=== PATIENT | female | born 1950 | race Caucasian/White ===

== ENCOUNTER 2023-06-20 12:33 | Emergency (ER) | payer MEDICARE, MEDICAID, SELFPAY ==
[2023-06-20] VITALS (12 sets, daily range): BP systolic 160–182; BP diastolic 80–119; PULSE 89–94; RESP 14–26; TEMP 36.8; O2SAT 93–100; BMI 21.9
--- NOTE | 2023-06-20 12:45 | ECG_ITS ---
[facility] Test Date: 2023-06-20 Pat Name: Margaret Anderson Department: Room: - Gender: Female Licensing Officer: : 1950 Requested By: ARGELIA VELASQUEZ Order Number: [id number] Reading MD: MOUSTAPHA TORRE Measurements Intervals [place] Rate: 89 P: 46 HI: 186 QRS: 37 QRSD: 100 T: 52 QT: 356 QTc: 402 Interpretive Statements 1100 Sinus rhythm 9110 normal ECG Compared to ECG 02/28/2022 19:29:45 No significant changes Electronically Signed On 06-21-2023 19:50:55 EDT by MOUSTAPHA TORRE
--- NOTE | 2023-06-20 12:45 | XR_ITS ---
The [address] [address] Patient Name: YARI MOBLEY MRN: [id number] date: 1950 Sex: F Assigned Patient Location: ED.MAIN Current Patient Location: ER Accession/Order Number: [id number] Exam Date: 06/20/2023 13:25 Report Date: 06/20/2023 14:19 At the request of: ANGELICA PAUL Procedure: XR chest 1V EXAM: XR chest 1V CLINICAL INDICATION: Shortness of breath, COPD history TECHNIQUE: Portable frontal semi-erect view of the chest. COMPARISON: None. FINDINGS: Lines and tubes: None. Lungs: Chronic COPD changes. No convincing focal infiltrates. No pleural effusion or pneumothorax. Heart: Cardiac and mediastinal contours are unremarkable. No overt pulmonary vascular congestion. Osseous structures: No acute abnormalities. XR/XR chest 1V IMPRESSION: No acute cardiopulmonary process. Electronically authenticated by: PRANAY MURPHY Date: 06/20/2023 14:19
--- NOTE | 2023-06-20 12:47 | ED_ITS ---
HPI - SOB/Dyspnea General Chief Complaint: Shortness of Breath/Dyspnea Stated Complaint: SHORTNESS OF BREATH Time Seen by Provider: 06/20/23 12:36 Source: patient Mode of arrival: ambulance Limitations: no limitations History of Present Illness HPI Narrative: 73-year-old female presents for a 2 to 3-day history of shortness of breath. She has a history of COPD. She has been taking nebulizer treatments at home. No fever. She has been coughing up a small amount of white phlegm. No vomiting or complaints of chest pain. Exertion makes it worse. Related Data Home Medications Medication Instructions Recorded Confirmed albuterol sulfate 2.5 mg/3 mL 2.5 mg inhalation Q4H PRN 06/20/23 06/20/23 (0.083 %) solution for nebulization shortness of breath or wheezing albuterol sulfate 90 mcg/actuation 2 puff inhalation Q4H PRN 06/20/23 06/20/23 aerosol inhaler shortness of breath or wheezing bumetanide 0.5 mg tablet 0.5 mg PO DAILY 06/20/23 06/20/23 buprenorphine 8 mg-naloxone 2 mg 1.5 tab sublingual DAILY 06/20/23 06/20/23 sublingual tablet buspirone 10 mg tablet 5 mg PO .LUNCH 06/20/23 06/20/23 buspirone 10 mg tablet 10 mg PO QPM 06/20/23 06/20/23 buspirone 10 mg tablet 15 mg PO QAM 06/20/23 06/20/23 geehcfpzwx-akidxmhdgpskd-mwyizbkj 1 tab PO Q6H PRN migraine headache 06/20/23 06/20/23 50 mg-325 mg-40 mg tablet gabapentin 100 mg capsule 100 mg PO Q8H 06/20/23 06/20/23 metoprolol tartrate 25 mg tablet 25 mg PO BID 06/20/23 06/20/23 ondansetron HCl 4 mg tablet 4 mg PO Q8H PRN nausea and vomiting 06/20/23 06/20/23 rosuvastatin 5 mg tablet 5 mg PO .QHS 06/20/23 06/20/23 tiotropium 2.5 mcg-olodaterol 2.5 2 puff inhalation QAM 06/20/23 06/20/23 mcg/actuation mist for inhalation (Stiolto Respimat) Previous Rx's Medication Instructions Recorded azithromycin 250 mg tablet See Rx Instructions PO .COMPLEX #6 06/20/23 (Zithromax Z-Anirudh) tabs prednisone 10 mg tablet See Rx Instructions .Route 06/20/23 .COMPLEX #30 tabs Allergies Allergy/AdvReac Type Severity Reaction Status Date / Time No Known Drug Allergies Allergy Verified 06/20/23 12:36 Review of Systems ROS Narrative A ten point review of systems is negative except as noted above. Exam Narrative Exam Narrative: Nurses note and vital signs reviewed and patient is not hypoxic. General: The patient appears in no apparent respiratory distress. Skin: Warm, dry, no pallor noted. There is no rash noted. Head: Normocephalic, atraumatic Eye: Normal conjunctiva, no drainage Ears, Nose, Mouth, and Throat: oral mucosa is moist. Nares patent. Cardiovascular: Regular Rate and Rhythm Respiratory: Bilateral rhonchi present. Breath sounds are equal. Back: non-tender GI: Soft and nontender Musculoskeletal: The patient has no evidence of calf tenderness, no pitting edema, symmetrical pulses noted bilaterally Neurological: A&O, normal speech Psychiatric: Cooperative Constitutional Vital Signs, click to edit/add: Last Vital Signs Temp 98.3 F 06/20/23 12:36 Pulse 94 H 06/20/23 15:10 Resp 26 H 06/20/23 15:10 BP 162/87 H 06/20/23 15:16 Pulse Ox 97 06/20/23 15:10 O2 Del Method Nasal Cannula 06/20/23 13:20 O2 Flow Rate 3 06/20/23 13:20 Course Vital Signs Vital signs: Vital Signs Temperature 98.3 F 06/20/23 12:36 Pulse Rate 94 H 06/20/23 12:36 Respiratory Rate 24 06/20/23 12:36 Blood Pressure 182/119 H 06/20/23 12:36 Pulse Oximetry 93 L 06/20/23 12:36 Oxygen Delivery Method Nasal Cannula 06/20/23 12:36 Oxygen Delivery Flow Rate 4 06/20/23 12:36 Temperature 98.3 F 06/20/23 12:36 Pulse Rate 94 H 06/20/23 15:10 Respiratory Rate 26 H 06/20/23 15:10 Blood Pressure 162/87 H 06/20/23 15:16 Pulse Oximetry 97 06/20/23 15:10 Oxygen Delivery Method Nasal Cannula 06/20/23 13:20 Oxygen Delivery Flow Rate 3 06/20/23 13:20 MDM - SOB/Dyspnea MDM Narrative Medical decision making narrative: Chest x-ray, COVID, and influenza test are all negative. She was given aerosol treatment and IV Solu-Medrol and feels better. She was able to ambulate. She was offered admission but does not feel that it is necessary and wishes to be discharged home. Treatment diagnosis and follow-up were discussed with the patient. I have no clinical suspicion of pulmonary embolism. Differential Diagnosis Differential diagnosis: Likely acute exacerbation of chronic obstructive airways disease, congestive heart failure and community acquired pneumonia Lab Data Attestation: I reviewed the patient's lab results. Labs: Lab Results 06/20/23 06/20/23 06/20/23 Range/Units 12:35 12:39 12:53 WBC 9.3 (4.0-11.0) 10^3/uL RBC 3.54 L (4.20-5.40) 10^6/uL Hgb 11.3 L (12.0-16.0) g/dL Hct 36.2 (36.0-48.0) % MCV 102.3 H (81.0-99.0) fL MCH 31.9 (26.7-34.0) pg MCHC 31.2 (29.9-35.2) g/dL RDW 13.9 (11.0-15.0) % Plt Count 271 (150-450) 10^3/uL MPV 10.0 (9.5-13.5) fL Neut % (Auto) 71.4 (43.0-75.0) % Lymph % (Auto) 20.1 L (20.5-60.0) % [place] % (Auto) 7.0 (1.7-12.0) % Eos % (Auto) 0.9 (0.9-7.0) % Baso % (Auto) 0.3 (0.2-2.0) % Neut # (Auto) 6.6 H (1.4-6.5) 10^3/uL Lymph # (Auto) 1.9 (1.2-3.8) 10^3/uL [place] # (Auto) 0.7 (0.3-0.8) 10^3/uL Eos # (Auto) 0.1 (0.0-0.7) 10^3/uL Baso # (Auto) 0.0 (0.0-0.1) 10^3/uL Abs Immat Gran (auto) 0.03 (0.00-0.03) 10^3/uL Imm/Tot Granulo (auto) 0.3 (0.0-0.5) % Sodium 139 (136-145) mmol/L Potassium 4.3 (3.5-5.1) mmol/L Chloride 96 L (98-107) mmol/L Carbon Dioxide 34.8 H (21.0-32.0) mmol/L Anion Gap 12.5 BUN 9.0 (7.0-18.0) mg/dL Creatinine 0.85 (0.55-1.02) mg/dL Est GFR ( Amer) >60 (>=60) Est GFR (Non-Af Amer) >60 (>=60) BUN/Creatinine Ratio 10.6 Glucose 96 (74-106) mg/dL Calcium 9.1 (8.5-10.1) mg/dL Troponin I High Sens 15.7 (4.0-51.3) pg/mL Influenza Type A Ag Negative Influenza Type B Ag Negative SARS-CoV-2 Ag (CV2AG) Negative (NEGATIVE) Imaging Data Chest x-ray: Radiologist's impression: ITS Impressions Chest X-Ray 06/20/23 12:45 IMPRESSION: No acute cardiopulmonary process. Electronically authenticated by: PRANAY MURPHY Date: 06/20/2023 14:19 Critical Care Time Critical Care Time Critical Care Time: Yes Total Critical Care Time: 35 Attestation: Due to the high probability of sudden and clinically significant deterioration in the patient's condition he/she required the highest level of my preparedness to intervene urgently I provided critical care time including documentation time, medication orders and management, reevaluation, vital sign assessment, ordering and reviewing of lab tests, ordering and reviewing of x-ray studies, and admission orders. Aggregate critical care time is 35 minutes including only time during which I was engaged in work directly related to his/her care and did not include time spent treating other patients simultaneously. Discharge Plan Discharge Stand Alone Forms: Portal Instructions Chief Complaint: Shortness of Breath/Dyspnea Clinical Impression: Acute exacerbation of chronic obstructive pulmonary disease Patient Disposition: Home, Self-Care Time of Disposition Decision: 15:29 Condition: Good Mode of Transportation: Private Vehicle Prescriptions / Home Meds: New prednisone 10 mg tablet See Rx Instructions .ROUTE .COMPLEX Qty: 30 0RF Rx Instructions: 4 by mouth daily for three days then 3 by mouth daily for three days then 2 by mouth daily for three days then 1 by mouth daily for three days azithromycin [Zithromax Z-Anirudh] 250 mg tablet See Rx Instructions .ROUTE .COMPLEX Qty: 6 0RF Rx Instructions: For 250 mg dose pack: take 500 mg today (day 1), then 250 mg for 4 days (days 2-5) No Action albuterol sulfate 2.5 mg /3 mL (0.083 %) solution for nebulization 2.5 mg inhalation Q4H PRN (Reason: shortness of breath or wheezing) albuterol sulfate 90 mcg/actuation HFA aerosol inhaler 2 puff INHALATION Q4H PRN (Reason: shortness of breath or wheezing) bumetanide 0.5 mg tablet 0.5 mg PO DAILY buprenorphine-naloxone 8-2 mg tablet, sublingual 1.5 tab SUBLINGUAL DAILY buspirone 10 mg tablet 15 mg PO QAM buspirone 10 mg tablet 5 mg PO .LUNCH buspirone 10 mg tablet 10 mg PO QPM hpqubksvir-ifwigvwpyikxo-ryzi 50-325-40 mg tablet 1 tab PO Q6H PRN (Reason: migraine headache) gabapentin 100 mg capsule 100 mg PO Q8H metoprolol tartrate 25 mg tablet 25 mg PO BID ondansetron HCl 4 mg tablet 4 mg PO Q8H PRN (Reason: nausea and vomiting) rosuvastatin 5 mg tablet 5 mg PO .QHS Stiolto Respimat 2.5-2.5 mcg/actuation mist 2 puff INHALATION QAM Instructions: COPD (Chronic Obstructive Pulmonary Disease) (ED) Referrals: ARGELIA VELASQUEZ [Primary Care Provider] - 1 week
[2023-06-20] MEDS: ALBUTEROL SULFATE 2.5 MG/3 ML VIAL NEB IH (12:55)
[2023-06-20 12:56] LABS: Basophils Percent Auto 0.3 % (0.2-2.0); Eosinophils Absolute Auto 0.1 10^3/uL (0.0-0.7); Eosinophils Percent Auto 0.9 % (0.9-7.0); Hematocrit 36.2 % (36.0-48.0); Hemoglobin 11.3 g/dL (12.0-16.0); Immature Granulocytes Abs Auto 0.03 10^3/uL (0.00-0.03); Immature Granulocytes Pct Auto 0.3 % (0.0-0.5); Lymphocytes Absolute Auto 1.9 10^3/uL (1.2-3.8); Lymphocytes Percent Auto 20.1 % (20.5-60.0); Mean Corpuscular HGB Conc 31.2 g/dL (29.9-35.2); Mean Corpuscular Hemoglobin 31.9 pg (26.7-34.0); Mean Corpuscular Volume 102.3 fL (81.0-99.0); Monocytes Absolute Auto 0.7 10^3/uL (0.3-0.8); Neutrophils Absolute Auto 6.6 10^3/uL (1.4-6.5); Neutrophils Percent Auto 71.4 % (43.0-75.0); Platelet Count 271 10^3/uL (150-450); Red Blood Count 3.54 10^6/uL (4.20-5.40); Red Cell Distribution Width 13.9 % (11.0-15.0); White Blood Count 9.3 10^3/uL (4.0-11.0)
[2023-06-20] MEDS: METHYLPREDNISOLONE SOD SUCC PF 125 MG/2 ML VIAL IVP (13:04)
[2023-06-20 13:07] LABS: Anion Gap 12.5; BUN Creatinine Ratio 10.6; Calcium 9.1 mg/dL (8.5-10.1); Carbon Dioxide 34.8 mmol/L (21.0-32.0); Chloride 96 mmol/L (98-107); Estimated GFR (African America >60 (>=60); Estimated GFR (Non-African Ame >60 (>=60); Glucose 96 mg/dL (74-106); Potassium 4.3 mmol/L (3.5-5.1); Sodium 139 mmol/L (136-145)
[2023-06-20] MEDS: ACETAMINOPHEN 325 MG TABLET 650 MG PO (13:15)
[2023-06-20 13:30] LABS: SARS-CoV-2 Ag NEGATIVE (NEGATIVE)
[2023-06-20 13:31] LABS: Influenza Virus A Antigen Negative; Influenza Virus B Antigen Negative; Internal Control Within Normal Limits
[2023-06-20 14:27] LABS: Troponin I High Sensitivity 15.7 pg/mL (4.0-51.3)
== END 2023-06-20 16:09 | disposition home or self-care (01) ==
PROVIDERS: Emergency Provider Emergency Medicine; PCP Family Medicine
DX: J44.1 Chronic obstructive pulmonary disease with (acute) exacerbation (principal); Z20.822 Contact with and (suspected) exposure to COVID-19; Z79.899 Other long term (current) drug therapy
CPT/HCPCS: 36415; 71045; 80048; 84484; 85025; 87804; 87811; 93005; 94640; 99285; J2930

== ENCOUNTER 2023-07-15 12:29 | Outpatient (OUT) | payer MEDICARE, MEDICAID, SELFPAY ==
[2023-07-15 14:12] LABS: Alanine Aminotransferase 14 U/L (14-59); Albumin Globulin Ratio 1.2; Albumin Level 3.7 g/dL (3.4-5.0); Alkaline Phosphatase 128 U/L (46-116); Anion Gap 12.7; Aspartate Amino Transferase 17 U/L (15-37); BUN Creatinine Ratio 10.3; Bilirubin Total 0.4 mg/dL (0.2-1.0); Calcium 9.2 mg/dL (8.5-10.1); Carbon Dioxide 30.8 mmol/L (21.0-32.0); Chloride 98 mmol/L (98-107); Chol HDL Ratio 1.7; Cholesterol 181 mg/dL (<=200); Estimated GFR (African America >60 (>=60); Estimated GFR (Non-African Ame >60 (>=60); Globulin 3.2 g/dL; Glucose 91 mg/dL (74-106); HDL Cholesterol 106 mg/dL (40-60); Potassium 4.5 mmol/L (3.5-5.1); Sodium 137 mmol/L (136-145); Total Protein 6.9 g/dL (6.4-8.2); Triglycerides 60 mg/dL (<=150)
== END 2023-07-15 12:30 | disposition home or self-care (01) ==
LOC: LAB 12:29
PROVIDERS: PCP Family Medicine; Visit Provider Family Medicine
DX: E78.2 Mixed hyperlipidemia (principal); I10 Essential (primary) hypertension; E44.0 Moderate protein-calorie malnutrition
CPT/HCPCS: 36415; 80053; 80061

== ENCOUNTER 2023-11-22 13:17 | Emergency (ER) | payer MEDICARE, MEDICAID, SELFPAY ==
[2023-11-22] VITALS (70 sets, daily range): BP systolic 119–172; BP diastolic 68–107; PULSE 87–103; TEMP 37.1; O2SAT 90–100; BMI 19.5
--- NOTE | 2023-11-22 13:22 | XR_ITS ---
The [place] [id number] Patient Name: YARI MOBLEY MRN: [id number] date: 1950 Sex: F Assigned Patient Location: ED.MAIN Current Patient Location: ER Accession/Order Number: [id number] Exam Date: 11/22/2023 13:40 Report Date: 11/22/2023 14:53 At the request of: EMANUEL SMITH Procedure: XR hip RT 2V w/ pelvis EXAM: XR hip RT 2V w/ pelvis HISTORY: pain, decreased ROM, cannot ambulate COMPARISON: No prior x-ray. CT abdomen pelvis 03/12/2017. TECHNIQUE: Single AP pelvis, AP lateral right hip. FINDINGS: Right hip replacement hardware with dislocated femoral component posterior superiorly.. Acetabular component remains intact and normally positioned. No fracture is visible. The prosthetic femoral component is not completely visualized. No fracture elsewhere. Normal-appearing left hip and SI joints. Prominent bowel gas and stool lower abdomen pelvis. Vascular soft tissue calcifications. XR/XR hip RT 2V w/ pelvis IMPRESSION: Dislocated right femoral prosthesis. No evidence of fracture. This is a change compared to CT scan 03/12/2017. Electronically authenticated by: DARIEL HAWKINS Date: 11/22/2023 14:53
--- NOTE | 2023-11-22 13:25 | PC.NURSE ---
pt states hit left hip on TV stand, home health nurse caught pt before she could fall. pt denies any injuries to right hip. pt states when she woke up she had right hip pain. pt c/o of right hip pain x2 days. Shortening of right leg noted.
[2023-11-22] MEDS: KETOROLAC TROMETHAMINE 30 MG/ML VIAL IVP (13:38)
[2023-11-22] MEDS: FENTANYL CITRATE/PF 100 MCG/2 ML VIAL 50 MCG IV ×5 (13:38→23:58)
--- OUTSIDE RECORDS SUMMARY | 2023-11-22 13:51 | XMS_ITS | CCD ---
Author Organization [facility] Care Team Providers Care Set Up Mechanic [employer] Name Role Phone PHYSICIAN, DEFAULT Admitting Unavailable PHYSICIAN, DEFAULT Attending Unavailable Елена Gaines Primary Care Physician Yvonne Shearer Unavailable Unavailable Yvan Cantu Unavailable DR RUBEN VELASQUEZ Primary Care Unavailable MANDI KHAN Admitting Unavailable MANDI KHAN Attending Unavailable MANDI KHAN Consulting Unavailable RYLIE DIANE Consulting Unavailable RON, DR STOUT Primary Care Unavailable LUPE PATEL Admitting Unavailable LUPE PATEL Attending Unavailable GURMEET STACY Consulting Unavailable LUPE PATEL Consulting Unavailable Kaila Oliveira Consulting UnavailREGULO Estrella Consulting Unavailable RON, DR STOUT Primary Care Unavailable TERRA, DR MCKEON Admitting Unavailable TERRA, DR MCKEON Attending Unavailable TERRA, DR MCKEON Consulting Unavailable FELISHA BEY Consulting Unavailable RUBEN VELASQUEZ Primary Care Physician Unavail able Charles Tenorio Attending Unavailable Charles Tenorio Admitting Unavailable Ruben Velasquez MD Primary Care Provider Ruben Velasquez MD Unavailable MD Ruben Velasquez Primary Care Provider MD Solo Yepez Jr Emergency Provider DO Mc Frye Admit Provider DO Mc Frye Attending Provider [phone] MD Aylin Borden Admit Provider MD Solo Sargent Other Provider MD Mc Cabrales Other Provider [phone] MD Alayna Jones Other Provider [phone] SHAYY Conde Other Provider DO Ivan Mcintyrein A Other Provider MD Surendra Ruiz II Other Provider DO Ab Leungin A Other Provider MD Yvan Cantu Other Provider MD Nils Boudreaux Other Provider MD Jennifer Blanco Attending Provider MD Ruben Velasquez Primary Care Provider MD Solo Yepez Jr Emergency Provider MD Aylin Borden Admit Provider MD Solo Sargent Other Provider MD Mc Cabrales Other Provider MD Alayna Jones Other Provider ARELY Conde-Kinjal Marcum Other Provider DO Emir Mcintyre A Other Provider MD Surendra Ruiz II Other Provider DO Garry Leung A Other Provider MD Yvan Cantu Other Provider [phone] MD Nils Boudreaux Other Provider MD Jennifer Blanco Attending Provider MD Nils Boudreaux Admit Provider MD Nils Boudreaux Attending Provider MD Cale Burgess Other Provider RUBEN Deleon Other Provider Unavailable RUBEN Willoughby Other Provider Unavailable RUBEN Patricia Other Provider Unavailable RUBEN Cordero Other Provider Unavailable RUBEN Freire Other Provider Unavailable RUBEN Rogel Other Provider Unavailable MD Sofiya Suero Other Provider DO Viridiana Mandujano Other Provider MD Lino Mackey Other Provider DO Enrique Mccormick Other Provider MD Chance Menchaca Other Provider MD Jennifer Blanco Other Provider MD Bob Rice Other Provider Unavailable RAUDEL Cotton Other Provider MD Jessica Lemon Other Provider MD Savage Wick Other Provider MD Yeimy Tapia Other Provider MD Maryam Felton Other Provider DO Mc Frye Other Provider [phone] MD Lorenzo Gomez Other Provider MD Domenico Leach Other Provider ARELY Rosario-C Yesenia Pryor Other Provider RAUDEL Graffi M Other Provider Unavailable MD Nathaniel Noyola Other Provider MD Allen Shoemaker Other Provider MD Evans Stubbs Other Provider MD Lucas Anderson Other Provider Unavailable MD Rad Shen Other Provider DO Echo Jasso Other Provider DO Yakov Mccormick Other Provider RAUDEL Martinez Other Provider DO Volodymyr Pickard Other Provider [phone] MD Bernice Motley Other Provider [phone] RAUDEL Urias Other Provider [phone] RAUDEL Castañeda Other Provider MD Aylin Borden Other Provider MD Chente Tan Other Provider DO Tayo Garcia T Other Provider [phone] DO Ace Romo Other Provider MD Lucas Stubbs Other Provider RUBEN Drew Other Provider Unavailable DO Kristopher Kelly Other Provider RAUDEL Smith Other Provider DO Rosa Elena Prather Other Provider MD Terrell Gonzalez Attending Provider [phone] [facility] Primary Care Provider MD Surendra Ruiz II Attending Provider Terrell Gonzalez Attending Unavailable MD Ruben Velasquez Attending Provider [phone] Dr. Terrell Gonzalez Unavailable Unavailable NON STAFF Primary Care Provider Unavailabl e NON STAFF Attending Provider Unavailable RUBEN VELASQUEZ Attending Unavailable RUBEN VELASQUEZ Attending Unavailable RUBEN VELASQUEZ Attending Unavailable RUBEN VELASQUEZ Attending Unavailable RUBEN VELASQUEZ Attending Unavailable MD Ruben Velasquez Primary Care Provider MD Rbuen Velasquez Primary Care Provider MD Nils Boudreaux Admit Provider MD Nils Boudreaux Attending Provider [phone] MD Cale Burgess Other Provider RUBEN Deleon Other Provider Unavailable RUBEN Willoughby Other Provider Unavailable RUBEN Patricia Other Provider Unavailable RUBEN Cordero Other Provider Unavailable RUBEN Freire Other Provider Unavailable RUBEN Rogel Other Provider Unavailable MD Sofiya Suero Other Provider DO Viridiana Mandujano Other Provider [phone] MD Lino Mackey Other Provider DO Enrique Mccormick Other Provider MD Chance Mecnhaca Other Provider [phone] MD Jennifer Blanco Other Provider MD Bob Rice Other Provider Unavailable RAUDEL Cotton Other Provider MD Jessica Lemon Other Provider MD aSvage Wick Other Provider MD Yeimy Tapia Other Provider MD Maryam Felton Other Provider DO Mc Frye Other Provider MD Lorenzo Gomez Other Provider MD Domenico Leach Other Provider ARELY Rosario-C Yesenia Pryor Other Provider RAUDEL Graff Other Provider Unavailable MD Nathaniel Noyola Other Provider MD Allen Shoemaker Other Provider MD Evans Stubbs Other Provider MD Lucas Anderson Other Provider Unavailable MD Rad Shen Other Provider DO Echo Jasso Other Provider DO Yakov Mccormick Other Provider RAUDEL Martinez Other Provider DO Volodymyr Pickard Other Provider [phone] MD Bernice Motley Other Provider RAUDEL Urias Other Provider RAUDEL Castañeda Other Provider MD Aylin Borden Other Provider MD Chente Tan Other Provider [phone] DO Tayo Garcia Other Provider DO Ace Romo Other Provider MD Lucas Stubbs Other Provider RUBEN Drew Other Provider Unavailable Robin DO Summers Other Provider CONNER SmithN Kayy Amos Other Provider [phone] Yamilka DO [place] Other Provider MD Terrell Gonzalez Attending Provider [phone] [facility] Primary Care Provider MD Surendra Ruiz II Attending Provider [phone] MD Ruben Velasquez Attending Provider NON STAFF Primary Care Provider UnavailNils Todd Admitting Unavailable Cale Burgess Consulting Unavailab Ruben Pruett Primary Care Unavailable Nils Boudreaux Attending Unavailable Eva Deleon Consulting Unavailable Mohini Willoughby Consulting Unavailable Abbey Patricia Consulting Unavailable Nanda Cordero Consulting Unavailable Arabella Freire Consulting Unavailable Trinh Rogel Consulting Unavailable Sofiya Suero Consulting Unavailable Viridiana Mandujano Consulting Unavailable Lino Mackey Consulting Unavailable Enrique Mccormick Consulting UnavailChance Li Consulting Unavailable Jennifer Blanco Consulting Unavailable Bob Rice Consulting Unavailable Jo Cotton Consulting UnavailJessica Gurrola Consulting Unavailable Savage Wick Consulting Unavailable Yeimy Tapia Consulting Unavailable Maryam Felton Consulting Unavailable Mc Frye Consulting Unavailable Lorenzo Gomez Consulting Unavailable Domenico Leach Consulting Unavailable Yesenia Rosario Consulting Unavailable Hunter Graff Consulting Unavailable Nathaniel Noyola Consulting Unavailab Allen Del Angel Consulting Unavailable Evans Stubbs Consulting Unavailable Lucas Anderson Consulting Unavailable Rad Shen Consulting Unavailable Echo Jasso Consulting Unavailable Yakov Mccormick Consulting Unavailable Angelica Martinez Consulting Unavailable Volodymyr Pickard Consulting Unavailable Bernice Motley Consulting Unavailable Silvia Urias Consulting Unavailable Augustina Castañeda Consulting Unavailable Alahmad, Alaa Consulting Unavailable Chente Tan Consulting Unavailable Tayo Garcia Consulting Unavailable Ace Romo Consulting Unavailable Lucas Stubbs Consulting Unavailable Faith Drew Consulting Unavailable Kristopher Kelly Consulting Unavailable Kayy Smith Consulting Unavailable Rosa Elena Prather Consulting Unavailable Hemeyer, Edward J Admitting Unavailable Hemeyer, Edward J Attending Unavailable Hemeyer, Edward J Primary Care Unavailable Terrell Gonzalez Attending Unavailable Terrell Gonzalez Admitting Unavailable Surendra Ruiz II Attending Unavailjersey e Surendra Ruiz II Admitting Unavailabl e NON STAFF Primary Care Unavailable Hemeyer, Edward J Admitting Unavailable Hemeyer, Edward J Attending Unavailable NON STAFF Primary Care Unavailable Hemeyer, Edward J Admitting Unavailable Hemeyer, Edward J Attending Unavailable NON STAFF Primary Care Unavailable Hemeyer, Edward J Attending Unavailable Hemeyer, Edward J Admitting Unavailable Terrell Gonzalez Attending Unavailable Terrell Gonzalez Admitting Unavailable Hemeyer, Edward J Admitting Unavailable Hemeyer, Edward J Attending Unavailable Ron, Edward J Primary Care Unavailable Surendra Ruiz II Attending UnavailSurendra Viera II Admitting Unavailabl e [facility] Primary Care Unavaila Solo Palma Consulting Unavailable Hemeyer, Edward J Primary Care Unavailable Jennifer Blanco Attending Unavailable Alahmad, Alaa Admitting Unavailable Mc Cabrales Consulting Unavailable Alayna Jones Consulting Unavailable Елена Conde Consulting Unavailable Emir Mcintyre Consulting Unavailable Surendra Ruiz II Consulting UnavailGarry Sorenson Consulting Unavailable Yvan Cantu Consulting Unavaila Nils Soto Consulting Unavailable Allergies Allergy Classification Reported Allergen(s) Allergy Type Date of Onset Reaction(s) Facility (3 sources) Acetaminophen; Translations: [acetaminophen] Drug Allergy [facility] (5 sources) Doxycycline; Translations: [Doxycycline] Drug Allergy vomiting [facility] Repository (1 source) Acetaminophen; Translations: [Tylenol PM] Drug Allergy [facility] Repository (2 sources) Citalopram Drug Allergy 10-29-2022 [facility] (2 sources) DULoxetine Drug Allergy 10-29-2022 [facility] (2 sources) Furosemide Drug Allergy 10-29-2022 [facility] (2 sources) levoFLOXacin Drug Allergy 04-23-2022 [facility] (1 source) Doxycycline Drug Allergy 08-28-2023 [place] Repository Medications Current Medications Medication Drug Class(es) Dates Sig (Normalized) Sig (Original) acetaminophen 325 mg / butalbital 50 mg / caffeine 40 mg oral tablet (18 sources) Barbiturate, Central Nervous System Stimulant, Methylxanthine Start: 06-23-2023 take 1 tablet by mouth four times daily Butalbital-Aceta minophen-Caff Active 1 TAB PO Four times daily June 23, 2023 12:00am Start: 06-23-2023 Start: 06-23-2023 take 1 tablet by cullen th twice daily Dhmgspqyvf-Lbwouapqxotdm-Ucnb Active 1 TAB PO .twice daily June 23, 2023 12:00am Start: 02-19-2023 End: 05-20-2023 take 1 tablet by mouth every six hours tioxxczrco-tuoqorpisuoud-vvtppnwe 50-325-40 MG tablet Indications: Episodic tension-type headache, not intractable Take 1 tablet by mouth every 6 (six) hours if needed for migraine. 270 tablet 0 02/19/2023 05/20/2023 Active take 1 tablet by cullen th twice daily as needed Cmygncnkez-GXGM-Vwshurom 50-325-40 MG TAKE 1 TABLET BY MOUTH TWICE A DAY NEEDED Oral for 30 Active Acetaminophen / Codeine (2 sources) Opioid Agonist Start: 03-01-2010 take 1 tablet by mouth every four hours as needed acetaminophen-codeine #4 1 tab, Oral, q4hr PRN migraine, Refill(s) 0 Start Date: 03/01/10 Status: Ordered albuterol 0.83 mg/ml inhalation solution (20 sources) beta2-Adrener gic Agonist Start: 07-16-2023 Albuterol Sulfate Active 2.5 MG CNTNEBULIZ Every 4 hours July 16, 2023 12:00am Start: 07-16-2023 Start: 07-16-2023 End: 07-25-2023 take 1.25 mg by inhalation every eight hours Albuterol Sulfate Discontinued 1.25 MG INHALATION Every 8 hours July 16, 2023 12:00am July 25, 2023 9:38am Start: 07-16-2023 End: 07-25-2023 Start: 06-23-2023 End: 07-25-2023 take 2 puff(s) by inhalation four times daily as needed Albuterol Sulfate (Ventolin Hfa) 90 mcg/actuation HFA aerosol inhaler Discontinued 2 PUFF INHALATION Four times daily June 23, 2023 12:00am July 25, 2023 9:38am FreeTextSi puffs as needed Inhalation up to 4 times/day; Note: Source Status: Refill; Refills: 5; Provider: Alondra Escobar Start: 06-23-2023 End: 07-25-2023 Start: 02-19-2023 End: 08-18-2023 albuterol (2.5 MG/3ML) 0.083 % nebulizer solution Indications: Simple chronic bronchitis (CMS/HCC) Take 3 mL (2.5 mg) by nebulization every 4 (four) hours if needed for shortness of breath. 810 mL 1 02/19/2023 08/18/2023 Active Start: 02-19-2023 End: 08-18-2023 take 2 puff(s) by inhalation every six hours for wheezing albuterol HFA (Ventolin HFA) 90 mcg/act inhaler Indications: Simple chronic bronchitis (CMS/HCC) Inhale 2 puffs every 6 (six) hours if needed for wheezing. 54 g 1 02/19/2023 08/18/2023 Active Start: 01-23-2010 take 2 puff(s) by in halation four times daily as needed ProAir HFA 2 puff(s), Inhalation, QID PRN shortness of breath, Refill(s) 0 Start Date: 01/23/10 Status: Ordered take 2 puff(s) by in halation four times daily as needed Ventolin HFA 108 (90 Base) MCG/ACT 2 puffs as needed Inhalation up to 4 times/day for 30 days Active ALPRAZolam 0.5 mg oral tablet (2 sources) Benzodiazepine Start: 03-01-2010 take 1 tablet by mouth at bedtime as needed for sleep Xanax 0.5 mg oral tablet = 1 tab(s), Oral, Bedtime, PRN PRN Sleep, Refills(s) 0 Start Date: 03/01/10 Status: Ordered apixaban 5 mg oral tablet (6 sources) Factor Xa Inhibitor Start: 10-01-2023 take 1 tablet by mouth twice daily Apixaban (Eliquis) 5 mg tablet Active 5 MG PO Twice daily October 01, 2023 12:00am ascorbic acid 500 mg oral tablet (13 sources) Vitamin C Start: 07-25-2023 End: 09-10-2023 take 1 tablet by mouth twice daily at mealtime Ascorbic Acid (Vitamin C) (Vitamin C) 500 mg Tablet Active 500 MG PO Twice daily with meals 0 July 25, 2023 12:00am atorvastatin 10 mg oral tablet (12 sources) HMG-CoA Reductase Inhibitor Start: 08-18-2023 End: 09-10-2023 take 10 mg by mouth once daily Atorvastatin Active 10 MG PO Daily 0 August 18, 2023 12:00am azithromycin 250 mg oral tablet (2 sources) Macrolide Antimicrobial Start: 12-09-2013 azithromycin 250 mg Tab 250 mg, Oral, As Directed, # 6 tab(s), Refills(s) 0 Start Date: 12/09/13 Status: Ordered bisacodyl 5 mg delayed release oral tablet (12 sources) Stimulant Laxative Start: 07-25-2023 take 10 mg by mouth once daily Bisacodyl Active 10 MG PO Daily 0 July 25, 2023 12:00am buprenorphine 2 mg sublingual tablet (17 sources) Partial Opioid Agonist Start: 08-18-2023 End: 10-01-2023 take 3 mg under the tongue once daily Buprenorphine Hcl Active 3 MG SUBLINGUAL Daily October 01, 2023 11:25am Start: 08-18-2023 End: 10-01-2023 take 4 mg under the tongue every eight hours Buprenorphine Hcl Discontinued 4 MG SUBLINGUAL Every 8 hours 40 7 August 18, 2023 12:00am October 01, 2023 11:31am busPIRone hydrochloride 10 mg oral tablet (20 sources) Start: 07-16-2023 End: 09-10-2023 take 10 mg by mouth three times daily Buspirone Active 10 MG PO Three times daily July 16, 2023 12:00am Start: 06-23-2023 End: 07-16-2023 take 15 mg by mouth twice daily Buspirone Discontinued 15 MG PO Twice daily June 23, 2023 12:00am July 16, 2023 12:17pm Start: 12-12-2022 busPIRone (Bus par) 10 MG tablet Indications: Generalized anxiety disorder (CMS/HCC) 1.5 tablet in AM, 0.5 tablet at lunch, 1 tablet in PM 270 tablet 1 12/12/2022 Active take 1 tablet by cullen th twice daily in the morning BuSpar 15 MG 1 tablet 15 mg in am 5 mg in pm and 10 mg at bedtime Orally Twice a day Active Caffeine (2 sources) Central Nervous System Stimulant, Methylxanthine Start: 03-01-2010 caffeine tab caffeine tab, prn migraine, for 30 day(s) Start Date: 03/01/10 Status: Ordered calcium citrate 1040 mg oral tablet (6 sources) Start: 10-01-2023 take 250 mg by mouth twice daily Calcium Citrate Active 250 MG PO Twice daily October 01, 2023 12:00am cloNIDine hydrochloride 0.1 mg oral tablet (2 sources) Central alpha-2 Adrenergic Agonist Start: 01-13-2022 take 1 tablet by mouth every twenty-four hours as needed for hypertension cloNIDine (Catapres) 0.1 MG tablet Take 0.1 mg by mouth Daily as needed for high blood pressure. 0 01/13/2022 Active ferrous sulfate 324 mg delayed release oral tablet (19 sources) Start: 10-01-2023 take 324 mg by mouth once daily Ferrous Sulfate Active 324 MG PO Daily October 01, 2023 11:26am Start: 08-18-2023 End: 09-10-2023 take 1 tablet by mouth twice daily at mealtime Ferrous Sulfate Oral Tablet 325 (65 Fe) MG 1 tablet Tablet Oral Give 1 tablet by mouth two times a day related to ACUTE POSTHEMORRHAGIC ANEMIA (D62) with meals 08/18/2023 17:00:00 09/10/2023 18:35:00 Aborted Start: 07-25-2023 End: 10-01-2023 take 324 mg by mouth twice daily at mealtime Ferrous Sulfate Discontinued 324 MG PO Twice daily with meals 0 July 25, 2023 12:00am October 01, 2023 11:31am furosemide 40 mg oral tablet (2 sources) Loop Diuretic Start: 03-04-2010 take 1 tablet by mouth once daily furosemide 40 mg Tab 40 mg = 1 tab(s), Oral, Daily, Refills(s) 0 Start Date: 03/04/10 Status: Ordered gabapentin 100 mg oral capsule (13 sources) Anti-epileptic Agent Start: 07-16-2023 End: 08-21-2023 take 100 mg by mouth three times daily Gabapentin Active 100 MG PO Three times daily July 16, 2023 12:00am 12 hr guaiFENesin 600 mg extended release oral tablet (5 sources) Start: 07-16-2023 take 1 tablet by mouth every twelve hours, then take 1 tablet by mouth every twelve hours Guaifenesin (Mucus Relief Er) 600 mg tablet extended release 12hr Active 600 MG PO Every 12 hours July 16, 2023 12:00am For 30 days Start: 02-19-2023 take 1 tablet by cullen th every twelve hours as needed guaiFENesin (Mucus Relief) 600 MG 12 hr tablet Indications: Panlobular emphysema (CMS/HCC) TAKE 1 TABLET BY MOUTH EVERY 12 HOURS NEEDED FOR 30 DAYS 180 tablet 1 02/19/2023 Active meclizine hydrochloride 25 mg oral tablet (15 sources) Antiemetic Start: 07-16-2023 take 25 mg by mouth three times daily Meclizine Active 25 MG PO Three times daily July 16, 2023 12:00am Start: 07-16-2023 End: 09-10-2023 Start: 03-25-2023 End: 06-23-2023 take 1 tablet by mouth three times daily as needed for dizziness meclizine (Antivert) 25 MG tablet Indications: Dizziness Take 1 tablet (25 mg) by mouth 3 (three) times a day as needed for dizziness 120 tablet 0 03/25/2023 06/23/2023 Active melatonin 5 mg oral tablet (12 sources) Start: 08-18-2023 End: 10-01-2023 take 1 tablet by mouth at bedtime for sleep Melatonin Oral Tablet 5 MG 1 tablet Tablet Oral Give 1 tablet by mouth at bedtime for sleep 08/18/2023 19:00:00 metoprolol tartrate 25 mg oral tablet (15 sources) beta-Adrenergic Tigre Start: 07-16-2023 End: 09-10-2023 take 25 mg by mouth twice daily Metoprolol Tartrate Active 25 MG PO Twice daily July 16, 2023 12:00am Start: 12-12-2022 End: 06-10-2023 take 1 tablet by mouth in the morning metoprolol tartrate (Lopressor) 25 MG tablet Indications: Primary hypertension (CMS/HCC) Take 1 tablet (25 mg) by mouth in the morning and 1 tablet (25 mg) before bedtime. 180 tablet 1 12/12/2022 06/10/2023 Active Multivitamin preparation (1 source) Start: 10-01-2023 take 1 tablet by mouth once daily Multivitamin Active 1 TAB PO Daily October 01, 2023 12:00am ondansetron 4 mg oral tablet (19 sources) Serotonin-3 Receptor Antagonist Start: 02-19-2023 End: 09-10-2023 take 1 tablet by mouth every eight hours as needed for nausea and vomiting Ondansetron Hcl Active 4 MG PO Every 8 hours June 23, 2023 12:00am FreeTextSig: TAKE 1 TABLET BY MOUTH NEEDED FOR NAUSEA AND VOMITING Oral every 8 hours; Note: Source Status: Taking; Refills: 5; Provider: DRE TALBOT take 1 tablet by cullen th every eight hours as needed for nausea and vomiting Ondansetron HCl 4 MG TAKE 1 TABLET BY MO UTH NEEDED FOR NAUSEA AND VOMITING Oral every 8 hours for 30 days Active Oxygen (3 sources) Start: 06-23-2023 Oxygen Active 0 .Route June 23, 2023 12:00am 2 liters in pm and prn DME Start: 06-23-2023 Oxygen Active 0 .ROUTE June 23, 2023 12:00am 2 liters in pm and prn DME Oxygen 2 liters pm and prn day (3 sources) Oxygen 2 liters pm and prn day at night and during the day prn Active Potassium Acetate (2 sources) Start: 06-05-19 11 potassium acetate Refills(s) 0 Start Date: 06/04/10 Status: Ordered Simvastatin (2 sources) HMG-CoA Reductase Inhibitor Start: 06-05-19 11 simvastatin Oral, Once a day (at bedtime), Refills(s) 0 Start Date: 06/04/10 Status: Ordered tiotropium 0.018 mg inhalation powder (2 sources) Anticholinergic Start: 03-01-20 10 Spiriva 18 mcg inhalation capsule 18 microgram = 1 EA, Inhalation, Daily, Refills(s) 0 Start Date: 03/01/10 Status: Ordered Tiotropium Reagan (Spiriva With Handihaler) 18 mcg capsule, w/inhalation device (3 sources) Start: 10-01-19 take 1 capsule by inhalation once daily Tiotropium Reagan (Spiriva With Handihaler) 18 mcg capsule, w/inhalation device Active 1 CAP INHALATION Daily October 01, 2023 12:00am puncture 1 cap using device; one dose = 2 inhalations Start: 07-25-2023 End: 08-18-2023 take 1 capsule by inhalation once daily Tiotropium Reagan (Spiriva With Handihaler) 18 mcg capsule, w/inhalation device Discontinued 1 CAP INHALATION Daily July 25, 2023 12:00am August 18, 2023 11:37am puncture 1 cap using device; one dose = 2 inhalations Start: 07-25-2023 take 1 capsule by in halation once daily Tiotropium Reagan (Spiriva With Handihaler) 18 mcg capsule, w/inhalation device Active 1 CAP INHALATION Daily July 25, 2023 12:00am puncture 1 cap using device; one dose = 2 inhalations (20 sources) Start: 10-01-2023 Start: 07-25-2023 End: 08-18-2023 Start: 07-16-2023 Start: 06-23-2023 Completed/Discontinued Medications Medication Drug Class(es) Dates Sig (Normalized) Sig (Original) acetaminophen 325 mg oral tablet (17 sources) Start: 08-26-2023 End: 09-10-2023 take 2 tablets by mouth every four hours as needed for pain Acetaminophen Oral Tablet 325 MG 2 tablet Tablet Oral Give 2 tablet by mouth every 4 hours as needed for pain or temperature greater that 101 08/26/2023 20:15:00 09/10/2023 18:35:00 Aborted Start: 07-25-2023 End: 08-18-2023 take 2 tablets by mouth every six hours Acetaminophen (Tylenol) 325 mg Tablet Discontinued 650 MG PO Every 6 hours July 25, 2023 12:00am August 18, 2023 11:37am Start: 07-25-2023 End: 08-18-2023 Start: 06-04-2010 acetaminophen Refills(s) 0 Start Date: 06/04/10 Status: Ordered take 1 tablet by clulen th every four hours as needed acetaminophen (Tylenol) 325 MG tablet Take 325 mg by mouth every 4 (four) hours if needed. 0 Active acetaminophen 325 mg / oxyCODONE hydrochloride 5 mg oral tablet (14 sources) Opioid Agonist Start: 07-25-2023 End: 08-18-2023 take 1 tablet by mouth every four hours Oxycodone-Acetaminophen Discontinued 1 TAB PO Q4H 0 July 25, 2023 August 18, 2023 11:37am Start: 07-25-2023 End: 08-18-2023 Start: 01-23-2010 take 1 tablet by cullen th every four hours as needed for pain Percocet 10/325 1tab, Oral, q4hr PRN back pain, Refill(s) 0 Start Date: 01/23/10 Status: Ordered Albuterol / Ipratropium (12 sources) Anticholinergic, beta2-Adrenergic Agonist Start: 08-18-2023 End: 09-10-2023 take 3 mL by mouth four times daily Ipratropium-Albuterol Inhalation Solution 0.5-2.5 (3) MG/3ML 3 ml Solution Inhalation 3 ml inhale orally four times a day related to CHRONIC OBSTRUCTIVE PULMONARY DISEASE, UNSPECIFIED (J44.9) 08/18/2023 17:00:00 09/10/2023 18:35:00 Aborted Start: 08-18-2023 take 1 mL by inhalat ion four times daily Ipratropium-Albuterol Active 3 ML INHALATION Four times daily - Respiratory 0 August 18, 2023 12:00am Start: 08-18-2023 Albuterol Sulfate HFA Inhalation Aerosol Solution 108 (90 Base) MCG/ACT (1 source) Start: 08-25-2023 End: 09-10-2023 Albuterol Sulfate HFA Inhalation Aerosol Solution 108 (90 Base) MCG/ACT 1 inhalation Aerosol Solution Inhalation 1 inhalation inhale orally every 4 hours as needed for Shortness of breath 08/25/2023 15:45:00 09/10/2023 18:35:00 Aborted Albuterol Sulfate Inhalation Nebulization Solution (2.5 MG/3ML) 0.083% (1 source) Start: 08-18-2023 End: 08-25-2023 Albuterol Sulfate Inhalation Nebulization Solution (2.5 MG/3ML) 0.083% 2.5 mg Nebulization Solution Inhalation 2.5 mg inhale orally via nebulizer every 4 hours as needed for shortness of breath/wheezing 08/18/2023 15:30:00 08/25/2023 15:37:00 Aborted amoxicillin 500 mg oral tablet (1 source) Penicillin-class Antibacterial Start: 09-05-2023 End: 09-08-2023 take 1 tablet by mouth twice daily Amoxicillin Oral Tablet 500 MG 1 tablet Tablet Oral GIVE 1 TABLET BY MOUTH TWICE DAILY X 5 DAYS 09/05/2023 7:00:00 09/08/2023 6:59:00 Completed Aspirin (19 sources) Platelet Aggregation Inhibitor, Nonsteroidal Anti-inflammatory Drug Start: 08-19-2023 End: 09-10-2023 take 1 tablet by mouth once Aspirin 81 Oral Tablet Chewable 1 tablet Tablet Chewable Oral Give 1 tablet by mouth one time a day every Mon, Wed, Fri related to HEART FAILURE, UNSPECIFIED (I50.9) 08/19/2023 7:00:00 09/10/2023 18:35:00 Aborted Start: 06-23-2023 Aspirin (Adult Low Dose Aspirin) 81 mg tablet,delayed release (DR/EC) Active 81 MG PO Daily June 23, 2023 12:00am Takes ,,and Thursday. Start: 04-01-2010 take 1 tablet by once daily aspirin 81 mg oral tablet 81 mg = 1 tab(s), Oral, Daily, tab(s), Refills(s) 0 Start Date: 04/01/10 Status: Ordered take 1-4 tablets by mouth once daily Aspirin 81 81 MG 1-4 tab. Orally Once a day M,W,F Active take 1-4 tablets by mouth once daily Aspirin 81 81 MG 1-4 tab. Orally Once a day ,W, Active Bisacodyl Oral Tablet Delayed Release 5 MG (1 source) Start: 08-18-2023 End: 09-10-2023 take 2 tablets by mouth every twenty-four hours as needed for constipation Bisacodyl Oral Tablet Delayed Release 5 MG 2 tablet Tablet Delayed Release Oral Give 2 tablet by mouth every 24 hours as needed for constipation 08/18/2023 15:45:00 09/10/2023 18:35:00 Aborted bumetanide 0.5 mg oral tablet (16 sources) Loop Diuretic Start: 07-16-2023 End: 10-01-2023 take 0.5 mg by mouth once daily Bumetanide Discontinued 0.5 MG PO Daily July 16, 2023 12:00am October 01, 2023 11:24am Start: 07-16-2023 Bumetanide Act dalila MG TABLET July 16, 2023 12:00am Start: 04-30-2023 bumetanide (Bu jelani) 0.5 MG tablet Indications: Peripheral edema Take 1 tablet twice daily for 2 weeks, then once daily in AM 45 tablet 0 04/30/2023 Active buprenorphine 8 mg / naloxone 2 mg sublingual tablet (20 sources) Partial Opioid Agonist, Opioid Antagonist Start: 07-16-2023 End: 08-18-2023 take 1 tablet under the tongue once daily Buprenorphine-Naloxone Discontinued 1 TAB SUBLINGUAL Daily July 16, 2023 12:00am August 18, 2023 11:37am Start: 07-16-2023 End: 08-18-2023 Start: 06-23-2023 End: 07-25-2023 Buprenorphine-Naloxone (Subo xone) 8-2 mg film Discontinued 1.5 FILM SUBLINGUAL Once June 23, 2023 12:00am July 25, 2023 9:38am FreeTextSi application under the tongue and allow to dissolve Sublingual Once a day; Note: Source Status: Taking; Provider: Alondra Santoro ( ) Start: 06-23-2023 End: 07-25-2023 Start: 08-08-2022 buprenorphine- naloxone (Suboxone) 8-[address] 1.5 tablets under the tongue in the morning. 0 08/08/2022 Active Suboxone 8-2 MG 1 application under the tongue and allow to dissolve Sublingual Once a day Active Buprenorphine HCl Sublingual Tablet Sublingual 2 MG (1 source) Start: 08-18-2023 End: 09-10-2023 take 1 tablet under the tongue three times daily Buprenorphine HCl Sublingual Tablet Sublingual 2 MG 2 tablet Tablet Sublingual Sublingual Give 2 tablet sublingually three times a day related to CHRONIC PAIN SYNDROME (G89.4) 08/18/2023 22:00:00 09/10/2023 18:35:00 Aborted Csxcnzakta-VIBV-Utmk eine Oral Tablet 50-325-40 MG (1 source) Start: 08-18-2023 End: 09-10-2023 take 1 tablet by mouth every six hours as needed for headache Zkzussiyoc-YGGQ-Ycw feine Oral Tablet 50-325-40 MG 1 tablet Tablet Oral Give 1 tablet by mouth every 6 hours as needed for headache 08/18/2023 15:30:00 09/10/2023 18:35:00 Aborted calcium carbonate 1250 mg oral tablet (12 sources) Start: 07-25-2023 End: 10-01-2023 Calcium Carbonate (Oyster Shell Calcium 500) 500 mg calcium (1,250 mg) Tablet Discontinued 500 MG PO Three times daily July 25, 2023 12:00am October 01, 2023 11:26am carvedilol 3.125 mg oral tablet (16 sources) alpha-Adrenerg ic Tigre, beta-Adrenergi c Tigre Start: 06-23-2023 End: 07-16-2023 take 1 tablet by mouth twice daily at mealtime Carvedilol Discontinued 1 TAB PO Twice daily June 23, 2023 12:00am July 16, 2023 12:18pm FreeTextSi tablet with food Orally Twice a day; Note: Source Status: Taking; Provider: Alondra Santoro ( ) take 1 tablet by cullen every twelve hours Carvedilol 3.125 MG 1 tablet with food Orally Twice a day Active celecoxib 100 mg oral capsule (12 sources) Nonsteroidal Anti-inflammatory Drug Start: 08-18-2023 End: 10-01-2023 take 100 mg by mouth twice daily Celecoxib Discontinued 100 MG PO Twice daily August 18, 2023 12:00am October 01, 2023 11:27am diazePAM 2 mg oral tablet (12 sources) Benzodiazepine Start: 08-18-2023 End: 10-01-2023 take 2 mg by mouth three times daily Diazepam Discontinued 2 MG PO Three times daily 23 10August 18, 2023 12:00am October 01, 2023 11:27am Start: 08-18-2023 End: 10-01-2023 docusate sodium 100 mg oral capsule (13 sources) Start: 07-25-2023 End: 10-01-2023 take 100 mg by mouth twice daily Docusate Sodium Discontinued 100 MG PO Twice daily 0 July 25, 2023 12:00am October 01, 2023 11:27am Start: 07-25-2023 End: 10-01-2023 docusate sodium 50 mg / sennosides, prison 8.6 mg oral tablet (12 sources) Start: 07-25-2023 End: 08-28-2023 take 2 tablets by mouth twice daily Sennosides-Docusate Sodium Discontinued 2 TAB PO Twice daily July 25, 2023 12:00am August 28, 2023 9:05am Start: 07-25-2023 End: 08-28-2023 dronabinol 2.5 mg oral capsule (3 sources) Cannabinoid take 1 capsule by mouth twice daily before mealtime Dronabinol 2.5 MG (Schedule III Drug) TAKE 1 CAPSULE BY MOUTH TWICE A DAY BEFORE MEALS Oral for 15 Not-Taking 0.4 ml enoxaparin sodium 100 mg/ml prefilled syringe (12 sources) Low Molecular Weight Heparin Start: 07-25-19 End: 10-01-19 Enoxaparin (Lovenox) 40 mg/0.4 mL Syringe Discontinued 40 MG SUBCUT DAILY@10 0 July 25, 2023 12:00am October 01, 2023 11:27am Enoxaparin Sodium Injection Solution Prefilled Syringe 40 MG/0.4ML (1 source) Start: 08-19-19 End: 08-25-19 Enoxaparin Sodium Injection Solution Prefilled Syringe 40 MG/0.4ML 1 syringe Solution Prefilled Syringe Injection Inject 1 syringe subcutaneously one time a day related to PERIPROSTHETIC FRACTURE AROUND INTERNAL PROSTHETIC RIGHT HIP J 08/19/2023 10:00:00 08/25/2023 15:37:00 Aborted Ergocalciferol (13 sources) Provitamin D2 Compound Start: 08-24-19 End: 09-10-19 take 1 capsule by mouth once Ergocalciferol Oral Capsule 1.25 MG (38958 UT) 1 capsule Capsule Oral Give 1 capsule by mouth one time a day every Thu for supplement 08/24/2023 8:00:00 09/10/2023 18:35:00 Aborted Start: 07-25-2023 End: 10-01-2023 take 1250 ug by mouth once Ergocalciferol (Vitamin D2) Discontinued 1250 MCG PO Mo@0900 0 July 25, 2023 12:00am October 01, 2023 11:27am Start: 07-25-2023 End: 10-01-2023 Fluticasone Propion-Salmeterol (12 sources) Corticosteroid, beta2-Adrenergic Agonist Start: 07-25-2023 End: 10-01-2023 Fluticasone Propion-Salmeterol (Advair Diskus) 250-50 mcg/dose blister with device Discontinued 1 INH INHALATION Twice daily 60 July 25, 2023 12:00am October 01, 2023 11:28am Start: 07-25-2023 End: 10-01-2023 Start: 07-25-2023 Start: 07-25-2023 Fluticasone Pr opion-Salmeterol (Advair Diskus) 250-50 mcg/dose blister with device Active 1 INH INHALATION Twice daily 60 July 25, 2023 12:00am Fluticasone-Salmeterol Inhalation Aerosol Powder Breath Activated 250-50 MCG/ACT (1 source) Start: 08-19-2023 End: 09-10-2023 Fluticasone-Salmeterol Inhalation Aerosol Powder Breath Activated 250-50 MCG/ACT 1 inhalation Aerosol Powder Breath Activated Inhalation 1 inhalation inhale orally two times a day related to CHRONIC OBSTRUCTIVE PULMONARY DISEASE, UNSPECIFIED (J44.9) 08/19/2023 7:00:00 09/10/2023 18:35:00 Aborted guaiFENesin ER Oral Tablet Extended Release 12 Hour 600 MG (1 source) Start: 08-18-2023 End: 09-10-2023 take 1 tablet by mouth twice daily for cough guaiFENesin ER Oral Tablet Extended Release 12 Hour 600 MG 1 tablet Tablet Extended Release 12 Hour Oral Give 1 tablet by mouth two times a day for cough 08/18/2023 20:00:00 09/10/2023 18:35:00 Aborted loperamide hydrochloride 2 mg oral tablet (1 source) Opioid Agonist Start: 09-06-2023 End: 09-10-2023 take 1 capsule by mouth every two hours as needed for diarrhea Loperamide HCl Capsule 2 MG 1 capsule Capsule Oral Give 1 capsule by mouth every 2 hours as needed for diarrhea after each loose stool 09/06/2023 12:12:00 09/10/2023 18:35:00 Aborted Tiotropium-Olodaterol (20 sources) Anticholin ergic, beta2-Adre nergic Agonist Start: 07-16-2023 End: 08-18-2023 Tiotropium-Olodaterol (Stiolto Respimat) 2.5-2.5 mcg/actuation mist Discontinued 2 INH INHALATION Every morning July 16, 2023 12:00am August 18, 2023 11:37am Start: 07-16-2023 End: 08-18-2023 Start: 07-16-2023 Tiotropium-Olo daterol (Stiolto Respimat) 2.5-2.5 mcg/actuation mist Active 2 INH INHALATION Every morning July 16, 2023 12:00am Start: 07-16-2023 Tiotropium-Olo daterol [Tiotropium 2.5 Mcg-Olodaterol 2.5 Mcg/Actuation Mist For Inhalation] (Tiotropium 2.5 Mcg-Olodaterol 2.5 Mcg/Actuation Mist For ) 2.5-2.5 mcg/actuation mist Active INHALATION July 16, 2023 12:00am Start: 02-19-2023 End: 04-30-2023 tiotropium-olodaterol (Stiol to Respimat) 2.5-2.5 MCG/ACT aerosol solution inhaler Indications: Simple chronic bronchitis (CMS/HCC) Inhale 2 Inhalation in the morning. 4 g 0 04/30/2023 Active Stiolto Respimat 2.5-2.5 MCG/ACT 2 puffs Inhalation Once a day Active oxyCODONE hydrochloride 5 mg oral tablet (13 sources) Opioid Agonist Start: 08-18-2023 End: 10-01-2023 take 5 mg by mouth every four hours Oxycodone Discontinued 5 MG PO Every 4 hours 28 7 August 18, 2023 October 01, 2023 11:29am Start: 08-18-2023 End: 10-01-2023 Oyster Shell Calcium Oral Tablet 500 MG (1 source) Start: 08-18-2023 End: 09-10-2023 take 1 tablet by mouth three times daily Oyster Shell Calcium Oral Tablet 500 MG 1 tablet Tablet Oral Give 1 tablet by mouth three times a day for supplement 08/18/2023 21:00:00 09/10/2023 18:35:00 Aborted polyethylene glycol 3350 59419 mg powder for oral solution (20 sources) Osmotic Laxative Start: 07-25-2023 End: 08-28-2023 Polyethylene Glycol 3350 (Healthylax) 17 gram Powder In Packet Discontinued 17 GM PO Daily August 18, 2023 12:00am August 28, 2023 9:05am Polyethylene Glycols (1 source) Start: 08-18-2023 End: 09-10-2023 Polyethylene Glycol 3350 Powder 17 gram Powder Oral Give 17 gram by mouth as needed for constipation 08/18/2023 14:45:00 09/10/2023 18:35:00 Aborted potassium chloride 20 meq extended release oral tablet (2 sources) Start: 03-04-2010 take 1 tablet by mouth once daily potassium chloride 20 mEq ER Tab 20 mEq = 1 tab(s), Oral, Daily, Refills(s) 0 Start Date: 03/04/10 Status: Ordered rosuvastatin calcium 5 mg oral tablet (18 sources) HMG-CoA Reductase Inhibitor Start: 06-23-2023 End: 08-18-2023 take 1 tablet by mouth once daily Rosuvastatin Discontinued 1 TAB PO Daily June 23, 2023 12:00am August 18, 2023 11:37am FreeTextSi tablet Orally Once a day; Note: Source Status: Taking; Provider: Alondra Santoro ( ) Start: 12-12-2022 take 1 tablet by cullen th at bedtime rosuvastatin (Crestor) 5 MG tablet Indications: Mixed dyslipidemia (CMS/HCC) Take 1 tablet (5 mg) by mouth at bedtime. 30 tablet 2 12/12/2022 Active take 1 tablet by cullen th every twenty-four hours Rosuvastatin Calcium 5 MG 1 tablet Orally Once a day Active Sennosides-Docusate Sodium Oral Tablet 8.6-50 MG (1 source) Start: 08-19-2023 End: 09-10-2023 Sennosides-Docusate Sodium Oral Tablet 8.6-50 MG 2 tablet Tablet Oral Give 2 tablet by mouth two times a day for constipation 08/19/2023 7:00:00 09/10/2023 18:35:00 Aborted tiZANidine 2 mg oral tablet (12 sources) Central alpha-2 Adrenergic Agonist Start: 08-18-2023 End: 08-21-2023 take 1 tablet by mouth at bedtime tiZANidine HCl Oral Tablet 2 MG 1 tablet Tablet Oral Give 1 tablet by mouth at bedtime related to OTHER ACUTE POSTPROCEDURAL PAIN (G89.18) 08/18/2023 19:00:00 08/21/2023 15:33:00 Aborted Start: 08-18-2023 End: 10-01-2023 take 2 mg by mouth once daily at bedtime Tizanidine Discontinued 2 MG PO Daily at bedtime 0 August 18, 2023 12:00am October 01, 2023 11:29am traZODone hydrochloride 50 mg oral tablet (12 sources) Serotonin Reuptake Inhibitor Start: 08-18-2023 End: 10-01-2023 take 50 mg by mouth once daily at bedtime Trazodone Discontinued 50 MG PO Daily at bedtime 0 August 18, 2023 12:00am October 01, 2023 11:29am Start: 08-18-2023 End: 10-01-2023 Problems Active Problems Problem Classification Problem Date Documented Date Episodic/Chronic Acute cerebrovascular disease (2 sources) Hemorrhage into subarachnoid space of neuraxis; Translations: [Nontraumatic subarachnoid hemorrhage, unspecified] Onset: 10-29-2022 10-29-2022 Chronic Anxiety disorders (20 sources) Anxiety about body function or health; Translations: [Other specified anxiety disorders] Onset: 10-29-2022 10-29-2022 Chronic Biliary tract disease (2 sources) Hypertrophy of bile duct; Translations: [Other specified diseases of biliary tract] Onset: 11-09-2017 12-02-2022 Chronic Cancer of bronchus; lung (7 sources) Malignant neoplasm of unspecified part of unspecified bronchus or lung; Translations: [Adenocarcinoma of right lung] Onset: 12-11-2021 05-14-2023 Chronic Cancer of bronchus; lung (2 sources) Personal history of other malignant neoplasm of bronchus and lung; Translations: [PERS HX OTH MALIG NEOPLASM BRON AND LNG] Onset: 03-05-2022 Episodic Cataract (2 sources) After-cataract of bilateral eyes; Translations: [Other secondary cataract, bilateral] Onset: 12-01-2022 12-01-2022 Chronic Chronic obstructive pulmonary disease and bronchiectasis (20 sources) Chronic obstructive lung disease; Translations: [Chronic obstructive pulmonary disease, unspecified] Onset: 11-13-2021 Resolved: 11-09-2022 Chronic Chronic obstructive pulmonary disease and bronchiectasis (1 source) Chronic obstructive pulmonary disease and bronchiectasis Onset: 08-14-2023 Chronic ulcer of skin (1 source) Pressure ulcer of sacral region, unstageable; Translations: [PRESSURE ULCER OF SACRAL REGION, UNSTAGEABLE] Onset: 08-18-2023 Chronic Congestive heart failure; nonhypertensive (20 sources) Congestive heart failure; Translations: [Heart failure, unspecified] Onset: 07-16-2023 06-23-2023 Chronic Congestive heart failure; nonhypertensive (1 source) Congestive heart failure; nonhypertensive Onset: 08-14-2023 Coronary atherosclerosis and other heart disease (4 sources) Arteriosclerotic vascular disease; Translations: [Atherosclerotic heart disease of [place] coronary artery without angina pectoris] Onset: 06-24-2022 05-14-2023 Chronic Digestive congenital anomalies (2 sources) Tortuous colon; Translations: [Other specified congenital malformations of intestine] Onset: 10-29-2022 10-29-2022 Chronic Disorders of lipid metabolism (14 sources) Hypercholesterolemia; Translations: [Dyslipidemia] Onset: 10-29-2022 06-17-2013 Chronic Essential hypertension (20 sources) Essential (primary) hypertension; Translations: [Essential hypertension] Onset: 01-07-2022 10-29-2022 Chronic Fever of unknown origin (1 source) Fever, unspecified; Translations: [Fever, unspecified] Onset: 08-27-2023 Episodic Fracture of neck of femur (hip) (20 sources) Closed fracture of hip; Translations: [Fracture of unspecified part of neck of right femur, initial encounter for closed fracture] Onset: 10-07-2023 08-28-2023 Episodic Genitourinary symptoms and ill-defined conditions (4 sources) Urinary incontinence; Translations: [Unspecified urinary incontinence] Onset: 10-29-2022 10-29-2022 Chronic Glaucoma (2 sources) Preglaucoma, unspecified, bilateral; Translations: [Preglaucoma, unspecified] Onset: 12-01-2022 12-01-2022 Chronic Headache; including migraine (2 sources) Episodic tension-type headache; Translations: [Episodic tension-type headache, not intractable] Onset: 10-29-2022 10-29-2022 Chronic Headache; including migraine (1 source) Headache; including migraine; Translations: [HEADACHE UNSPECIFIED] Onset: 01-07-2022 Heart valve disorders (20 sources) Aortic stenosis, non-rheumatic ; Translations: [Nonrheumatic aortic (valve) stenosis] Onset: 02-19-2018 05-14-2023 Chronic Hypertension with complications and secondary hypertension (4 sources) Hypertensive crisis; Translations: [Hypertensive crisis, unspecified] Onset: 10-29-2022 Resolved: 11-09-2022 11-09-2022 Chronic Late effects of cerebrovascular disease (6 sources) Late effects of cerebrovascular disease; Translations: [Unspecified sequelae of unspecified cerebrovascular disease] Onset: 08-08-2020 05-14-2023 Chronic Malaise and fatigue (2 sources) Weakness; Translations: [Other fatigue] Onset: 08-18-2023 Episodic Mood disorders (3 sources) Moderate major depression, single episode; Translations: [Major depressive disorder, single episode, moderate] Onset: 10-29-2022 10-29-2022 Chronic Nutritional deficiencies (6 sources) Moderate protein energy malnutrition; Translations: [Moderate protein-calorie malnutrition] Onset: 06-09-2020 10-29-2022 Chronic Osteoarthritis (20 sources) Osteoarthritis; Translations: [Unspecified osteoarthritis, unspecified site] Onset: 07-25-2023 06-23-2023 Chronic Osteoporosis (2 sources) Senile osteoporosis; Translations: [Age-related osteoporosis without current pathological fracture] Onset: 10-29-2022 10-29-2022 Chronic Other acquired deformities (2 sources) Kyphoscoliosis deformity of spine; Translations: [Scoliosis, unspecified] Onset: 10-29-2022 10-29-2022 Chronic Other aftercare (1 source) Other terminal press operator (current) drug therapy; Translations: [[facility] CURRENT DRUG THERAPY] Onset: 03-05-2022 Episodic Other aftercare (4 sources) Polypharmacy ; Translations: [Other terminal press operator (current) drug therapy] Onset: 06-09-2020 05-14-2023 Episodic Other and ill-defined cerebrovascular disease (14 sources) Intracranial aneurysm; Translations: [Cerebral aneurysm, nonruptured] Onset: 10-29-2022 10-29-2022 Chronic Other and ill-defined cerebrovascular disease (12 sources) Cerebral aneurysm, nonruptured; Translations: [Cerebral aneurysm, nonruptured] Onset: 07-16-2023 07-25-2023 Chronic Other connective tissue disease (1 source) Presence of right artificial hip joint; Translations: [PRESENCE OF RIGHT ARTIFICIAL HIP JOINT] Onset: 08-14-2023 Chronic Other connective tissue disease (1 source) Presence of right artificial shoulder joint; Translations: [PRESENCE OF RIGHT ARTIFICIAL SHOULDER JOINT] Onset: 08-14-2023 Chronic Other connective tissue disease (11 sources) Spasm; Translations: [Cramp and spasm] 08-18-2023 Episodic Other connective tissue disease (1 source) Muscle weakness (generalized); Translations: [MUSCLE WEAKNESS (GENERALIZED)] Onset: 08-18-2023 Episodic Other diseases of veins and lymphatics (4 sources) Peripheral venous insufficiency; Translations: [Venous insufficiency (chronic) (peripheral)] Onset: 10-29-2022 05-14-2023 Episodic Other injuries and conditions due to external causes (1 source) History of falling; Translations: [HISTORY OF FALLING] Onset: 08-14-2023 Episodic Other lower respiratory disease (4 sources) Shortness of breath; Translations: [SHORTNESS OF BREATH] Onset: 02-28-2022 Episodic Other nervous system disorders (14 sources) Chronic pain syndrome; Translations: [Chronic pain syndrome] Onset: 10-29-2022 10-29-2022 Chronic Other nervous system disorders (2 sources) Hydrocephalus; Translations: [Hydrocephalus in diseases classified elsewhere] Onset: 10-29-2022 10-29-2022 Chronic Other nervous system disorders (11 sources) Chronic pain; Translations: [Other chronic pain] 08-18-2023 Chronic Other nervous system disorders (13 sources) Chronic pain syndrome; Translations: [Chronic pain syndrome] Onset: 07-25-2023 08-18-2023 Chronic Other nervous system disorders (6 sources) Other chronic pain; Translations: [Other chronic pain] Onset: 07-25-2023 10-01-2023 Chronic Other nervous system disorders (12 sources) Postoperative pain ; Translations: [Other acute postprocedural pain] 07-20-2023 Episodic Peripheral and visceral atherosclerosis (1 source) Peripheral vascular disease, unspecified; Translations: [PERIPHERAL VASCULAR DISEASE, UNSPECIFIED] Onset: 08-14-2023 Chronic Regional enteritis and ulcerative colitis (20 sources) Crohn's disease; Translations: [Crohn's disease, unspecified, without complications] Onset: 07-25-2023 06-17-2013 Chronic Residual codes; unclassified (2 sources) Peripheral edema; Translations: [Edema, unspecified] 04-30-2023 Episodic Respiratory failure; insufficiency; arrest (adult) (20 sources) Dependence on supplemental oxygen; Translations: [Dependence on supplemental oxygen] Onset: 03-05-2022 05-14-2023 Chronic Respiratory failure; insufficiency; arrest (adult) (1 source) Respiratory failure; insufficiency; arrest (adult) Onset: 08-14-2023 Retinal detachments; defects; vascular occlusion; and retinopathy (2 sources) Occlusion of left branch retinal artery; Translations: [Retinal artery branch occlusion, left eye] Onset: 12-01-2022 12-01-2022 Chronic Spondylosis; intervertebral disc disorders; other back problems (20 sources) Degeneration of intervertebral disc; Translations: [Degeneration of intervertebral disc] 06-23-2023 Chronic Substance-related disorders (10 sources) Smoker; Translations: [Nicotine dependence] Onset: 10-08-2017 Resolved: 11-13-2021 12-09-2013 Chronic Comment on above: Added secondary to d ocumentation in Social History. Unclassified (2 sources) Parkinson's disease; Translations: [Parkinson's disease] Onset: 10-29-2022 10-29-2022 Chronic Unclassified (1 source) CONTACT W/AND (SUSP) EXPOS COVID-19; Translations: [CONTACT W/AND (SUSP) EXPOS COVID-19] Onset: 03-05-2022 Unclassified (20 sources) Onset: 08-14-2023 Urinary tract infections (2 sources) Urinary tract infection, site not specified; Translations: [Acute cystitis without hematuria] Onset: 10-23-2023 Episodic Past or Other Problems Problem Classification Problem Date Documented Date Episodic/Chronic Abdominal hernia (2 sources) Recurrent ventral incisional hernia; Translations: [Incisional hernia without obstruction or gangrene] Onset: 10-08-2017 12-02-2022 Episodic Abdominal pain (2 sources) Generalized abdominal pain; Translations: [Generalized abdominal pain] Onset: 10-08-2017 12-02-2022 Episodic Acute posthemorrhagic anemia (20 sources) Acute posthemorrhagic anemia; Translations: [Acute posthemorrhagic anemia] Onset: 07-25-2023 07-25-2023 Episodic Administrative/social admission (20 sources) Other reduced mobility; Translations: [Impaired mobility and activities of daily living] Onset: 07-25-2023 07-20-2023 Episodic Blindness and vision defects (4 sources) Other visual disturbances; Translations: [OTHER VISUAL DISTURBANCES] Onset: 01-04-2022 Episodic Complications of surgical procedures or medical care (20 sources) Periprosthetic fracture; Translations: [Periprosthetic fracture around internal prosthetic right hip joint, initial encounter] Onset: 07-25-2023 07-16-2023 Episodic Conditions associated with dizziness or vertigo (6 sources) Dizziness and giddiness; Translations: [Vertigo] Onset: 12-07-2021 Episodic E Codes: Fall (20 sources) Fall in home; Translations: [Unspecified fall, initial encounter] Onset: 07-16-2023 07-16-2023 Episodic E Codes: Place of occurrence (1 source) Unspecified place in unspecified non-institutional (private) residence as the place of occurrence of the external cause; Translations: [Unspecified place in unspecified non-institutional (private) residence as the place of occurrence of the external cause] Onset: 07-16-2023 Episodic Fracture of upper limb (20 sources) Closed fracture of upper end of humerus; Translations: [Unspecified fracture of upper end of right humerus, initial encounter for closed fracture] Onset: 07-25-2023 07-16-2023 Episodic Mood disorders (2 sources) Mood disorders Onset: 11-05-2022 11-05-2022 Nausea and vomiting (2 sources) Nausea; Translations: [Nausea] Onset: 10-29-2022 10-29-2022 Episodic Nonmalignant breast conditions (2 sources) Lesion of breast; Translations: [Disorder of breast, unspecified] Onset: 02-24-2019 12-02-2022 Episodic Other and unspecified benign neoplasm (2 sources) Polyp of ascending colon; Translations: [Polyp of colon] Onset: 05-27-2017 10-29-2022 Episodic Other and unspecified benign neoplasm (2 sources) Benign neoplasm of colon; Translations: [Benign neoplasm of colon, unspecified] Onset: 05-27-2017 12-02-2022 Episodic Other connective tissue disease (2 sources) Weakness of face muscles; Translations: [Facial weakness] Onset: 10-29-2022 10-29-2022 Episodic Other connective tissue disease (2 sources) Recurrent falls ; Translations: [Repeated falls] Onset: 10-29-2022 10-29-2022 Episodic Other connective tissue disease (1 source) Cramp and spasm; Translations: [Cramp and spasm] Onset: 07-25-2023 Episodic Other injuries and conditions due to external causes (2 sources) Adverse effect of radiation therapy; Translations: [Radiation sickness, unspecified, initial encounter] Onset: 10-29-2022 10-29-2022 Episodic Other injuries and conditions due to external causes (2 sources) At risk for falls ; Translations: [History of falling] Onset: 08-02-2020 12-02-2022 Episodic Other lower respiratory disease (2 sources) Lung mass; Translations: [Other nonspecific abnormal finding of lung field] Onset: 12-16-2017 Resolved: 12-08-2022 12-08-2022 Episodic Other nervous system disorders (2 sources) Abnormal gait; Translations: [Unspecified abnormalities of gait and mobility] Onset: 10-29-2022 10-29-2022 Episodic Other nervous system disorders (2 sources) Facial palsy; 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] Onset: 08-02-2020 12-02-2022 Episodic Other nervous system disorders (20 sources) Other acute postprocedural pain; Translations: [Other acute postoperative pain] Onset: 07-25-2023 07-25-2023 Episodic Other screening for suspected conditions (not mental disorders or infectious disease) (2 sources) Thallium stress test abnormal; Translations: [Abnormal result of other cardiovascular function study] Onset: 02-19-2018 12-02-2022 Episodic Residual codes; unclassified (2 sources) Memory impairment; Translations: [Other amnesia] Onset: 10-29-2022 10-29-2022 Episodic Residual codes; unclassified (2 sources) Postmenopausal state; Translations: [Asymptomatic menopausal state] Onset: 02-16-2017 12-02-2022 Episodic Residual codes; unclassified (2 sources) Other specified health status; Translations: [OTHER SPECIFIED HEALTH STATUS] Onset: 07-25-2023 Episodic Screening and history of mental health and substance abuse codes (3 sources) Personal history of nicotine dependence; Translations: [Ex-smoker] Onset: 05-30-2021 12-02-2022 Episodic Unclassified (1 source) deteriating disc( Confirmed ) 03-01-2010 Unclassified (2 sources) Emphysema 06-17-2013 Unclassified (1 source) migraine headaches( Confirmed ) 03-01-2010 Unclassified (1 source) deteriating disc 03-01-2010 Unclassified (1 source) migraine headaches 03-01-2010 Results Test Name Value Interpretation Reference Range Facility Bilirubin Test strip Ql (U)O rdered By: Ruben Velasquez on 10-28-2023 Bilirubin Ql (U) Negative Negative [facility] Color of Urine by AutoOrdere d By: Ruben Velasquez on 10-28-2023 Color (U) Light-yellow Normal Yellow [place] Comment on above: Order Comment: Name Collection Type:: Collection Method Unknown Performed By: #### U A, CUU ####[facility] [id number] [place] [address] [facility] Glucose [Mass/volume] in Uri ne by Test stripOrdered By: Ruben Velasquez on 10-28-2023 Glucose Test strip (U) [Mass/Vol] Normal mg/dL Normal [place] Hemoglobin Test strip Ql (U) Ordered By: Ruben Velasquez on 10-28-2023 Hemoglobin Ql (U) Negative Negative [facility] Ketones [Presence] in Urine by Test stripOrdered By: Ruben Velasquez on 10-28-2023 Ketones Ql (U) Negative Normal Negative [place] Comment on above: Order Comment: Name Collection Type:: Collection Method Unknown Performed By: #### U A, CUU ####[address] [address] [facility] Leukocyte esterase [Presence ] in Urine by Test stripOrdered By: Ruben Velasquez on 10-28-2023 Leukocyte esterase Test strip Ql (U) Negative Normal Negative [place] Comment on above: Order Comment: Name Collection Type:: Collection Method Unknown Performed By: #### U A, CUU ####[address] [address] [facility] Nitrite Test strip Ql (U)Ord ered By: Ruben Velasquez on 10-28-2023 Nitrite Ql (U) Negative Negative [place] Protein Test strip (U) [Mass /Vol]Ordered By: Ruben Velasquez on 10-28-2023 Protein (U) [Mass/Vol] Negative Negative [facility] Specific gravity Test strip (U) [Rel density]Ordered By: Ruben Velasquez on 10-28-2023 Specific gravity (U) [Rel density] 1.017 1.001-1.03 0 [place] Urinalysison 10-28-2023 Bilirubin,Urine Negative Normal Negative [facility] Comment on above: Order Comment: Name Collection Type:: Collection Method Unknown Performed By: #### U A, CUU ####[address] [address] [facility] Glucose Ql (U) Normal Normal Normal [facility] Comment on above: Order Comment: Name Collection Type:: Collection Method Unknown Performed By: #### U A, CUU ####[address] [address] [facility] Nitrite,Urine Negative Normal Negative [facility] Comment on above: Order Comment: Name Collection Type:: Collection Method Unknown Performed By: #### U A, CUU ####[address] [address] [facility] Occult Blood,Urine Negative Normal Negative [facility] Comment on above: Order Comment: Name Collection Type:: Collection Method Unknown Result Comment: PERF ORMED BY:[address] [place], [place] [id number] MEDICAL DIRECTORAMPARO MONTAGUE M.D. Performed By: #### U A, CUU ####[address] [address] [facility] Protein,Urine Negative Normal Negative [facility] Comment on above: Order Comment: Name Collection Type:: Collection Method Unknown Performed By: #### U A, CUU ####[address] [address] [facility] Specificy [place],Urine 1.017 Normal 1.001-1.03 0 [facility] Comment on above: Order Comment: Name Collection Type:: Collection Method Unknown Performed By: #### U A, CUU ####[address] [address] [facility] Urobilinogen,Urine Normal Normal Normal [facility] Comment on above: Order Comment: Name Collection Type:: Collection Method Unknown Performed By: #### U A, CUU ####[address] [address] [facility] Urine Cultureon 10-28-2023 Bacteria identified Cx Nom (U) No Growth 2 Days PERFORMED BY: [facility] [address] [place] [id number] PATHOLOGIST BRISKET PULLER AMPARO MONTAGUE M.D. Normal [facility] Comment on above: Performed By: #### U A, CUU ####[address] [address] [facility] Urine appearanceOrdered By: Ruben Velasquez on 10-28-2023 Appearance (U) Clear Normal Clear [place] Comment on above: Order Comment: Name Collection Type:: Collection Method Unknown Performed By: #### U A, CUU ####[address] [address] [facility] Urobilinogen Test strip (U) [Mass/Vol]Ordered By: Ruben Velasquez on 10-28-2023 Urobilinogen (U) [Mass/Vol] Normal mg/dL Normal [place] pH of Urine by Test stripOrd ered By: Ruben Velasquez on 10-28-2023 pH (U) 5.5 [pH] Normal 5.0-9.0 [place] Comment on above: Order Comment: Name Collection Type:: Collection Method Unknown Performed By: #### U A, CUU ####[address] [place] [address] [facility] US bladderon 10-23-2023 US bladder Normal [facility] XR hip RT min 2V(w/wo pelvis )*on 10-07-2023 XR hip RT min 2V(w/wo pelvis)* Normal [facility] Bacteria [Presence] in Urine by AutomatedOrdered By: Ruben Velasquez on 10-05-2023 Bacteria Auto Ql (U) 1+ [HPF] High None Seen [facility] Bacteria identified Cx Nom ( U)Ordered By: Ruben Velasquez on 10-05-2023 Escherichia coli Escherichia coli Abnormal [facility] Bilirubin Test strip Ql (U)O rdered By: Ruben Velasquez on 10-05-2023 Bilirubin Ql (U) Negative Negative [facility] Color of Urine by AutoOrdere d By: Ruben Velasquez on 10-05-2023 Color (U) Light-yellow Normal Yellow [place] Comment on above: Order Comment: Name Collection Type:: Collection Method Unknown Performed By: #### A DYLON, CUU ####[address] [address] [facility] Dipstick and Microscopicon 0 10-05-2023 Bacteria,Urine 1+ High None Seen [facility] Comment on above: Order Comment: Name Collection Type:: Collection Method Unknown Performed By: #### A DYLON, CUU ####[address] [address] [facility] Bilirubin,Urine Negative Normal Negative [facility] Comment on above: Order Comment: Name Collection Type:: Collection Method Unknown Performed By: #### A DYLON, CUU ####[address] [address] [facility] Glucose Ql (U) Normal Normal Normal [facility] Comment on above: Order Comment: Name Collection Type:: Collection Method Unknown Performed By: #### A DYLON, CUU ####[address] [place] [address] [place] Hyaline Casts,Urine None Normal 0-8 [facility] Comment on above: Order Comment: Name Collection Type:: Collection Method Unknown Performed By: #### A DDONUAPLUS, CUU ####[address] [address] [place] Mucus,Urine Rare Normal [facility] Comment on above: Order Comment: Name Collection Type:: Collection Method Unknown Result Comment: PERF ORMED BY:[address] SUSANAShawnJayceFAVI[place], [place] [id number] MEDICAL DIRECTORAMPARO MONTAGUE M.D. Performed By: #### A DDANAUADARRYL, CUU ####[address] [address] [facility] Nitrite,Urine Positive High Negative [facility] Comment on above: Order Comment: Name Collection Type:: Collection Method Unknown Performed By: #### A DDONUAPLUS, CUU ####[address] [address] [facility] Occult Blood,Urine Negative Normal Negative [facility] Comment on above: Order Comment: Name Collection Type:: Collection Method Unknown Performed By: #### A DDANAUAPLUS, CUU ####[address] [address] [facility] Protein,Urine Negative Normal Negative [facility] Comment on above: Order Comment: Name Collection Type:: Collection Method Unknown Performed By: #### A DDONUAPLUS, CUU ####[address] [address] [facility] RBC,Urine 5-9 High 0-4 [facility] Comment on above: Order Comment: Name Collection Type:: Collection Method Unknown Performed By: #### A DDONUAPLUS, CUU ####[address] [address] [facility] Specificy [place],Urine 1.019 Normal 1.001-1.03 0 [facility] Comment on above: Order Comment: Name Collection Type:: Collection Method Unknown Performed By: #### A DDONUAPLUS, CUU ####[place] [address] Squamous Epithelial Cell,Urine 1-2 Normal 0-2 [facility] Comment on above: Order Comment: Name Collection Type:: Collection Method Unknown Performed By: #### A DDONUAPLUS, CUU ####[place] [address] Urobilinogen,Urine Normal Normal Normal [facility] Comment on above: Order Comment: Name Collection Type:: Collection Method Unknown Performed By: #### A DDONUAPLUS, CUU ####[place] [address] WBC CLUMP, Urine Occasional High None Seen [facility] Comment on above: Order Comment: Name Collection Type:: Collection Method Unknown Performed By: #### A DDONUAPLUS, CUU ####[address] WBC,Urine 20-49 High 0-4 [facility] Comment on above: Order Comment: Name Collection Type:: Collection Method Unknown Performed By: #### A DDONUAPLUS, CUU ####[address] Epithelial cells.squamous [# /area] in Urine sediment by Automated countOrdered By: Ruben Velasquez on 10-05-2023 Epithelial cells.squamous Auto (Urine sed) [#/Area] 1-2 [HPF] 0-2 [place] Erythrocytes [#/area] in Uri ne sediment by Automated countOrdered By: Ruben Velasquez on 10-05-2023 RBC Auto (Urine sed) [#/Area] 5-9 [HPF] High 0-4 [place] Glucose [Mass/volume] in Uri ne by Test stripOrdered By: Ruben Velasquez on 10-05-2023 Glucose Test strip (U) [Mass/Vol] Normal mg/dL Normal [place] Hemoglobin Test strip Ql (U) Ordered By: Ruben Velasquez on 10-05-2023 Hemoglobin Ql (U) Negative Negative [facility] Hyaline casts [#/area] in Ur ine sediment by Automated countOrdered By: Ruben Velasquez on 10-05-2023 Hyaline casts Auto (Urine sed) [#/Area] None [LPF] 0-8 [place] Ketones [Presence] in Urine by Test stripOrdered By: Ruben Velasquez on 10-05-2023 Ketones Ql (U) Negative Normal Negative [place] Comment on above: Order Comment: Name Collection Type:: Collection Method Unknown Performed By: #### A DYLON, CUU ####[facility] [id number] Leukocyte clumps [Presence] in Urine by AutomatedOrdered By: Ruben Velasquez on 10-05-2023 Leukocyte clumps Auto Ql (U) Occasional [LPF] High None Seen [place] Leukocyte esterase [Presence ] in Urine by Test stripOrdered By: Ruben Velasquez on 10-05-2023 Leukocyte esterase Test strip Ql (U) 3+ High Negative [place] Comment on above: Order Comment: Name Collection Type:: Collection Method Unknown Performed By: #### A DYLON, CUU ####[address] Leukocytes [#/area] in Urine sediment by Automated countOrdered By: Ruben Velasquez on 10-05-2023 WBC Auto (Urine sed) [#/Area] 20-49 [HPF] High 0-4 [place] Mucus [Presence] in Urine by AutomatedOrdered By: Ruben Velasquez on 10-05-2023 Mucus Auto Ql (U) Rare [LPF] [facility] Nitrite Test strip Ql (U)Ord ered By: Ruben Velasquez on 10-05-2023 Nitrite Ql (U) Positive High Negative [place] Protein Test strip (U) [Mass /Vol]Ordered By: Ruben Velasquez on 10-05-2023 Protein (U) [Mass/Vol] Negative Negative [facility] Specific gravity Test strip (U) [Rel density]Ordered By: Ruben Velasquez on 10-05-2023 Specific gravity (U) [Rel density] 1.019 1.001-1.03 0 [place] Urine Cultureon 10-05-2023 Bacteria identified Cx Nom (U) Normal [facility] Comment on above: Performed By: #### A DYLON, CUU ####[address] [place] [place] [id number] [facility] Urine appearanceOrdered By: Ruben Velasquez on 10-05-2023 Appearance (U) Cloudy Critically abnormal Clear [place] Comment on above: Order Comment: Name Collection Type:: Collection Method Unknown Performed By: #### A DYLON, CUU ####[place] [place] [id number] [facility] Urine culture routineOrdered By: Ruben Velasquez on 10-05-2023 Bacteria identified Cx Nom (U) Escherichia coli Abnormal [place] Urobilinogen Test strip (U) [Mass/Vol]Ordered By: Ruben Velasquez on 10-05-2023 Urobilinogen (U) [Mass/Vol] Normal mg/dL Normal [place] pH of Urine by Test stripOrd ered By: Ruben Velasquez on 10-05-2023 pH (U) 6.5 [pH] Normal 5.0-9.0 [place] Comment on above: Order Comment: Name Collection Type:: Collection Method Unknown Performed By: #### A DYLON, CUU ####[place] [id number] [facility] Automated basophil %Ordered By: Ruben Velasquez on 10-02-2023 Basophils/100 WBC (Bld) 0.4 % Normal . [place] Comment on above: Performed By: #### C BC ####[place] [id number] [facility] Automated basophil countOrde red By: Ruben Velasquez on 10-02-2023 Basophils (Bld) [#/Vol] 0.0 10*3/uL Normal 0.0-0.2 [place] Comment on above: Result Comment: PERF ORMED BY:[address] [place], [place] [id number] MEDICAL DIRECTORAMPARO MONTAGUE M.D. Performed By: #### C BC ####[address] Automated blood monocyte cou ntOrdered By: Ruben Ron on 10-02-2023 Monocytes (Bld) [#/Vol] 0.6 10*3/uL Normal 0.0-0.8 [place] Comment on above: Performed By: #### C BC ####[address] Automated eosinophil %Ordere d By: Ruben Ron on 10-02-2023 Eosinophils/100 WBC (Bld) 1.6 % Normal . [place] Comment on above: Performed By: #### C BC ####[address] Automated eosinophil countOr dered By: Ruben Velasquez on 10-02-2023 Eosinophils (Bld) [#/Vol] 0.1 10*3/uL Normal 0.0-0.45 [place] Comment on above: Performed By: #### C BC ####[address] Automated monocyte %Ordered By: Ruben Ron on 10-02-2023 Monocytes/100 WBC (Bld) 7.6 % Normal . [place] Comment on above: Performed By: #### C BC ####[address] Automated neutrophil %Ordere d By: Ruben Velasquez on 10-02-2023 Neutrophils/100 WBC (Bld) 78.4 % Normal . [place] Comment on above: Performed By: #### C BC ####[address] Complete Blood Count Auto Di ffon 10-02-2023 Mean Corpuscular HGB Conc 32.9 g/dL Normal 32.0-35.0 [facility] Comment on above: Performed By: #### C BC ####[address] NRBC% 0.1 /100{WBC} Normal 0-0.5 [facility] Comment on above: Performed By: #### C BC ####[address] Erythrocyte distribution wid th [Ratio] by Automated countOrdered By: Ruben Velasquez on 10-02-2023 Erythrocyte distribution width (RBC) [Ratio] 14.7 % Normal 11.9-15.3 [place] Comment on above: Performed By: #### C BC ####[address] Erythrocytes [#/volume] in B lood by Automated countOrdered By: Ruben Velasquez on 10-02-2023 RBC (Bld) [#/Vol] 3.36 10*6/uL Low 3.60-5.00 [facility] Comment on above: Performed By: #### C BC ####[address] Hematocrit [Volume Fraction] of Blood by Automated countOrdered By: Ruben Velasquez on 10-02-2023 Hematocrit (Bld) [Volume fraction] 31.7 % Low 34.0-46.4 [place] Comment on above: Performed By: #### C BC ####[address] Hemoglobin [Mass/volume] in BloodOrdered By: Ruben Velasquez on 10-02-2023 Hemoglobin (Bld) [Mass/Vol] 10.4 g/dL Low 11.8-15.4 [place] Comment on above: Performed By: #### C BC ####[address] Leukocytes [#/volume] correc daya for nucleated erythrocytes in Blood by Automated counOrdered By: Ruben Velasquez on 10-02-2023 WBC corrected for nucl RBC Auto (Bld) [#/Vol] 7.6 10*3/uL 3.8-11.6 [place] Leukocytes [#/volume] in Blo od by Automated countOrdered By: Ruben Velasquez on 10-02-2023 WBC (Bld) [#/Vol] 7.6 10*3/uL Normal 3.8-11.6 [facility] Comment on above: Performed By: #### C BC ####[address] Lymphocytes [#/volume] in Bl ood by Automated countOrdered By: Ruben Velasquez on 10-02-2023 Lymphocytes (Bld) [#/Vol] 0.9 10*3/uL Low 1.00-4.8 [place] Comment on above: Performed By: #### C BC ####[address] Lymphocytes/100 leukocytes i n Blood by Automated countOrdered By: Ruben Velasquez on 10-02-2023 Lymphocytes/100 WBC (Bld) 12.0 % Normal . [place] Comment on above: Performed By: #### C BC ####[address] MCH [Entitic mass] by Automa daya countOrdered By: Ruben Velasquez on 10-02-2023 MCH (RBC) [Entitic mass] 31.0 pg Normal 24.7-34.3 [place] Comment on above: Performed By: #### C BC ####[address] MCHC Auto (RBC) [Mass/Vol]Or dered By: Ruben Velasquez on 10-02-2023 MCHC (RBC) [Mass/Vol] 32.9 g/dL 32.0-35.0 [facility] MCV [Entitic volume] by Auto mated countOrdered By: Ruben Velasquez on 10-02-2023 MCV (RBC) [Entitic vol] 94.3 fL Normal 80-100 [place] Comment on above: Performed By: #### C BC ####[address] Neutrophils [#/volume] in Bl ood by Automated countOrdered By: Ruben Velasquez on 10-02-2023 Neutrophils (Bld) [#/Vol] 5.9 10*3/uL Normal 1.8-7.7 [place] Comment on above: Performed By: #### C BC ####[address] Nucleated erythrocytes [Pres ence] in Blood by Automated countOrdered By: Ruben Velasquez on 10-02-2023 Nucleated RBC Auto Ql (Bld) 0.1 /100{WBC} 0-0.5 [place] Platelet mean volume [Entiti c volume] in Blood by Automated countOrdered By: Ruben Velasquez on 10-02-2023 Platelet mean volume (Bld) [Entitic vol] 9.1 fL Normal 6.3-10.7 [place] Comment on above: Performed By: #### C BC ####[address] Platelets [#/volume] in Bloo d by Automated countOrdered By: Ruben Velasquez on 10-02-2023 Platelets (Bld) [#/Vol] 277 10*3/uL Normal 150-450 [place] Comment on above: Performed By: #### C BC ####[address] Automated epithelial cells c ount in urine sediment (number/area)Ordered By: Ruben Velasquez on 09-16-2023 Epithelial cells Auto (Urine sed) [#/Area] 0-1 [HPF] 0-2 [place] Bacteria [Presence] in Urine by AutomatedOrdered By: Ruben Velasquez on 09-16-2023 Bacteria Auto Ql (U) 2+ [HPF] High None Seen [facility] Bacteria identified Cx Nom ( U)Ordered By: Ruben Velasquez on 09-16-2023 Escherichia coli Escherichia coli [facility] Bilirubin Test strip Ql (U)O rdered By: Ruben Velasquez on 09-16-2023 Bilirubin Ql (U) Negative Negative [facility] Color of Urine by AutoOrdere d By: Ruben Velasquez on 09-16-2023 Color (U) Yellow Normal Yellow [place] Comment on above: Order Comment: Name Collection Type:: Collection Method Unknown Performed By: #### A DDONUAPLUS, CUU ####[address] [address] [facility] Dipstick and Microscopicon 0 09-16-2023 Appearance (U) Cloudy Critically abnormal Clear [facility] Comment on above: Order Comment: Name Collection Type:: Collection Method Unknown Performed By: #### A DDONUAPLUS, CUU ####[address] [address] [facility] Bacteria,Urine 2+ High None Seen [facility] Comment on above: Order Comment: Name Collection Type:: Collection Method Unknown Performed By: #### A DDONUAPLUS, CUU ####[place] [id number] [facility] Bilirubin,Urine Negative Normal Negative [facility] Comment on above: Order Comment: Name Collection Type:: Collection Method Unknown Performed By: #### A DDONUAPLUS, CUU ####[address] [address] [facility] Glucose Ql (U) Normal Normal Normal [facility] Comment on above: Order Comment: Name Collection Type:: Collection Method Unknown Performed By: #### A DDONUAPLUS, CUU ####[address] [address] [facility] Hyaline Casts,Urine 0-8 Normal 0-8 [facility] Comment on above: Order Comment: Name Collection Type:: Collection Method Unknown Result Comment: PERF ORMED BY:[address] [place], [place] [id number] MEDICAL RAZIA MONTAGUE M.D. Performed By: #### A DDONUAPLUS, CUU ####[address] [address] [facility] Ketones Ql (U) Negative Normal Negative [facility] Comment on above: Order Comment: Name Collection Type:: Collection Method Unknown Performed By: #### A DDONUAPLUS, CUU ####[address] [address] [facility] Leukocyte esterase Test strip Ql (U) 3+ High Negative [facility] Comment on above: Order Comment: Name Collection Type:: Collection Method Unknown Performed By: #### A DDONUAPLUS, CUU ####[place] [id number] [facility] Nitrite,Urine Positive High Negative [facility] Comment on above: Order Comment: Name Collection Type:: Collection Method Unknown Performed By: #### A DDONUAPLUS, CUU ####[place] [id number] [facility] Occult Blood,Urine Negative Normal Negative [facility] Comment on above: Order Comment: Name Collection Type:: Collection Method Unknown Result Comment: PERF ORMED BY:[address] [place]JayceFA[place], [place] [phone] MEDICAL DIRECTORAMPARO MONTAGUE M.D. Performed By: #### A DYLON, CUU ####[address] Protein,Urine Negative Normal Negative [facility] Comment on above: Order Comment: Name Collection Type:: Collection Method Unknown Performed By: #### A DDSHITAL, CUU ####[address] RBC,Urine 3-4 Normal 0-4 [facility] Comment on above: Order Comment: Name Collection Type:: Collection Method Unknown Performed By: #### A DDONUAPLUS, CUU ####[address] Specificy [place],Urine 1.017 Normal 1.001-1.03 0 [facility] Comment on above: Order Comment: Name Collection Type:: Collection Method Unknown Performed By: #### A DDONUAPLUS, CUU ####[address] Squamous Epithelial Cell,Urine 0-1 Normal 0-2 [facility] Comment on above: Order Comment: Name Collection Type:: Collection Method Unknown Performed By: #### A DDONUAPLUS, CUU ####[facility] [id number] [place] [id number] [facility] Urobilinogen,Urine Normal Normal Normal [facility] Comment on above: Order Comment: Name Collection Type:: Collection Method Unknown Performed By: #### A DDANAUAPLUS, CUU ####[facility] [id number] [place] [id number] [facility] WBC,Urine 50-100 High 0-4 [facility] Comment on above: Order Comment: Name Collection Type:: Collection Method Unknown Performed By: #### A CARTERUAPLUS, CUU ####[facility] [id number] [place] [id number] [facility] Erythrocytes [#/area] in Uri ne sediment by Automated countOrdered By: Ruben Velasquez on 09-16-2023 RBC Auto (Urine sed) [#/Area] 3-4 [HPF] 0-4 [place] Ketones Auto test strip (U) [Mass/Vol]Ordered By: Ruben Velasquez on 09-16-2023 Ketones (U) [Mass/Vol] Negative Negative [facility] - UrinalysisOrder ed By: Ruben Velasquez on 09-16-2023 Hyaline casts LM Ql (Urine sed) 0-8 [LPF] 0-8 [place] Leukocytes [#/area] in Urine sediment by Automated countOrdered By: Ruben Velasquez on 09-16-2023 WBC Auto (Urine sed) [#/Area] 50-100 [HPF] High 0-4 [place] Nitrite Test strip Ql (U)Ord ered By: Ruben Velasquez on 09-16-2023 Nitrite Ql (U) Positive High Negative [place] No Panel InformationOrdered By: Ruben Velasquez on 09-16-2023 0-8 [LPF] 0-8 [place] Protein Auto test strip (U) [Mass/Vol]Ordered By: Ruben Velasquez on 09-16-2023 Protein (U) [Mass/Vol] Negative Negative [facility] Specific gravity Auto test s trip (U) [Rel density]Ordered By: Ruben Velasquez on 09-16-2023 Specific gravity (U) [Rel density] 1.017 1.001-1.03 0 [place] Urine Cultureon 09-16-2023 Bacteria identified Cx Nom (U) Normal [facility] Comment on above: Performed By: #### A AGUILAR OSBORNE ####[facility] [id number] [place] [address] [facility] Urine clarity by refractomet ry automatedOrdered By: Ruben Velasquez on 09-16-2023 Clarity Refractometry automated (U) Cloudy Abnormal Clear [place] Urine culture routineOrdered By: Ruben Velasquez on 09-16-2023 Bacteria identified Cx Nom (U) Escherichia coli Abnormal [place] Urine glucose measurement by automated test strip (mass/volume)Ordered By: Ruben Velasquez on 09-16-2023 Glucose Auto test strip (U) [Mass/Vol] Normal mg/dL Normal [place] Urine hemoglobin detection b y automated test stripOrdered By: Ruben Velasquez on 09-16-2023 Hemoglobin Auto test strip Ql (U) Negative Negative [place] Urine leukocyte esterase det ection by automated test stripOrdered By: Ruben Velasquez on 09-16-2023 Leukocyte esterase Auto test strip Ql (U) 3+ High Negative [place] Urine pH measurement by auto mated test stripOrdered By: Ruben Velasquez on 09-16-2023 pH (U) 5.5 [pH] Normal 5.0-9.0 [place] Comment on above: Order Comment: Name Collection Type:: Collection Method Unknown Performed By: #### A AGUILAR OSBORNE ####[facility] [id number] [place] [id number] [facility] Urobilinogen Auto test strip (U) [Mass/Vol]Ordered By: Ruben Velasquez on 09-16-2023 Urobilinogen (U) [Mass/Vol] Normal mg/dL Normal [place] Relevant diagnostic tests/la boratory data Narrativeon 08-30-2023 Appearance (U) Cloudy Critically abnormal Clear [facility] Work Phone: Bacteria identified Cx Nom (U) 0 [facility] Work Phone: Bacteria identified Cx Nom (U) 4+ High None Seen [facility] Work Phone: Bilirubin Ql (U) Negative Negative [facility] Work Phone: Color (U) Yellow Yellow [facility] Work Phone: Epithelial cells.squamous Auto Ql (U) None Seen 0-2 [facility] Work Phone: Glucose (U) [Mass/Vol] Normal Normal [facility] Work Phone: Hyaline Casts,Urine 0-8 0-[address] [facility] Work Phone: Ketones Ql (U) 1+ High Negative [facility] Work Phone: Leukocyte esterase Qn (U) 2+ High Negative [facility] Work Phone: Nitrite Ql (U) Negative Negative [facility] Work Phone: Occult Blood,Urine 1+ High Negative [facility] Work Phone: pH (U) 5.5 [pH] 5.0-9.0 [facility] Work Phone: Protein (U) [Mass/Vol] Trace High Negative [facility] Work Phone: RBC Ql (U) 5-9 High 0-4 [facility] Work Phone: Specific gravity (U) [Rel density] 1.02 1.001-1.03 0 [facility] Work Phone: Urobilinogen (U) [Mass/Vol] Normal Normal [facility] Work Phone: WBC (U) [#/Vol] 20-49 High 0-4 [facility] Work Phone: XR hip RT min 2V(w/wo pelvis )*on 08-28-2023 XR hip RT min 2V(w/wo pelvis)* Normal [facility] Automated epithelial cells c ount in urine sediment (number/area)Ordered By: Terrell Gonzalez on 08-27-2023 Epithelial cells Auto (Urine sed) [#/Area] None seen [HPF] 0-2 [place] Bacteria [Presence] in Urine by AutomatedOrdered By: Terrell Gonzalez on 08-27-2023 Bacteria Auto Ql (U) 4+ [HPF] High None Seen [facility] Bacteria identified Cx Nom ( U)Ordered By: Terrell Gonzalez on 08-27-2023 Escherichia coli Escherichia coli Abnormal [facility] Bilirubin Test strip Ql (U)O rdered By: Terrell Gonzalez on 08-27-2023 Bilirubin Ql (U) Negative Negative [facility] Color of Urine by AutoOrdere d By: Terrell Gonzalez on 08-27-2023 Color (U) Yellow Normal Yellow [place] Comment on above: Order Comment: Name Collection Type:: Straight Catheter Performed By: #### C UU, ADDONUAPLUS ####[address] [address] [place] Dipstick and Microscopicon 0 08-27-2023 Appearance (U) Cloudy Critically abnormal Clear [facility] Comment on above: Order Comment: Name Collection Type:: Straight Catheter Performed By: #### C UU, ADDONUAPLUS ####[address] [address] [place] Bacteria,Urine 4+ High None Seen [facility] Comment on above: Order Comment: Name Collection Type:: Straight Catheter Performed By: #### C UU, ADDONUAPLUS ####[address] [address] [place] Bilirubin,Urine Negative Normal Negative [facility] Comment on above: Order Comment: Name Collection Type:: Straight Catheter Performed By: #### C UU, ADDONUAPLUS ####[address] [address] [facility] Glucose Ql (U) Normal Normal Normal [facility] Comment on above: Order Comment: Name Collection Type:: Straight Catheter Performed By: #### C UU, ADDONUAPLUS ####[address] [address] [place] Hyaline Casts,Urine 0-8 Normal 0-8 [facility] Comment on above: Order Comment: Name Collection Type:: Straight Catheter Result Comment: PERF ORMED BY:[address] [place] [address] [place], [place] [phone] MEDICAL RAZIA MONTAGUE M.D. Performed By: #### C UU, ADDONUAPLUS ####[address] [address] [facility] Ketones Ql (U) 1+ High Negative [facility] Comment on above: Order Comment: Name Collection Type:: Straight Catheter Performed By: #### C UU, ADDONUAPLUS ####[address] [address] [facility] Leukocyte esterase Test strip Ql (U) 2+ High Negative [facility] Comment on above: Order Comment: Name Collection Type:: Straight Catheter Performed By: #### C UU, ADDONUAPLUS ####[address] [address] [facility] Nitrite,Urine Negative Normal Negative [facility] Comment on above: Order Comment: Name Collection Type:: Straight Catheter Performed By: #### C UU, ADDONUAPLUS ####[address] [address] [facility] Occult Blood,Urine 1+ High Negative [facility] Comment on above: Order Comment: Name Collection Type:: Straight Catheter Result Comment: PERF ORMED BY:[address] FELIPE MONTOYAJayceFAVIOLA, [place] [phone] MEDICAL RAZIA MONTAGUE M.D. Performed By: #### C UU, ADDONUAPLUS ####[address] [address] [place] Protein,Urine Trace High Negative [facility] Comment on above: Order Comment: Name Collection Type:: Straight Catheter Performed By: #### C UU, ADDONUAPLUS ####[address] [address] [facility] RBC,Urine 5-9 High 0-4 [facility] Comment on above: Order Comment: Name Collection Type:: Straight Catheter Performed By: #### C UU, ADDONUAPLUS ####[address] Specificy [place],Urine 1.020 Normal 1.001-1.03 0 [facility] Comment on above: Order Comment: Name Collection Type:: Straight Catheter Performed By: #### C UU, ADDONUAPLUS ####[address] Squamous Epithelial Cell,Urine None Seen Normal 0-2 [facility] Comment on above: Order Comment: Name Collection Type:: Straight Catheter Performed By: #### C UU, ADDONUAPLUS ####[address] Urobilinogen,Urine Normal Normal Normal [facility] Comment on above: Order Comment: Name Collection Type:: Straight Catheter Performed By: #### C UU, ADDONUAPLUS ####[address] WBC,Urine 20-49 High 0-4 [facility] Comment on above: Order Comment: Name Collection Type:: Straight Catheter Performed By: #### C UU, ADDONUAPLUS ####[address] Erythrocytes [#/area] in Uri ne sediment by Automated countOrdered By: Terrell Gonzalez on 08-27-2023 RBC Auto (Urine sed) [#/Area] 5-9 [HPF] High 0-4 [place] Ketones Auto test strip (U) [Mass/Vol]Ordered By: Terrell Gonzalez on 08-27-2023 Ketones (U) [Mass/Vol] 1+ High Negative [facility] - UrinalysisOrder ed By: Terrell Gonzalez on 08-27-2023 Hyaline casts LM Ql (Urine sed) 0-8 [LPF] 0-8 [place] Leukocytes [#/area] in Urine sediment by Automated countOrdered By: Terrell Gonzalez on 08-27-2023 WBC Auto (Urine sed) [#/Area] 20-49 [HPF] High 0-4 [place] Nitrite Test strip Ql (U)Ord ered By: Terrell Gonzalez on 08-27-2023 Nitrite Ql (U) Negative Negative [place] No Panel InformationOrdered By: Terrell Gonzalez on 08-27-2023 0-8 [LPF] 0-8 [place] Protein Auto test strip (U) [Mass/Vol]Ordered By: Terrell Gonzalez on 08-27-2023 Protein (U) [Mass/Vol] Trace mg/dL High Negative [facility] Specific gravity Auto test s trip (U) [Rel density]Ordered By: Terrell Gonzalez on 08-27-2023 Specific gravity (U) [Rel density] 1.020 1.001-1.03 0 [place] Urine Cultureon 08-27-2023 Bacteria identified Cx Nom (U) Normal [facility] Comment on above: Performed By: #### C UU, ADDONUAPLUS ####[facility] [id number] [place] [id number] [facility] Urine clarity by refractomet ry automatedOrdered By: Terrell Gonzalez on 08-27-2023 Clarity Refractometry automated (U) Cloudy Abnormal Clear [place] Urine culture routineOrdered By: Terrell Gonzalez on 08-27-2023 Bacteria identified Cx Nom (U) Escherichia coli Abnormal [place] Urine glucose measurement by automated test strip (mass/volume)Ordered By: Terrell Gonzalez on 08-27-2023 Glucose Auto test strip (U) [Mass/Vol] Normal mg/dL Normal [place] Urine hemoglobin detection b y automated test stripOrdered By: Terrell Gonzalez on 08-27-2023 Hemoglobin Auto test strip Ql (U) 1+ High Negative [place] Urine leukocyte esterase det ection by automated test stripOrdered By: Terrell Gonzalez on 08-27-2023 Leukocyte esterase Auto test strip Ql (U) 2+ High Negative [place] Urine pH measurement by auto mated test stripOrdered By: Terrell Gonzalez on 08-27-2023 pH (U) 5.5 [pH] Normal 5.0-9.0 [place] Comment on above: Order Comment: Name Collection Type:: Straight Catheter Performed By: #### C UU, ADDONUAPLUS ####[facility] [place] [address] [facility] Urobilinogen Auto test strip (U) [Mass/Vol]Ordered By: Terrell Gonzalez on 08-27-2023 Urobilinogen (U) [Mass/Vol] Normal mg/dL Normal [place] Absolute reticulocyte countO rdered By: Terrell Gonzalez on 08-25-2023 Reticulocytes (Bld) [#/Vol] 0.028 10*6/uL 0.024-0.08 4 [place] Albumin Levelon 08-25-2023 Albumin [Mass/Vol] 4.1 g/dL Normal 3.5-5.7 [facility] Comment on above: Order Comment: Diagn osis: D62, I50.9, I73.9 Comment: [id number] Jose RM103, , 08/18/23 Result Comment: PERF ORMED BY:[address] [place], [place] [phone] MEDICAL DIRECTORAMPARO MONTAGUE M.D. Performed By: #### B MP, RETIC, BNP, CBC, ALB ####[place] [address] [place] [id number] [facility] Albumin [Mass/volume] in Ser um or Plasma by Bromocresol green (BCG) dye binding methoOrdered By: Terrell Gonzalez on 08-25-2023 Albumin BCG dye [Mass/Vol] 4.1 g/dL 3.5-5.7 [place] Automated basophil %Ordered By: Terrell Gonzalez on 08-25-2023 Basophils/100 WBC (Bld) 0.4 % Normal . [place] Comment on above: Order Comment: Diagn osis: D62, I50.9, I73.9 Comment: [id number] Jose RM103, , 08/18/23 Performed By: #### B MP, RETIC, BNP, CBC, ALB ####[place] [id number] [facility] Automated basophil countOrde red By: Terrell Gonzalez on 08-25-2023 Basophils (Bld) [#/Vol] 0.0 10*3/uL Normal 0.0-0.2 [place] Comment on above: Order Comment: Diagn osis: D62, I50.9, I73.9 Comment: [id number], NARENDRA KRAFT, , 08/18/23 Result Comment: PERF ORMED BY:[address] [place], [place] [phone] MEDICAL DIRECTORAMPARO MONTAGUE M.D. Performed By: #### B MP, RETIC, BNP, CBC, ALB ####[place] [address] [place] [address] [facility] Automated blood monocyte cou ntOrdered By: Terrell Gonzalez on 08-25-2023 Monocytes (Bld) [#/Vol] 0.7 10*3/uL Normal 0.0-0.8 [place] Comment on above: Order Comment: Diagn osis: D62, I50.9, I73.9 Comment: [id number], NARENDRA KRAFT, , 08/18/23 Performed By: #### B MP, RETIC, BNP, CBC, ALB ####[place] [id number] [facility] Automated eosinophil %Ordere d By: Terrell Gonzalez on 08-25-2023 Eosinophils/100 WBC (Bld) 0.9 % Normal . [place] Comment on above: Order Comment: Diagn osis: D62, I50.9, I73.9 Comment: [id number] RM103, , 08/18/23 Performed By: #### B MP, RETIC, BNP, CBC, ALB ####[place] [id number] [facility] Automated eosinophil countOr dered By: Terrell Gonzalez on 08-25-2023 Eosinophils (Bld) [#/Vol] 0.1 10*3/uL Normal 0.0-0.45 [place] Comment on above: Order Comment: Diagn osis: D62, I50.9, I73.9 Comment: [id number] RMBen, , 08/18/23 Performed By: #### B MP, RETIC, BNP, CBC, ALB ####[address] [place] [address] [facility] Automated monocyte %Ordered By: Terrell Gonzalez on 08-25-2023 Monocytes/100 WBC (Bld) 9.4 % Normal . [place] Comment on above: Order Comment: Diagn osis: D62, I50.9, I73.9 Comment: [id number], NARENDRA KRAFT, , 08/18/23 Performed By: #### B MP, RETIC, BNP, CBC, ALB ####[address] [address] [facility] Automated neutrophil %Ordere d By: Terrell Gonzalez on 08-25-2023 Neutrophils/100 WBC (Bld) 69.9 % Normal . [place] Comment on above: Order Comment: Diagn osis: D62, I50.9, I73.9 Comment: [id number], NARENDRA KRAFT, , 08/18/23 Performed By: #### B MP, RETIC, BNP, CBC, ALB ####[address] [address] [facility] BNP ser/plasOrdered By: Felix Gonzalez on 08-25-2023 Natriuretic peptide B (Bld) [Mass/Vol] 41.0 pg/mL Normal [place] Comment on above: Order Comment: Diagn osis: D62, I50.9, I73.9 Comment: [id number], NARENDRA KRAFT, , 08/18/23 Result Comment: PERF ORMED BY:[address] [place], [place] [phone] MEDICAL RAZIA MONTAGUE M.D. Performed By: #### B MP, RETIC, BNP, CBC, ALB ####[address] [address] [facility] Basic Metabolic Panelon 08-05 GFR/1.73 sq M.predicted MDRD (S/P/Bld) [Vol rate/Area] mL/min/{1.73_m2} Normal [facility] Comment on above: Order Comment: Diagn osis: D62, I50.9, I73.9 Comment: [id number], SWAPNIL RMBen, , 08/18/23 Performed By: #### B MP, RETIC, BNP, CBC, ALB ####[address] [address] [facility] Calcium [Mass/volume] in Ser um or PlasmaOrdered By: Terrell Gonzalez on 08-25-2023 Calcium [Mass/Vol] 9.8 mg/dL Normal 8.6-10.3 [facility] Comment on above: Order Comment: Diagn osis: D62, I50.9, I73.9 Comment: [id number], NARENDRA KRAFT, , 08/18/23 Performed By: #### B MP, RETIC, BNP, CBC, ALB ####[place] [id number] [facility] Carbon dioxide, total [Moles /volume] in Serum or PlasmaOrdered By: Terrell Gonzalez on 08-25-2023 CO2 [Moles/Vol] 35.3 mmol/L High 21.0-31.0 [facility] Comment on above: Order Comment: Diagn osis: D62, I50.9, I73.9 Comment: [id number], NARENDRA KRAFT, , 08/18/23 Performed By: #### B MP, RETIC, BNP, CBC, ALB ####[place] [id number] [facility] Chloride [Moles/volume] in S gaetano or PlasmaOrdered By: Terrell Gonzalez on 08-25-2023 Chloride [Moles/Vol] 93 mmol/L Low 98-107 [facility] Comment on above: Order Comment: Diagn osis: D62, I50.9, I73.9 Comment: [id number] RM103, , 08/18/23 Performed By: #### B MP, RETIC, BNP, CBC, ALB ####[address] [address] [facility] Complete Blood Count Auto Di ffon 08-25-2023 Mean Corpuscular HGB Conc 32.7 g/dL Normal 32.0-35.0 [facility] Comment on above: Order Comment: Diagn osis: D62, I50.9, I73.9 Comment: [id number], SWAPNIL, RM103, , 08/18/23 Performed By: #### B MP, RETIC, BNP, CBC, ALB ####[address] NRBC% 0.0 /100{WBC} Normal 0-0.5 [facility] Comment on above: Order Comment: Diagn osis: D62, I50.9, I73.9 Comment: [id number], SWAPNIL, RM103, , 08/18/23 Performed By: #### B MP, RETIC, BNP, CBC, ALB ####[address] Creatinine [Mass/volume] in Serum or PlasmaOrdered By: Terrell Gonzalez on 08-25-2023 Creatinine [Mass/Vol] 0.59 mg/dL Low 0.60-1.20 [facility] Comment on above: Order Comment: Diagn osis: D62, I50.9, I73.9 Comment: [id number], [facility]IL[facility], , 08/18/23 Performed By: #### B MP, RETIC, BNP, CBC, ALB ####[address] Erythrocyte distribution wid th [Ratio] by Automated countOrdered By: Terrell Gonzalez on 08-25-2023 Erythrocyte distribution width (RBC) [Ratio] 14.2 % Normal 11.9-15.3 [place] Comment on above: Order Comment: Diagn osis: D62, I50.9, I73.9 Comment: [id number], SWAPNIL, RM103, , 08/18/23 Performed By: #### B MP, RETIC, BNP, CBC, ALB ####[place] [id number] [facility] Erythrocytes [#/volume] in B lood by Automated countOrdered By: Terrell Gonzalez on 08-25-2023 RBC (Bld) [#/Vol] 3.46 10*6/uL Low 3.60-5.00 [facility] Comment on above: Order Comment: Diagn osis: D62, I50.9, I73.9 Comment: [id number] RM103, , 08/18/23 Performed By: #### B MP, RETIC, BNP, CBC, ALB ####[address] [place] [address] [facility] Glucose [Mass/volume] in Ser um or PlasmaOrdered By: Terrell Gonzalez on 08-25-2023 Glucose [Mass/Vol] 85 mg/dL Normal 70-100 [facility] Comment on above: ADA recommended refe rence rangeRandom Glucose Reference Range is dependent on time and content of last meal. Glucose of more than 200 mg/dL in a nonstressed, ambulatory subject supports the diagnosis of Diabetes Mellitus. Order Comment: Diagn osis: D62, I50.9, I73.9 Comment: [id number] RM103, , 08/18/23 Result Comment: [place] Glucose Reference Range is dependent on time and content of last meal. Glucose of more than 200 mg/dL in a nonstressed, ambulatory subject supports the diagnosis of Diabetes Mellitus. ADA recommended reference range Performed By: #### B MP, RETIC, BNP, CBC, ALB ####[address] [place] [address] [facility] Hematocrit [Volume Fraction] of Blood by Automated countOrdered By: Terrell Gonzalez on 08-25-2023 Hematocrit (Bld) [Volume fraction] 33.2 % Low 34.0-46.4 [place] Comment on above: Order Comment: Diagn osis: D62, I50.9, I73.9 Comment: [id number] RM103, , 08/18/23 Performed By: #### B MP, RETIC, BNP, CBC, ALB ####[address] [place] [address] [facility] Hemoglobin [Mass/volume] in BloodOrdered By: Terrell Gonzalez on 08-25-2023 Hemoglobin (Bld) [Mass/Vol] 10.9 g/dL Low 11.8-15.4 [place] Comment on above: Order Comment: Diagn osis: D62, I50.9, I73.9 Comment: [id number], OGETTAZ, RM103, , 08/18/23 Performed By: #### B MP, RETIC, BNP, CBC, ALB ####[address] Leukocytes [#/volume] correc daya for nucleated erythrocytes in Blood by Automated counOrdered By: Terrell Gonzalez on 08-25-2023 WBC corrected for nucl RBC Auto (Bld) [#/Vol] 7.7 10*3/uL 3.8-11.6 [place] Leukocytes [#/volume] in Blo od by Automated countOrdered By: Terrell Gonzalez on 08-25-2023 WBC (Bld) [#/Vol] 7.7 10*3/uL Normal 3.8-11.6 [facility] Comment on above: Order Comment: Diagn osis: D62, I50.9, I73.9 Comment: [id number], OGCAMI, RM103, , 08/18/23 Performed By: #### B MP, RETIC, BNP, CBC, ALB ####[address] Lymphocytes [#/volume] in Bl ood by Automated countOrdered By: Terrell Gonzalez on 08-25-2023 Lymphocytes (Bld) [#/Vol] 1.5 10*3/uL Normal 1.00-4.8 [place] Comment on above: Order Comment: Diagn osis: D62, I50.9, I73.9 Comment: [id number], OGETTAZ, RM103, , 08/18/23 Performed By: #### B MP, RETIC, BNP, CBC, ALB ####[place] [id number] [facility] Lymphocytes/100 leukocytes i n Blood by Automated countOrdered By: Terrell Gonzalez on 08-25-2023 Lymphocytes/100 WBC (Bld) 19.4 % Normal . [place] Comment on above: Order Comment: Diagn osis: D62, I50.9, I73.9 Comment: [id number], OGETTAZ, RM103, , 08/18/23 Performed By: #### B MP, RETIC, BNP, CBC, ALB ####[address] MCH [Entitic mass] by Automa dyaa countOrdered By: Terrell Gonzalez on 08-25-2023 MCH (RBC) [Entitic mass] 31.4 pg Normal 24.7-34.3 [place] Comment on above: Order Comment: Diagn osis: D62, I50.9, I73.9 Comment: [id number], OGETTAZ, RM103, , 08/18/23 Performed By: #### B MP, RETIC, BNP, CBC, ALB ####[address] MCHC Auto (RBC) [Mass/Vol]Or dered By: Terrell Gonzalez on 08-25-2023 MCHC (RBC) [Mass/Vol] 32.7 g/dL 32.0-35.0 [facility] [facility] MCV [Entitic volume] by Auto mated countOrdered By: Terrell Gonzalez on 08-25-2023 MCV (RBC) [Entitic vol] 96.1 fL Normal 80-100 [place] Comment on above: Order Comment: Diagn osis: D62, I50.9, I73.9 Comment: [id number], OGCAMI, RM103, , 08/18/23 Performed By: #### B MP, RETIC, BNP, CBC, ALB ####[address] Neutrophils [#/volume] in Bl ood by Automated countOrdered By: Terrell Gonzalez on 08-25-2023 Neutrophils (Bld) [#/Vol] 5.4 10*3/uL Normal 1.8-7.7 [place] Comment on above: Order Comment: Diagn osis: D62, I50.9, I73.9 Comment: [id number], OGETTAZ, RM103, , 08/18/23 Performed By: #### B MP, RETIC, BNP, CBC, ALB ####[facility] No Panel InformationOrdered By: Terrell Gonzalez on 08-25-2023 Estimated GFR (CKD-EPI) > 60.0 mL/Min [place] [facility] Creatinine Clearance (Chem N/A [place] > 60.0 mL/Min [place] N/A [place] Nucleated erythrocytes [Pres ence] in Blood by Automated countOrdered By: Terrell Gonzalez on 08-25-2023 Nucleated RBC Auto Ql (Bld) 0.0 /100{WBC} 0-0.5 [place] Platelet mean volume [Entiti c volume] in Blood by Automated countOrdered By: Terrell Gonzalez on 08-25-2023 Platelet mean volume (Bld) [Entitic vol] 9.6 fL Normal 6.3-10.7 [place] Comment on above: Order Comment: Diagn osis: D62, I50.9, I73.9 Comment: [id number] Jose RM103, , 08/18/23 Performed By: #### B MP, RETIC, BNP, CBC, ALB ####[place] [address] Platelets [#/volume] in Bloo d by Automated countOrdered By: Terrell Gonzalez on 08-25-2023 Platelets (Bld) [#/Vol] 267 10*3/uL Normal 150-450 [place] Comment on above: Order Comment: Diagn osis: D62, I50.9, I73.9 Comment: [id number] Jose RM103, , 08/18/23 Performed By: #### B MP, RETIC, BNP, CBC, ALB ####[place] [address] Potassium [Moles/volume] in Serum or PlasmaOrdered By: Terrell Gonzalez on 08-25-2023 Potassium [Moles/Vol] 4.5 mmol/L Normal 3.5-5.1 [facility] Comment on above: Order Comment: Diagn osis: D62, I50.9, I73.9 Comment: [id number] Zamora RM103, , 08/18/23 Performed By: #### B MP, RETIC, BNP, CBC, ALB ####[facility] [place] [id number] [facility] Relevant diagnostic tests/la boratory data Narrativeon 08-25-2023 Albumin [Mass/Vol] 4.1 g/dL 3.5-5.7 [facility] Work Phone: Anion gap [Moles/Vol] 14.2 mmol/L 6.0-15.0 [facility] Work Phone: Basophils (Bld) [#/Vol] 0 10*3/uL 0.0-0.2 [facility] Work Phone: Basophils/100 WBC (Bld) 0.4 % . [facility] Work Phone: Calcium [Mass/Vol] 9.8 mg/dL 8.6-10.3 [facility] Work Phone: Chloride [Moles/Vol] 93 mmol/L Low 98-107 [facility] Work Phone: CO2 [Moles/Vol] 35.3 mmol/L High 21.0-31.0 [facility] Work Phone: Creatinine [Mass/Vol] 0.59 mg/dL Low 0.60-1.20 [facility] Work Phone: Eosinophils (Bld) [#/Vol] 0.1 10*3/uL 0.0-0.45 [facility] Work Phone: Eosinophils/100 WBC (Bld) 0.9 % . [facility] Work Phone: Erythrocyte distribution width (RBC) [Entitic vol] 14.2 % 11.9-15.3 [facility] Work Phone: GFR/1.73 sq M.predicted MDRD (S/P/Bld) [Vol rate/Area] mL/min/{1.73_m2} [facility] Work Phone: Glucose [Mass/Vol] 85 mg/dL 70-100 [facility] Work Phone: Hematocrit (Bld) [Volume fraction] 33.2 % Low 34.0-46.4 [facility] Work Phone: Hemoglobin (Bld) [Mass/Vol] 10.9 g/dL Low 11.8-15.4 [facility] Work Phone: Lymphocytes (Bld) [#/Vol] 1.5 10*3/uL 1.00-4.8 [facility] Work Phone: Lymphocytes/100 WBC (Bld) 19.4 % . [facility] Work Phone: MCH (RBC) [Entitic mass] 96.1 fL 80-100 [facility] Work Phone: MCH (RBC) [Entitic mass] 31.4 pg 24.7-34.3 [facility] Work Phone: MCHC (RBC) [Mass/Vol] 32.7 g/dL 32.0-35.0 [facility] Work Phone: Monocytes (Bld) [#/Vol] 0.7 10*3/uL 0.0-0.8 [facility] Work Phone: Monocytes/100 WBC (Bld) 9.4 % . [facility] Work Phone: Natriuretic peptide B (Bld) [Mass/Vol] 41 pg/mL 5-100 [facility] Work Phone: Neutrophils (Bld) [#/Vol] 5.4 10*3/uL 1.8-7.7 [facility] Work Phone: Neutrophils/100 WBC (Bld) 69.9 % . [facility] Work Phone: Nucleated RBC (Bld) [#/Vol] 0 /100{WBC} 0-0.5 [facility] Work Phone: Platelet mean volume (Bld) [Entitic vol] 9.6 fL 6.3-10.7 [facility] Work Phone: Platelets (Bld) [#/Vol] 267 10*3/uL 150-450 [facility] Work Phone: Potassium [Moles/Vol] 4.5 mmol/L 3.5-5.1 [facility] Work Phone: RBC (Bld) [#/Vol] 3.46 10*6/uL Low 3.60-5.[address] [facility] Work Phone: Reticulocyte Number 0.028 10*6/uL 0.024-0 .08 4 [facility] Work Phone: Reticulocyte Percent 0.8 % 0.5-1.5 [facility] Work Phone: Sodium [Moles/Vol] 138 mmol/L 136-145 [facility] Work Phone: Urea nitrogen [Mass/Vol] 7 mg/dL 7-25 [facility] Work Phone: WBC (Bld) [#/Vol] 7.7 10*3/uL 3.8-11.6 [facility] Work Phone: WBC casts LM.LPF (Urine sed) [#/Area] 7.7 10*3/uL 3.8-11.6 [facility] Work Phone: Reticulocyte Counton 05-21-2 024 Reticulocyte Number 0.028 10*6/uL Normal 0.024-0 .08 4 [facility] Comment on above: Order Comment: Diagn osis: D62, I50.9, I73.9 Comment: [id number], SWAPNIL, RM103, , 08/18/23 Result Comment: PERF ORMED BY:[place] [address] [place], [place] [id number] MEDICAL DIRECTORAMPARO MONTAGUE M.D. Performed By: #### B MP, RETIC, BNP, CBC, ALB ####[place] [address] [place] [id number] [facility] Reticulocyte Percent 0.8 % Normal 0.5-1.5 [facility] Comment on above: Order Comment: Diagn osis: D62, I50.9, I73.9 Comment: [id number], NARENDRA KRAFT, , 08/18/23 Performed By: #### B MP, RETIC, BNP, CBC, ALB ####[place] [address] [place] [id number] [place] Reticulocytes/100 RBC Auto ( Bld)Ordered By: Terrell Gonzalez on 08-25-2023 Reticulocytes/100 RBC (Bld) 0.8 % 0.5-1.5 [place] Serum or plasma anion gap de terminationOrdered By: Terrell Gonzalez on 08-25-2023 Anion gap [Moles/Vol] 14.2 mmol/L Normal 6.0-15.0 [facility] Comment on above: Order Comment: Diagn osis: D62, I50.9, I73.9 Comment: [id number], ELISABETH KRAFT103, , 08/18/23 Performed By: #### B MP, RETIC, BNP, CBC, ALB ####[place] [id number] [facility] Sodium [Moles/volume] in Ser um or PlasmaOrdered By: Terrell Gonzalez on 08-25-2023 Sodium [Moles/Vol] 138 mmol/L Normal 136-145 [facility] Comment on above: Order Comment: Diagn osis: D62, I50.9, I73.9 Comment: [id number], SWAPNIL RM103, , 08/18/23 Performed By: #### B MP, RETIC, BNP, CBC, ALB ####[place] [id number] [facility] Urea nitrogen [Mass/volume] in Serum or PlasmaOrdered By: Terrell Gonzalez on 08-25-2023 Urea nitrogen [Mass/Vol] 7 mg/dL Normal 7-25 [place] Comment on above: Order Comment: Diagn osis: D62, I50.9, I73.9 Comment: [id number], OGONTZ, RM103, HM, 08/18/23 Performed By: #### B MP, RETIC, BNP, CBC, ALB ####[address] XR hip RT min 2V(w/wo pelvis )*on 08-17-2023 XR hip RT min 2V(w/wo pelvis)* Normal [facility] Automated basophil %Ordered By: Nils Boudreaux on 08-16-2023 Basophils/100 WBC (Bld) 0.7 % Normal . [place] Comment on above: Order Comment: REDRA W: PRIOR SAMPLE QNS Performed By: #### C BC ####[address] Automated basophil countOrde red By: Nils Boudreaux on 08-16-2023 Basophils (Bld) [#/Vol] 0.0 10*3/uL Normal 0.0-0.2 [place] Comment on above: Order Comment: REDRA W: PRIOR SAMPLE QNS Result Comment: PERF ORMED BY:[address] [place], [place] [id number] MEDICAL RAZIA MONTAGUE M.D. Performed By: #### C BC ####[address] Automated blood monocyte cou ntOrdered By: Nils Boudreaux on 08-16-2023 Monocytes (Bld) [#/Vol] 0.6 10*3/uL Normal 0.0-0.8 [place] Comment on above: Order Comment: REDRA W: PRIOR SAMPLE QNS Performed By: #### C BC ####[address] Automated eosinophil %Ordere d By: Nils Boudreaux on 08-16-2023 Eosinophils/100 WBC (Bld) 3.1 % Normal . [place] Comment on above: Order Comment: REDRA W: PRIOR SAMPLE QNS Performed By: #### C BC ####[address] [address] [facility] Automated eosinophil countOr dered By: Nils Boudreaux on 08-16-2023 Eosinophils (Bld) [#/Vol] 0.2 10*3/uL Normal 0.0-0.45 [place] Comment on above: Order Comment: REDRA W: PRIOR SAMPLE QNS Performed By: #### C BC ####[place] [id number] [facility] Automated monocyte %Ordered By: Nils Boudreaux on 08-16-2023 Monocytes/100 WBC (Bld) 11.4 % Normal . [place] Comment on above: Order Comment: REDRA W: PRIOR SAMPLE QNS Performed By: #### C BC ####[place] [id number] [facility] Automated neutrophil %Ordere d By: Nils Janusz on 08-16-2023 Neutrophils/100 WBC (Bld) 49.8 % Normal . [place] Comment on above: Order Comment: REDRA W: PRIOR SAMPLE QNS Performed By: #### C BC ####[place] [id number] [facility] Basic Metabolic Panelon 08-04 Creatinine Clr Calc Pharmacy 51.81 Normal [facility] Comment on above: Result Comment: PERF ORMED BY:[address] [place], [place] [phone] MEDICAL RAZIA MONTAGUE M.D. Performed By: #### B MP ####[place] [id number] [facility] GFR/1.73 sq M.predicted MDRD (S/P/Bld) [Vol rate/Area] mL/min/{1.73_m2} Normal [facility] Comment on above: Performed By: #### B MP ####[place] [id number] [facility] Calcium [Mass/volume] in Ser um or PlasmaOrdered By: Alejandra Stallworth on 08-16-2023 Calcium [Mass/Vol] 9.1 mg/dL Normal 8.6-10.3 [facility] Comment on above: Performed By: #### B MP ####[place] [id number] [facility] Carbon dioxide, total [Moles /volume] in Serum or PlasmaOrdered By: Alejandra Stallworth on 08-16-2023 CO2 [Moles/Vol] 38.3 mmol/L High 21.0-31.0 [facility] Comment on above: Performed By: #### B MP ####[address] Chloride [Moles/volume] in S [place]et[place] or PlasmaOrdered By: Alejandra Stallworth on 08-16-2023 Chloride [Moles/Vol] 95 mmol/L Low 98-107 [facility] Comment on above: Performed By: #### B MP ####[address] Complete Blood Count Auto Di ffon 08-16-2023 Mean Corpuscular HGB Conc 32.6 g/dL Normal 32.0-35.0 [facility] Comment on above: Order Comment: REDRA W: PRIOR SAMPLE QNS Performed By: #### C BC ####[address] NRBC% 0.1 /100{WBC} Normal 0-0.5 [facility] Comment on above: Order Comment: REDRA W: PRIOR SAMPLE QNS Performed By: #### C BC ####[place] [id number] [facility] Creatinine [Mass/volume] in Serum or PlasmaOrdered By: Alejandra Stallworth on 08-16-2023 Creatinine [Mass/Vol] 0.60 mg/dL Normal 0.60-1.20 [facility] Comment on above: Performed By: #### B MP ####[address] Erythrocyte distribution wid th [Ratio] by Automated countOrdered By: Nils Boudreaux on 08-16-2023 Erythrocyte distribution width (RBC) [Ratio] 15.2 % Normal 11.9-15.3 [place] Comment on above: Order Comment: REDRA W: PRIOR SAMPLE QNS Performed By: #### C BC ####[place] [id number] [facility] Erythrocytes [#/volume] in B lood by Automated countOrdered By: Nils Boudreaux on 08-16-2023 RBC (Bld) [#/Vol] 2.92 10*6/uL Low 3.60-5.00 [facility] Comment on above: Order Comment: REDRA W: PRIOR SAMPLE QNS Performed By: #### C BC ####[place] [id number] [facility] Glucose [Mass/volume] in Ser um or PlasmaOrdered By: Alejandra Stallworth on 08-16-2023 Glucose [Mass/Vol] 94 mg/dL Normal 70-100 [facility] Comment on above: ADA recommended refe rence rangeRandom Glucose Reference Range is dependent on time and content of last meal. Glucose of more than 200 mg/dL in a nonstressed, ambulatory subject supports the diagnosis of Diabetes Mellitus. Result Comment: [place] om Glucose Reference Range is dependent on time and content of last meal. Glucose of more than 200 mg/dL in a nonstressed, ambulatory subject supports the diagnosis of Diabetes Mellitus. ADA recommended reference range Performed By: #### B MP ####[address] [address] [facility] Hematocrit [Volume Fraction] of Blood by Automated countOrdered By: Nils Boudreaux on 08-16-2023 Hematocrit (Bld) [Volume fraction] 28.3 % Low 34.0-46.4 [place] Comment on above: Order Comment: REDRA W: PRIOR SAMPLE QNS Performed By: #### C BC ####[address] [address] [facility] Hemoglobin [Mass/volume] in BloodOrdered By: Nils Boudreaux on 08-16-2023 Hemoglobin (Bld) [Mass/Vol] 9.2 g/dL Low 11.8-15.4 [place] Comment on above: Order Comment: REDRA W: PRIOR SAMPLE QNS Performed By: #### C BC ####[address] Leukocytes [#/volume] correc daya for nucleated erythrocytes in Blood by Automated counOrdered By: Nils Boudreaux on 08-16-2023 WBC corrected for nucl RBC Auto (Bld) [#/Vol] 5.2 10*3/uL 3.8-11.6 [place] Leukocytes [#/volume] in Blo od by Automated countOrdered By: Nils Boudreaux on 08-16-2023 WBC (Bld) [#/Vol] 5.2 10*3/uL Normal 3.8-11.6 [facility] Comment on above: Order Comment: REDRA W: PRIOR SAMPLE QNS Performed By: #### C BC ####[address] Lymphocytes [#/volume] in Bl ood by Automated countOrdered By: Nils Boudreaux on 08-16-2023 Lymphocytes (Bld) [#/Vol] 1.8 10*3/uL Normal 1.00-4.8 [place] Comment on above: Order Comment: REDRA W: PRIOR SAMPLE QNS Performed By: #### C BC ####[address] Lymphocytes/100 leukocytes i n Blood by Automated countOrdered By: Nils Boudreaux on 08-16-2023 Lymphocytes/100 WBC (Bld) 35.0 % Normal . [place] Comment on above: Order Comment: REDRA W: PRIOR SAMPLE QNS Performed By: #### C BC ####[place] [id number] [facility] MCH [Entitic mass] by Automa daya countOrdered By: Nils Boudreaux on 08-16-2023 MCH (RBC) [Entitic mass] 31.6 pg Normal 24.7-34.3 [place] Comment on above: Order Comment: REDRA W: PRIOR SAMPLE QNS Performed By: #### C BC ####[place] [id number] [facility] MCHC Auto (RBC) [Mass/Vol]Or dered By: Nils Boudreaux on 08-16-2023 MCHC (RBC) [Mass/Vol] 32.6 g/dL 32.0-35.0 [facility] MCV [Entitic volume] by Auto mated countOrdered By: Nils Boudreaux on 08-16-2023 MCV (RBC) [Entitic vol] 96.9 fL Normal 80-100 [place] Comment on above: Order Comment: REDRA W: PRIOR SAMPLE QNS Performed By: #### C BC ####[place] [id number] [facility] Neutrophils [#/volume] in Bl ood by Automated countOrdered By: Nils Boudreaux on 08-16-2023 Neutrophils (Bld) [#/Vol] 2.6 10*3/uL Normal 1.8-7.7 [place] Comment on above: Order Comment: REDRA W: PRIOR SAMPLE QNS Performed By: #### C BC ####[place] [id number] [facility] No Panel InformationOrdered By: Alejandra Stallworth on 08-16-2023 Estimated GFR (CKD-EPI) > 60.0 mL/Min [place] [facility] Creatinine Clearance (Chem 51.81 [place] > 60.0 mL/Min [place] 51.81 [place] Nucleated erythrocytes [Pres ence] in Blood by Automated countOrdered By: Nils Boudreaux on 08-16-2023 Nucleated RBC Auto Ql (Bld) 0.1 /100{WBC} 0-0.5 [place] Platelet mean volume [Entiti c volume] in Blood by Automated countOrdered By: Nils Boudreaux on 08-16-2023 Platelet mean volume (Bld) [Entitic vol] 8.9 fL Normal 6.3-10.7 [place] Comment on above: Order Comment: REDRA W: PRIOR SAMPLE QNS Performed By: #### C BC ####[place] [id number] [facility] Platelets [#/volume] in Bloo d by Automated countOrdered By: Nils Boudreaux on 08-16-2023 Platelets (Bld) [#/Vol] 232 10*3/uL Normal 150-450 [place] Comment on above: Order Comment: REDRA W: PRIOR SAMPLE QNS Performed By: #### C BC ####[place] [id number] [facility] Potassium [Moles/volume] in Serum or PlasmaOrdered By: Alejandra Stallworth on 08-16-2023 Potassium [Moles/Vol] 4.4 mmol/L Normal 3.5-5.1 [facility] Comment on above: Performed By: #### B MP ####[place] [id number] [facility] Serum or plasma anion gap de terminationOrdered By: Alejandra Stallworth on 08-16-2023 Anion gap [Moles/Vol] 10.1 mmol/L Normal 6.0-15.0 [facility] Comment on above: Performed By: #### B MP ####[place] [id number] [facility] Sodium [Moles/volume] in Ser um or PlasmaOrdered By: Alejandra Stallworth on 08-16-2023 Sodium [Moles/Vol] 139 mmol/L Normal 136-145 [facility] Comment on above: Performed By: #### B MP ####[place] [id number] [facility] Urea nitrogen [Mass/volume] in Serum or PlasmaOrdered By: Alejandra Stallworth on 08-16-2023 Urea nitrogen [Mass/Vol] 13 mg/dL Normal 7-25 [place] Comment on above: Performed By: #### B MP ####[place] [id number] [facility] Aerobic cultureOrdered By: Roya Boudreaux on 08-10-2023 Bacteria identified Aer cx Nom (Unsp spec) No Growth 2 Days [facility] Basic Metabolic Panelon Anion gap [Moles/Vol] 5.6 mmol/L Low 6.0-15.0 [facility] Comment on above: Performed By: #### B MP, CBC ####[address] [address] [facility] Calcium [Mass/Vol] 8.7 mg/dL Normal 8.6-10.3 [facility] Comment on above: Performed By: #### B MP, CBC ####[address] [address] [facility] Chloride [Moles/Vol] 96 mmol/L Low 98-107 [facility] Comment on above: Performed By: #### B MP, CBC ####[address] [address] [facility] CO2 [Moles/Vol] 38.8 mmol/L High 21.0-31.0 [facility] Comment on above: Performed By: #### B MP, CBC ####[place] [id number] [facility] Creatinine [Mass/Vol] 0.56 mg/dL Low 0.60-1.20 [facility] Comment on above: Performed By: #### B MP, CBC ####[address] [address] [place] Creatinine Clr Calc Pharmacy 51.81 Normal [facility] Comment on above: Result Comment: PERF ORMED BY:[address] [place], [place] [phone] MEDICAL DIRECTORAMPARO MONTAGUE M.D. Performed By: #### B MP, CBC ####[place] [id number] [facility] GFR/1.73 sq M.predicted MDRD (S/P/Bld) [Vol rate/Area] mL/min/{1.73_m2} Normal [facility] Comment on above: Performed By: #### B MP, CBC ####[place] [id number] [facility] Glucose [Mass/Vol] 115 mg/dL High 70-100 [facility] Comment on above: Result Comment: [place] Glucose Reference Range is dependent on time and content of last meal. Glucose of more than 200 mg/dL in a nonstressed, ambulatory subject supports the diagnosis of Diabetes Mellitus. ADA recommended reference range Performed By: #### B MP, CBC ####[address] Potassium [Moles/Vol] 4.4 mmol/L Normal 3.5-5.1 [facility] Comment on above: Performed By: #### B MP, CBC ####[address] Sodium [Moles/Vol] 136 mmol/L Normal 136-145 [facility] Comment on above: Performed By: #### B MP, CBC ####[address] Urea nitrogen [Mass/Vol] 13 mg/dL Normal 7-25 [facility] Comment on above: Performed By: #### B MP, CBC ####[address] Complete Blood Count Auto Di ffon 08-10-2023 Basophils (Bld) [#/Vol] 0.0 10*3/uL Normal 0.0-0.2 [facility] Comment on above: Result Comment: PERF ORMED BY:[address] [place]Sh[place]Jay[place]NOR[place], [place] [id number] MEDICAL DIRECTORAMPARO MONTAGUE M.D. Performed By: #### B MP, CBC ####[address] Basophils/100 WBC (Bld) 0.6 % Normal . [facility] Comment on above: Performed By: #### B MP, CBC ####[address] Eosinophils (Bld) [#/Vol] 0.1 10*3/uL Normal 0.0-0.45 [facility] Comment on above: Performed By: #### B MP, CBC ####[address] Eosinophils/100 WBC (Bld) 1.3 % Normal . [facility] Comment on above: Performed By: #### B MP, CBC ####[address] Erythrocyte distribution width (RBC) [Ratio] 15.6 % High 11.9-15.3 [facility] Comment on above: Performed By: #### B MP, CBC ####[address] Hematocrit (Bld) [Volume fraction] 26.8 % Low 34.0-46.4 [facility] Comment on above: Performed By: #### B MP, CBC ####[address] Hemoglobin (Bld) [Mass/Vol] 8.8 g/dL Low 11.8-15.4 [facility] Comment on above: Performed By: #### B MP, CBC ####[address] Lymphocytes (Bld) [#/Vol] 1.1 10*3/uL Normal 1.00-4.8 [facility] Comment on above: Performed By: #### B MP, CBC ####[address] Lymphocytes/100 WBC (Bld) 20.0 % Normal . [facility] Comment on above: Performed By: #### B MP, CBC ####[address] MCH (RBC) [Entitic mass] 32.0 pg Normal 24.7-34.3 [facility] Comment on above: Performed By: #### B MP, CBC ####[address] MCV (RBC) [Entitic vol] 97.8 fL Normal 80-100 [facility] Comment on above: Performed By: #### B MP, CBC ####[address] Mean Corpuscular HGB Conc 32.7 g/dL Normal 32.0-35.0 [facility] Comment on above: Performed By: #### B MP, CBC ####[address] Monocytes (Bld) [#/Vol] 0.6 10*3/uL Normal 0.0-0.8 [facility] Comment on above: Performed By: #### B MP, CBC ####[place] [id number] [facility] Monocytes/100 WBC (Bld) 11.2 % Normal . [facility] Comment on above: Performed By: #### B MP, CBC ####[address] Neutrophils (Bld) [#/Vol] 3.7 10*3/uL Normal 1.8-7.7 [facility] Comment on above: Performed By: #### B MP, CBC ####[address] Neutrophils/100 WBC (Bld) 66.9 % Normal . [facility] Comment on above: Performed By: #### B MP, CBC ####[address] NRBC% 0.0 /100{WBC} Normal 0-0.5 [facility] Comment on above: Performed By: #### B MP, CBC ####[address] Platelet mean volume (Bld) [Entitic vol] 8.5 fL Normal 6.3-10.7 [facility] Comment on above: Performed By: #### B MP, CBC ####[place] [id number] [facility] Platelets (Bld) [#/Vol] 308 10*3/uL Normal 150-450 [facility] Comment on above: Performed By: #### B MP, CBC ####[address] RBC (Bld) [#/Vol] 2.75 10*6/uL Low 3.60-5.00 [facility] Comment on above: Performed By: #### B MP, CBC ####[address] WBC (Bld) [#/Vol] 5.6 10*3/uL Normal 3.8-11.6 [facility] Comment on above: Performed By: #### B MP, CBC ####[address] Superficial Wound Cultureon 08-10-2023 Superficial Wound Culture No Growth 2 Days PERFORMED BY: [facility] [address] [facility] [id number] PATHOLOGIST BRISKET PULLER AMPARO MONTAGUE M.D. Normal [facility] Comment on above: Performed By: #### C USUP ####[address] XR hip RT min 2V(w/wo pelvis )*on 08-10-2023 XR hip RT min 2V(w/wo pelvis)* Normal [facility] Complete Blood Count Auto Di ffon 08-08-2023 Basophils (Bld) [#/Vol] 0.0 10*3/uL Normal 0.0-0.2 [facility] Comment on above: Result Comment: PERF ORMED BY:[address] [place], [place] [phone] MEDICAL DIRECTORAMPARO MONTAGUE M.D. Performed By: #### C BC ####[address] Basophils/100 WBC (Bld) 0.6 % Normal . [facility] Comment on above: Performed By: #### C BC ####[address] Eosinophils (Bld) [#/Vol] 0.1 10*3/uL Normal 0.0-0.45 [facility] Comment on above: Performed By: #### C BC ####[address] Eosinophils/100 WBC (Bld) 1.9 % Normal . [facility] Comment on above: Performed By: #### C BC ####[address] Erythrocyte distribution width (RBC) [Ratio] 15.7 % High 11.9-15.3 [facility] Comment on above: Performed By: #### C BC ####[address] Hematocrit (Bld) [Volume fraction] 27.1 % Low 34.0-46.4 [facility] Comment on above: Performed By: #### C BC ####[address] Hemoglobin (Bld) [Mass/Vol] 9.0 g/dL Low 11.8-15.4 [facility] Comment on above: Performed By: #### C BC ####[address] Lymphocytes (Bld) [#/Vol] 1.1 10*3/uL Normal 1.00-4.8 [facility] Comment on above: Performed By: #### C BC ####[address] Lymphocytes/100 WBC (Bld) 17.0 % Normal . [facility] Comment on above: Performed By: #### C BC ####[address] MCH (RBC) [Entitic mass] 32.6 pg Normal 24.7-34.3 [facility] Comment on above: Performed By: #### C BC ####[address] MCV (RBC) [Entitic vol] 98.3 fL Normal 80-100 [facility] Comment on above: Performed By: #### C BC ####[address] Mean Corpuscular HGB Conc 33.1 g/dL Normal 32.0-35.0 [facility] Comment on above: Performed By: #### C BC ####[place] [id number] [facility] Monocytes (Bld) [#/Vol] 0.6 10*3/uL Normal 0.0-0.8 [facility] Comment on above: Performed By: #### C BC ####[place] [id number] [facility] Monocytes/100 WBC (Bld) 10.0 % Normal . [facility] Comment on above: Performed By: #### C BC ####[place] [id number] [facility] Neutrophils (Bld) [#/Vol] 4.5 10*3/uL Normal 1.8-7.7 [facility] Comment on above: Performed By: #### C BC ####[place] [id number] [facility] Neutrophils/100 WBC (Bld) 70.5 % Normal . [facility] Comment on above: Performed By: #### C BC ####[place] [id number] [facility] NRBC% 0.1 /100{WBC} Normal 0-0.5 [facility] Comment on above: Performed By: #### C BC ####[place] [id number] [facility] Platelet mean volume (Bld) [Entitic vol] 8.2 fL Normal 6.3-10.7 [facility] Comment on above: Performed By: #### C BC ####[place] [id number] [facility] Platelets (Bld) [#/Vol] 379 10*3/uL Normal 150-450 [facility] Comment on above: Performed By: #### C BC ####[place] [id number] [facility] RBC (Bld) [#/Vol] 2.76 10*6/uL Low 3.60-5.00 [facility] Comment on above: Performed By: #### C BC ####[address] [address] [facility] WBC (Bld) [#/Vol] 6.3 10*3/uL Normal 3.8-11.6 [facility] Comment on above: Performed By: #### C BC ####[address] [address] [facility] Glucose (BldC) [Mass/Vol]on 08-05-2023 Glucose [Mass/Vol] Invalid Interpretation Code [facility] Work Phone: XR chest 1V portableon 08-01 XR chest 1V portable Normal [facility] Alanine aminotransferase [En zymatic activity/volume] in Serum or PlasmaOrdered By: Nils Boudreaux on 08-01-2023 ALT [Catalytic activity/Vol] 11 U/L Normal 7-52 [place] Comment on above: Performed By: #### C BC, CMP ####[place] [id number] [facility] Albumin [Mass/volume] in Ser um or Plasma by Bromocresol green (BCG) dye binding methoOrdered By: Nils Boudreaux on 08-01-2023 Albumin BCG dye [Mass/Vol] 2.8 g/dL Low 3.5-5.7 [place] Alkaline phosphatase [Enzyma tic activity/volume] in Serum or PlasmaOrdered By: Nils Boudreaux on 08-01-2023 ALP [Catalytic activity/Vol] 85 U/L Normal 34-104 [place] Comment on above: Performed By: #### C BC, CMP ####[address] [address] [facility] Aspartate aminotransferase [ Enzymatic activity/volume] in Serum or PlasmaOrdered By: Nils Boudreaux on 08-01-2023 AST [Catalytic activity/Vol] 16 U/L Normal 13-39 [place] Comment on above: Performed By: #### C BC, CMP ####[address] [address] [facility] Bacteria [Presence] in Urine by AutomatedOrdered By: Jo Cotton on 08-01-2023 Bacteria Auto Ql (U) None seen None Seen [facility] Bilirubin Test strip Ql (U)O rdered By: Jo Cotton on 08-01-2023 Bilirubin Ql (U) Negative Negative [facility] Bilirubin.total [Mass/volume ] in Serum or PlasmaOrdered By: Nils Boudreaux on 08-01-2023 Bilirubin [Mass/Vol] 0.3 mg/dL Normal 0.3-1.0 [facility] Comment on above: Performed By: #### C BC, CMP ####[address] Color of Urine by AutoOrdere d By: Jo Cotton on 08-01-2023 Color (U) Yellow Normal Yellow [place] Comment on above: Order Comment: Name Collection Type:: Voided Performed By: #### A DDONUAPLUS ####[address] Complete Blood Count Auto Di ffon 08-01-2023 Basophils (Bld) [#/Vol] 0.1 10*3/uL Normal 0.0-0.2 [facility] Comment on above: Result Comment: PERF ORMED BY:[address] [place], [place] [phone] MEDICAL DIRECTORAMPARO MONTAGUE M.D. Performed By: #### C BC, CMP ####[place] [id number] [facility] Basophils/100 WBC (Bld) 0.8 % Normal . [facility] Comment on above: Performed By: #### C BC, CMP ####[place] [id number] [facility] Eosinophils (Bld) [#/Vol] 0.1 10*3/uL Normal 0.0-0.45 [facility] Comment on above: Performed By: #### C BC, CMP ####[place] [id number] [facility] Eosinophils/100 WBC (Bld) 1.1 % Normal . [facility] Comment on above: Performed By: #### C BC, CMP ####[place] [id number] [facility] Erythrocyte distribution width (RBC) [Ratio] 16.1 % High 11.9-15.3 [facility] Comment on above: Performed By: #### C BC, CMP ####[place] [id number] [facility] Hematocrit (Bld) [Volume fraction] 25.4 % Low 34.0-46.4 [facility] Comment on above: Performed By: #### C BC, CMP ####[place] [id number] [facility] Hemoglobin (Bld) [Mass/Vol] 8.5 g/dL Low 11.8-15.4 [facility] Comment on above: Performed By: #### C BC, CMP ####[address] Lymphocytes (Bld) [#/Vol] 1.8 10*3/uL Normal 1.00-4.8 [facility] Comment on above: Performed By: #### C BC, CMP ####[address] Lymphocytes/100 WBC (Bld) 19.1 % Normal . [facility] Comment on above: Performed By: #### C BC, CMP ####[place] [id number] [facility] MCH (RBC) [Entitic mass] 32.3 pg Normal 24.7-34.3 [facility] Comment on above: Performed By: #### C BC, CMP ####[place] [id number] [facility] MCV (RBC) [Entitic vol] 97.0 fL Normal 80-100 [facility] Comment on above: Performed By: #### C BC, CMP ####[place] [id number] [facility] Mean Corpuscular HGB Conc 33.3 g/dL Normal 32.0-35.0 [facility] Comment on above: Performed By: #### C BC, CMP ####[address] [address] [facility] Monocytes (Bld) [#/Vol] 1.0 10*3/uL High 0.0-0.8 [facility] Comment on above: Performed By: #### C BC, CMP ####[place] [id number] [facility] Monocytes/100 WBC (Bld) 10.5 % Normal . [facility] Comment on above: Performed By: #### C LIBBY, CMP ####[place] [id number] [facility] Neutrophils (Bld) [#/Vol] 6.5 10*3/uL Normal 1.8-7.7 [facility] Comment on above: Performed By: #### C LIBBY, CMP ####[place] [id number] [facility] Neutrophils/100 WBC (Bld) 68.5 % Normal . [facility] Comment on above: Performed By: #### C LIBBY, CMP ####[place] [id number] [facility] NRBC% 0.0 /100{WBC} Normal 0-0.5 [facility] Comment on above: Performed By: #### C LIBBY, CMP ####[place] [id number] [facility] Platelet mean volume (Bld) [Entitic vol] 8.0 fL Normal 6.3-10.7 [facility] Comment on above: Performed By: #### C LIBBY, CMP ####[place] [id number] [facility] Platelets (Bld) [#/Vol] 421 10*3/uL Normal 150-450 [facility] Comment on above: Performed By: #### C BC, CMP ####[place] [id number] [facility] RBC (Bld) [#/Vol] 2.62 10*6/uL Low 3.60-5.00 [facility] Comment on above: Performed By: #### C BC, CMP ####[place] [id number] [facility] WBC (Bld) [#/Vol] 9.5 10*3/uL Normal 3.8-11.6 [facility] Comment on above: Performed By: #### C BC, CMP ####[place] [id number] [facility] Comprehensive Metabolic Pane andrew 08-01-2023 Albumin [Mass/Vol] 2.8 g/dL Low 3.5-5.7 [facility] Comment on above: Performed By: #### C BC, CMP ####[place] [id number] [facility] Anion gap [Moles/Vol] 8.0 mmol/L Normal 6.0-15.0 [facility] Comment on above: Performed By: #### C BC, CMP ####[place] [id number] [facility] Calcium [Mass/Vol] 8.4 mg/dL Low 8.6-10.3 [facility] Comment on above: Performed By: #### C BC, CMP ####[place] [id number] [facility] Chloride [Moles/Vol] 96 mmol/L Low 98-107 [facility] Comment on above: Performed By: #### C BC, CMP ####[place] [id number] [facility] CO2 [Moles/Vol] 37.4 mmol/L High 21.0-31.0 [facility] Comment on above: Performed By: #### C BC, CMP ####[place] [id number] [facility] Creatinine [Mass/Vol] 0.53 mg/dL Low 0.60-1.20 [facility] Comment on above: Performed By: #### C BC, CMP ####[place] [id number] [facility] Creatinine Clr Calc Pharmacy 56.95 Normal [facility] Comment on above: Result Comment: PERF ORMED BY:[place] [address] [place], [place] [phone] MEDICAL DIRECTORAMPARO MONTAGUE M.D. Performed By: #### C LIBBY, CMP ####[address] [address] [place] GFR/1.73 sq M.predicted MDRD (S/P/Bld) [Vol rate/Area] mL/min/{1.73_m2} Normal [facility] Comment on above: Performed By: #### C LIBBY, CMP ####[address] [address] [facility] Glucose [Mass/Vol] 87 mg/dL Normal 70-100 [facility] Comment on above: Result Comment: [facility] Glucose Reference Range is dependent on time and content of last meal. Glucose of more than 200 mg/dL in a nonstressed, ambulatory subject supports the diagnosis of Diabetes Mellitus. ADA recommended reference range Performed By: #### C LIBBY, CMP ####[address] [address] [facility] Potassium [Moles/Vol] 4.4 mmol/L Normal 3.5-5.1 [facility] Comment on above: Performed By: #### C LIBBY, CMP ####[address] [address] [facility] Sodium [Moles/Vol] 137 mmol/L Normal 136-145 [facility] Comment on above: Performed By: #### C LIBBY, CMP ####[address] [address] [facility] Urea nitrogen [Mass/Vol] 12 mg/dL Normal 7-25 [facility] Comment on above: Performed By: #### C LIBBY, CMP ####[address] [address] [place] Dipstick and Microscopicon 0 08-01-2023 Appearance (U) Clear Normal Clear [facility] Comment on above: Order Comment: Name Collection Type:: Voided Performed By: #### A DDONUAPLUS ####[address] [place] [address] [facility] Bacteria,Urine None Seen Normal None Seen [facility] Comment on above: Order Comment: Name Collection Type:: Voided Performed By: #### A DDONUAPLUS ####[place] [id number] [facility] Bilirubin,Urine Negative Normal Negative [facility] Comment on above: Order Comment: Name Collection Type:: Voided Performed By: #### A DDONUAPLUS ####[place] [id number] [facility] Glucose Ql (U) Normal Normal Normal [facility] Comment on above: Order Comment: Name Collection Type:: Voided Performed By: #### A DDONUAPLUS ####[address] Hyaline Casts,Urine None Seen Normal 0-8 [facility] Comment on above: Order Comment: Name Collection Type:: Voided Result Comment: PERF ORMED BY:[address] [place], [place] [phone] MEDICAL RAZIA MONTAGUE M.D. Performed By: #### A DDONUAPLUS ####[place] [id number] [facility] Ketones Ql (U) Negative Normal Negative [facility] Comment on above: Order Comment: Name Collection Type:: Voided Performed By: #### A DDONUAPLUS ####[place] [id number] [facility] Leukocyte esterase Test strip Ql (U) 1+ High Negative [facility] Comment on above: Order Comment: Name Collection Type:: Voided Performed By: #### A DDONUAPLUS ####[place] [id number] [facility] Nitrite,Urine Negative Normal Negative [facility] Comment on above: Order Comment: Name Collection Type:: Voided Performed By: #### A DDONUAPLUS ####[place] [id number] [facility] Occult Blood,Urine Negative Normal Negative [facility] Comment on above: Order Comment: Name Collection Type:: Voided Result Comment: PERF ORMED BY:[place] [address] [place], [place] [phone] MEDICAL DIRECTORAMPARO MONTAGUE M.D. Performed By: #### A DDONUAPLUS ####[address] [address] [facility] Protein,Urine Negative Normal Negative [facility] Comment on above: Order Comment: Name Collection Type:: Voided Performed By: #### A DDONUAPLUS ####[address] [address] [facility] RBC,Urine 1-2 Normal 0-4 [facility] Comment on above: Order Comment: Name Collection Type:: Voided Performed By: #### A DDONUAPLUS ####[address] [address] [facility] Specificy [place],Urine 1.010 Normal 1.001-1.03 0 [facility] Comment on above: Order Comment: Name Collection Type:: Voided Performed By: #### A DDONUAPLUS ####[address] [address] [facility] Squamous Epithelial Cell,Urine 3-4 High 0-2 [facility] Comment on above: Order Comment: Name Collection Type:: Voided Performed By: #### A DDONUAPLUS ####[address] [address] [facility] Urobilinogen,Urine Normal Normal Normal [facility] Comment on above: Order Comment: Name Collection Type:: Voided Performed By: #### A DDONUAPLUS ####[address] [address] [facility] WBC,Urine 3-4 Normal 0-4 [facility] Comment on above: Order Comment: Name Collection Type:: Voided Performed By: #### A DDONUAPLUS ####[address] [address] [facility] Erythrocytes [#/area] in Uri ne sediment by Automated countOrdered By: Jo Cotton on 08-01-2023 RBC Auto (Urine sed) [#/Area] 1-2 [HPF] 0-4 [place] Ketones Auto test strip (U) [Mass/Vol]Ordered By: Jo Cotton on 08-01-2023 Ketones (U) [Mass/Vol] Negative Negative [facility] - UrinalysisOrder ed By: Jo Cotton on 08-01-2023 Hyaline casts LM Ql (Urine sed) None seen [LPF] 0-8 [place] Leukocytes [#/area] in Urine sediment by Automated countOrdered By: Jo Cotton on 08-01-2023 WBC Auto (Urine sed) [#/Area] 3-4 [HPF] 0-4 [place] Nitrite Test strip Ql (U)Ord ered By: Jo Cotton on 08-01-2023 Nitrite Ql (U) Negative Negative [place] No Panel InformationOrdered By: Jo Cotton on 08-01-2023 None seen [LPF] 0-8 [place] Protein Auto test strip (U) [Mass/Vol]Ordered By: Jo Cotton on 08-01-2023 Protein (U) [Mass/Vol] Negative Negative [facility] Protein [Mass/volume] in Ser um or PlasmaOrdered By: Nils Boudreaux on 08-01-2023 Protein [Mass/Vol] 4.8 g/dL Low 6.4-8.9 [facility] Comment on above: Performed By: #### C BC, CMP ####[facility] [id number] Serum globulin measurement b y calculation (mass/volume)Ordered By: Nils Boudreaux on 08-01-2023 Globulin (S) [Mass/Vol] 2.0 g/dL Normal [place] Comment on above: Performed By: #### C BC, CMP ####[place] [id number] Serum or plasma albumin/glob ulin mass ratioOrdered By: Nils Boudreaux on 08-01-2023 Albumin/Globulin [Mass ratio] 1.4 {ratio} Normal [place] Comment on above: Performed By: #### C BC, CMP ####[facility] [id number] [place] [id number] [facility] Specific gravity Auto test s trip (U) [Rel density]Ordered By: Jo Harris on 08-01-2023 Specific gravity (U) [Rel density] 1.010 1.001-1.03 0 [place] Squamous epithelial cells de tection in urine sediment by light microscopyOrdered By: Jo Cotton on 08-01-2023 Epithelial cells.squamous LM Ql (Urine sed) 3-4 [HPF] High 0-2 [place] Urine clarity by refractomet ry automatedOrdered By: Jo Cotton on 08-01-2023 Clarity Refractometry automated (U) Clear Clear [place] Urine glucose measurement by automated test strip (mass/volume)Ordered By: Jo Cotton on 08-01-2023 Glucose Auto test strip (U) [Mass/Vol] Normal mg/dL Normal [place] Urine hemoglobin detection b y automated test stripOrdered By: Jo Harris on 08-01-2023 Hemoglobin Auto test strip Ql (U) Negative Negative [place] Urine leukocyte esterase det ection by automated test stripOrdered By: Jo Cotton on 08-01-2023 Leukocyte esterase Auto test strip Ql (U) 1+ High Negative [place] Urine pH measurement by auto mated test stripOrdered By: Jo Cotton on 08-01-2023 pH (U) 5.5 [pH] Normal 5.0-9.0 [place] Comment on above: Order Comment: Name Collection Type:: Voided Performed By: #### A DDONUAPLUS ####[facility] [id number] [place] [id number] [facility] Urobilinogen Auto test strip (U) [Mass/Vol]Ordered By: Jo Cotton on 08-01-2023 Urobilinogen (U) [Mass/Vol] Normal mg/dL Normal [place] Basic Metabolic Panelon 07-06 Anion gap [Moles/Vol] 6.5 mmol/L Normal 6.0-15.0 [facility] Comment on above: Performed By: #### B MP, CBC ####[place] [id number] [facility] Calcium [Mass/Vol] 8.4 mg/dL Low 8.6-10.3 [facility] Comment on above: Performed By: #### B MP, CBC ####[address] Chloride [Moles/Vol] 95 mmol/L Low 98-107 [facility] Comment on above: Performed By: #### B MP, CBC ####[address] CO2 [Moles/Vol] 37.4 mmol/L High 21.0-31.0 [facility] Comment on above: Performed By: #### B ALKA, CBC ####[address] Creatinine [Mass/Vol] 0.55 mg/dL Low 0.60-1.20 [facility] Comment on above: Performed By: #### B MP, CBC ####[address] Creatinine Clr Calc Pharmacy 51.81 Normal [facility] Comment on above: Result Comment: PERF ORMED BY:[address] [place], [place] [phone] MEDICAL RAZIA MONTAGUE M.D. Performed By: #### B MP, CBC ####[address] [address] [facility] GFR/1.73 sq M.predicted MDRD (S/P/Bld) [Vol rate/Area] mL/min/{1.73_m2} Normal [facility] Comment on above: Performed By: #### B MP, CBC ####[place] [id number] [facility] Glucose [Mass/Vol] 107 mg/dL High 70-100 [facility] Comment on above: Result Comment: [facility] Glucose Reference Range is dependent on time and content of last meal. Glucose of more than 200 mg/dL in a nonstressed, ambulatory subject supports the diagnosis of Diabetes Mellitus. ADA recommended reference range Performed By: #### B MP, CBC ####[address] Potassium [Moles/Vol] 3.9 mmol/L Normal 3.5-5.1 [facility] Comment on above: Performed By: #### B MP, CBC ####[address] Sodium [Moles/Vol] 135 mmol/L Low 136-145 [facility] Comment on above: Performed By: #### B MP, CBC ####[address] Urea nitrogen [Mass/Vol] 14 mg/dL Normal 7-25 [facility] Comment on above: Performed By: #### B MP, CBC ####[address] Complete Blood Count Auto Di ffon 07-30-2023 Basophils (Bld) [#/Vol] 0.1 10*3/uL Normal 0.0-0.2 [facility] Comment on above: Result Comment: PERF ORMED BY:[address] [place], [place] [phone] MEDICAL DIRECTORAMPARO MONTAGUE M.D. Performed By: #### B MP, CBC ####[place] [id number] [facility] Basophils/100 WBC (Bld) 0.8 % Normal . [facility] Comment on above: Performed By: #### B MP, CBC ####[place] [id number] [facility] Eosinophils (Bld) [#/Vol] 0.1 10*3/uL Normal 0.0-0.45 [facility] Comment on above: Performed By: #### B MP, CBC ####[address] Eosinophils/100 WBC (Bld) 1.2 % Normal . [facility] Comment on above: Performed By: #### B MP, CBC ####[address] Erythrocyte distribution width (RBC) [Ratio] 15.7 % High 11.9-15.3 [facility] Comment on above: Performed By: #### B MP, CBC ####[address] Hematocrit (Bld) [Volume fraction] 25.4 % Low 34.0-46.4 [facility] Comment on above: Performed By: #### B MP, CBC ####[address] Hemoglobin (Bld) [Mass/Vol] 8.4 g/dL Low 11.8-15.4 [facility] Comment on above: Performed By: #### B MP, CBC ####[address] [address] Lymphocytes (Bld) [#/Vol] 1.7 10*3/uL Normal 1.00-4.8 [facility] Comment on above: Performed By: #### B MP, CBC ####[address] Lymphocytes/100 WBC (Bld) 19.3 % Normal . [facility] Comment on above: Performed By: #### B MP, CBC ####[place] [id number] [facility] MCH (RBC) [Entitic mass] 31.6 pg Normal 24.7-34.3 [facility] Comment on above: Performed By: #### B MP, CBC ####[place] [id number] [facility] MCV (RBC) [Entitic vol] 95.2 fL Normal 80-100 [facility] Comment on above: Performed By: #### B MP, CBC ####[place] [id number] [facility] Mean Corpuscular HGB Conc 33.2 g/dL Normal 32.0-35.0 [facility] Comment on above: Performed By: #### B MP, CBC ####[place] [id number] [facility] Monocytes (Bld) [#/Vol] 0.9 10*3/uL High 0.0-0.8 [facility] Comment on above: Performed By: #### B MP, CBC ####[place] [id number] [facility] Monocytes/100 WBC (Bld) 9.8 % Normal . [facility] Comment on above: Performed By: #### B MP, CBC ####[address] Neutrophils (Bld) [#/Vol] 6.1 10*3/uL Normal 1.8-7.7 [facility] Comment on above: Performed By: #### B MP, CBC ####[place] [id number] [facility] Neutrophils/100 WBC (Bld) 68.9 % Normal . [facility] Comment on above: Performed By: #### B MP, CBC ####[place] [id number] [facility] NRBC% 0.0 /100{WBC} Normal 0-0.5 [facility] Comment on above: Performed By: #### B MP, CBC ####[place] [id number] [facility] Platelet mean volume (Bld) [Entitic vol] 8.2 fL Normal 6.3-10.7 [facility] Comment on above: Performed By: #### B MP, CBC ####[place] [id number] [facility] Platelets (Bld) [#/Vol] 421 10*3/uL Normal 150-450 [facility] Comment on above: Performed By: #### B MP, CBC ####[address] RBC (Bld) [#/Vol] 2.67 10*6/uL Low 3.60-5.00 [facility] Comment on above: Performed By: #### B MP, CBC ####[address] WBC (Bld) [#/Vol] 8.8 10*3/uL Normal 3.8-11.6 [facility] Comment on above: Performed By: #### B MP, CBC ####[address] Complete Blood Count Auto Di ffon 07-26-2023 Basophils (Bld) [#/Vol] 0.1 10*3/uL Normal 0.0-0.2 [facility] Comment on above: Result Comment: PERF ORMED BY:[address] [place], [place] [phone] MEDICAL DIRECTORAMPARO MONTAGUE M.D. Performed By: #### C BC, CMP, PAB ####[address] Basophils/100 WBC (Bld) 0.7 % Normal . [facility] Comment on above: Performed By: #### C BC, CMP, PAB ####[address] Eosinophils (Bld) [#/Vol] 0.1 10*3/uL Normal 0.0-0.45 [facility] Comment on above: Performed By: #### C BC, CMP, PAB ####[address] Eosinophils/100 WBC (Bld) 1.6 % Normal . [facility] Comment on above: Performed By: #### C BC, CMP, PAB ####[address] Erythrocyte distribution width (RBC) [Ratio] 15.7 % High 11.9-15.3 [facility] Comment on above: Performed By: #### C BC, CMP, PAB ####[address] Hematocrit (Bld) [Volume fraction] 28.5 % Low 34.0-46.4 [facility] Comment on above: Performed By: #### C BC, CMP, PAB ####[address] Hemoglobin (Bld) [Mass/Vol] 9.4 g/dL Low 11.8-15.4 [facility] Comment on above: Performed By: #### C BC, CMP, PAB ####[address] Lymphocytes (Bld) [#/Vol] 1.3 10*3/uL Normal 1.00-4.8 [facility] Comment on above: Performed By: #### C BC, CMP, PAB ####[address] Lymphocytes/100 WBC (Bld) 17.3 % Normal . [facility] Comment on above: Performed By: #### C BC, CMP, PAB ####[address] MCH (RBC) [Entitic mass] 31.5 pg Normal 24.7-34.3 [facility] Comment on above: Performed By: #### C BC, CMP, PAB ####[address] MCV (RBC) [Entitic vol] 95.8 fL Normal 80-100 [facility] Comment on above: Performed By: #### C BC, CMP, PAB ####[address] Mean Corpuscular HGB Conc 32.9 g/dL Normal 32.0-35.0 [facility] Comment on above: Performed By: #### C BC, CMP, PAB ####[address] Monocytes (Bld) [#/Vol] 0.8 10*3/uL Normal 0.0-0.8 [facility] Comment on above: Performed By: #### C BC, CMP, PAB ####[address] Monocytes/100 WBC (Bld) 10.2 % Normal . [facility] Comment on above: Performed By: #### C BC, CMP, PAB ####[address] Neutrophils (Bld) [#/Vol] 5.4 10*3/uL Normal 1.8-7.7 [facility] Comment on above: Performed By: #### C BC, CMP, PAB ####[address] Neutrophils/100 WBC (Bld) 70.2 % Normal . [facility] Comment on above: Performed By: #### C BC, CMP, PAB ####[address] NRBC% 0.1 /100{WBC} Normal 0-0.5 [facility] Comment on above: Performed By: #### C BC, CMP, PAB ####[address] Platelet mean volume (Bld) [Entitic vol] 8.1 fL Normal 6.3-10.7 [facility] Comment on above: Performed By: #### C BC, CMP, PAB ####[address] Platelets (Bld) [#/Vol] 411 10*3/uL Normal 150-450 [facility] Comment on above: Performed By: #### C BC, CMP, PAB ####[address] RBC (Bld) [#/Vol] 2.98 10*6/uL Low 3.60-5.00 [facility] Comment on above: Performed By: #### C BC, CMP, PAB ####[address] WBC (Bld) [#/Vol] 7.7 10*3/uL Normal 3.8-11.6 [facility] Comment on above: Performed By: #### C BC, CMP, PAB ####[place] [id number] [facility] Comprehensive Metabolic Pane andrew 07-26-2023 Albumin [Mass/Vol] 2.7 g/dL Low 3.5-5.7 [facility] Comment on above: Performed By: #### C BC, CMP, PAB ####[address] Albumin/Globulin [Mass ratio] 1.2 {ratio} Normal [facility] Comment on above: Performed By: #### C BC, CMP, PAB ####[address] ALP [Catalytic activity/Vol] 75 U/L Normal 34-104 [facility] Comment on above: Performed By: #### C BC, CMP, PAB ####[address] ALT [Catalytic activity/Vol] 13 U/L Normal 7-52 [facility] Comment on above: Performed By: #### C BC, CMP, PAB ####[address] Anion gap [Moles/Vol] 7.4 mmol/L Normal 6.0-15.0 [facility] Comment on above: Performed By: #### C BC, CMP, PAB ####[address] AST [Catalytic activity/Vol] 21 U/L Normal 13-39 [facility] Comment on above: Performed By: #### C BC, CMP, PAB ####[address] Bilirubin [Mass/Vol] 0.4 mg/dL Normal 0.3-1.0 [facility] Comment on above: Performed By: #### C BC, CMP, PAB ####[address] Calcium [Mass/Vol] 8.7 mg/dL Normal 8.6-10.3 [facility] Comment on above: Performed By: #### C NOELLE SOUZA, PAB ####[address] Chloride [Moles/Vol] 95 mmol/L Low 98-107 [facility] Comment on above: Performed By: #### C NOELLE SOUZA, PAB ####[address] CO2 [Moles/Vol] 39.1 mmol/L High 21.0-31.0 [facility] Comment on above: Performed By: #### C NOELLE SOUZA, PAB ####[address] Creatinine [Mass/Vol] 0.51 mg/dL Low 0.60-1.20 [facility] Comment on above: Performed By: #### C NOELLE SOUZA, PAB ####[address] Creatinine Clr Calc Pharmacy 51.81 Normal [facility] Comment on above: Performed By: #### C NOELLE SOUZA, PAB ####[address] GFR/1.73 sq M.predicted MDRD (S/P/Bld) [Vol rate/Area] mL/min/{1.73_m2} Normal [facility] Comment on above: Performed By: #### C NOELLE SOUZA, PAB ####[address] Globulin (S) [Mass/Vol] 2.3 g/dL Normal [facility] Comment on above: Performed By: #### C NOELLE SOUZA, PAB ####[address] Glucose [Mass/Vol] 96 mg/dL Normal 70-100 [facility] Comment on above: Result Comment: [place] Glucose Reference Range is dependent on time and content of last meal. Glucose of more than 200 mg/dL in a nonstressed, ambulatory subject supports the diagnosis of Diabetes Mellitus. ADA recommended reference range Performed By: #### C NOELLE SOUZA, PAB ####[place] [id number] [facility] Potassium [Moles/Vol] 4.5 mmol/L Normal 3.5-5.1 [facility] Comment on above: Performed By: #### C NOELLE SOUZA, PAB ####[place] [id number] [facility] Protein [Mass/Vol] 5.0 g/dL Low 6.4-8.9 [facility] Comment on above: Performed By: #### C NOELLE SOUZA, PAB ####[address] Sodium [Moles/Vol] 137 mmol/L Normal 136-145 [facility] Comment on above: Performed By: #### C NOELLE SOUZA, PAB ####[place] [id number] [facility] Urea nitrogen [Mass/Vol] 13 mg/dL Normal 7-25 [facility] Comment on above: Performed By: #### C NOELLE SOUZA, PAB ####[place] [id number] [facility] ECG 12 lead ECGon 07-26-2023 ECG 12 lead ECG Normal [facility] Prealbumin [Mass/volume] in Serum or PlasmaOrdered By: Alejandra Stallworth on 07-26-2023 Prealbumin [Mass/Vol] 14.5 mg/dL Low 17.0-34.0 [facility] Comment on above: Result Comment: PERF ORMED BY:[address] [place], [place] [phone] MEDICAL DIRECTORAMPARO MONTAGUE M.D. Performed By: #### C LIBBY CMP, PAB ####[place] [id number] [facility] Troponin I High Sensitivityo n 07-26-2023 Troponin I High Sensitivity 5.8 pg/mL Normal 0.0-15.0 [facility] Comment on above: Result Comment: PERF ORMED BY:[address] [address] [address] [place], [place] [phone] MEDICAL DIRECTORAMPARO MONTAGUE M.D. Performed By: #### H S TROP ####[place] [address] [place] [address] [facility] Troponin I High Sensitivity 6.1 pg/mL Normal 0.0-15.0 [facility] Comment on above: Order Comment: Comme nt add on to am labs Result Comment: PERF ORMED BY:[address] [address] [address] [place], [place] [phone] MEDICAL DIRECTORAMPARO MONTAGUE M.D. Performed By: #### H S TROP ####[address] [address] [facility] Troponin I.cardiac [Mass/vol ume] in Serum or Plasma by Detection limit <= 0.01 ng/Ordered By: Angelica Martinez on 07-26-2023 Troponin I.cardiac DL <= 0.01 ng/mL [Mass/Vol] 5.8 pg/mL 0.0-15.0 [place] XR chest 1V portableon 07-25 XR chest 1V portable Normal [facility] Basic Metabolic Panelon 07-06 Anion gap [Moles/Vol] 10.2 mmol/L Normal 6.0-15.0 Th e [facility] Comment on above: Performed By: #### H S TROP, CK, CBC, BMP ####[address] [address] [facility] Calcium [Mass/Vol] 8.5 mg/dL Low 8.6-10.3 [facility] Comment on above: Performed By: #### H S TROP, CK, CBC, BMP ####[address] [address] [facility] Chloride [Moles/Vol] 94 mmol/L Low 98-107 [facility] Comment on above: Performed By: #### H S TROP, CK, CBC, BMP ####[address] CO2 [Moles/Vol] 38.6 mmol/L High 21.0-31.0 [facility] Comment on above: Performed By: #### H S TROP, CK, CBC, BMP ####[address] Creatinine [Mass/Vol] 0.51 mg/dL Low 0.60-1.20 [facility] Comment on above: Performed By: #### H S TROP, CK, CBC, BMP ####[address] Creatinine Clr Calc Pharmacy 51.81 Normal [facility] Comment on above: Result Comment: PERF ORMED BY:[address] [place]USA[place]ShawnJay[place]NOR[place], [place] [phone] MEDICAL RAZIA MONTAGUE M.D. Performed By: #### H S TROP, CK, CBC, BMP ####[address] GFR/1.73 sq M.predicted MDRD (S/P/Bld) [Vol rate/Area] mL/min/{1.73_m2} Normal [facility] Comment on above: Performed By: #### H S TROP, CK, CBC, BMP ####[address] Glucose [Mass/Vol] 94 mg/dL Normal 70-100 [facility] Comment on above: Result Comment: [facility] Glucose Reference Range is dependent on time and content of last meal. Glucose of more than 200 mg/dL in a nonstressed, ambulatory subject supports the diagnosis of Diabetes Mellitus. ADA recommended reference range Performed By: #### H S TROP, CK, CBC, BMP ####[address] Potassium [Moles/Vol] 4.8 mmol/L Normal 3.5-5.1 [facility] Comment on above: Performed By: #### H S TROP, CK, CBC, BMP ####[address] [address] [place] Sodium [Moles/Vol] 138 mmol/L Normal 136-145 [facility] Comment on above: Performed By: #### H S TROP, CK, CBC, BMP ####[address] Urea nitrogen [Mass/Vol] 13 mg/dL Normal 7-25 [facility] Comment on above: Performed By: #### H S TROP, CK, CBC, BMP ####[address] Complete Blood Count Auto Di ffon 07-25-2023 Basophils (Bld) [#/Vol] 0.1 10*3/uL Normal 0.0-0.2 [facility] Comment on above: Result Comment: PERF ORMED BY:[address] [place]FA[place], [place] [phone] MEDICAL DIRECTORAMPARO MONTAGUE M.D. Performed By: #### H S TROP, CK, CBC, BMP ####[address] Basophils/100 WBC (Bld) 0.8 % Normal . [facility] Comment on above: Performed By: #### H S TROP, CK, CBC, BMP ####[address] Eosinophils (Bld) [#/Vol] 0.1 10*3/uL Normal 0.0-0.45 [facility] Comment on above: Performed By: #### H S TROP, CK, CBC, BMP ####[address] Eosinophils/100 WBC (Bld) 1.4 % Normal . [facility] Comment on above: Performed By: #### H S TROP, CK, CBC, BMP ####[address] Erythrocyte distribution width (RBC) [Ratio] 15.5 % High 11.9-15.3 [facility] Comment on above: Performed By: #### H S TROP, CK, CBC, BMP ####[address] Hematocrit (Bld) [Volume fraction] 29.4 % Low 34.0-46.4 [facility] Comment on above: Performed By: #### H S TROP, CK, CBC, BMP ####[address] Hemoglobin (Bld) [Mass/Vol] 9.7 g/dL Low 11.8-15.4 [facility] Comment on above: Performed By: #### H S TROP, CK, CBC, BMP ####[address] Lymphocytes (Bld) [#/Vol] 1.7 10*3/uL Normal 1.00-4.8 [facility] Comment on above: Performed By: #### H S TROP, CK, CBC, BMP ####[address] Lymphocytes/100 WBC (Bld) 20.1 % Normal . [facility] Comment on above: Performed By: #### H S TROP, CK, CBC, BMP ####[address] MCH (RBC) [Entitic mass] 31.5 pg Normal 24.7-34.3 [facility] Comment on above: Performed By: #### H S TROP, CK, CBC, BMP ####[address] MCV (RBC) [Entitic vol] 95.5 fL Normal 80-100 [facility] Comment on above: Performed By: #### H S TROP, CK, CBC, BMP ####[address] Mean Corpuscular HGB Conc 33.0 g/dL Normal 32.0-35.0 [facility] Comment on above: Performed By: #### H S TROP, CK, CBC, BMP ####[address] Monocytes (Bld) [#/Vol] 0.9 10*3/uL High 0.0-0.8 [facility] Comment on above: Performed By: #### H S TROP, CK, CBC, BMP ####[address] Monocytes/100 WBC (Bld) 11.4 % Normal . [facility] Comment on above: Performed By: #### H S TROP, CK, CBC, BMP ####[address] Neutrophils (Bld) [#/Vol] 5.4 10*3/uL Normal 1.8-7.7 [facility] Comment on above: Performed By: #### H S TROP, CK, CBC, BMP ####[address] Neutrophils/100 WBC (Bld) 66.3 % Normal . [facility] Comment on above: Performed By: #### H S TROP, CK, CBC, BMP ####[address] NRBC% 0.1 /100{WBC} Normal 0-0.5 [facility] Comment on above: Performed By: #### H S TROP, CK, CBC, BMP ####[address] Platelet mean volume (Bld) [Entitic vol] 8.5 fL Normal 6.3-10.7 [facility] Comment on above: Performed By: #### H S TROP, CK, CBC, BMP ####[address] Platelets (Bld) [#/Vol] 430 10*3/uL Normal 150-450 [facility] Comment on above: Performed By: #### H S TROP, CK, CBC, BMP ####[address] RBC (Bld) [#/Vol] 3.08 10*6/uL Low 3.60-5.00 [facility] Comment on above: Performed By: #### H S TROP, CK, CBC, BMP ####[address] WBC (Bld) [#/Vol] 8.2 10*3/uL Normal 3.8-11.6 [facility] Comment on above: Performed By: #### H S TROP, CK, CBC, BMP ####[address] Creatine kinase [Enzymatic a ctivity/volume] in Serum or PlasmaOrdered By: Alejandra Stallworth on 07-25-2023 CK [Catalytic activity/Vol] 79 U/L Normal 30-223 [place] Comment on above: Performed By: #### H S TROP, CK, CBC, BMP ####[address] ECG 12 lead ECGon 07-25-2023 ECG 12 lead ECG Normal [facility] Troponin I High Sensitivityo n 07-25-2023 Troponin I High Sensitivity 6.7 pg/mL Normal 0.0-15.0 [facility] Comment on above: Result Comment: PERF ORMED BY:[address] [place], [place] [phone] MEDICAL DIRECTORAMPARO MONTAGUE M.D. Performed By: #### H S TROP, CK, CBC, BMP ####[address] Automated basophil %Ordered By: Jennifer Blanco on 07-24-2023 Basophils/100 WBC (Bld) 0.4 % Normal . [place] Comment on above: Performed By: #### C BC ####[address] Automated basophil countOrde red By: Jennifer Blanco on 07-24-2023 Basophils (Bld) [#/Vol] 0.0 10*3/uL Normal 0.0-0.2 [place] Comment on above: Result Comment: PERF ORMED BY:[address] [address] [place] [place], [place] [phone] MEDICAL DIRECTORAMPARO MONTAGUE M.D. Performed By: #### C BC ####[address] Automated blood monocyte cou ntOrdered By: Jennifer Blanco on 07-24-2023 Monocytes (Bld) [#/Vol] 1.0 10*3/uL High 0.0-0.8 [place] Comment on above: Performed By: #### C BC ####[address] Automated eosinophil %Ordere d By: Jennifer Blanco on 07-24-2023 Eosinophils/100 WBC (Bld) 2.0 % Normal . [place] Comment on above: Performed By: #### C BC ####[address] Automated eosinophil countOr dered By: Jennifer Blanco on 07-24-2023 Eosinophils (Bld) [#/Vol] 0.2 10*3/uL Normal 0.0-0.45 [place] Comment on above: Performed By: #### C BC ####[address] Automated monocyte %Ordered By: Jennifer Blanco on 07-24-2023 Monocytes/100 WBC (Bld) 11.6 % Normal . [place] Comment on above: Performed By: #### C BC ####[address] Automated neutrophil %Ordere d By: Jennifer Blanco on 07-24-2023 Neutrophils/100 WBC (Bld) 66.4 % Normal . [place] Comment on above: Performed By: #### C BC ####[address] Complete Blood Count Auto Di ffon 07-24-2023 Mean Corpuscular HGB Conc 32.6 g/dL Normal 32.0-35.0 [facility] Comment on above: Performed By: #### C BC ####[address] NRBC% 0.1 /100{WBC} Normal 0-0.5 [facility] Comment on above: Performed By: #### C BC ####[address] Erythrocyte distribution wid th [Ratio] by Automated countOrdered By: Jennifer Blanco on 07-24-2023 Erythrocyte distribution width (RBC) [Ratio] 15.8 % High 11.9-15.3 [place] Comment on above: Performed By: #### C BC ####[address] Erythrocytes [#/volume] in B lood by Automated countOrdered By: Jennifer Blanco on 07-24-2023 RBC (Bld) [#/Vol] 2.87 10*6/uL Low 3.60-5.00 [facility] Comment on above: Performed By: #### C BC ####[address] Hematocrit [Volume Fraction] of Blood by Automated countOrdered By: Jennifer Blanco on 07-24-2023 Hematocrit (Bld) [Volume fraction] 27.7 % Low 34.0-46.4 [place] Comment on above: Performed By: #### C BC ####[address] Hemoglobin [Mass/volume] in BloodOrdered By: Jennifer Blanco on 07-24-2023 Hemoglobin (Bld) [Mass/Vol] 9.0 g/dL Low 11.8-15.4 [place] Comment on above: Performed By: #### C BC ####[address] Leukocytes [#/volume] correc daya for nucleated erythrocytes in Blood by Automated counOrdered By: Jennifer Blanco on 07-24-2023 WBC corrected for nucl RBC Auto (Bld) [#/Vol] 8.3 10*3/uL 3.8-11.6 [place] Leukocytes [#/volume] in Blo od by Automated countOrdered By: Jennifer Blanco on 07-24-2023 WBC (Bld) [#/Vol] 8.3 10*3/uL Normal 3.8-11.6 [facility] Comment on above: Performed By: #### C BC ####[address] Lymphocytes [#/volume] in Bl ood by Automated countOrdered By: Jennifer Blanco on 07-24-2023 Lymphocytes (Bld) [#/Vol] 1.6 10*3/uL Normal 1.00-4.8 [place] Comment on above: Performed By: #### C BC ####[address] Lymphocytes/100 leukocytes i n Blood by Automated countOrdered By: Jennifer Blanco on 07-24-2023 Lymphocytes/100 WBC (Bld) 19.6 % Normal . [place] Comment on above: Performed By: #### C BC ####[address] MCH [Entitic mass] by Automa daya countOrdered By: Jennifer Blanco on 07-24-2023 MCH (RBC) [Entitic mass] 31.4 pg Normal 24.7-34.3 [place] Comment on above: Performed By: #### C BC ####[address] MCHC Auto (RBC) [Mass/Vol]Or dered By: Jennifer Blanco on 07-24-2023 MCHC (RBC) [Mass/Vol] 32.6 g/dL 32.0-35.0 [facility] MCV [Entitic volume] by Auto mated countOrdered By: Jennifer Blanco on 07-24-2023 MCV (RBC) [Entitic vol] 96.5 fL Normal 80-100 [place] Comment on above: Performed By: #### C BC ####[address] [address] [facility] Neutrophils [#/volume] in Bl ood by Automated countOrdered By: Jennifer Blanco on 07-24-2023 Neutrophils (Bld) [#/Vol] 5.5 10*3/uL Normal 1.8-7.7 [place] Comment on above: Performed By: #### C BC ####[address] [address] [facility] Nucleated erythrocytes [Pres ence] in Blood by Automated countOrdered By: Jennifer Blanco on 07-24-2023 Nucleated RBC Auto Ql (Bld) 0.1 /100{WBC} 0-0.5 [place] Platelet mean volume [Entiti c volume] in Blood by Automated countOrdered By: Jennifer Blanco on 07-24-2023 Platelet mean volume (Bld) [Entitic vol] 8.0 fL Normal 6.3-10.7 [place] Comment on above: Performed By: #### C BC ####[address] [address] [facility] Platelets [#/volume] in Bloo d by Automated countOrdered By: Jennifer Blanco on 07-24-2023 Platelets (Bld) [#/Vol] 341 10*3/uL Normal 150-450 [place] Comment on above: Performed By: #### C BC ####[address] [address] [facility] Basic Metabolic Panelon 07-05 Creatinine Clr Calc Pharmacy 58.02 Normal [facility] [facility] Comment on above: Result Comment: PERF ORMED BY:[place] [address] [place] [place], [place] [phone] MEDICAL DIRECTORAMAPRO MONTAGUE M.D. Performed By: #### C BC, [id number], BMP ####[address] [address] [facility] GFR/1.73 sq M.predicted MDRD (S/P/Bld) [Vol rate/Area] mL/min/{1.73_m2} Normal [facility] Comment on above: Performed By: #### C BC, [id number], BMP ####[address] [address] [facility] Calcium [Mass/volume] in Ser um or PlasmaOrdered By: Jennifer Blanco on 07-23-2023 Calcium [Mass/Vol] 8.1 mg/dL Low 8.6-10.3 [facility] Comment on above: Performed By: #### C BC, [id number], BMP ####[address] [address] [facility] Carbon dioxide, total [Moles /volume] in Serum or PlasmaOrdered By: Jennifer Blanco on 07-23-2023 CO2 [Moles/Vol] 39.9 mmol/L High 21.0-31.0 [facility] Comment on above: Performed By: #### C BC, [id number], BMP ####[address] [address] [facility] Chloride [Moles/volume] in S gaetano or PlasmaOrdered By: Jennifer Blanco on 07-23-2023 Chloride [Moles/Vol] 100 mmol/L Normal 98-107 [facility] Comment on above: Performed By: #### C BC, [id number], BMP ####[address] [address] [facility] Complete Blood Count Auto Di ffon 07-23-2023 Basophils (Bld) [#/Vol] 0.0 10*3/uL Normal 0.0-0.2 [facility] Comment on above: Result Comment: PERF ORMED BY:[address] [place], [place] [phone] MEDICAL RAZIA MONTAGUE M.D. Performed By: #### C BC, [id number], BMP ####[address] [address] [facility] Basophils/100 WBC (Bld) 0.3 % Normal . [facility] Comment on above: Performed By: #### C BC, [id number], BMP ####[address] Eosinophils (Bld) [#/Vol] 0.2 10*3/uL Normal 0.0-0.45 [facility] Comment on above: Performed By: #### C BC, [id number], BMP ####[address] Eosinophils/100 WBC (Bld) 1.9 % Normal . [facility] Comment on above: Performed By: #### C BC, [id number], BMP ####[address] Erythrocyte distribution width (RBC) [Ratio] 16.1 % High 11.9-15.3 [facility] Comment on above: Performed By: #### C BC, [id number], BMP ####[address] Hematocrit (Bld) [Volume fraction] 25.4 % Low 34.0-46.4 [facility] Comment on above: Performed By: #### C BC, [id number], BMP ####[address] Hemoglobin (Bld) [Mass/Vol] 8.5 g/dL Low 11.8-15.4 [facility] Comment on above: Performed By: #### C BC, [id number], BMP ####[address] Lymphocytes (Bld) [#/Vol] 1.9 10*3/uL Normal 1.00-4.8 [facility] Comment on above: Performed By: #### C BC, [id number], BMP ####[address] Lymphocytes/100 WBC (Bld) 21.7 % Normal . [facility] Comment on above: Performed By: #### C BC, [id number], BMP ####[address] MCH (RBC) [Entitic mass] 31.8 pg Normal 24.7-34.3 [facility] Comment on above: Performed By: #### C BC, [id number], BMP ####[address] MCV (RBC) [Entitic vol] 95.0 fL Normal 80-100 [facility] Comment on above: Performed By: #### C BC, [id number], BMP ####[address] Mean Corpuscular HGB Conc 33.5 g/dL Normal 32.0-35.0 [facility] Comment on above: Performed By: #### C BC, [id number], BMP ####[address] Monocytes (Bld) [#/Vol] 1.0 10*3/uL High 0.0-0.8 [facility] Comment on above: Performed By: #### C BC, [id number], BMP ####[address] Monocytes/100 WBC (Bld) 11.4 % Normal . [facility] Comment on above: Performed By: #### C BC, [id number], BMP ####[address] Neutrophils (Bld) [#/Vol] 5.6 10*3/uL Normal 1.8-7.7 [facility] Comment on above: Performed By: #### C BC, [id number], BMP ####[address] Neutrophils/100 WBC (Bld) 64.7 % Normal . [facility] Comment on above: Performed By: #### C BC, [id number], BMP ####[address] NRBC% 0.2 /100{WBC} Normal 0-0.5 [facility] Comment on above: Performed By: #### C BC, [id number], BMP ####[place] [id number] [facility] Platelet mean volume (Bld) [Entitic vol] 7.9 fL Normal 6.3-10.7 [facility] Comment on above: Performed By: #### C BC, [id number], BMP ####[place] [id number] [facility] Platelets (Bld) [#/Vol] 303 10*3/uL Normal 150-450 [facility] Comment on above: Performed By: #### C BC, [id number], BMP ####[place] [id number] [facility] RBC (Bld) [#/Vol] 2.67 10*6/uL Low 3.60-5.00 [facility] Comment on above: Performed By: #### C BC, [id number], BMP ####[place] [id number] [facility] WBC (Bld) [#/Vol] 8.7 10*3/uL Normal 3.8-11.6 [facility] Comment on above: Performed By: #### C BC, [id number], BMP ####[place] [id number] [facility] Creatinine [Mass/volume] in Serum or PlasmaOrdered By: Jennifer Blanco on 07-23-2023 Creatinine [Mass/Vol] 0.48 mg/dL Low 0.60-1.20 [facility] Comment on above: Performed By: #### C BC, [id number], BMP ####[place] [id number] [facility] Glucose [Mass/volume] in Ser um or PlasmaOrdered By: Jennifer Blanco on 07-23-2023 Glucose [Mass/Vol] 91 mg/dL Normal 70-100 [facility] Comment on above: ADA recommended refe rence rangeRandom Glucose Reference Range is dependent on time and content of last meal. Glucose of more than 200 mg/dL in a nonstressed, ambulatory subject supports the diagnosis of Diabetes Mellitus. Result Comment: [facility] Glucose Reference Range is dependent on time and content of last meal. Glucose of more than 200 mg/dL in a nonstressed, ambulatory subject supports the diagnosis of Diabetes Mellitus. ADA recommended reference range Performed By: #### C LIBBY [id number], BMP ####[place] [id number] No Panel InformationOrdered By: Jennifer Blanco on 07-23-2023 Estimated GFR (CKD-EPI) > 60.0 mL/Min [facility] Creatinine Clearance (Chem 58.02 [place] > 60.0 mL/Min [place] 58.02 [facility] Potassium [Moles/volume] in Serum or PlasmaOrdered By: Jennifer Blanco on 07-23-2023 Potassium [Moles/Vol] 4.4 mmol/L Normal 3.5-5.1 [facility] Comment on above: Performed By: #### C MARA [id number], BMP ####[address] Serum or plasma anion gap de terminationOrdered By: Jennifer Blanco on 07-23-2023 Anion gap [Moles/Vol] 3.5 mmol/L Low 6.0-15.0 [facility] Comment on above: Performed By: #### C MARA [id number], BMP ####[address] Sodium [Moles/volume] in Ser um or PlasmaOrdered By: Jennifer Blanco on 07-23-2023 Sodium [Moles/Vol] 139 mmol/L Normal 136-145 [facility] Comment on above: Performed By: #### C LIBBY [id number], BMP ####[place] [id number] Urea nitrogen [Mass/volume] in Serum or PlasmaOrdered By: Jennifer Blanco on 07-23-2023 Urea nitrogen [Mass/Vol] 12 mg/dL Normal 7-25 [place] Comment on above: Performed By: #### C BC, [id number], BMP ####[facility] [place] [address] [facility] Vitamin D 25 Hydroxy Totalon 07-23-2023 Vitamin D 25 Hydroxy Total 9.9 ng/mL Low 30-100 [facility] Comment on above: Result Comment: CANDIDO MIN D STATUS 25(OH)VITAMIN D RANGE (ng/mL) Deficient <20 Insufficient 20 to <30 Sufficient 30 to 100 Reference: Aldo Moreno, Oleg BARRIENTOS, et al. Evaluation,treatment, and prevention of vitamin D deficiency; an Endocrine Society clinical practice guideline. JCEM. 2010; 96(7):1911-30.PERFORMED BY:[address] [place], [place] [phone] MEDICAL DIRECTORAMPARO MONTAGUE M.D. Performed By: #### C LIBBY, [id number], BMP ####[facility] [place] [address] [facility] Vitamin D+Metabolites [Mass/ volume] in Serum or PlasmaOrdered By: Surendra Ruiz on 07-23-2023 Vitamin D+Metabolites [Mass/Vol] 9.9 ng/mL Low 30-100 [place] Comment on above: VITAMIN D STATUS 25( [place])VITAMIN D RANGE (ng/mL) Deficient <20 Insufficient 20 to <30Sufficient 30 to 100Reference: Aldo Moreno, Oleg BARRIENTOS, et al. Evaluation,treatment, and prevention of vitamin D deficiency; an Endocrine Society clinical practice guideline. JCEM. 2010; 96(7):1911-30. Basic Metabolic Panelon 07-05 Anion gap [Moles/Vol] 9.4 mmol/L Normal 6.0-15.0 [facility] Comment on above: Performed By: #### B MP, CBC ####[facility] [place] [address] [facility] Calcium [Mass/Vol] 8.0 mg/dL Low 8.6-10.3 [facility] Comment on above: Performed By: #### B MP, CBC ####[place] [id number] [facility] Chloride [Moles/Vol] 99 mmol/L Normal 98-107 [facility] Comment on above: Performed By: #### B MP, CBC ####[address] [address] [facility] CO2 [Moles/Vol] 35.2 mmol/L High 21.0-31.0 [facility] Comment on above: Performed By: #### B MP, CBC ####[place] [id number] [facility] Creatinine [Mass/Vol] 0.43 mg/dL Low 0.60-1.20 [facility] Comment on above: Performed By: #### B MP, CBC ####[place] [id number] [facility] Creatinine Clr Calc Pharmacy 57.62 Normal [facility] Comment on above: Result Comment: PERF ORMED BY:[address] [place], [place] [phone] MEDICAL RAZIA MONTAGUE M.D. Performed By: #### B MP, CBC ####[place] [id number] [facility] GFR/1.73 sq M.predicted MDRD (S/P/Bld) [Vol rate/Area] mL/min/{1.73_m2} Normal [facility] Comment on above: Performed By: #### B MP, CBC ####[address] [address] [facility] Glucose [Mass/Vol] 127 mg/dL High 70-100 [facility] Comment on above: Result Comment: [facility] Glucose Reference Range is dependent on time and content of last meal. Glucose of more than 200 mg/dL in a nonstressed, ambulatory subject supports the diagnosis of Diabetes Mellitus. ADA recommended reference range Performed By: #### B MP, CBC ####[place] [id number] [place] Potassium [Moles/Vol] 4.6 mmol/L Normal 3.5-5.1 [facility] Comment on above: Performed By: #### B MP, CBC ####[address] Sodium [Moles/Vol] 139 mmol/L Normal 136-145 [facility] Comment on above: Performed By: #### B MP, CBC ####[address] Urea nitrogen [Mass/Vol] 10 mg/dL Normal 7-25 [facility] Comment on above: Performed By: #### B MP, CBC ####[address] Complete Blood Count Auto Di ffon 07-22-2023 Basophils (Bld) [#/Vol] 0.0 10*3/uL Normal 0.0-0.2 [facility] Comment on above: Result Comment: PERF ORMED BY:[address] [place], [place] [phone] MEDICAL DIRECTORAMPARO MONTAGUE M.D. Performed By: #### B MP, CBC ####[address] Basophils/100 WBC (Bld) 0.1 % Normal . [facility] Comment on above: Performed By: #### B MP, CBC ####[address] Eosinophils (Bld) [#/Vol] 0.0 10*3/uL Normal 0.0-0.45 [facility] Comment on above: Performed By: #### B MP, CBC ####[address] Eosinophils/100 WBC (Bld) 0.0 % Normal . [facility] Comment on above: Performed By: #### B MP, CBC ####[address] Erythrocyte distribution width (RBC) [Ratio] 16.9 % High 11.9-15.3 [facility] Comment on above: Performed By: #### B MP, CBC ####[address] Hematocrit (Bld) [Volume fraction] 27.7 % Low 34.0-46.4 [facility] Comment on above: Performed By: #### B MP, CBC ####[address] Hemoglobin (Bld) [Mass/Vol] 9.4 g/dL Low 11.8-15.4 [facility] Comment on above: Performed By: #### B MP, CBC ####[address] Lymphocytes (Bld) [#/Vol] 0.8 10*3/uL Low 1.00-4.8 [facility] Comment on above: Performed By: #### B MP, CBC ####[address] Lymphocytes/100 WBC (Bld) 7.8 % Normal . [facility] Comment on above: Performed By: #### B MP, CBC ####[address] MCH (RBC) [Entitic mass] 31.6 pg Normal 24.7-34.3 [facility] Comment on above: Performed By: #### B MP, CBC ####[address] MCV (RBC) [Entitic vol] 92.9 fL Normal 80-100 [facility] Comment on above: Performed By: #### B MP, CBC ####[address] Mean Corpuscular HGB Conc 34.0 g/dL Normal 32.0-35.0 [facility] Comment on above: Performed By: #### B MP, CBC ####[address] Monocytes (Bld) [#/Vol] 0.9 10*3/uL High 0.0-0.8 [facility] Comment on above: Performed By: #### B MP, CBC ####[address] Monocytes/100 WBC (Bld) 8.8 % Normal . [facility] Comment on above: Performed By: #### B MP, CBC ####[address] Neutrophils (Bld) [#/Vol] 8.8 10*3/uL High 1.8-7.7 [facility] Comment on above: Performed By: #### B MP, CBC ####[address] Neutrophils/100 WBC (Bld) 83.3 % Normal . [facility] Comment on above: Performed By: #### B MP, CBC ####[address] NRBC% 0.1 /100{WBC} Normal 0-0.5 [facility] Comment on above: Performed By: #### B MP, CBC ####[address] Platelet mean volume (Bld) [Entitic vol] 8.2 fL Normal 6.3-10.7 [facility] Comment on above: Performed By: #### B MP, CBC ####[address] Platelets (Bld) [#/Vol] 279 10*3/uL Normal 150-450 [facility] Comment on above: Performed By: #### B MP, CBC ####[address] RBC (Bld) [#/Vol] 2.99 10*6/uL Low 3.60-5.00 [facility] Comment on above: Performed By: #### B MP, CBC ####[address] WBC (Bld) [#/Vol] 10.6 10*3/uL Normal 3.8-11.6 [facility] Comment on above: Performed By: #### B ALKA, CBC ####[place] [id number] [facility] Basic Metabolic Panelon 07-05 Anion gap [Moles/Vol] 8.2 mmol/L Normal 6.0-15.0 [facility] Comment on above: Performed By: #### B ALKA, CBC ####[address] Calcium [Mass/Vol] 8.4 mg/dL Low 8.6-10.3 [facility] Comment on above: Performed By: #### B ALKA, CBC ####[address] Chloride [Moles/Vol] 100 mmol/L Normal 98-107 [facility] Comment on above: Performed By: #### B ALKA, CBC ####[address] CO2 [Moles/Vol] 36.1 mmol/L High 21.0-31.0 [facility] Comment on above: Performed By: #### B ALKA, CBC ####[address] Creatinine [Mass/Vol] 0.43 mg/dL Low 0.60-1.20 [facility] Comment on above: Performed By: #### B ALKA, CBC ####[address] Creatinine Clr Calc Pharmacy 51.81 Normal [facility] Comment on above: Result Comment: PERF ORMED BY:[address] [place], [place] [phone] MEDICAL RAZIA MONTAGUE M.D. Performed By: #### B MP, CBC ####[place] [id number] [facility] GFR/1.73 sq M.predicted MDRD (S/P/Bld) [Vol rate/Area] mL/min/{1.73_m2} Normal [facility] Comment on above: Performed By: #### B MP, CBC ####[place] [id number] [facility] Glucose [Mass/Vol] 96 mg/dL Normal 70-100 [facility] Comment on above: Result Comment: [facility] Glucose Reference Range is dependent on time and content of last meal. Glucose of more than 200 mg/dL in a nonstressed, ambulatory subject supports the diagnosis of Diabetes Mellitus. ADA recommended reference range Performed By: #### B MP, CBC ####[address] Potassium [Moles/Vol] 4.3 mmol/L Normal 3.5-5.1 [facility] Comment on above: Performed By: #### B MP, CBC ####[address] Sodium [Moles/Vol] 140 mmol/L Normal 136-145 [facility] Comment on above: Performed By: #### B MP, CBC ####[place] [id number] [facility] Urea nitrogen [Mass/Vol] 7 mg/dL Normal 7-25 [facility] Comment on above: Performed By: #### B MP, CBC ####[place] [id number] [facility] Complete Blood Count Auto Di ffon 07-21-2023 Basophils (Bld) [#/Vol] 0.0 10*3/uL Normal 0.0-0.2 [facility] Comment on above: Result Comment: PERF ORMED BY:[address] [place], [place] [phone] MEDICAL DIRECTORAMPARO MONTAGUE M.D. Performed By: #### B MP, CBC ####[place] [id number] [place] Basophils/100 WBC (Bld) 0.6 % Normal . [facility] Comment on above: Performed By: #### B MP, CBC ####[address] Eosinophils (Bld) [#/Vol] 0.2 10*3/uL Normal 0.0-0.45 [facility] Comment on above: Performed By: #### B MP, CBC ####[place] [id number] [facility] Eosinophils/100 WBC (Bld) 2.7 % Normal . [facility] Comment on above: Performed By: #### B MP, CBC ####[address] Erythrocyte distribution width (RBC) [Ratio] 15.1 % Normal 11.9-15.3 [facility] Comment on above: Performed By: #### B MP, CBC ####[address] Hematocrit (Bld) [Volume fraction] 21.8 % Low 34.0-46.4 [facility] Comment on above: Performed By: #### B MP, CBC ####[address] Hemoglobin (Bld) [Mass/Vol] 7.1 g/dL Low 11.8-15.4 [facility] Comment on above: Performed By: #### B MP, CBC ####[address] Lymphocytes (Bld) [#/Vol] 1.8 10*3/uL Normal 1.00-4.8 [facility] Comment on above: Performed By: #### B MP, CBC ####[address] Lymphocytes/100 WBC (Bld) 22.3 % Normal . [facility] Comment on above: Performed By: #### B MP, CBC ####[address] MCH (RBC) [Entitic mass] 31.9 pg Normal 24.7-34.3 [facility] Comment on above: Performed By: #### B MP, CBC ####[address] MCV (RBC) [Entitic vol] 97.5 fL Normal 80-100 [facility] Comment on above: Performed By: #### B MP, CBC ####[address] Mean Corpuscular HGB Conc 32.7 g/dL Normal 32.0-35.0 [facility] Comment on above: Performed By: #### B MP, CBC ####[address] Monocytes (Bld) [#/Vol] 1.0 10*3/uL High 0.0-0.8 [facility] Comment on above: Performed By: #### B MP, CBC ####[address] Monocytes/100 WBC (Bld) 11.9 % Normal . [facility] Comment on above: Performed By: #### B MP, CBC ####[address] Neutrophils (Bld) [#/Vol] 5.1 10*3/uL Normal 1.8-7.7 [facility] Comment on above: Performed By: #### B MP, CBC ####[address] Neutrophils/100 WBC (Bld) 62.5 % Normal . [facility] Comment on above: Performed By: #### B MP, CBC ####[address] NRBC% 0.2 /100{WBC} Normal 0-0.5 [facility] Comment on above: Performed By: #### B MP, CBC ####[address] Platelet mean volume (Bld) [Entitic vol] 8.6 fL Normal 6.3-10.7 [facility] Comment on above: Performed By: #### B MP, CBC ####[address] [address] [facility] Platelets (Bld) [#/Vol] 248 10*3/uL Normal 150-450 [facility] Comment on above: Performed By: #### B MP, CBC ####[address] [address] [facility] RBC (Bld) [#/Vol] 2.23 10*6/uL Low 3.60-5.00 [facility] Comment on above: Performed By: #### B MP, CBC ####[place] [id number] [facility] WBC (Bld) [#/Vol] 8.2 10*3/uL Normal 3.8-11.6 [facility] Comment on above: Performed By: #### B MP, CBC ####[address] [address] [facility] Hemoglobin and Hematocriton 07-21-2023 Hematocrit (Bld) [Volume fraction] 32.5 % Significant change down 34.0-46.4 [facility] Comment on above: Order Comment: 1701 STILL IN SURGERY PSW 1840 STILL NOT IN ROOM PSW Result Comment: PERF ORMED BY:[address] [place], [place] [phone] MEDICAL RAZIA MONTAGUE M.D. Performed By: #### H H ####[address] [address] [facility] Hemoglobin (Bld) [Mass/Vol] 10.9 g/dL Low 11.8-15.4 [facility] Comment on above: Order Comment: 1701 STILL IN SURGERY PSW 1840 STILL NOT IN ROOM PSW Performed By: #### H H ####[address] [address] [facility] Andrew 07-21-2023 L Normal [facility] LeukoReduced RBCon LeukoReduced RBC NOT AVAILABLE Normal [facility] Type and Screenon 07-21-2023 ABO and Rh group Nom (Bld) Blood group A Rh(D) positive Normal [facility] Comment on above: Order Comment: Trans fuse now? Y Number of units to transfuse now? 1 Comment Please transfuse both units Transfuse now? Y Number of units to transfuse now? 2 Result Comment: PERF ORMED BY:[address] [place], [place] [phone] MEDICAL DIRECTORAMPARO MONTAGUE M.D. XR shoulder RT min 2V*on XR shoulder RT min 2V* Normal Th [facility] Alanine aminotransferase [En zymatic activity/volume] in Serum or PlasmaOrdered By: Lino Mackey on 07-20-2023 ALT [Catalytic activity/Vol] 9 U/L Normal 7-52 [place] Comment on above: Performed By: #### M G, CBC, CMP ####[place] [id number] [facility] Albumin [Mass/volume] in Ser um or Plasma by Bromocresol green (BCG) dye binding methoOrdered By: Lino Mackey on 07-20-2023 Albumin BCG dye [Mass/Vol] 2.3 g/dL Low 3.5-5.7 [place] Alkaline phosphatase [Enzyma tic activity/volume] in Serum or PlasmaOrdered By: Lino Mackey on 07-20-2023 ALP [Catalytic activity/Vol] 61 U/L Normal 34-104 [place] Comment on above: Performed By: #### M G, CBC, CMP ####[place] [id number] [facility] Aspartate aminotransferase [ Enzymatic activity/volume] in Serum or PlasmaOrdered By: Lino Narendra on 07-20-2023 AST [Catalytic activity/Vol] 22 U/L Normal 13-39 [place] Comment on above: Performed By: #### M G, CBC, CMP ####[address] [address] [facility] Bilirubin.total [Mass/volume ] in Serum or PlasmaOrdered By: Lino Mackey on 07-20-2023 Bilirubin [Mass/Vol] 0.3 mg/dL Normal 0.3-1.0 [facility] Comment on above: Performed By: #### M G, CBC, CMP ####[address] [address] [facility] CT shoulder RT wo conon 07-05 CT shoulder RT wo con Normal [facility] Capillary blood glucose gina urement by glucometer (mass/volume)Ordered By: Jennifer Blanco on 07-20-2023 Glucose [Mass/Vol] 138 mg/dL Normal [facility] Comment on above: Random Glucose Refer ence Range is dependent on time and content of last meal. Glucose of more than 200 mg/dL in a nonstressed, ambulatory subject supports the diagnosis of Diabetes Mellitus. Result Comment: [place] om Glucose Reference Range is dependent on time and content of last meal. Glucose of more than 200 mg/dL in a nonstressed, ambulatory subject supports the diagnosis of Diabetes Mellitus.PERFORMED BY:[address] [address] [address], [place] [phone] MEDICAL DIRECTORAMPARO MONTAGUE M.D. Performed By: #### G LULS ####Point of Care testing, Complete Blood Count Auto Di ffon 07-20-2023 Basophils (Bld) [#/Vol] 0.0 10*3/uL Normal 0.0-0.2 [facility] Comment on above: Result Comment: PERF ORMED BY:[address] [address] [address] [place], [place] [id number] MEDICAL DIRECTORAMPARO MONTAGUE M.D. Performed By: #### M G, CBC, CMP ####[address] [place] [address] [facility] Basophils/100 WBC (Bld) 0.4 % Normal . [facility] Comment on above: Performed By: #### M G, CBC, CMP ####[address] [address] [facility] Eosinophils (Bld) [#/Vol] 0.2 10*3/uL Normal 0.0-0.45 [facility] Comment on above: Performed By: #### M G, CBC, CMP ####[place] [id number] [facility] Eosinophils/100 WBC (Bld) 2.6 % Normal . [facility] Comment on above: Performed By: #### M G, CBC, CMP ####[address] Erythrocyte distribution width (RBC) [Ratio] 15.4 % High 11.9-15.3 [facility] Comment on above: Performed By: #### M G, CBC, CMP ####[address] Hematocrit (Bld) [Volume fraction] 21.8 % Low 34.0-46.4 [facility] Comment on above: Performed By: #### M G, CBC, CMP ####[address] Hemoglobin (Bld) [Mass/Vol] 7.3 g/dL Low 11.8-15.4 [facility] Comment on above: Performed By: #### M G, CBC, CMP ####[address] Lymphocytes (Bld) [#/Vol] 1.4 10*3/uL Normal 1.00-4.8 [facility] Comment on above: Performed By: #### M G, CBC, CMP ####[place] [id number] [facility] Lymphocytes/100 WBC (Bld) 18.7 % Normal . [facility] Comment on above: Performed By: #### M G, CBC, CMP ####[place] [id number] [facility] MCH (RBC) [Entitic mass] 32.4 pg Normal 24.7-34.3 [facility] Comment on above: Performed By: #### M G, CBC, CMP ####[place] [id number] [facility] MCV (RBC) [Entitic vol] 96.6 fL Normal 80-100 [facility] Comment on above: Performed By: #### M G, CBC, CMP ####[address] Mean Corpuscular HGB Conc 33.5 g/dL Normal 32.0-35.0 [facility] Comment on above: Performed By: #### M G, CBC, CMP ####[address] Monocytes (Bld) [#/Vol] 0.8 10*3/uL Normal 0.0-0.8 [facility] Comment on above: Performed By: #### M G, CBC, CMP ####[address] Monocytes/100 WBC (Bld) 10.8 % Normal . [facility] Comment on above: Performed By: #### M G, CBC, CMP ####[address] Neutrophils (Bld) [#/Vol] 5.1 10*3/uL Normal 1.8-7.7 [facility] Comment on above: Performed By: #### M G, CBC, CMP ####[address] Neutrophils/100 WBC (Bld) 67.5 % Normal . [facility] Comment on above: Performed By: #### M G, CBC, CMP ####[address] NRBC% 0.1 /100{WBC} Normal 0-0.5 [facility] Comment on above: Performed By: #### M G, CBC, CMP ####[address] Platelet mean volume (Bld) [Entitic vol] 8.4 fL Normal 6.3-10.7 [facility] Comment on above: Performed By: #### M G, CBC, CMP ####[address] Platelets (Bld) [#/Vol] 238 10*3/uL Normal 150-450 [facility] Comment on above: Performed By: #### M G, CBC, CMP ####[address] RBC (Bld) [#/Vol] 2.26 10*6/uL Low 3.60-5.00 [facility] Comment on above: Performed By: #### M G, CBC, CMP ####[address] WBC (Bld) [#/Vol] 7.5 10*3/uL Normal 3.8-11.6 [facility] Comment on above: Performed By: #### M G, CBC, CMP ####[address] Comprehensive Metabolic Pane andrew 07-20-2023 Albumin [Mass/Vol] 2.3 g/dL Low 3.5-5.7 [facility] Comment on above: Performed By: #### M G, CBC, CMP ####[address] Anion gap [Moles/Vol] 4.7 mmol/L Low 6.0-15.0 [facility] Comment on above: Performed By: #### M G, CBC, CMP ####[address] Calcium [Mass/Vol] 7.9 mg/dL Low 8.6-10.3 [facility] Comment on above: Performed By: #### M G, CBC, CMP ####[address] Chloride [Moles/Vol] 105 mmol/L Normal 98-107 [facility] Comment on above: Performed By: #### M G, CBC, CMP ####[address] CO2 [Moles/Vol] 34.9 mmol/L High 21.0-31.0 [facility] Comment on above: Performed By: #### M G, CBC, CMP ####[address] Creatinine [Mass/Vol] 0.46 mg/dL Low 0.60-1.20 [facility] Comment on above: Performed By: #### M G, CBC, CMP ####[place] [id number] [facility] Creatinine Clr Calc Pharmacy 51.81 Normal [facility] Comment on above: Performed By: #### M Alexia, CBC, CMP ####[place] [id number] [place] GFR/1.73 sq M.predicted MDRD (S/P/Bld) [Vol rate/Area] mL/min/{1.73_m2} Normal [facility] Comment on above: Performed By: #### M Alexia, CBC, CMP ####[address] Glucose [Mass/Vol] 89 mg/dL Normal 70-100 [facility] Comment on above: Result Comment: [facility] Glucose Reference Range is dependent on time and content of last meal. Glucose of more than 200 mg/dL in a nonstressed, ambulatory subject supports the diagnosis of Diabetes Mellitus. ADA recommended reference range Performed By: #### M Alexia, CBC, CMP ####[address] Potassium [Moles/Vol] 4.6 mmol/L Normal 3.5-5.1 [facility] Comment on above: Performed By: #### M Alexia, CBC, CMP ####[place] [id number] [facility] Sodium [Moles/Vol] 140 mmol/L Normal 136-145 [facility] Comment on above: Performed By: #### M G, CBC, CMP ####[place] [id number] [facility] Urea nitrogen [Mass/Vol] 6 mg/dL Low 7-25 [facility] Comment on above: Performed By: #### M Alexia, CBC, CMP ####[address] [place] [address] [facility] Hemoglobin and Hematocriton 07-20-2023 Hematocrit (Bld) [Volume fraction] 22.7 % Low 34.0-46.4 [facility] Comment on above: Result Comment: PERF ORMED BY:[address] [address] [place] [place], [place] [phone] MEDICAL DIRECTORAMPARO MONTAGUE M.D. Performed By: #### H H ####[address] [address] [facility] Hemoglobin (Bld) [Mass/Vol] 7.5 g/dL Low 11.8-15.4 [facility] Comment on above: Performed By: #### H H ####[place] [id number] [facility] Magnesium [Mass/volume] in S gaetano or PlasmaOrdered By: Lino Mackey on 07-20-2023 Magnesium [Mass/Vol] 1.8 mg/dL Low 1.9-2.7 [facility] Comment on above: Result Comment: PERF ORMED BY:[address] [address] [place] [place], [place] [phone] MEDICAL DIRECTORAMPARO MONTAGUE M.D. Performed By: #### M G, CBC, CMP ####[place] [id number] [facility] Protein [Mass/volume] in Ser um or PlasmaOrdered By: Lino Mackey on 07-20-2023 Protein [Mass/Vol] 4.0 g/dL Low 6.4-8.9 [facility] Comment on above: Performed By: #### M G, CBC, CMP ####[place] [id number] [facility] Serum globulin measurement b y calculation (mass/volume)Ordered By: Lino Mackey on 07-20-2023 Globulin (S) [Mass/Vol] 1.7 g/dL Normal [place] Comment on above: Performed By: #### M G, CBC, CMP ####[address] Serum or plasma albumin/glob ulin mass ratioOrdered By: Lino Mackey on 07-20-2023 Albumin/Globulin [Mass ratio] 1.4 {ratio} Normal [place] Comment on above: Performed By: #### M G, CBC, CMP ####[address] Complete Blood Count Auto Di ffon 07-19-2023 Basophils (Bld) [#/Vol] 0.0 10*3/uL Normal 0.0-0.2 [facility] Comment on above: Result Comment: PERF ORMED BY:[address] [place], [place] [phone] MEDICAL DIRECTORAMPARO MONTAGUE M.D. Performed By: #### C BC ####[address] Basophils/100 WBC (Bld) 0.2 % Normal . [facility] Comment on above: Performed By: #### C BC ####[address] Eosinophils (Bld) [#/Vol] 0.1 10*3/uL Normal 0.0-0.45 [facility] Comment on above: Performed By: #### C BC ####[address] Eosinophils/100 WBC (Bld) 0.7 % Normal . [facility] Comment on above: Performed By: #### C BC ####[address] Erythrocyte distribution width (RBC) [Ratio] 15.8 % High 11.9-15.3 [facility] Comment on above: Performed By: #### C BC ####[address] Hematocrit (Bld) [Volume fraction] 24.9 % Low 34.0-46.4 [facility] Comment on above: Performed By: #### C BC ####[address] Hemoglobin (Bld) [Mass/Vol] 8.3 g/dL Low 11.8-15.4 [facility] Comment on above: Performed By: #### C BC ####[address] Lymphocytes (Bld) [#/Vol] 1.6 10*3/uL Normal 1.00-4.8 [facility] Comment on above: Performed By: #### C BC ####[address] Lymphocytes/100 WBC (Bld) 16.0 % Normal . [facility] Comment on above: Performed By: #### C BC ####[address] MCH (RBC) [Entitic mass] 32.0 pg Normal 24.7-34.3 [facility] Comment on above: Performed By: #### C BC ####[address] MCV (RBC) [Entitic vol] 96.4 fL Normal 80-100 [facility] Comment on above: Performed By: #### C BC ####[address] Mean Corpuscular HGB Conc 33.3 g/dL Normal 32.0-35.0 [facility] Comment on above: Performed By: #### C BC ####[address] Monocytes (Bld) [#/Vol] 1.2 10*3/uL High 0.0-0.8 [facility] Comment on above: Performed By: #### C BC ####[address] Monocytes/100 WBC (Bld) 12.3 % Normal . [facility] Comment on above: Performed By: #### C BC ####[address] Neutrophils (Bld) [#/Vol] 6.9 10*3/uL Normal 1.8-7.7 [facility] Comment on above: Performed By: #### C BC ####[address] Neutrophils/100 WBC (Bld) 70.8 % Normal . [facility] Comment on above: Performed By: #### C BC ####[address] NRBC% 0.1 /100{WBC} Normal 0-0.5 [facility] Comment on above: Performed By: #### C BC ####[address] Platelet mean volume (Bld) [Entitic vol] 8.4 fL Normal 6.3-10.7 [facility] Comment on above: Performed By: #### C BC ####[address] Platelets (Bld) [#/Vol] 232 10*3/uL Normal 150-450 [facility] Comment on above: Performed By: #### C BC ####[address] RBC (Bld) [#/Vol] 2.59 10*6/uL Low 3.60-5.00 [facility] Comment on above: Performed By: #### C BC ####[address] WBC (Bld) [#/Vol] 9.7 10*3/uL Normal 3.8-11.6 [facility] Comment on above: Performed By: #### C BC ####[address] Basic Metabolic Panelon 07-05 Anion gap [Moles/Vol] 7.7 mmol/L Normal 6.0-15.0 [facility] Comment on above: Performed By: #### B MP ####[address] [place] [address] [facility] Calcium [Mass/Vol] 8.2 mg/dL Low 8.6-10.3 [facility] Comment on above: Performed By: #### B MP ####[address] Chloride [Moles/Vol] 105 mmol/L Normal 98-107 [facility] Comment on above: Performed By: #### B MP ####[address] CO2 [Moles/Vol] 28.2 mmol/L Normal 21.0-31.0 [facility] Comment on above: Performed By: #### B MP ####[address] Creatinine [Mass/Vol] 0.64 mg/dL Normal 0.60-1.20 [facility] Comment on above: Performed By: #### B MP ####[address] Creatinine Clr Calc Pharmacy 51.81 Normal [facility] Comment on above: Result Comment: PERF ORMED BY:[address] [place], [place] [phone] MEDICAL RAZIA MONTAGUE M.D. Performed By: #### B MP ####[place] [id number] [facility] GFR/1.73 sq M.predicted MDRD (S/P/Bld) [Vol rate/Area] mL/min/{1.73_m2} Normal [facility] Comment on above: Performed By: #### B MP ####[place] [id number] [facility] Glucose [Mass/Vol] 144 mg/dL High 70-100 [facility] Comment on above: Result Comment: [place] Glucose Reference Range is dependent on time and content of last meal. Glucose of more than 200 mg/dL in a nonstressed, ambulatory subject supports the diagnosis of Diabetes Mellitus. ADA recommended reference range Performed By: #### B MP ####[place] [id number] [facility] Potassium [Moles/Vol] 4.9 mmol/L Normal 3.5-5.1 [facility] Comment on above: Performed By: #### B MP ####[address] Sodium [Moles/Vol] 136 mmol/L Normal 136-145 [facility] Comment on above: Performed By: #### B MP ####[address] Urea nitrogen [Mass/Vol] 14 mg/dL Normal 7-25 [facility] Comment on above: Performed By: #### B MP ####[address] Complete Blood Count Auto Di ffon 07-18-2023 Basophils (Bld) [#/Vol] 0.0 10*3/uL Normal 0.0-0.2 [facility] Comment on above: Result Comment: PERF ORMED BY:[address] [place], [place] [phone] MEDICAL DIRECTORAMPARO MONTAGUE M.D. Performed By: #### C BC ####[address] Basophils/100 WBC (Bld) 0.1 % Normal . [facility] Comment on above: Performed By: #### C BC ####[address] Eosinophils (Bld) [#/Vol] 0.0 10*3/uL Normal 0.0-0.45 [facility] Comment on above: Performed By: #### C BC ####[address] Eosinophils/100 WBC (Bld) 0.0 % Normal . [facility] Comment on above: Performed By: #### C BC ####[address] Erythrocyte distribution width (RBC) [Ratio] 16.0 % High 11.9-15.3 [facility] Comment on above: Performed By: #### C BC ####[address] Hematocrit (Bld) [Volume fraction] 27.1 % Low 34.0-46.4 [facility] Comment on above: Performed By: #### C BC ####[address] Hemoglobin (Bld) [Mass/Vol] 9.1 g/dL Low 11.8-15.4 [facility] Comment on above: Performed By: #### C BC ####[address] Lymphocytes (Bld) [#/Vol] 0.9 10*3/uL Low 1.00-4.8 [facility] Comment on above: Performed By: #### C BC ####[address] Lymphocytes/100 WBC (Bld) 7.5 % Normal . [facility] Comment on above: Performed By: #### C BC ####[address] MCH (RBC) [Entitic mass] 31.6 pg Normal 24.7-34.3 [facility] Comment on above: Performed By: #### C BC ####[address] MCV (RBC) [Entitic vol] 94.8 fL Normal 80-100 [facility] Comment on above: Performed By: #### C BC ####[address] Mean Corpuscular HGB Conc 33.4 g/dL Normal 32.0-35.0 [facility] Comment on above: Performed By: #### C BC ####[address] Monocytes (Bld) [#/Vol] 1.1 10*3/uL High 0.0-0.8 [facility] Comment on above: Performed By: #### C BC ####[place] [id number] [facility] Monocytes/100 WBC (Bld) 9.2 % Normal . [facility] Comment on above: Performed By: #### C BC ####[address] [address] [facility] Neutrophils (Bld) [#/Vol] 10.0 10*3/uL High 1.8-7.7 [facility] Comment on above: Performed By: #### C BC ####[place] [id number] [facility] Neutrophils/100 WBC (Bld) 83.2 % Normal . [facility] Comment on above: Performed By: #### C BC ####[place] [phone] [facility] NRBC% 0.0 /100{WBC} Normal 0-0.5 [facility] Comment on above: Performed By: #### C BC ####[place] [phone] [facility] Platelet mean volume (Bld) [Entitic vol] 8.4 fL Normal 6.3-10.7 [facility] Comment on above: Performed By: #### C BC ####[place] [id number] [facility] Platelets (Bld) [#/Vol] 183 10*3/uL Normal 150-450 [facility] Comment on above: Performed By: #### C BC ####[place] [id number] [facility] RBC (Bld) [#/Vol] 2.86 10*6/uL Low 3.60-5.00 [facility] Comment on above: Performed By: #### C BC ####[place] [id number] [facility] WBC (Bld) [#/Vol] 12.0 10*3/uL High 3.8-11.6 [facility] Comment on above: Performed By: #### C BC ####[address] [address] [facility] XR femur RT 2V*on 07-18-2023 XR femur RT 2V* Normal [facility] XR low pelvis w/RT x-table h ipon 07-18-2023 XR low pelvis w/RT x-table hip Normal [facility] ABO/Rh Retypeon 07-17-2023 ABO/RH Recheck Result Positive Normal [facility] Comment on above: Result Comment: PERF ORMED BY:[address] [place], [place] [phone] MEDICAL DIRECTORAMPARO MONTAGUE M.D. Complete Blood Count Auto Di ffon 07-17-2023 Basophils (Bld) [#/Vol] 0.0 10*3/uL Normal 0.0-0.2 [facility] Comment on above: Order Comment: Comme nt pt still on 4P Result Comment: PERF ORMED BY:[address] [place], [place] [phone] MEDICAL DIRECTORAMPARO MONTAGUE M.D. Performed By: #### C BC ####[place] [id number] [facility] Basophils/100 WBC (Bld) 0.6 % Normal . [facility] Comment on above: Order Comment: Comme nt pt still on 4P Performed By: #### C BC ####[place] [id number] [facility] Eosinophils (Bld) [#/Vol] 0.0 10*3/uL Normal 0.0-0.45 [facility] Comment on above: Order Comment: Comme nt pt still on 4P Performed By: #### C BC ####[place] [id number] [facility] Eosinophils/100 WBC (Bld) 0.7 % Normal . [facility] Comment on above: Order Comment: Comme nt pt still on 4P Performed By: #### C BC ####[place] [id number] [place] Erythrocyte distribution width (RBC) [Ratio] 13.7 % Normal 11.9-15.3 [facility] Comment on above: Order Comment: Comme nt pt still on 4P Performed By: #### C BC ####[address] Hematocrit (Bld) [Volume fraction] 22.4 % Low 34.0-46.4 [facility] Comment on above: Order Comment: Comme nt pt still on 4P Performed By: #### C BC ####[address] Hemoglobin (Bld) [Mass/Vol] 7.4 g/dL Low 11.8-15.4 [facility] Comment on above: Order Comment: Comme nt pt still on 4P Performed By: #### C BC ####[address] Lymphocytes (Bld) [#/Vol] 1.1 10*3/uL Normal 1.00-4.8 [facility] Comment on above: Order Comment: Comme nt pt still on 4P Performed By: #### C BC ####[address] Lymphocytes/100 WBC (Bld) 17.2 % Normal . [facility] Comment on above: Order Comment: Comme nt pt still on 4P Performed By: #### C BC ####[address] MCH (RBC) [Entitic mass] 33.0 pg Normal 24.7-34.3 [facility] Comment on above: Order Comment: Comme nt pt still on 4P Performed By: #### C BC ####[place] [id number] [facility] MCV (RBC) [Entitic vol] 99.7 fL Normal 80-100 [facility] Comment on above: Order Comment: Comme nt pt still on 4P Performed By: #### C BC ####[address] [address] [facility] Mean Corpuscular HGB Conc 33.2 g/dL Normal 32.0-35.0 [facility] Comment on above: Order Comment: Comme nt pt still on 4P Performed By: #### C BC ####[place] [id number] [facility] Monocytes (Bld) [#/Vol] 0.5 10*3/uL Normal 0.0-0.8 [facility] Comment on above: Order Comment: Comme nt pt still on 4P Performed By: #### C BC ####[place] [id number] [facility] Monocytes/100 WBC (Bld) 8.9 % Normal . [facility] Comment on above: Order Comment: Comme nt pt still on 4P Performed By: #### C BC ####[address] Neutrophils (Bld) [#/Vol] 4.5 10*3/uL Normal 1.8-7.7 [facility] Comment on above: Order Comment: Comme nt pt still on 4P Performed By: #### C BC ####[place] [phone] [facility] Neutrophils/100 WBC (Bld) 72.6 % Normal . [facility] Comment on above: Order Comment: Comme nt pt still on 4P Performed By: #### C BC ####[place] [phone] [facility] NRBC% 0.0 /100{WBC} Normal 0-0.5 [facility] Comment on above: Order Comment: Comme nt pt still on 4P Performed By: #### C BC ####[place] [id number] [facility] Platelet mean volume (Bld) [Entitic vol] 8.2 fL Normal 6.3-10.7 [facility] Comment on above: Order Comment: Comme nt pt still on 4P Performed By: #### C BC ####[address] [address] [facility] Platelets (Bld) [#/Vol] 214 10*3/uL Normal 150-450 [facility] Comment on above: Order Comment: Comme nt pt still on 4P Performed By: #### C BC ####[place] [id number] [facility] RBC (Bld) [#/Vol] 2.25 10*6/uL Low 3.60-5.00 [facility] Comment on above: Order Comment: Comme nt pt still on 4P Performed By: #### C BC ####[place] [id number] [facility] WBC (Bld) [#/Vol] 6.1 10*3/uL Normal 3.8-11.6 [facility] Comment on above: Order Comment: Comme nt pt still on 4P Performed By: #### C BC ####[place] [id number] [facility] Activated partial thrombopla stin time (aPTT) in platelet poor plasma by coagulation aOrdered By: Solo Yepez on 07-16-2023 aPTT Coag (PPP) [Time] 30.8 s 25.1-36.5 [facility] Comment on above: A hematocrit value g reater than 55% may lead to inaccurate results in coagulation testing. Patients having hematocrit values >55% require a special collection tube for coagulation studies. Please contact the laboratory at [phone] for redraw instructions. Alanine aminotransferase [En zymatic activity/volume] in Serum or PlasmaOrdered By: Solo Yepez on 07-16-2023 ALT [Catalytic activity/Vol] 10 U/L Normal 7-52 [place] Comment on above: Performed By: #### C MP, CBC ####[place] [id number] [facility] Albumin [Mass/volume] in Ser um or Plasma by Bromocresol green (BCG) dye binding methoOrdered By: Solo Yepez on 07-16-2023 Albumin BCG dye [Mass/Vol] 3.8 g/dL 3.5-5.7 [place] Alkaline phosphatase [Enzyma tic activity/volume] in Serum or PlasmaOrdered By: Solo Yepez on 07-16-2023 ALP [Catalytic activity/Vol] 97 U/L Normal 34-104 [place] Comment on above: Performed By: #### C MP, CBC ####[address] Aspartate aminotransferase [ Enzymatic activity/volume] in Serum or PlasmaOrdered By: Solo Yepez on 07-16-2023 AST [Catalytic activity/Vol] 16 U/L Normal 13-39 [place] Comment on above: Performed By: #### C MP, CBC ####[address] Automated basophil %Ordered By: Solo Yepez on 07-16-2023 Basophils/100 WBC (Bld) 0.4 % Normal . [place] Comment on above: Performed By: #### C MP, CBC ####[address] Automated basophil countOrde red By: Solo Yepez on 07-16-2023 Basophils (Bld) [#/Vol] 0.0 10*3/uL Normal 0.0-0.2 [place] Comment on above: Result Comment: PERF ORMED BY:[address] SUSANAShawnJayceNORTH [place], [place] [phone] MEDICAL DIRECTORAMPARO MONTAGUE M.D. Performed By: #### C MP, CBC ####[address] Automated blood monocyte cou ntOrdered By: Solo Yepez on 07-16-2023 Monocytes (Bld) [#/Vol] 0.6 10*3/uL Normal 0.0-0.8 [place] Comment on above: Performed By: #### C MP, CBC ####[address] Automated eosinophil %Ordere d By: Solo Yepez on 07-16-2023 Eosinophils/100 WBC (Bld) 1.7 % Normal . [place] Comment on above: Performed By: #### C MP, CBC ####[address] Automated eosinophil countOr dered By: Solo Yepez on 07-16-2023 Eosinophils (Bld) [#/Vol] 0.1 10*3/uL Normal 0.0-0.45 [place] Comment on above: Performed By: #### C MP, CBC ####[address] Automated erythrocytes count in urine sediment (number/area)Ordered By: Solo Yepez on 07-16-2023 RBC Auto (Urine sed) [#/Area] 0-1 [HPF] 0-4 [place] Automated leukocytes count i n urine sediment (number/area)Ordered By: Solo Yepez on 07-16-2023 WBC Auto (Urine sed) [#/Area] 5-9 [HPF] High 0-4 [place] Automated monocyte %Ordered By: Solo Yepez on 07-16-2023 Monocytes/100 WBC (Bld) 6.6 % Normal . [place] Comment on above: Performed By: #### C MP, CBC ####[address] Automated neutrophil %Ordere d By: Solo Yepez on 07-16-2023 Neutrophils/100 WBC (Bld) 75.9 % Normal . [place] Comment on above: Performed By: #### C MP, CBC ####[address] Automated urine color determ inationOrdered By: Solo Yepez on 07-16-2023 Color (U) Yellow Normal Yellow [place] Comment on above: Order Comment: Name Collection Type:: Colmenares Catheter Performed By: #### C UU, ADDONUAPLUS ####[address] Bacteria identified Cx Nom ( U)Ordered By: Solo Yepez on 07-16-2023 Escherichia coli Escherichia coli Abnormal [facility] Bilirubin Test strip Ql (U)O rdered By: Solo Yepez on 07-16-2023 Bilirubin Ql (U) Negative Negative [facility] Bilirubin.total [Mass/volume ] in Serum or PlasmaOrdered By: Solo Yepez on 07-16-2023 Bilirubin [Mass/Vol] 0.3 mg/dL Normal 0.3-1.0 [facility] Comment on above: Performed By: #### C MP, CBC ####[address] [place] [address] [facility] CT hip RT wo conon CT hip RT wo con Normal [facility] Calcium [Mass/volume] in Ser um or PlasmaOrdered By: Solo Yepez on 07-16-2023 Calcium [Mass/Vol] 8.9 mg/dL Normal 8.6-10.3 [facility] Comment on above: Performed By: #### C MP, CBC ####[address] [place] [address] [facility] Carbon dioxide, total [Moles /volume] in Serum or PlasmaOrdered By: Solo Yepez on 07-16-2023 CO2 [Moles/Vol] 34.1 mmol/L High 21.0-31.0 [facility] Comment on above: Performed By: #### C MP, CBC ####[address] [address] [facility] Chloride [Moles/volume] in S gaetano or PlasmaOrdered By: Solo Yepez on 07-16-2023 Chloride [Moles/Vol] 97 mmol/L Low 98-107 [facility] Comment on above: Performed By: #### C MP, CBC ####[address] [address] [facility] Coagulation Profileon 2023 aPTT Coag (Bld) [Time] 30.8 s Normal 25.1-36.5 [facility] Comment on above: Result Comment: A he matocrit value greater than 55% may lead to inaccurate results in coagulation testing. Patients having hematocrit values >55% require a special collection tube for coagulation studies. Please contact the laboratory at [phone] for redraw instructions.PERFORMED BY:[place] [address] [place], [place] [phone] MEDICAL DIRECTORAMPARO SUN M.D. Performed By: #### P P ####[place] [id number] [facility] Complete Blood Count Auto Di ffon 07-16-2023 Mean Corpuscular HGB Conc 32.9 g/dL Normal 32.0-35.0 [facility] Comment on above: Performed By: #### C MP, CBC ####[address] Monocytes/100 WBC (Bld) 15.83 % Normal 0.00-20.00 [facility] Comment on above: Performed By: #### C MP, CBC ####[address] NRBC% 0.0 /100{WBC} Normal 0-0.5 [facility] Comment on above: Performed By: #### C MP, CBC ####[address] Comprehensive Metabolic Pane andrew 07-16-2023 Albumin [Mass/Vol] 3.8 g/dL Normal 3.5-5.7 [facility] Comment on above: Performed By: #### C MP, CBC ####[address] Creatinine Clr Calc Pharmacy 42.61 Normal [facility] Comment on above: Result Comment: PERF ORMED BY:[address] [place], [place] [phone] MEDICAL RAZIA MONTAGUE M.D. Performed By: #### C MP, CBC ####[place] [id number] [facility] GFR/1.73 sq M.predicted MDRD (S/P/Bld) [Vol rate/Area] mL/min/{1.73_m2} Normal [facility] Comment on above: Performed By: #### C MP, CBC ####[address] Creatinine [Mass/volume] in Serum or PlasmaOrdered By: Solo Yepez on 07-16-2023 Creatinine [Mass/Vol] 0.93 mg/dL Normal 0.60-1.20 [facility] Comment on above: Performed By: #### C MP, CBC ####[address] [address] [facility] Dipstick and Microscopicon 0 07-16-2023 Appearance (U) Clear Normal Clear [facility] Comment on above: Order Comment: Name Collection Type:: Colmenares Catheter Performed By: #### C UU, ADDONUAPLUS ####[address] [address] [place] Bacteria,Urine 3+ High None Seen [facility] Comment on above: Order Comment: Name Collection Type:: Colmenares Catheter Performed By: #### C UU, ADDONUAPLUS ####[address] [address] [facility] Bilirubin,Urine Negative Normal Negative [facility] Comment on above: Order Comment: Name Collection Type:: Colmenares Catheter Performed By: #### C UU, ADDONUAPLUS ####[address] [address] [place] Glucose Ql (U) Normal Normal Normal [facility] Comment on above: Order Comment: Name Collection Type:: Colmenares Catheter Performed By: #### C UU, ADDONUAPLUS ####[address] [address] [place] Hyaline Casts,Urine None Seen Normal 0-8 [facility] Comment on above: Order Comment: Name Collection Type:: Colmenares Catheter Result Comment: PERF ORMED BY:[address] [place], [place] [phone] MEDICAL RAZIA MONTAGUE M.D. Performed By: #### C UU, ADDONUAPLUS ####[address] [address] [facility] Ketones Ql (U) Negative Normal Negative [facility] Comment on above: Order Comment: Name Collection Type:: Colmenares Catheter Performed By: #### C UU, ADDONUAPLUS ####[address] [place] [address] [facility] Leukocyte esterase Test strip Ql (U) 1+ High Negative [facility] Comment on above: Order Comment: Name Collection Type:: Colmenares Catheter Performed By: #### C UU, ADDONUAPLUS ####[address] [address] [facility] Nitrite,Urine Positive High Negative [facility] Comment on above: Order Comment: Name Collection Type:: Colmenares Catheter Performed By: #### C UU, ADDONUAPLUS ####[address] [address] [facility] Occult Blood,Urine Negative Normal Negative [facility] Comment on above: Order Comment: Name Collection Type:: Colmenares Catheter Result Comment: PERF ORMED BY:[address] [place], [place] [phone] MEDICAL DIRECTORAMPARO MONTAGUE M.D. Performed By: #### C UU, ADDONUAPLUS ####[address] [address] [facility] Protein,Urine Negative Normal Negative [facility] Comment on above: Order Comment: Name Collection Type:: Colmenares Catheter Performed By: #### C UU, ADDONUAPLUS ####[address] [address] [facility] RBC LM.HPF (Urine sed) [#/Area] 0 /[HPF] Normal 0-4 [facility] Comment on above: Order Comment: Name Collection Type:: Colmenares Catheter Performed By: #### C UU, ADDONUAPLUS ####[address] [address] [facility] Specificy [place],Urine 1.011 Normal 1.001-1.03 0 [facility] Comment on above: Order Comment: Name Collection Type:: Colmenares Catheter Performed By: #### C UU, ADDONUAPLUS ####[address] [address] [facility] Squamous Epithelial Cell,Urine None Seen Normal 0-2 [facility] Comment on above: Order Comment: Name Collection Type:: Colmenares Catheter Performed By: #### C UU, ADDONUAPLUS ####[place] [address] Urobilinogen,Urine Normal Normal Normal [facility] Comment on above: Order Comment: Name Collection Type:: Colmenares Catheter Performed By: #### C UU, ADDONUAPLUS ####[place] [address] [place] [id number] [facility] WBC,Urine 5-9 High 0-4 [facility] Comment on above: Order Comment: Name Collection Type:: Colmenares Catheter Performed By: #### C UU, ADDONUAPLUS ####[address] ECG 12 lead ECGon 07-16-2023 ECG 12 lead ECG Normal [facility] ECH echo transthoracicon ECH echo transthoracic Normal Th e [facility] Erythrocyte distribution wid th [Ratio] by Automated countOrdered By: Solo Yepez on 07-16-2023 Erythrocyte distribution width (RBC) [Ratio] 13.9 % Normal 11.9-15.3 [place] Comment on above: Performed By: #### C MP, CBC ####[address] Erythrocytes [#/volume] in B lood by Automated countOrdered By: Solo Yepez on 07-16-2023 RBC (Bld) [#/Vol] 2.84 10*6/uL Low 3.60-5.00 [facility] Comment on above: Performed By: #### C MP, CBC ####[address] Glucose [Mass/volume] in Ser um or PlasmaOrdered By: Solo Yepez on 07-16-2023 Glucose [Mass/Vol] 97 mg/dL Normal 70-100 [facility] Comment on above: ADA recommended refe rence rangeRandom Glucose Reference Range is dependent on time and content of last meal. Glucose of more than 200 mg/dL in a nonstressed, ambulatory subject supports the diagnosis of Diabetes Mellitus. Result Comment: [facility] Glucose Reference Range is dependent on time and content of last meal. Glucose of more than 200 mg/dL in a nonstressed, ambulatory subject supports the diagnosis of Diabetes Mellitus. ADA recommended reference range Performed By: #### C MP, CBC ####[address] Hematocrit [Volume Fraction] of Blood by Automated countOrdered By: Solo Yepez on 07-16-2023 Hematocrit (Bld) [Volume fraction] 28.0 % Low 34.0-46.4 [place] Comment on above: Performed By: #### C MP, CBC ####[address] Hemoglobin [Mass/volume] in BloodOrdered By: Solo Yepez on 07-16-2023 Hemoglobin (Bld) [Mass/Vol] 9.2 g/dL Low 11.8-15.4 [place] Comment on above: Performed By: #### C ALKA, CBC ####[address] INR in Platelet poor plasma by Coagulation assayOrdered By: Solo Yepez on 07-16-2023 INR Coag (PPP) [Relative time] 0.9 {INR} Normal [place] Comment on above: INR Therapeutic Rang e A) Pre- and Peroperative OAT started two weeks before surgery. NOT HIP SURGERY: 1.5 - 2.5 HIP SURGERY: 2 - 3B) Primary and secondary prevention of venous THROMBOSIS: 2 - 3C) Active venous thrombosis, pulmonary embolismand prevention of recurrent venous thrombosis: 2 - 3D) Prevention of arterial thromboembolismincluding patients with mechanical heart valves: 3 - 4.5 Result Comment: INR Therapeutic Range A) Pre- and Peroperative OAT started two weeks before surgery. NOT HIP SURGERY: 1.5 - 2.5 HIP SURGERY: 2 - 3 B) Primary and secondary prevention of venous THROMBOSIS: 2 - 3 C) Active venous thrombosis, pulmonary embolism and prevention of recurrent venous thrombosis: 2 - 3 D) Prevention of arterial thromboembolism including patients with mechanical heart valves: 3 - 4.5 Performed By: #### P P ####[place] [id number] [facility] Ketones Auto test strip (U) [Mass/Vol]Ordered By: Solo Yepez on 07-16-2023 Ketones (U) [Mass/Vol] Negative Negative [facility] - UrinalysisOrder ed By: Solo Yepez on 07-16-2023 Hyaline casts LM Ql (Urine sed) None seen [LPF] 0-8 [place] Leukocytes [#/volume] correc daya for nucleated erythrocytes in Blood by Automated counOrdered By: Solo Yepez on 07-16-2023 WBC corrected for nucl RBC Auto (Bld) [#/Vol] 8.4 10*3/uL 3.8-11.6 [place] Leukocytes [#/volume] in Blo od by Automated countOrdered By: Solo Yepez on 07-16-2023 WBC (Bld) [#/Vol] 8.4 10*3/uL Normal 3.8-11.6 [facility] Comment on above: Performed By: #### C MP, CBC ####[facility] [id number] [place] [address] Lymphocytes [#/volume] in Bl ood by Automated countOrdered By: Solo Yepez on 07-16-2023 Lymphocytes (Bld) [#/Vol] 1.3 10*3/uL Normal 1.00-4.8 [place] Comment on above: Performed By: #### C MP, CBC ####[address] Lymphocytes/100 leukocytes i n Blood by Automated countOrdered By: Solo Yepez on 07-16-2023 Lymphocytes/100 WBC (Bld) 15.4 % Normal . [place] Comment on above: Performed By: #### C MP, CBC ####[address] MCH [Entitic mass] by Automa daya countOrdered By: Solo Yepez on 07-16-2023 MCH (RBC) [Entitic mass] 32.4 pg Normal 24.7-34.3 [place] Comment on above: Performed By: #### C MP, CBC ####[facility] [address] MCHC Auto (RBC) [Mass/Vol]Or dered By: Solo Yepez on 07-16-2023 MCHC (RBC) [Mass/Vol] 32.9 g/dL 32.0-35.0 [facility] MCV [Entitic volume] by Auto mated countOrdered By: Solo Yepez on 07-16-2023 MCV (RBC) [Entitic vol] 98.6 fL Normal 80-100 [place] Comment on above: Performed By: #### C MP, CBC ####[address] Monocyte distribution width [Entitic volume] in Blood by AutomatedOrdered By: Solo Yepez on 07-16-2023 Monocyte distribution width Auto (Bld) [Entitic vol] 15.83 % 0.00-20.00 [place] Neutrophils [#/volume] in Bl ood by Automated countOrdered By: Solo Yepez on 07-16-2023 Neutrophils (Bld) [#/Vol] 6.4 10*3/uL Normal 1.8-7.7 [place] Comment on above: Performed By: #### C MP, CBC ####[address] Nitrite Test strip Ql (U)Ord ered By: Solo Yepez on 07-16-2023 Nitrite Ql (U) Positive High Negative [place] No Panel InformationOrdered By: Solo Yepez on 07-16-2023 None seen [LPF] 0-8 [place] Estimated GFR (CKD-EPI) > 60.0 mL/Min [facility] Creatinine Clearance (Chem 42.61 [place] Nucleated erythrocytes [Pres ence] in Blood by Automated countOrdered By: Solo Yepez on 07-16-2023 Nucleated RBC Auto Ql (Bld) 0.0 /100{WBC} 0-0.5 [place] Platelet mean volume [Entiti c volume] in Blood by Automated countOrdered By: Solo Yepez on 07-16-2023 Platelet mean volume (Bld) [Entitic vol] 7.9 fL Normal 6.3-10.7 [place] Comment on above: Performed By: #### C MP, CBC ####[address] [address] [facility] Platelets [#/volume] in Bloo d by Automated countOrdered By: Solo Yepez on 07-16-2023 Platelets (Bld) [#/Vol] 268 10*3/uL Normal 150-450 [place] Comment on above: Performed By: #### C MP, CBC ####[place] [id number] [facility] Potassium [Moles/volume] in Serum or PlasmaOrdered By: Solo Yepez on 07-16-2023 Potassium [Moles/Vol] 4.4 mmol/L Normal 3.5-5.1 [facility] Comment on above: Performed By: #### C MP, CBC ####[place] [id number] [facility] Protein Auto test strip (U) [Mass/Vol]Ordered By: Solo Yepez on 07-16-2023 Protein (U) [Mass/Vol] Negative Negative [facility] Protein [Mass/volume] in Ser um or PlasmaOrdered By: Solo Yepez on 07-16-2023 Protein [Mass/Vol] 6.3 g/dL Low 6.4-8.9 [facility] Comment on above: Performed By: #### C MP, CBC ####[place] [id number] [facility] Prothrombin time (PT)Ordered By: Solo Yepez on 07-16-2023 PT Coag (PPP) [Time] 10.5 s Normal 9.0-12.9 [facility] Comment on above: A hematocrit value g reater than 55% may lead to inaccurate results in coagulation testing. Patients having hematocrit values >55% require a special collection tube for coagulation studies. Please contact the laboratory at [phone] for redraw instructions. Result Comment: A he matocrit value greater than 55% may lead to inaccurate results in coagulation testing. Patients having hematocrit values >55% require a special collection tube for coagulation studies. Please contact the laboratory at [phone] for redraw instructions. Performed By: #### P P ####[address] Serum globulin measurement b y calculation (mass/volume)Ordered By: Solo Yepez on 07-16-2023 Globulin (S) [Mass/Vol] 2.5 g/dL [facility] Comment on above: Performed By: #### C MP, CBC ####[address] Serum or plasma albumin/glob ulin mass ratioOrdered By: Solo Yepez on 07-16-2023 Albumin/Globulin [Mass ratio] 1.5 {ratio} [facility] Comment on above: Performed By: #### C MP, CBC ####[address] Serum or plasma anion gap de terminationOrdered By: Solo Yepez on 07-16-2023 Anion gap [Moles/Vol] 8.3 mmol/L Normal 6.0-15.0 [facility] Comment on above: Performed By: #### C MP, CBC ####[address] Sodium [Moles/volume] in Ser um or PlasmaOrdered By: Solo Yepez on 07-16-2023 Sodium [Moles/Vol] 135 mmol/L Low 136-145 [facility] Comment on above: Performed By: #### C MP, CBC ####[address] Specific gravity Auto test s trip (U) [Rel density]Ordered By: Solo Yepez on 07-16-2023 Specific gravity (U) [Rel density] 1.011 1.001-1.03 0 [place] Squamous epithelial cells de tection in urine sediment by light microscopyOrdered By: Solo Yepez on 07-16-2023 Epithelial cells.squamous LM Ql (Urine sed) None seen [HPF] 0-2 [place] Urea nitrogen [Mass/volume] in Serum or PlasmaOrdered By: Solo Yepez on 07-16-2023 Urea nitrogen [Mass/Vol] 15 mg/dL Normal 7-25 [place] Comment on above: Performed By: #### C MP, CBC ####[facility] [address] [place] [address] [place] Urine Cultureon 07-16-2023 Bacteria identified Cx Nom (U) Normal [facility] Comment on above: Performed By: #### C UU, ADDONUAPLUS ####[facility] [id number] [place] [address] [facility] Urine bacteria detection by automated methodOrdered By: Solo Yepez on 07-16-2023 Bacteria Auto Ql (U) 3+ High None Seen [facility] Urine clarity by refractomet ry automatedOrdered By: Solo Yepez on 07-16-2023 Clarity Refractometry automated (U) Clear Clear [place] Urine culture routineOrdered By: Solo Yepez on 07-16-2023 Bacteria identified Cx Nom (U) Escherichia coli [place] Urine glucose measurement by automated test strip (mass/volume)Ordered By: Solo Yepez on 07-16-2023 Glucose Auto test strip (U) [Mass/Vol] Normal mg/dL Normal [place] Urine hemoglobin detection b y automated test stripOrdered By: Solo Yepez on 07-16-2023 Hemoglobin Auto test strip Ql (U) Negative Negative [place] Urine leukocyte esterase det ection by automated test stripOrdered By: Solo Yepez on 07-16-2023 Leukocyte esterase Auto test strip Ql (U) 1+ High Negative [place] Urine pH measurement by auto mated test stripOrdered By: Solo Yepez on 07-16-2023 pH (U) 6.0 [pH] Normal 5.0-9.0 [place] Comment on above: Order Comment: Name Collection Type:: Colmenares Catheter Performed By: #### C UU, ADDONUAPLUS ####[facility] [address] [place] [address] [facility] Urobilinogen Auto test strip (U) [Mass/Vol]Ordered By: Solo Yepez on 07-16-2023 Urobilinogen (U) [Mass/Vol] Normal mg/dL Normal [place] XR chest 1V portableon 07-15 XR chest 1V portable Normal [facility] XR shoulder RT min 2V*on XR shoulder RT min 2V* Normal [facility] CHEMISTRYOrdered By: SYSTEM SYSTEM on 12-01-2022 CRP [Mass/Vol] 2.1 mg/dL High <=1.9mg/dL [facility] Remisol CRPon 12-01-2022 CRP [Mass/Vol] 2.1 mg/dL High <=1.9 [facility] Comment on above: Performed By: #### 2 [id number], [id number], [id number] #### [facility] [address] [place] [address] Consent for Treatmenton 11-05 Consent for Treatment [id number]:127 Normal [facility] HEMATOLOGYOrdered By: Antonio Morillo on 12-01-2022 Platelets (Bld) [#/Vol] 171.0 E9/L Normal 150.0 - 500.0 E9/L [facility] HemeAutoSS Sed Rate Automated 15 mm/h Normal 0 - 34 mm/hr [facility] HemeAutoSS Physician Orderon 12-01-2022 Physician Order [id number]:127 Normal [facility] Platelet Counton 12-01-2022 Platelets (Bld) [#/Vol] 171.0 E9/L Normal 150.0-500. 0 [facility] Comment on above: Performed By: #### 2 [id number], [id number], [id number] #### [facility] [address] [place] [address] Sed Rate Automatedon 023 Sed Rate Automated 15 mm/hr Normal 0-34 [facility] Comment on above: Performed By: #### 2 [id number], [id number], [id number] #### [facility] [address] [place] [address] BNPon 02-28-2022 Natriuretic peptide B (Bld) [Mass/Vol] 428.0 pg/mL Normal <=900.0 [facility] Comment on above: Performed By: #### I NFLUAB #### [facility] [address] [place] [address] Dr. Yvette Ochoa CBC W MANUAL DIFFon 02-29-20 ATYPICAL LYMPH # Normal [facility] Comment on above: Performed By: #### C VDTBH #### [facility] [address] [place] [address] Dr. Yvette Ochoa ATYPICAL LYMPH % Normal [facility] Comment on above: Performed By: #### C VDTBH #### [facility] [address] [place] [address] Dr. Yvette Ochoa BAND # Normal 0.0-0.3 [facility] Comment on above: Performed By: #### C VDTBH #### [facility] [address] [place] [address] Dr. Yvette Ochoa BAND % Normal 0-5 [facility] Comment on above: Performed By: #### C VDTBH #### [facility] [address] [place] [address] Dr. Yvette Ochoa BASOM # 0.00 103/ul Normal 0.00-0.10 [facility] Comment on above: Performed By: #### C VDTBH #### [facility] [address] [place] [address] Dr. Yvette Ochoa BASOM % 0.0 % Critically low 0.2-2.0 [facility] Comment on above: Performed By: #### C VDTBH #### [facility] [address] [place] [address] Dr. Yvette Ochoa BLAST # Normal [facility] Comment on above: Performed By: #### C VDTBH #### [facility] [address] [place] [address] Dr. Yvette Ochoa BLAST % Normal [facility] Comment on above: Performed By: #### C VDTBH #### [facility] [address] [place] [address] Dr. Yvette Ochoa CORRECTED WBC Normal 4.0-11.0 [facility] Comment on above: Performed By: #### C VDTBH #### [facility] [address] [place] [address] Dr. Yvette Ochoa EOS # 0.18 103/ul Normal 0.00-0.70 [facility] Comment on above: Performed By: #### C VDTBH #### [facility] [address] [place] [address] Dr. Yvette Ochoa EOS% 2.0 % Normal 0.9-7.0 [facility] Comment on above: Performed By: #### C VDTBH #### [facility] [address] [place] [address] Dr. Yvette Ochoa HCT 32.3 % Critically low 36.0-48.0 [facility] Comment on above: Performed By: #### C VDTBH #### [facility] [address] [place] [address] Dr. Yvette Ochoa HGB 10.2 g/dl Critically low 12.0-16.0 [facility] Comment on above: Performed By: #### C VDTBH #### [facility] [address] [place] [address] Dr. Yvette Ochoa HYPOCHROMASIA 1+ Normal [facility] Comment on above: Performed By: #### C VDTBH #### [facility] [address] [place] [address] Dr. Yvette Ochoa LYMPHM # 2.21 103/ul Normal 1.20-3.80 [facility] Comment on above: Performed By: #### C VDTBH #### [facility] [address] [place] [address] Dr. Yvette Ochoa LYMPHM% 24.0 % Normal 20.5-60.0 [facility] Comment on above: Performed By: #### C VDTBH #### [facility] [address] [place] [address] Dr. Yvette Ochoa MCH 31.2 pg Normal 26.7-34.0 [facility] Comment on above: Performed By: #### C VDTBH #### [facility] [address] [place] [address] Dr. Yvette Ochoa MCHC 31.6 g/dl Normal 29.9-35.2 [facility] Comment on above: Performed By: #### C VDTBH #### [facility] [address] [place] [address] Dr. Yvette Ochoa MCV 98.8 fL Normal 81.0-99.0 [facility] Comment on above: Performed By: #### C VDTBH #### [facility] [address] [place] [address] Dr. Yvette Ochoa METAMYELOCYTE # Normal [facility] Comment on above: Performed By: #### C VDTBH #### [facility] [address] [place] [address] Dr. Yvette Ochoa METAMYELOCYTE % Normal [facility] Comment on above: Performed By: #### C VDTBH #### [facility] [address] [place] [address] Dr. Yvette Ochoa MONOM# 0.92 103/ul Critically high 0.30-0.80 [facility] Comment on above: Performed By: #### C VDTBH #### [facility] [address] [place] [address] Dr. Yvette Ochoa MONOM% 10.0 % Normal 1.7-12.0 [facility] Comment on above: Performed By: #### C VDTBH #### [facility] [address] [place] [address] Dr. Yvette Ochoa MPV 10.6 fL Normal 9.5-13.5 [facility] Comment on above: Performed By: #### C VDTBH #### [facility] [address] [place] [address] Dr. Yvette Ochoa MYELOCYTE # Normal [facility] Comment on above: Performed By: #### C VDTBH #### [facility] [address] [place] [address] Dr. Yvette Ochoa MYELOCYTE % Normal [facility] Comment on above: Performed By: #### C VDTBH #### [facility] [address] [place] [address] Dr. Yvette Ochoa NRBC Normal [facility] Comment on above: Performed By: #### C VDTBH #### [facility] [address] [address] [address] Yvette Ochoa PLT 213 103/ul Normal 150-450 [facility] Comment on above: Performed By: #### C VDTBH #### [facility] [address] [place] [address] Dr. Yvette Ochoa RBC 3.27 106/ul Critically low 4.20-5.40 [facility] Comment on above: Performed By: #### C VDTBH #### [facility] [address] [place] [address] Dr. Yvette Ochoa RDW 14.1 % Normal 11.0-15.0 [facility] Comment on above: Performed By: #### C VDTBH #### [facility] [address] [place] [address] Dr. Yvette Ochoa SEG # 5.89 103/ul Normal 1.40-6.50 [facility] Comment on above: Performed By: #### C VDTBH #### [facility] [address] [place] [address] Dr. Yvette Ochoa SEG % 64.0 % Normal 43.0-75.0 [facility] Comment on above: Performed By: #### C VDTBH #### [facility] [address] [place] [address] Dr. Yvette Ochoa WBC 9.2 103/ul Normal 4.0-11.0 [facility] Comment on above: Performed By: #### C VDTBH #### [facility] [address] [place] [address] Dr. Yvette Ochoa CULTURE BLOODon 02-28-2022 Microscopic examination of blood, culture Culture Observations: NO GROWTH AT 5 DAYS. Normal [facility] Comment on above: Performed By: #### C VDTBH #### [facility] [address] [place] [address] Dr. Yvette Ochoa Microscopic examination of blood, culture Culture Observations: NO GROWTH AT 5 DAYS. Normal [facility] Comment on above: Performed By: #### C VDTBH #### [facility] [address] [place] [address] Dr. Yvette Ochoa Covid-19 PCR (CVDTB)on 02-05 SARS-CoV-2 (COVID-19) RNA DANA+probe Ql (Unsp spec) Not detected Normal NOT DETECTED [facility] Comment on above: Result Comment: When diagnostic testing is negative, the possibility of a false negative should be considered in the context of a patient's recent exposures and the presence of clinical signs and symptoms consistent with SARS-CoV-2. This test is not yet approved or cleared by the [place] FDA. When there are no FDA-approved or cleared tests available, and other criteria are met, FDA can make tests available under an emergency access mechanism called an Emergency Use Authorization (EUA). The EUA for this test is supported by the Internal Revenue Agent of Health and Human Service's declaration that circumstances exist to justify the emergency use of in vitro diagnostics for the detection and/or diagnosis of the virus that causes COVID-19. This EUA will remain in effect for the duration of the COVID-19 declaration justifying emergency of IVDs, unless it is terminated or revoked by the FDA (after which the test may no longer be used). Performed By: #### C VDTB #### [facility] [address] [place] [address] Dr. Yvette Ochoa INFLUENZA A AND B AGon 02-28 INFLUENZA A AG Negative Normal NEGATIVE SEE COMMENT [facility] Comment on above: Performed By: #### I NFLUAB #### [facility] [address] [place] [address] Dr. Yvette Ochoa INFLUENZA B AG Negative Normal NEGATIVE SEE COMMENT [facility] Comment on above: Performed By: #### I NFLUAB #### [facility] [address] [place] [address] Dr. Yvette Ochoa INTERNAL CONTROLS Within Normal Limits Normal Wi thin Normal Limits [facility] Comment on above: Performed By: #### I NFLUAB #### [facility] [address] [place] [address] Dr. Yvette Ochoa LACTATE/LACTIC ACIDon 2021 Lactate [Moles/Vol] 1.6 mmol/L Normal 0.4-1.9 [facility] Comment on above: Performed By: #### L ACT #### [facility] [address] [address] [address] Yvette Ochoa PROF CHEM 8 (BAS METB)on Anion gap [Moles/Vol] 10.9 mmol/L Normal [facility] Comment on above: Performed By: #### I NFLUAB #### [facility] [address] [place] [address] Dr. Yvette Ochoa Calcium [Mass/Vol] 8.5 mg/dL Normal 8.5-10.1 [facility] Comment on above: Performed By: #### I NFLUAB #### [facility] [address] [place] [address] Dr. Yvette Ochoa Chloride [Moles/Vol] 103 mmol/L Normal 98-107 [facility] Comment on above: Performed By: #### I NFLUAB #### [facility] [address] [place] [address] Dr. Yvette Ochoa CO2 [Moles/Vol] 32.2 mmol/L Critically high 21.0-32.0 [facility] Comment on above: Performed By: #### I NFLUAB #### [facility] [address] [place] [address] Dr. Yvette Ochoa Creatinine [Mass/Vol] 1.44 mg/dL Critically high 0.55-1.02 [facility] Comment on above: Performed By: #### I NFLUAB #### [facility] [address] [place] [address] Dr. Yvette Ochoa EGFR-AF ITALIAN 43 mL/min/1.73m2 Critically low >=60 [facility] Comment on above: Performed By: #### I NFLUAB #### [facility] [address] [place] [address] Dr. Yvette Ochoa EGFR-NON AF ITALIAN 36 mL/min/1.73m2 Critically low >=60 [facility] Comment on above: Performed By: #### I NFLUAB #### [facility] [address] [place] [address] Dr. Yvette Ochoa Glucose [Mass/Vol] 108 mg/dL Critically high 74-106 [facility] Comment on above: Performed By: #### I NFLUAB #### [facility] [address] [address] [address] Yvette Ochoa Potassium [Moles/Vol] 4.1 mmol/L Normal 3.5-5.1 [facility] Comment on above: Performed By: #### I NFLUAB #### [facility] [address] [address] [address] Yvette Ochoa Sodium [Moles/Vol] 142 mmol/L Normal 136-145 [facility] Comment on above: Performed By: #### I NFLUAB #### [facility] [address] [place] [address] Dr. Yvette Ochoa Urea nitrogen [Mass/Vol] 12.0 mg/dL Normal 7.0-18.0 [facility] Comment on above: Performed By: #### I NFLUAB #### [facility] [address] [place] [address] Dr. Yvette Ochoa Urea nitrogen/Creatinine [Mass ratio] 8.3 mg/mg Normal [facility] Comment on above: Performed By: #### I NFLUAB #### [facility] [address] [place] [address] Dr. Yvette Ochoa TROPONIN, HIGH SENSITIVITYon 02-28-2022 HSTROP 13.6 pg/mL Normal 4.0-51.3 [facility] Comment on above: Result Comment: CUT- OFF POINTS HAVE BEEN ESTABLISHED BASED ON THE FOURTH UNIVERSAL DEFINITIONS OF MYOCARDIAL INFARCTION. THE UPPER REFERENCE LIMIT (URL) OF TROPONIN, DEFINED THE 99TH PERCENTILE OF cTnI DISTRIBUTION IN A REFERENCE POPULATION, HAS BEEN CONFIRMED THE DECISION THRESHOLD FOR [place] DIAGNOSIS. Performed By: #### I NFLUAB #### [facility] [address] [place] [address] Dr. Yvette Ochoa XR CHEST 1 Von 02-28-2022 XR CHEST 1 V EXAM: XR CHEST 1 V REASON FOR EXAM: Female, 71 years, SHORTNESS OF BREATH. TECHNIQUE: A single AP view of the chest is performed. COMPARISON: 01/04/2022. FINDINGS: The lungs are hyperinflated. Stable linear scarring or atelectasis in the right midlung. Normal pleura. There is borderline cardiomegaly. Normal mediastinum and yoon. Normal visualized pulmonary arteries. There is calcification of the aortic knob. Normal visualized thoracic spine. Normal visualized ribs, clavicles, and shoulders. There is no demonstrated abnormality of the visualized soft tissue structures of the upper abdomen. IMPRESSION: Hyperinflation, without focal consolidation. Electronically authenticated by: FELISHA BEY Date: 2022-02-28 20:02 Normal [facility] BNPon 01-04-2022 Natriuretic peptide B (Bld) [Mass/Vol] 590.0 pg/mL Normal <=900.0 [facility] Comment on above: Performed By: #### I NFLUAB #### [facility] [address] [place] [address] Dr. Yvette Ochoa CARDIAC PORTILLO ADMITon 022 CK [Catalytic activity/Vol] 85 U/L Normal 26-192 [facility] Comment on above: Performed By: #### I NFLUAB #### [facility] [address] [place] [address] Dr. Yvette Ochoa CK.MB [Mass/Vol] 1.95 ng/mL Normal <=3.60 [facility] Comment on above: Performed By: #### I NFLUAB #### [facility] [address] [place] [address] Dr. Yvette Ochoa HSTROP 7.3 pg/mL Normal 4.0-51.3 [facility] Comment on above: Result Comment: CUT- OFF POINTS HAVE BEEN ESTABLISHED BASED ON THE FOURTH UNIVERSAL DEFINITIONS OF MYOCARDIAL INFARCTION. THE UPPER REFERENCE LIMIT (URL) OF TROPONIN, DEFINED THE 99TH PERCENTILE OF cTnI DISTRIBUTION IN A REFERENCE POPULATION, HAS BEEN CONFIRMED THE DECISION THRESHOLD FOR FL DIAGNOSIS. Performed By: #### I NFLUAB #### [facility] [address] [place] [address] Dr. Yvette Ochoa KATHRINE 55 ng/mL Normal 9-82 [facility] Comment on above: Performed By: #### I NFLUAB #### [facility] [address] [address] [address] Yvette Ochoa CBC AUTO DIFFon 01-04-2022 BASO # 0.0 103/ul Normal 0.0-0.1 [facility] Comment on above: Performed By: #### L ACT #### [facility] [address] [address] [address] Yvette Ochoa Basophils/100 WBC (Bld) 0.2 % Normal 0.2-2.0 [facility] Comment on above: Performed By: #### L ACT #### [facility] [address] [address] [address] Yvette Ochoa EO # 0.1 103/ul Normal 0.0-0.7 [facility] Comment on above: Performed By: #### L ACT #### [facility] [address] [place] [address] Dr. Yvette Ochoa Eosinophils/100 WBC (Bld) 1.1 % Normal 0.9-7.0 [facility] Comment on above: Performed By: #### L ACT #### [facility] [address] [place] [address] Dr. Yvette Ochoa Erythrocyte distribution width (RBC) [Ratio] 13.2 % Normal 11.0-15.0 [facility] Comment on above: Performed By: #### L ACT #### [facility] [address] [place] [address] Dr. Yvette Ochoa Hematocrit (Bld) [Volume fraction] 34.6 % Critically low 36.0-48.0 [facility] Comment on above: Performed By: #### L ACT #### [facility] [address] [place] [address] Dr. Yvette Ochoa Hemoglobin (Bld) [Mass/Vol] 11.1 g/dL Critically low 12.0-16.0 [facility] Comment on above: Performed By: #### L ACT #### [facility] [address] [place] [address] Dr. Yvette Ochoa IG # 0.02 10e3/ul Normal 0.00-0.03 [facility] Comment on above: Performed By: #### L ACT #### [facility] [address] [place] [address] Dr. Yvette Ochoa IG % 0.2 % Normal 0.0-0.5 [facility] Comment on above: Performed By: #### L ACT #### [facility] [address] [place] [address] Dr. Yvette Ochoa LYMPH # 1.5 103/ul Normal 1.2-3.8 [facility] Comment on above: Performed By: #### L ACT #### [facility] [address] [place] [address] Dr. Yvette Ochoa Lymphocytes/100 WBC (Bld) 16.3 % Critically low 20.5-60.0 [facility] Comment on above: Performed By: #### L ACT #### [facility] [address] [place] [address] Dr. Yvette Ochoa MANUAL DIFF REQ NO Normal [facility] Comment on above: Performed By: #### L ACT #### [facility] [address] [place] [address] Dr. Yvette Ochoa MCH (RBC) [Entitic mass] 30.6 pg Normal 26.7-34.0 [facility] Comment on above: Performed By: #### L ACT #### [facility] [address] [place] [address] Dr. Yvette Ochoa MCHC (RBC) [Mass/Vol] 32.1 g/dL Normal 29.9-35.2 [facility] Comment on above: Performed By: #### L ACT #### [facility] [address] [place] [address] Dr. Yvette Ochoa MCV (RBC) [Entitic vol] 95.3 fL Normal 81.0-99.0 [facility] Comment on above: Performed By: #### L ACT #### [facility] [address] [place] [address] Dr. Yvette Ochoa MONO # 0.5 103/ul Normal 0.3-0.8 [facility] Comment on above: Performed By: #### L ACT #### [facility] [address] [place], [place] [id number] Dr. Yvette Ochoa Monocytes/100 WBC (Bld) 5.6 % Normal 1.7-12.0 [facility] Comment on above: Performed By: #### L ACT #### [facility] [address] [place] [address] Dr. Yvette Ochoa NEUT # 7.2 103/ul Critically high 1.4-6.5 [facility] Comment on above: Performed By: #### L ACT #### [facility] [address] [place] [address] Dr. Yvette Ochoa Neutrophils/100 WBC (Bld) 76.6 % Critically high 43.0-75.0 [facility] Comment on above: Performed By: #### L ACT #### [facility] [address] [place] [address] Dr. Yvette Ochoa Platelet mean volume (Bld) [Entitic vol] 10.7 fL Normal 9.5-13.5 [facility] Comment on above: Performed By: #### L ACT #### [facility] [address] [place] [address] Dr. Yvette Ochoa PLT 227 103/ul Normal 150-450 [facility] Comment on above: Performed By: #### L ACT #### [facility] [address] [place] [address] Dr. Yvette Ochoa RBC 3.63 106/ul Critically low 4.20-5.40 [facility] Comment on above: Performed By: #### L ACT #### [facility] [address] [place] [address] Dr. Yvette Ochoa WBC 9.4 103/ul Normal 4.0-11.0 [facility] Comment on above: Performed By: #### L ACT #### [facility] [address] [place], [place] [id number] Dr. Yvette Ochoa CT STROKE HEAD WOon 01-05-20 CT STROKE HEAD WO EXAMINATION: CT STRO KE HEAD WO HISTORY: Cerebrovascular accident left eye blurred vision for several weeks elevated blood pressure and headache COMPARISON: CT of the head from 04/02/2021. TECHNIQUE: CT examination of the head without IV contrast. Dose reduction techniques were achieved by using automated exposure control and/or adjustment of mA and/or kV according to patient size and/or use of iterative reconstruction technique. FINDINGS: The ventricles, sulci, and remaining CSF containing spaces maintain age-appropriate volume and symmetry. No herniation or hydrocephalus. 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 Atherosclerotic vascular calcifications. The verdugo matter/white matter differentiation is maintained throughout. No CT evidence of contemporary infarction. No acute intracranial hemorrhage or parenchymal mass. The calvarium and skull base are intact. The pneumatized portions of the skull are clear. IMPRESSION: 1. No acute intracranial abnormality. Results were called by Dr. Danelle Teresa MD to Dr. Patel At 01/04/2022 12:53 PM EDT. Electronically authenticated by: NILS TERESA Date: 2022-01-04 12:54 Normal [facility] CTA HEAD WO W CONon 01-05-20 CTA HEAD WO W CON EXAMINATION: CTA HEA D WO W CON, CTA NECK WO W CON HISTORY: Cerebrovascular accident COMPARISON: CT head performed the same day, 03/25/2021. TECHNIQUE: Axial postcontrast CTA imaging of the head and neck was performed with coronal and sagittal reformats. Maximum intensity projection and 3-D reformats were performed on a separate workstation. MIP (maximum intensity projection) images were performed. NASCET criteria was utilized. Dose reduction techniques were achieved by using automated exposure control and/or adjustment of mA and/or kV according to patient size and/or use of iterative reconstruction technique. FINDINGS: Aortic arch: Imaged portion shows no evidence of aneurysm. No significant stenosis of the major origins of the major arch vessels. Right carotid system: No evidence of significant (50% or greater) stenosis or occlusion. Left carotid system: No evidence of significant (50% or greater) stenosis or occlusion. Tortuous appearance of the proximal left internal carotid artery. Vertebral arteries: Mild left vertebral artery dominance.. No evidence of significant (50% or greater) stenosis or occlusion. Anterior circulation: No evidence of aneurysm, significant stenosis, or occlusion. 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 No new/additional aneurysms are seen. Vertebrobasilar system: No evidence of aneurysm, significant stenosis, or occlusion. Venous sinuses: Grossly patent. Additional findings: No abnormal intracranial enhancement. Emphysematous changes of the visualized upper lungs. Hypodense right thyroid nodule measuring 12 mm. No specific follow-up is necessary per ACR criteria. Multilevel degenerative changes of the cervical spine. IMPRESSION: 1. 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 2. No significant stenosis, large vessel occlusion or new aneurysm involving the neck or intracranial arterial vasculature. Electronically authenticated by: KAILA OLIVEIRA Date: 2022-01-04 13:55 Normal [facility] Covid-19 PCR (CVDTB)on SARS-CoV-2 (COVID-19) RNA DANA+probe Ql (Unsp spec) Not detected Normal NOT DETECTED [facility] Comment on above: Result Comment: When diagnostic testing is negative, the possibility of a false negative should be considered in the context of a patient's recent exposures and the presence of clinical signs and symptoms consistent with SARS-CoV-2. This test is not yet approved or cleared by the [place] FDA. When there are no FDA-approved or cleared tests available, and other criteria are met, FDA can make tests available under an emergency access mechanism called an Emergency Use Authorization (EUA). The EUA for this test is supported by the [place] of Health and Human Service's declaration that circumstances exist to justify the emergency use of in vitro diagnostics for the detection and/or diagnosis of the virus that causes COVID-19. This EUA will remain in effect for the duration of the COVID-19 declaration justifying emergency of IVDs, unless it is terminated or revoked by the FDA (after which the test may no longer be used). Performed By: #### C VDTBH #### [facility] [address] [place], [place] [address] Dr. Yvette Ochoa D-DIMERon 01-04-2022 D-DIMER 0.27 mg/L FEU Normal <=0.59 [facility] Comment on above: Performed By: #### D DIM, PTT, PT #### [facility] [address] [place], [place] [address] Dr. Yvette Ochoa D-DIMER COMMENTS SEE BELOW Normal [facility] Comment on above: Result Comment: Incr eases in D-Dimer concentration observed with thromboembolic events can be variable due to localization, size, and age of the thrombus. Therefore, a thromboembolic event cannot be diagnosed with certainty on the basis of the reference range. D-Dimers may also be elevated for a variety of disorders including: advanced age, , coronary disease, cancer, liver disease, infection, inflammation, hematoma, DIC, trauma, post-surgery, diabetes, thrombolytic or anticoagulant therapy, stress, and generalized hospitalization. Performed By: #### D DIM, PTT, PT #### [facility] [address] [place] [address] Dr. Yvette Ochoa LACTATE/LACTIC ACIDon 2021 Lactate [Moles/Vol] 0.9 mmol/L Normal 0.4-1.9 [facility] Comment on above: Performed By: #### L ACT #### [facility] [address] [place] [address] Dr. Yvette Ochoa PROF 14(COMP METB)on 022 Albumin [Mass/Vol] 4.1 g/dL Normal 3.4-5.0 [facility] Comment on above: Performed By: #### I NFLUAB #### [facility] [address] [place] [address] Dr. Yvette Ochoa Albumin/Globulin [Mass ratio] 1.3 {ratio} Normal [facility] Comment on above: Performed By: #### I NFLUAB #### [facility] [address] [place] [address] Dr. Yvette Ochoa ALP [Catalytic activity/Vol] 118 U/L Critically high 46-116 [facility] Comment on above: Performed By: #### I NFLUAB #### [facility] [address] [place] [address] Dr. Yvette Ochoa ALT [Catalytic activity/Vol] 14 U/L Normal 14-59 [facility] Comment on above: Performed By: #### I NFLUAB #### [facility] [address] [place] [address] Dr. Yvette Ochoa Anion gap [Moles/Vol] 7.1 mmol/L Normal [facility] Comment on above: Performed By: #### I NFLUAB #### [facility] [address] [address] [address] Yvette Ochoa AST [Catalytic activity/Vol] 13 U/L Critically low 15-37 [facility] Comment on above: Performed By: #### I NFLUAB #### [facility] [address] [address] [address] Yvette Ochoa Bilirubin [Mass/Vol] 0.4 mg/dL Normal 0.2-1.0 [facility] Comment on above: Performed By: #### I NFLUAB #### [facility] [address] [address] [address] Yvette Ochoa Calcium [Mass/Vol] 8.8 mg/dL Normal 8.5-10.1 [facility] Comment on above: Performed By: #### I NFLUAB #### [facility] [address] [place] [address] Dr. Yvette Ochoa Chloride [Moles/Vol] 101 mmol/L Normal 98-107 [facility] Comment on above: Performed By: #### I NFLUAB #### [facility] [address] [address] [address] Yvette Ochoa CO2 [Moles/Vol] 32.6 mmol/L Critically high 21.0-32.0 [facility] Comment on above: Performed By: #### I NFLUAB #### [facility] [address] [address] [address] Yvette Ochoa Creatinine [Mass/Vol] 0.81 mg/dL Normal 0.55-1.02 [facility] Comment on above: Performed By: #### I NFLUAB #### [facility] [address] [address] [address] Yvette Ochoa EGFR-AF ITALIAN >60 Normal >=60 [facility] Comment on above: Performed By: #### I NFLUAB #### [facility] [address] [address] [address] Yvette Ochoa EGFR-NON AF ITALIAN >60 Normal >=60 [facility] Comment on above: Performed By: #### I NFLUAB #### [facility] [address] [address] [address] Yvette Ochoa Globulin (S) [Mass/Vol] 3.2 g/dL Normal [facility] Comment on above: Performed By: #### I NFLUAB #### [facility] [address] [place] [address] Dr. Yvette Ochoa Glucose [Mass/Vol] 116 mg/dL Critically high 74-106 [facility] Comment on above: Performed By: #### I NFLUAB #### [facility] [address] [place] [address] Dr. Yvette Ochoa Potassium [Moles/Vol] 3.7 mmol/L Normal 3.5-5.1 [facility] Comment on above: Performed By: #### I NFLUAB #### [facility] [address] [place] [address] Dr. Yvette Ochoa Protein [Mass/Vol] 7.3 g/dL Normal 6.4-8.2 [facility] Comment on above: Performed By: #### I NFLUAB #### [facility] [address] [place] [address] Dr. Yvette Ochoa Sodium [Moles/Vol] 137 mmol/L Normal 136-145 [facility] Comment on above: Performed By: #### I NFLUAB #### [facility] [address] [place] [address] Dr. Yvette Ochoa Urea nitrogen [Mass/Vol] 8.0 mg/dL Normal 7.0-18.0 [facility] Comment on above: Performed By: #### I NFLUAB #### [facility] [address] [place] [address] Dr. Yvette Ochoa Urea nitrogen/Creatinine [Mass ratio] 9.9 mg/mg Normal [facility] Comment on above: Performed By: #### I NFLUAB #### [facility] [address] [place] [address] Dr. Yvette Ochoa PROTIMEon 01-04-2022 INR Coag (PPP) [Relative time] 0.97 {INR} Normal [facility] Comment on above: Performed By: #### C VDTBH #### [facility] [address] [place] [address] Dr. Yvette Ochoa INR GUIDELINES SEE BELOW Normal [facility] Comment on above: Result Comment: CATARINO RED INR: 2.0 - 3.0 CONDITIONS NOT LISTED BELOW 2.5 - 3.5 FOR PROSTHETIC HEART VALVE REPLACEMENT 2.5 - 3.5 RECURRENT THROMBOSIS Performed By: #### C VDTBH #### [facility] [address] [place] [address] Dr. Yvette Ochoa PT Coag (PPP) [Time] 10.5 s Normal 9.0-11.6 [facility] Comment on above: Performed By: #### C VDTBH #### [facility] [address] [place] [address] Dr. Yvette Ochoa PTTon 01-04-2022 aPTT Coag (Bld) [Time] 30.2 s Normal 22.3-36.2 [facility] Comment on above: Performed By: #### D DIM, PTT, PT #### [facility] [address] [place] [address] Dr. Yvette Ochoa XR CHEST 1 Von 01-04-2022 XR CHEST 1 V EXAM: XR CHEST 1 V INDICATION: Cerebrovascular accident. COMPARISON: Chest radiograph 12/07/2021. TECHNIQUE: Single frontal view of the chest FINDINGS: Stable cardiomegaly. No acute infiltrative process, pleural effusion, or pneumothorax. No acute osseous abnormality. IMPRESSION: No acute cardiopulmonary process. Electronically authenticated by: REGULO JENSEN Date: 2022-01-04 13:05 Normal [facility] CULTURE URINEon 12-08-2021 CULTURE URINE Culture Observations : LIGHT GROWTH OF MIXED GENITAL DOLORES. NO POTENTIAL PATHOGENS SEEN. Normal [facility] Comment on above: Performed By: #### C VDTBH #### [facility] [address] [place] [address] Dr. Yvette Ochoa ER URINE PROFILEon 2 Bilirubin Ql (U) Negative Normal NEGATIVE [facility] Comment on above: Performed By: #### E RUR UMMARQUISRO #### [facility] [address] [place], [place] [id number] Dr. Yvette Ochoa Clarity (U) CLEAR Normal CLEAR [facility] Comment on above: Performed By: #### DENIS GUAJARDORO #### [facility] [address] [place] [address] Dr. Yvette Ochoa Color (U) LT. YELLOW Normal YELLOW [facility] Comment on above: Performed By: #### DENIS GUAJARDORO #### [facility] [address] [place] [address] Dr. Yvette Ochoa ERUAHD A micrscopic examina tion will be performed if indicated. Normal [facility] Comment on above: Performed By: #### DENIS GUAJARDORO #### [facility] [address] [place] [address] Dr. Yvette Ochoa Glucose Ql (U) Negative Normal NEGATIVE [facility] Comment on above: Performed By: #### DENIS GUAJARDORO #### [facility] [address] [place] [address] Dr. Yvette Ochoa Hemoglobin Ql (U) Negative Normal NEGATIVE [facility] Comment on above: Performed By: #### KAYE GUAJARDOICRO #### [facility] [address] [place] [address] Dr. Yvette Ochoa Ketones Ql (U) Negative Normal NEGATIVE [facility] Comment on above: Performed By: #### Shawn VANCE UMICRO #### [facility] [address] [place] [address] Dr. Yvette Ochoa LEUKOCYTES SMALL Abnormal NEGATIVE [facility] Comment on above: Performed By: #### KAYE GUAJARDOICRO #### [facility] [address] [place] [address] Dr. Yvette Ochoa Nitrite Ql (U) Negative Normal NEGATIVE [facility] Comment on above: Performed By: #### Shawn VANCE UMICRO #### [facility] [address] [place] [address] Dr. Yvette Ochoa pH (U) 6.5 [pH] Normal 5-9 [facility] Comment on above: Performed By: #### E RUR, UMICRO #### [facility] [address] [place] [address] Dr. Yvette Ochoa SPEC GRAVITY <=1.005 Abnormal 1.005-<=1. 025 [facility] Comment on above: Performed By: #### Shawn VANCE UMICRO #### [facility] [address] [place] [address] Dr. Yvette Ochoa UA PROTEIN Negative Normal NEGATIVE/ TRACE [facility] Comment on above: Performed By: #### Shawn VANCE UMICRO #### [facility] [address] [place] [address] Dr. Yvette Ochoa UR MICRO IND INDICATED Normal [facility] Comment on above: Performed By: #### KAYE GUAJARDOICRO #### [facility] [address] [place] [address] Dr. Yvette Ochoa Urobilinogen Qn (U) 0.2 {Dustin'U}/dL Normal 0.2 - 1. 0 [facility] Comment on above: Performed By: #### Shawn VANCE UMICRO #### [facility] [address] [place] [address] Dr. Yvette Ochoa URINE MICROSCOPIC ONLYon BACTERIA MODERATE Abnormal NONE SEEN [facility] Comment on above: Performed By: #### Shawn VANCE UMICRO #### [facility] [address] [place] [address] Dr. Yvette Ochoa Bacteria identified Cx Nom (U) INDICATED Normal [facility] Comment on above: Performed By: #### Sahwn VANCE UMICRO #### [facility] [address] [place] [address] Dr. Yvette Ochoa CAST NONE SEEN Normal NONE SEEN [facility] Comment on above: Performed By: #### Shawn VANCE UMICRO #### [facility] [address] [place] [address] Dr. Yvette Ochoa Crystals LM Nom (Urine sed) NONE SEEN Normal NONE SEEN [facility] Comment on above: Performed By: #### Shawn VANCE UMICRO #### [facility] [address] [place] [address] Dr. Yvette Ochoa Epithelial cells LM Ql (Urine sed) RARE Normal NONE SEEN /RARE [facility] Comment on above: Performed By: #### MARGARET GUAJARDO #### [facility] [address] [place] [address] Dr. Yvette Ochoa MUCOUS NONE SEEN Normal NONE SEEN [facility] Comment on above: Performed By: #### MARGARET GUAJARDO #### [facility] [address] [place] [address] Dr. Yvette Ochoa RBC (U) [#/Vol] /uL Abnormal 0-2 [facility] Comment on above: Performed By: #### MARGARET GUAJARDO #### [facility] [address] [place] [address] Dr. Yvette Ochoa WBC 2-5 Abnormal NONE SEEN [facility] Comment on above: Performed By: #### MARGARET GUAJARDO #### [facility] [address] [place] [address] Dr. Yvette Ochoa XR CHEST 1 Von 12-08-2021 XR CHEST 1 V EXAM: XR CHEST 1 V HISTORY: SHORTNESS OF BREATH COMPARISON: Chest radiograph dated 04/17/2021. TECHNIQUE: One view of the chest was obtained. FINDINGS: The cardiac silhouette is enlarged though stable in size. Aortic atherosclerotic disease is seen. There is mild suspected atelectasis in the mid right lung. There are mild bibasilar opacities. There is no significant pneumothorax or pleural effusion. No acute osseous abnormality is seen. IMPRESSION: 1. Stable enlarged cardiac silhouette with suspected atelectasis in the mid right lung and at the lung bases. Electronically authenticated by: Esdras DIANE Date: 2021-12-07 23:19 Normal [facility] CARDIAC PORTILLO ADMITon 022 CK [Catalytic activity/Vol] 114 U/L Normal 26-192 [facility] Comment on above: Performed By: #### I NFLUAB #### [facility] [address] [place] [address] Dr. Yvette Ochoa CK.MB [Mass/Vol] 2.34 ng/mL Normal <=3.60 [facility] Comment on above: Performed By: #### I NFLUAB #### [facility] [address] [place] [address] Dr. Yvette Ochoa HSTROP 5.8 pg/mL Normal 4.0-51.3 [facility] Comment on above: Result Comment: CUT- OFF POINTS HAVE BEEN ESTABLISHED BASED ON THE FOURTH UNIVERSAL DEFINITIONS OF MYOCARDIAL INFARCTION. THE UPPER REFERENCE LIMIT (URL) OF TROPONIN, DEFINED THE 99TH PERCENTILE OF cTnI DISTRIBUTION IN A REFERENCE POPULATION, HAS BEEN CONFIRMED THE DECISION THRESHOLD FOR [place] DIAGNOSIS. Performed By: #### I NFLUAB #### [facility] [address] [place] [address] Dr. Yvette Ochoa KATHRINE 45 ng/mL Normal 9-82 [facility] Comment on above: Performed By: #### I NFLUAB #### [facility] [address] [place] [address] Dr. Yvette Ochoa CBC AUTO DIFFon 12-07-2021 BASO # 0.0 103/ul Normal 0.0-0.1 [facility] Comment on above: Performed By: #### C BC #### [facility] [address] [place] [address] Dr. Yvette Ochoa Basophils/100 WBC (Bld) 0.8 % Normal 0.2-2.0 [facility] Comment on above: Performed By: #### C BC #### [facility] [address] [place] [address] Dr. Yvette Ochoa EO # 0.2 103/ul Normal 0.0-0.7 [facility] Comment on above: Performed By: #### C BC #### [facility] [address] [place] [address] Dr. Yvette Ochoa Eosinophils/100 WBC (Bld) 4.5 % Normal 0.9-7.0 [facility] Comment on above: Performed By: #### C BC #### [facility] [address] [place] [address] Dr. Yvette Ochoa Erythrocyte distribution width (RBC) [Ratio] 13.8 % Normal 11.0-15.0 [facility] Comment on above: Performed By: #### C BC #### [facility] [address] [place] [address] Dr. Yvette Ochoa Hematocrit (Bld) [Volume fraction] 33.1 % Critically low 36.0-48.0 [facility] Comment on above: Performed By: #### C BC #### [facility] [address] [place] [address] Dr. Yvette Ochoa Hemoglobin (Bld) [Mass/Vol] 10.3 g/dL Critically low 12.0-16.0 [facility] Comment on above: Performed By: #### C BC #### [facility] [address] [place] [address] Dr. Yvette Ochoa IG # 0.01 10e3/ul Normal 0.00-0.03 [facility] Comment on above: Performed By: #### C BC #### [facility] [address] [place] [address] Dr. Yvette Ochoa IG % 0.2 % Normal 0.0-0.5 [facility] Comment on above: Performed By: #### C BC #### [facility] [address] [place] [address] Dr. Yvette Ochoa LYMPH # 2.1 103/ul Normal 1.2-3.8 [facility] Comment on above: Performed By: #### C BC #### [facility] [address] [place] [address] Dr. Yvette Ochoa Lymphocytes/100 WBC (Bld) 43.4 % Normal 20.5-60.0 [facility] Comment on above: Performed By: #### C BC #### [facility] [address] [place] [address] Dr. Yvette Ochoa MANUAL DIFF REQ NO Normal [facility] Comment on above: Performed By: #### C BC #### [facility] [address] [place] [address] Dr. Yvette Ochoa MCH (RBC) [Entitic mass] 30.0 pg Normal 26.7-34.0 [facility] Comment on above: Performed By: #### C BC #### [facility] [address] [address] [address] Yvette Ochoa MCHC (RBC) [Mass/Vol] 31.1 g/dL Normal 29.9-35.2 [facility] Comment on above: Performed By: #### C BC #### [facility] [address] [address] [address] Yvette Ochoa MCV (RBC) [Entitic vol] 96.5 fL Normal 81.0-99.0 [facility] Comment on above: Performed By: #### C BC #### [facility] [address] [address] [address] Yvette Ochoa MONO # 0.5 103/ul Normal 0.3-0.8 [facility] Comment on above: Performed By: #### C BC #### [facility] [address] [place] [address] Dr. Yvette Ochoa Monocytes/100 WBC (Bld) 10.4 % Normal 1.7-12.0 [facility] Comment on above: Performed By: #### C BC #### [facility] [address] [place] [address] Dr. Yvette Ochoa NEUT # 2.0 103/ul Normal 1.4-6.5 [facility] Comment on above: Performed By: #### C BC #### [facility] [address] [place] [address] Dr. Yvette Ochoa Neutrophils/100 WBC (Bld) 40.7 % Critically low 43.0-75.0 [facility] Comment on above: Performed By: #### C BC #### [facility] [address] [place] [address] Dr. Yvette Ochoa Platelet mean volume (Bld) [Entitic vol] 10.7 fL Normal 9.5-13.5 [facility] Comment on above: Performed By: #### C BC #### [facility] [address] [place] [address] Dr. Yvette Ochoa PLT 212 103/ul Normal 150-450 [facility] Comment on above: Performed By: #### C BC #### [facility] [address] [place] [address] Dr. Yvette Ochoa RBC 3.43 106/ul Critically low 4.20-5.40 [facility] Comment on above: Performed By: #### C BC #### [facility] [address] [place] [address] Dr. Yvette Ochoa WBC 4.9 103/ul Normal 4.0-11.0 [facility] Comment on above: Performed By: #### C BC #### [facility] [address] [place] [address] Dr. Yvette Ochoa D-DIMERon 12-07-2021 D-DIMER 0.37 mg/L FEU Normal <=0.59 [facility] Comment on above: Performed By: #### D DIM #### [facility] [address] [place] [address] Dr. Yvette Ochoa D-DIMER COMMENTS SEE BELOW Normal [facility] Comment on above: Result Comment: Incr eases in D-Dimer concentration observed with thromboembolic events can be variable due to localization, size, and age of the thrombus. Therefore, a thromboembolic event cannot be diagnosed with certainty on the basis of the reference range. D-Dimers may also be elevated for a variety of disorders including: advanced age, , coronary disease, cancer, liver disease, infection, inflammation, hematoma, DIC, trauma, post-surgery, diabetes, thrombolytic or anticoagulant therapy, stress, and generalized hospitalization. Performed By: #### D DIM #### [facility] [address] [place] [address] Dr. Yvette Ochoa PROF CHEM 8 (BAS METB)on Anion gap [Moles/Vol] 12.2 mmol/L Normal [facility] Comment on above: Performed By: #### I NFLUAB #### [facility] [address] [place] [address] Dr. Yvette Ochoa Calcium [Mass/Vol] 8.1 mg/dL Critically low 8.5-10.1 [facility] Comment on above: Performed By: #### I NFLUAB #### [facility] [address] [place] [address] Dr. Yvette Ochoa Chloride [Moles/Vol] 101 mmol/L Normal 98-107 [facility] Comment on above: Performed By: #### I NFLUAB #### [facility] [address] [place] [address] Dr. Yvette Ochoa CO2 [Moles/Vol] 31.9 mmol/L Normal 21.0-32.0 [facility] Comment on above: Performed By: #### I NFLUAB #### [facility] [address] [place] [address] Dr. Yvette Ochoa Creatinine [Mass/Vol] 0.78 mg/dL Normal 0.55-1.02 [facility] Comment on above: Performed By: #### I NFLUAB #### [facility] [address] [place] [address] Dr. Yvette Ochoa EGFR-AF ITALIAN >60 Normal >=60 [facility] Comment on above: Performed By: #### I NFLUAB #### [facility] [address] [place] [address] Dr. Yvette Ochoa EGFR-NON AF ITALIAN >60 Normal >=60 [facility] Comment on above: Performed By: #### I NFLUAB #### [facility] [address] [place] [address] Dr. Yvette Ochoa Glucose [Mass/Vol] 83 mg/dL Normal 74-106 [facility] Comment on above: Performed By: #### I NFLUAB #### [facility] [address] [place] [address] Dr. Yvette Ochoa Potassium [Moles/Vol] 4.1 mmol/L Normal 3.5-5.1 [facility] Comment on above: Performed By: #### I NFLUAB #### [facility] [address] [address] [address] Yvette Ochoa Sodium [Moles/Vol] 141 mmol/L Normal 136-145 [facility] Comment on above: Performed By: #### I NFLUAB #### [facility] [address] [place] [address] Dr. Yvette Ochoa Urea nitrogen [Mass/Vol] 9.0 mg/dL Normal 7.0-18.0 [facility] Comment on above: Performed By: #### I NFLUAB #### [facility] [address] [address] [address] Yvette Ochoa Urea nitrogen/Creatinine [Mass ratio] 11.5 mg/mg Normal [facility] Comment on above: Performed By: #### I NFLUAB #### [facility] [address] [address] [address] Yvette Ochoa Vital Signs Date Time Vital Sign Value Performing Clinician Facility 10-01-2023 11:35-0400 Body height 157.48 cm MD Ruben Velasquez Work Phone: [place] 10-01-2023 11:35-0400 Body mass index (BMI) [Ratio] 19.7 kg/m2 MD Ruben Velasquez Work Phone: [place] 10-01-2023 11:35-0400 Body weight 48.98 kg MD Ruben Velasquez Work Phone: [place] 10-01-2023 11:35-0400 Diastolic blood pressure 82 mm[Hg] MD Ruben Velasquez Work Phone: [place] 10-01-2023 11:35-0400 Heart rate 82 /min MD Ruben Velasquez Work Phone: [place] 10-01-2023 11:35-0400 Inhaled oxygen flow rate 2 L/min MD Ruben Velasquez Work Phone: [place] 10-01-2023 11:35-0400 Respiratory rate 20 /min MD Ruben Velasquez Work Phone: [place] 10-01-2023 11:35-0400 SaO2% (BldA) [Mass fraction] 96 % MD Ruben Velasquez Work Phone: [place] 10-01-2023 11:35-0400 Systolic blood pressure 130 mm[Hg] MD Ruben Velasquez Work Phone: [place] 09-10-2023 17:30-0400 Body temperature 98.5 [degF] Dr. Terrell Valle [facility] 09-10-2023 17:30-0400 Diastolic blood pressure 68 mm[Hg] [facility] 17:30-0400 Heart rate 104 /min Dr. Terrell Valle [facility] 09-10-2023 17:30-0400 Oxygen saturation in Blood 92 % Dr. Terrell Gonzalez [facility] 09-10-2023 17:30-0400 PAIN LEVEL 8 {score} Dr. Terrell Valle [facility] 09-10-2023 17:30-0400 Respiratory rate 20 /min Dr. Terrell Valle [facility] 09-10-2023 17:30-0400 Systolic blood pressure 176 mm[Hg] Dr. Terrell Gonzalez [facility] 09-10-2023 17:24-0400 PAIN LEVEL 5 {score} Dr. Terrell Valle [facility] 09-10-2023 16:01-0400 PAIN LEVEL 8 {score} [facility] 14:58-0400 Body temperature 98.7 [degF] Dr. Terrell Valle [facility] 09-10-2023 14:58-0400 Diastolic blood pressure 70 mm[Hg] [facility] 09-10-2023 14:58-0400 Heart rate 89 /min Dr. Terrell Valle [facility] 09-10-2023 14:58-0400 Oxygen saturation in Blood 98 % Dr. Terrell Gonzalez [facility] 09-10-2023 14:58-0400 PAIN LEVEL 5 {score} Dr. Terrell Valle [facility] 09-10-2023 14:58-0400 Respiratory rate 16 /min Dr. Terrell Valle [facility] 09-10-2023 14:58-0400 Systolic blood pressure 109 mm[Hg] Dr. Terrell Gonzalez [facility] 09-10-2023 14:57-0400 Body temperature 98.7 [degF] Dr. Terrell Villatorosmiley [facility] 09-10-2023 14:57-0400 Diastolic blood pressure 70 mm[Hg] Dr. Terrell Gonzalez [facility] 09-10-2023 14:57-0400 Heart rate 89 /min Dr. Terrell Gonzalez [facility] 09-10-2023 14:57-0400 Oxygen saturation in Blood 98 % Dr. Terrell Gonzalez [facility] 09-10-2023 14:57-0400 PAIN LEVEL 5 {score} Dr. Terrell Valle [facility] 09-10-2023 14:57-0400 Respiratory rate 16 /[facility]10[facility]23 14:57-0400 Systolic blood pressure 109 mm[Hg] Dr. Terrell Gonzalez [facility] 09-10-2023 14:10-0400 PAIN LEVEL 5 {score} Dr. Terrell Valle [facility] 09-10-2023 14:09-0400 PAIN LEVEL 5 {score} [facility]10[facility] 13:24-0400 PAIN LEVEL 3 {score} [facility]-10-2023 11:54-0400 PAIN LEVEL 5 {score} [facility] 09-10-2023 10:33-0400 PAIN LEVEL 5 {score} Dr. Terrell Gonzalez [facility] 09-10-2023 10:30-0400 PAIN LEVEL 5 {score} [facility] 09-10-2023 10:29-0400 PAIN LEVEL 5 {score} [facility] 09-10-2023 08:09-0400 Oxygen saturation in Blood 96 % Dr. Terrell Gonzalez [facility] 09-10-2023 08:03-0400 PAIN LEVEL 3 {score} Dr. Terrell Gonzalez [facility] 09-10-2023 08:03-0400 PAIN LEVEL 3 {score} Dr. Terrell Valle [facility] 09-10-2023 08:02-0400 PAIN LEVEL 3 {score} Dr. Terrell Gonzalez [facility] 09-10-2023 02:06-0400 PAIN LEVEL 4 {score} [facility]-10-2023 00:11-0400 Oxygen saturation in Blood 95 % Dr. Terrell Gonzalez [facility] 09-10-2023 00:03-0400 PAIN LEVEL 0 {score} Dr. Terrell Valle [facility] 09-09-2023 22:57-0400 PAIN LEVEL 4 {score} Dr. Terrell Valle [facility] 09-09-2023 20:07-0400 PAIN LEVEL 1 {score} Dr. Terrell Valle [facility] 09-09-2023 18:32-0400 Body temperature 98.4 [degF] [facility]-09-2023 18:32-0400 Diastolic blood pressure 70 mm[Hg] Dr. Terrell Gonzalez [facility] 09-09-2023 18:32-0400 Heart rate 96 /min Dr. Terrell Valle [facility] 09-09-2023 18:32-0400 Oxygen saturation in Blood 100 % Dr. Terrell Gonzalez [facility] 09-09-2023 18:32-0400 Respiratory rate 16 /min Dr. Terrell Gonzalez [facility] 09-09-2023 18:32-0400 Systolic blood pressure 118 mm[Hg] Dr. Terrell Gonzalez [facility] 09-09-2023 18:03-0400 PAIN LEVEL 3 {score} Dr. Terrell Valle [facility] 09-09-2023 16:26-0400 PAIN LEVEL 2 {score} [facility] 09-09-2023 15:17-0400 Body temperature 98.2 [degF] Dr. Terrell Valle [facility] 09-09-2023 15:17-0400 Diastolic blood pressure 73 mm[Hg] Dr. Terrell Gonzalez [facility] 09-09-2023 15:17-0400 Heart rate 79 /min Dr. Terrell Valle [facility] 09-09-2023 15:17-0400 Oxygen saturation in Blood 99 % Dr. Terrell Gonzalez [facility] 09-09-2023 15:17-0400 PAIN LEVEL 5 {score} Dr. Terrell Valle [facility] 09-09-2023 15:17-0400 Respiratory rate 16 /min Dr. Terrell Valle [facility] 09-09-2023 15:17-0400 Systolic blood pressure 121 mm[Hg] Dr. Terrell Gonzalez [facility] 09-09-2023 15:16-0400 Body temperature 98.2 [degF] Dr. Terrell Valle [facility] 09-09-2023 15:16-0400 Diastolic blood pressure 73 mm[Hg] [facility] 09-09-2023 15:16-0400 Heart rate 79 /min Dr. Terrell Valle [facility] 09-09-2023 15:16-0400 Oxygen saturation in Blood 99 % Dr. Terrell Gonzalez [facility] 09-09-2023 15:16-0400 PAIN LEVEL 5 {score} Dr. Terrell Valle [facility] 09-09-2023 15:16-0400 Respiratory rate 16 /min Dr. Terrell Valle [facility] 09-09-2023 15:16-0400 Systolic blood pressure 121 mm[Hg] Dr. Terrell Gonzalez [facility] 09-09-2023 13:53-0400 PAIN LEVEL 3 {score} Dr. Terrell Valle [facility] 09-09-2023 11:43-0400 PAIN LEVEL 5 {score} Dr. Terrell Valle [facility] 09-09-2023 11:08-0400 Oxygen saturation in Blood 95 % Dr. Terrell Gonzalez [facility] 09-09-2023 08:37-0400 PAIN LEVEL 3 {score} Dr. Terrell Valle [facility] 09-09-2023 08:35-0400 PAIN LEVEL 3 {score} [facility] 05:34-0400 PAIN LEVEL 4 {score} Dr. Terrell Gonzalez [facility] 09-09-2023 05:03-0400 Oxygen saturation in Blood 95 % Dr. Terrell Gonzalez [facility] 09-09-2023 04:49-0400 PAIN LEVEL 3 {score} [facility]-09-2023 04:32-0400 Body temperature 98.3 [degF] Dr. Terrell Valle [facility] 09-09-2023 04:32-0400 Diastolic blood pressure 61 mm[Hg] [facility]-09-2023 04:32-0400 Heart rate 84 /[facility]23 04:32-0400 Oxygen saturation in Blood 98 % Dr. Terrell Gonzalez [facility] 09-09-2023 04:32-0400 Respiratory rate 17 /min Dr. Terrell Valle [facility] 09-09-2023 04:32-0400 Systolic blood pressure 115 mm[Hg] Dr. Terrell Gonzalez [facility] 09-09-2023 00:12-0400 PAIN LEVEL 3 {score} Dr. Terrell Villatorosmiley [facility] 09-08-2023 22:36-0400 PAIN LEVEL 8 {score} Dr. Terrell Valle [facility] 09-08-2023 20:56-0400 PAIN LEVEL 3 {score} Dr. Terrell Valle [facility] 09-08-2023 20:24-0400 Body temperature 98.1 [degF] Dr. Terrell Gonzalez [facility] 09-08-2023 20:24-0400 Diastolic blood pressure 69 mm[Hg] Dr. Terrell Gonzalez [facility] 09-08-2023 20:24-0400 Heart rate 95 /[facility] 09-08-2023 20:24-0400 Oxygen saturation in Blood 99 % Dr. Terrell Gonzalez [facility] 09-08-2023 20:24-0400 Respiratory rate 16 /min Dr. Terrell Valle [facility] 09-08-2023 20:24-0400 Systolic blood pressure 138 mm[Hg] Dr. Terrell Gonzalez [facility] 09-08-2023 18:00-0400 PAIN LEVEL 6 {score} [facility] 09-08-2023 17:55-0400 PAIN LEVEL 3 {score} Dr. Terrell Gonzalez [facility] 09-08-2023 16:48-0400 PAIN LEVEL 8 {score} Dr. Terrell Valle [facility] 09-08-2023 14:18-0400 PAIN LEVEL 3 {score} [facility] 09-08-2023 12:14-0400 PAIN LEVEL 5 {score} [facility] 09-08-2023 12:10-0400 PAIN LEVEL 5 {score} Dr. Terrell Valle [facility] 09-08-2023 11:53-0400 PAIN LEVEL 5 {score} Dr. Terrell Gonzalez [facility] 09-08-2023 11:19-0400 Diastolic blood pressure 72 mm[Hg] Dr. Terrell Gonzalez [facility] 09-08-2023 11:19-0400 PAIN LEVEL 5 {score} Dr. Terrell Valle [facility] 09-08-2023 11:19-0400 Systolic blood pressure 144 mm[Hg] Dr. Terrell Gonzalez [facility] 09-08-2023 11:09-0400 Body temperature 98.2 [degF] Dr. Terrell Valle [facility] 09-08-2023 11:09-0400 Diastolic blood pressure 72 mm[Hg] Dr. Terrell Gonzalez [facility] 09-08-2023 11:09-0400 Heart rate 78 /min Dr. Terrell Gonzalez [facility] 09-08-2023 11:09-0400 Oxygen saturation in Blood 96 % Dr. Terrell Gonzalez [facility] 09-08-2023 11:09-0400 Respiratory rate 18 /min Dr. Terrell Valle [facility] 09-08-2023 11:09-0400 Systolic blood pressure 144 mm[Hg] Dr. Terrell Gonzalez [facility] 09-08-2023 10:03-0400 Oxygen saturation in Blood 96 % [facility] 09-08-2023 08:34-0400 PAIN LEVEL 3 {score} Dr. Terrell Valle [facility] 09-08-2023 08:34-0400 PAIN LEVEL 3 {score} [facility] 09-08-2023 05:56-0400 PAIN LEVEL 3 {score} [facility] 09-08-2023 02:27-0400 PAIN LEVEL 0 {score} Dr. Terrell Valle [facility] 09-08-2023 01:29-0400 Body temperature 97.8 [degF] Dr. Terrell Valle [facility] 09-08-2023 01:29-0400 Diastolic blood pressure 68 mm[Hg] Dr. Terrell Gonzalez [facility] 09-08-2023 01:29-0400 Heart rate 83 /[facility] 09-08-2023 01:29-0400 Oxygen saturation in Blood 98 % Dr. Terrell Gonzalez [facility] 09-08-2023 01:29-0400 Respiratory rate 17 /min Dr. Terrell Valle [facility] 09-08-2023 01:29-0400 Systolic blood pressure 154 mm[Hg] [facility] 09-08-2023 00:06-0400 Oxygen saturation in Blood 96 % Dr. Terrell Gonzalez [facility] 09-07-2023 22:36-0400 PAIN LEVEL 8 {score} Dr. Terrell Valle [facility] 09-07-2023 22:13-0400 PAIN LEVEL 3 {score} Dr. Terrell Valle [facility] 09-07-2023 21:46-0400 PAIN LEVEL 8 {score} Dr. Terrell Valle [facility] 09-07-2023 21:01-0400 Body temperature 98.4 [degF] Dr. Terrell Valle [facility] 09-07-2023 21:01-0400 Diastolic blood pressure 80 mm[Hg] [facility] 09-07-2023 21:01-0400 Heart rate 111 /min Dr. Terrell Valle [facility] 09-07-2023 21:01-0400 Oxygen saturation in Blood 98 % Dr. Terrell Gonzalez [facility] 09-07-2023 21:01-0400 Respiratory rate 19 /min Dr. Terrell Valle [facility] 09-07-2023 21:01-0400 Systolic blood pressure 154 mm[Hg] Dr. Terrell Gonzalez [facility] 09-07-2023 17:39-0400 PAIN LEVEL 9 {score} [facility]-07-2023 17:38-0400 PAIN LEVEL 8 {score} [facility] 09-07-2023 15:14-0400 Body weight 48.[address] [facility] 09-07-2023 15:12-0400 PAIN LEVEL 3 {score} [facility] 09-07-2023 14:14-0400 PAIN LEVEL 5 {score} [facility] 09-07-2023 14:08-0400 PAIN LEVEL 5 {score} [facility] 09-07-2023 14:02-0400 PAIN LEVEL 5 {score} Dr. Terrell Gonzalez [facility] 09-07-2023 13:24-0400 Diastolic blood pressure 77 mm[Hg] Dr. Terrell Gonzalez [facility] 09-07-2023 13:24-0400 PAIN LEVEL 5 {score} Dr. Terrell Villatorosm[facility] 09-07-2023 13:24-0400 Systolic blood pressure 132 mm[Hg] Dr. Terrell Gonzalez [facility] 09-07-2023 13:23-0400 Diastolic blood pressure 77 mm[Hg] Dr. Terrell Gonzalez [facility] 09-07-2023 13:23-0400 PAIN LEVEL 5 {score} Dr. Terrell Valle [facility] 09-07-2023 13:23-0400 Systolic blood pressure 132 mm[Hg] Dr. Terrell Gonzalez [facility] 09-07-2023 12:59-0400 Body temperature 98 [degF] Dr. Terrell Valle [facility] 09-07-2023 12:59-0400 Diastolic blood pressure 77 mm[Hg] [facility]-07-2023 12:59-0400 Heart rate 82 /min Dr. Terrell Valle [facility] 09-07-2023 12:59-0400 Oxygen saturation in Blood 96 % Dr. Terrell Gonzalez [facility] 09-07-2023 12:59-0400 Respiratory rate 18 /min Dr. Terrell Valle [facility] 09-07-2023 12:59-0400 Systolic blood pressure 132 mm[Hg] Dr. Terrell Gonzalez [facility] 09-07-2023 09:59-0400 PAIN LEVEL 3 {score} [facility]-07-2023 08:35-0400 Oxygen saturation in Blood 95 % Dr. Terrell Gonzalez [facility] 09-07-2023 07:51-0400 PAIN LEVEL 5 {score} Dr. Terrell Valle [facility] 09-07-2023 00:21-0400 Oxygen saturation in Blood 95 % Dr. Terrell Gonzalez [facility] 09-07-2023 00:18-0400 PAIN LEVEL 1 {score} Dr. Terrell Valle [facility] 09-07-2023 00:18-0400 PAIN LEVEL 1 {score} Dr. Terrell Valle [facility] 09-06-2023 23:38-0400 PAIN LEVEL 4 {score} [facility] 09-06-2023 23:38-0400 PAIN LEVEL 4 {score} Dr. Terrell Valle [facility] 09-06-2023 22:36-0400 PAIN LEVEL 8 {score} [facility] 09-06-2023 20:08-0400 PAIN LEVEL 7 {score} [facility] 09-06-2023 17:45-0400 Body temperature 98.4 [degF] Dr. Terrell Valle [facility] 09-06-2023 17:45-0400 Diastolic blood pressure 73 mm[Hg] Dr. Terrell Gonzalez [facility] 09-06-2023 17:45-0400 Heart rate 93 /min Dr. Terrell Gonzalez [facility] 09-06-2023 17:45-0400 Oxygen saturation in Blood 95 % Dr. Terrell Gonzalez [facility] 09-06-2023 17:45-0400 Respiratory rate 17 /min Dr. Terrell Gonzalez [facility] 09-06-2023 17:45-0400 Systolic blood pressure 126 mm[Hg] Dr. Terrell Gonzalez [facility] 09-06-2023 16:50-0400 PAIN LEVEL 7 {score} [facility]. Terrell Villatoros[facility] 09-06-2023 16:49-0400 PAIN LEVEL 7 {score} Dr. Terrell Valle [facility] 09-06-2023 15:11-0400 Oxygen saturation in Blood 97 % Dr. Terrell Gonzalez [facility] 09-06-2023 13:50-0400 Diastolic blood pressure 80 mm[Hg] Dr. Terrell Gonzalez [facility] 09-06-2023 13:50-0400 PAIN LEVEL 5 {score} Dr. Terrell Valle [facility] 09-06-2023 13:50-0400 Systolic blood pressure 134 mm[Hg] [facility] 09-06-2023 12:12-0400 PAIN LEVEL 7 {score} Dr. Terrell Valle [facility] 09-06-2023 11:53-0400 Body temperature 98.5 [degF] Dr. Terrell Valle [facility] 09-06-2023 11:53-0400 Diastolic blood pressure 80 mm[Hg] Dr. Terrell Gonzalez [facility] 09-06-2023 11:53-0400 Heart rate 81 /min Dr. Terrell Valle [facility] 09-06-2023 11:53-0400 Oxygen saturation in Blood 93 % Dr. Terrell Gonzalez [facility] 09-06-2023 11:53-0400 Respiratory rate 16 /min Dr. Terrell Valle [facility] 09-06-2023 11:53-0400 Systolic blood pressure 134 mm[Hg] Dr. Terrell Gonzalez [facility] 09-06-2023 06:43-0400 PAIN LEVEL 0 {score} Dr. Terrell Valle [facility] 09-06-2023 06:15-0400 Oxygen saturation in Blood 96 % Dr. Terrell Gonzalez [facility] 09-06-2023 06:12-0400 PAIN LEVEL 5 {score} Dr. Terrell Valle [facility] 09-06-2023 00:25-0400 PAIN LEVEL 0 {score} Dr. Terrell Gonzalez [facility] 09-06-2023 00:24-0400 PAIN LEVEL 0 {score} [facility] 09-05-2023 22:55-0400 PAIN LEVEL 8 {score} Dr. Terrell Valle [facility] 09-05-2023 22:33-0400 PAIN LEVEL 8 {score} Dr. Terrell Gonzalez [facility] 09-05-2023 21:35-0400 PAIN LEVEL 8 {score} Dr. Terrell Gonzalez [facility] 09-05-2023 19:56-0400 PAIN LEVEL 8 {score} [facility]-05-[facility]23 16:30-0400 PAIN LEVEL 8 {score} Dr. Terrell Gonzalez [facility] 09-05-2023 16:25-0400 Body temperature 98.2 [degF] Dr. Terrell Valle [facility] 09-05-2023 16:25-0400 Diastolic blood pressure 67 mm[Hg] Dr. Terrell Gonzalez [facility] 09-05-2023 16:25-0400 Heart rate 93 /[facility] 09-05-2023 16:25-0400 Oxygen saturation in Blood 97 % Dr. Terrell Gonzalez [facility] 09-05-2023 16:25-0400 Respiratory rate 14 /[facility]-05-2023 16:25-0400 Systolic blood pressure 121 mm[Hg] Dr. Terrell Gonzalez [facility] 09-05-2023 15:07-0400 PAIN LEVEL 5 {score} Dr. Terrell Valle [facility] 09-05-2023 15:06-0400 Diastolic blood pressure 65 mm[Hg] Dr. Terrell Gonzalez [facility] 09-05-2023 15:06-0400 PAIN LEVEL 5 {score} Dr. Terrell Gonzalez [facility] 09-05-2023 15:06-0400 Systolic blood pressure 128 mm[Hg] Dr. Terrell Gonzalez [facility] 09-05-2023 14:18-0400 Oxygen saturation in Blood 97 % Dr. Terrell Gonzalez [facility] 09-05-2023 10:50-0400 PAIN LEVEL 4 {score} [facility] 09-05-2023 10:02-0400 PAIN LEVEL 7 {score} [facility] 09-05-2023 09:57-0400 PAIN LEVEL 7 {score} [facility] 09-05-2023 09:50-0400 Body temperature 98 [degF] Dr. Terrell Valle [facility] 09-05-2023 09:50-0400 Diastolic blood pressure 65 mm[Hg] Dr. Terrell Gonzalez [facility] 09-05-2023 09:50-0400 Heart rate 88 /min Dr. Terrell Valle [facility] 09-05-2023 09:50-0400 Oxygen saturation in Blood 97 % Dr. Terrell Gonzalez [facility] 09-05-2023 09:50-0400 Respiratory rate 16 /min Dr. Terrell Villatorosmiley [facility] 09-05-2023 09:50-0400 Systolic blood pressure 128 mm[Hg] Dr. Terrell Gonzalez [facility] 09-05-2023 07:41-0400 PAIN LEVEL 4 {score} [facility] 09-05-2023 06:41-0400 PAIN LEVEL 3 {score} [facility] 09-05-2023 03:40-0400 Body temperature 98.2 [degF] Dr. Terrell Villatorosmiley [facility] 09-05-2023 03:40-0400 Diastolic blood pressure 72 mm[Hg] Dr. Terrell Gonzalez [facility] 09-05-2023 03:40-0400 Heart rate 90 /min Dr. Terrell Valle [facility] 09-05-2023 03:40-0400 Oxygen saturation in Blood 98 % Dr. Terrell Gonzalez [facility] 09-05-2023 03:40-0400 Respiratory rate 18 /min Dr. Terrell Gonzalez [facility] 09-05-2023 03:40-0400 Systolic blood pressure 146 mm[Hg] Dr. Terrell Gonzalez [facility] 09-05-2023 02:33-0400 Oxygen saturation in Blood 94 % Dr. Terrell Gonzalez [facility] 09-05-2023 02:21-0400 PAIN LEVEL 0 {score} Dr. Terrell Valle [facility] 09-04-2023 22:22-0400 PAIN LEVEL 0 {score} Dr. Terrell Valle [facility] 09-04-2023 21:10-0400 PAIN LEVEL 3 {score} Dr. Terrell Valle [facility] 09-04-2023 20:59-0400 PAIN LEVEL 0 {score} Dr. Terrell Valle [facility] 09-04-2023 19:31-0400 Body temperature 98.7 [degF] Dr. Terrell Valle [facility] 09-04-2023 19:31-0400 Diastolic blood pressure 62 mm[Hg] [facility] 09-04-2023 19:31-0400 Heart rate 94 /min Dr. Terrell Valle [facility] 09-04-2023 19:31-0400 Oxygen saturation in Blood 97 % Dr. Terrell Gonzalez [facility] 09-04-2023 19:31-0400 PAIN LEVEL 8 {score} Dr. Terrell Valle [facility] 09-04-2023 19:31-0400 Respiratory rate 18 /min Dr. Terrell Valle [facility] 09-04-2023 19:31-0400 Systolic blood pressure 113 mm[Hg] Dr. Terrell Gonzalez [facility] 09-04-2023 17:30-0400 PAIN LEVEL 8 {score} [facility] 09-04-2023 17:29-0400 PAIN LEVEL 8 {score} [facility] 09-04-2023 14:52-0400 PAIN LEVEL 5 {score} [facility] 09-04-2023 14:46-0400 PAIN LEVEL 5 {score} Dr. Terrell Valle [facility] 09-04-2023 14:41-0400 PAIN LEVEL 5 {score} [facility] 09-04-2023 14:40-0400 PAIN LEVEL 5 {score} [facility] 09-04-2023 14:07-0400 PAIN LEVEL 5 {score} [facility] 09-04-2023 12:35-0400 Diastolic blood pressure 72 mm[Hg] Dr. Terrell Gonzalez [facility] 09-04-2023 12:35-0400 PAIN LEVEL 5 {score} Dr. Terrell Gonzalez [facility] 09-04-2023 12:35-0400 Systolic blood pressure 132 mm[Hg] Dr. Terrell Gonzalez [facility] 09-04-2023 10:25-0400 Body temperature 97.8 [degF] Dr. Terrell Valle [facility] 09-04-2023 10:25-0400 Diastolic blood pressure 72 mm[Hg] [facility] 09-04-2023 10:25-0400 Heart rate 88 /min Dr. Terrell Valle [facility] 09-04-2023 10:25-0400 Oxygen saturation in Blood 97 % Dr. Terrell Gonzalez [facility] 09-04-2023 10:25-0400 Respiratory rate 18 /[facility] 09-04-2023 10:25-0400 Systolic blood pressure 132 mm[Hg] [facility] 09-04-2023 10:02-0400 PAIN LEVEL 3 {score} Dr. Terrell Valle [facility] 09-04-2023 08:56-0400 PAIN LEVEL 5 {score} Dr. Terrell Gonzalez [facility] 09-04-2023 08:55-0400 PAIN LEVEL 5 {score} [facility] 09-04-2023 06:02-0400 PAIN LEVEL 4 {score} Dr. Terrell Valle [facility] 09-04-2023 03:25-0400 Oxygen saturation in Blood 95 % Dr. Terrell Gonzalez [facility] 09-04-2023 03:17-0400 PAIN LEVEL 0 {score} [facility] 09-04-2023 02:42-0400 Body temperature 98 [degF] Dr. Terrell Valle [facility] 09-04-2023 02:42-0400 PAIN LEVEL 6 {score} Dr. Terrell Valle [facility] 09-04-2023 02:13-0400 PAIN LEVEL 6 {score} Dr. Terrell Villatorosm[facility] 09-03-2023 23:59-0400 PAIN LEVEL 7 {score} Dr. Terrell Valle [facility] 09-03-2023 22:40-0400 PAIN LEVEL 8 {score} [facility] 09-03-2023 22:15-0400 PAIN LEVEL 8 {score} Dr. Terrell Valle [facility] 09-03-2023 22:15-0400 PAIN LEVEL 8 {score} [facility] 09-03-2023 16:37-0400 PAIN LEVEL 8 {score} Dr. Terrell Gonzalez [facility] 09-03-2023 16:37-0400 PAIN LEVEL 8 {score} [facility] 09-03-2023 16:36-0400 PAIN LEVEL 8 {score} [facility] 09-03-2023 16:31-0400 Body temperature 98.1 [degF] Dr. Terrell Valle [facility] 09-03-2023 16:31-0400 Diastolic blood pressure 74 mm[Hg] [facility] 09-03-2023 16:31-0400 Heart rate 93 /min [facility] 09-03-2023 16:31-0400 Oxygen saturation in Blood 97 % Dr. Terrell Gonzalez [facility] 09-03-2023 16:31-0400 Respiratory rate 20 /min Dr. Terrell Villatorosmiley [facility] 09-03-2023 16:31-0400 Systolic blood pressure 158 mm[Hg] [facility] 09-03-2023 15:01-0400 PAIN LEVEL 5 {score} Dr. Terrell Valle [facility] 09-03-2023 14:56-0400 PAIN LEVEL 5 {score} Dr. Terrell Valle [facility] 09-03-2023 13:37-0400 PAIN LEVEL 5 {score} Dr. Terrell Valle [facility] 09-03-2023 12:01-0400 PAIN LEVEL 3 {score} [facility] 09-03-2023 11:42-0400 Oxygen saturation in Blood 96 % Dr. Terrell Gonzalez [facility] 09-03-2023 11:36-0400 Body temperature 98.5 [degF] Dr. Terrell Valle [facility] 09-03-2023 11:36-0400 Diastolic blood pressure 68 mm[Hg] [facility] 09-03-2023 11:36-0400 Heart rate 81 /min Dr. Terrell Valle [facility] 09-03-2023 11:36-0400 Respiratory rate 16 /min Dr. Terrell Valle [facility] 09-03-2023 11:36-0400 Systolic blood pressure 113 mm[Hg] Dr. Terrell Gonzalez [facility] 09-03-2023 11:04-0400 PAIN LEVEL 5 {score} Dr. Terrell Gonzalez [facility] 09-03-2023 11:00-0400 PAIN LEVEL 3 {score} Dr. Terrell Valle [facility] 09-03-2023 08:56-0400 PAIN LEVEL 5 {score} Dr. Terrell Gonzalez [facility] 09-03-2023 08:56-0400 PAIN LEVEL 5 {score} Dr. Terrell Gonzalez [facility] 09-03-2023 07:53-0400 PAIN LEVEL 3 {score} [facility] 09-03-2023 06:16-0400 PAIN LEVEL 4 {score} Dr. Terrell Gonzalez [facility] 09-03-2023 05:28-0400 PAIN LEVEL 0 {score} Dr. Terrell Gonzalez [facility] 09-02-2023 23:57-0400 PAIN LEVEL 0 {score} [facility] 09-02-2023 22:23-0400 PAIN LEVEL 8 {score} [facility] 09-02-2023 21:35-0400 PAIN LEVEL 8 {score} Dr. Terrell Gonzalez [facility] 09-02-2023 19:26-0400 PAIN LEVEL 3 {score} [facility] 09-02-2023 19:26-0400 PAIN LEVEL 8 {score} Dr. Terrell Valle [facility] 09-02-2023 16:44-0400 PAIN LEVEL 4 {score} Dr. Terrell Villatorosm[facility] 09-02-2023 16:35-0400 PAIN LEVEL 4 {score} Dr. Terrell Valle [facility] 09-02-2023 16:00-0400 Body temperature 98.4 [degF] [facility] 09-02-2023 16:00-0400 Diastolic blood pressure 74 mm[Hg] Dr. Terrell Gonzalez [facility] 09-02-2023 16:00-0400 Heart rate 89 /min [facility] 09-02-2023 16:00-0400 Respiratory rate 18 /min Dr. Terrell Gonzalez [facility] 09-02-2023 16:00-0400 Systolic blood pressure 144 mm[Hg] Dr. Terrell Gonzalez [facility] 09-02-2023 15:11-0400 PAIN LEVEL 5 {score} Dr. Terrell Valle [facility] 09-02-2023 15:07-0400 PAIN LEVEL 5 {score} Dr. Terrell Gonzalez [facility] 09-02-2023 12:49-0400 PAIN LEVEL 4 {score} [facility] 09-02-2023 12:13-0400 Diastolic blood pressure 82 mm[Hg] Dr. Terrell Gonzalez [facility] 09-02-2023 12:13-0400 Systolic blood pressure 134 mm[Hg] Dr. Terrell Gonzalez [facility] 09-02-2023 11:51-0400 PAIN LEVEL 5 {score} Dr. Terrell Valle [facility] 09-02-2023 11:35-0400 Body temperature 98 [degF] Dr. Terrell Valle [facility] 09-02-2023 11:35-0400 Diastolic blood pressure 82 mm[Hg] Dr. Terrell Gonzalez [facility] 09-02-2023 11:35-0400 Heart rate 86 /min Dr. Terrell Valle [facility] 09-02-2023 11:35-0400 Oxygen saturation in Blood 97 % Dr. Terrell Gonzalez [facility] 09-02-2023 11:35-0400 Respiratory rate 20 /min Dr. Terrell Gonzalez [facility] 09-02-2023 11:35-0400 Systolic blood pressure 134 mm[Hg] Dr. Terrell Gonzalez [facility] 09-02-2023 10:20-0400 PAIN LEVEL 3 {score} Dr. Terrell Valle [facility] 09-02-2023 09:19-0400 Oxygen saturation in Blood 96 % Dr. Terrell Gonzalez [facility] 09-02-2023 09:17-0400 PAIN LEVEL 5 {score} [facility] 09-02-2023 09:16-0400 PAIN LEVEL 5 {score} [facility] 09-02-2023 05:22-0400 PAIN LEVEL 0 {score} [facility] Terrell [facility]ator[facility] 09-02-2023 05:17-0400 Oxygen saturation in Blood 98 % Dr. Terrell Gonzalez [facility] 09-02-2023 04:39-0400 PAIN LEVEL 6 {score} Dr. Terrell Valle [facility] 09-02-2023 04:39-0400 PAIN LEVEL 0 {score} [facility] 09-01-2023 23:42-0400 PAIN LEVEL 0 {score} Dr. Terrell Valle [facility] 09-01-2023 22:24-0400 PAIN LEVEL 2 {score} Dr. Terrell Valle [facility] 09-01-2023 21:28-0400 PAIN LEVEL 3 {score} Dr. Terrell Gonzalez [facility] 09-01-2023 21:28-0400 PAIN LEVEL 3 {score} Dr. Terrell Gonzalez [facility] 09-01-2023 20:40-0400 PAIN LEVEL 8 {score} Dr. Terrell Valle [facility] 09-01-2023 16:39-0400 PAIN LEVEL 8 {score} [facility] 09-01-2023 16:38-0400 PAIN LEVEL 6 {score} [facility] 09-01-2023 16:34-0400 PAIN LEVEL 8 {score} Dr. Terrell Gonzalez [facility] 09-01-2023 16:16-0400 Body temperature 98.4 [degF] Dr. Terrell Valle [facility] 09-01-2023 16:16-0400 Diastolic blood pressure 78 mm[Hg] Dr. Terrell Gonzalez [facility] 09-01-2023 16:16-0400 Heart rate 91 /min Dr. Terrell Valle [facility] 09-01-2023 16:16-0400 Oxygen saturation in Blood 98 % Dr. Terrell Gonzalez [facility] 09-01-2023 16:16-0400 Respiratory rate 19 /min Dr. Terrell Valle [facility] 09-01-2023 16:16-0400 Systolic blood pressure 131 mm[Hg] Dr. Terrell Gonzalez [facility] 09-01-2023 15:44-0400 Diastolic blood pressure 76 mm[Hg] Dr. Terrell Gonzalez [facility] 09-01-2023 15:44-0400 Systolic blood pressure 118 mm[Hg] Dr. Terrell Gonzalez [facility] 09-01-2023 14:13-0400 Oxygen saturation in Blood 97 % Dr. Terrell Gonzalez [facility] 09-01-2023 12:45-0400 PAIN LEVEL 3 {score} Dr. Terrell Valle [facility] 09-01-2023 11:50-0400 PAIN LEVEL 7 {score} Dr. Terrell Valle [facility] 09-01-2023 11:45-0400 Body temperature 97.6 [degF] Dr. Terrell Valle [facility] 09-01-2023 11:45-0400 Diastolic blood pressure 76 mm[Hg] [facility] 09-01-2023 11:45-0400 Heart rate 82 /min Dr. Terrell Valle [facility] 09-01-2023 11:45-0400 Oxygen saturation in Blood 96 % [facility] 09-01-2023 11:45-0400 Respiratory rate 18 /min Dr. Terrell Valle [facility] 09-01-2023 11:45-0400 Systolic blood pressure 118 mm[Hg] Dr. Terrell Valle [facility] 09-01-2023 09:35-0400 PAIN LEVEL 4 {score} Dr. Terrell Valle [facility] 09-01-2023 08:37-0400 PAIN LEVEL 7 {score} Dr. Terrell Gonzalez [facility] 09-01-2023 08:36-0400 PAIN LEVEL 7 {score} [facility]-2023 05:27-0400 PAIN LEVEL 3 {score} Dr. Terrell Valle [facility] 09-01-2023 05:26-0400 PAIN LEVEL 2 {score} Dr. Terrell Gonzalez [facility] 09-01-2023 03:08-0400 Oxygen saturation in Blood 95 % Dr. Terrell Gonzalez [facility] 09-01-2023 02:56-0400 PAIN LEVEL 0 {score} Dr. Terrell Valle [facility] 09-01-2023 00:14-0400 Body temperature 97.4 [degF] Dr. Terrell Valle [facility] 09-01-2023 00:14-0400 Diastolic blood pressure 70 mm[Hg] Dr. Terrell Gonzalez [facility] 09-01-2023 00:14-0400 Heart rate 93 /[facility] 09-01-2023 00:14-0400 Oxygen saturation in Blood 97 % Dr. Terrell Gonzalez [facility] 09-01-2023 00:14-0400 Respiratory rate 20 /min Dr. Terrell Valle [facility] 09-01-2023 00:14-0400 Systolic blood pressure 113 mm[Hg] Dr. Terrell Gonzalez [facility] 08-31-2023 22:25-0400 PAIN LEVEL 8 {score} Dr. Terrell Gonzalez [facility] 08-31-2023 20:25-0400 PAIN LEVEL 0 {score} [facility] 08-31-2023 20:25-0400 PAIN LEVEL 8 {score} Dr. Terrell Gonzalez [facility] 08-31-2023 18:12-0400 Body temperature 98.6 [degF] [facility] 08-31-2023 18:12-0400 Diastolic blood pressure 68 mm[Hg] Dr. Terrell Gonzalez [facility] 08-31-2023 18:12-0400 Heart rate 88 /min Dr. Terrell Valle [facility] 08-31-2023 18:12-0400 Oxygen saturation in Blood 98 % Dr. Terrell Gonzalez [facility] 08-31-2023 18:12-0400 Respiratory rate 20 /min Dr. Terrell Valle [facility] 08-31-2023 18:12-0400 Systolic blood pressure 139 mm[Hg] Dr. Terrell Gonzalez [facility] 08-31-2023 17:06-0400 PAIN LEVEL 8 {score} [facility]. Terrell Villatoros[facility] 08-31-2023 17:05-0400 PAIN LEVEL 8 {score} Dr. Terrell Valle [facility] 08-31-2023 14:23-0400 PAIN LEVEL 4 {score} Dr. Terrell Villatorosm[facility] 08-31-2023 13:04-0400 Oxygen saturation in Blood 98 % Dr. Terrell Gonzalez [facility] 08-31-2023 13:02-0400 Body temperature 98.2 [degF] Dr. Terrell Valle [facility] 08-31-2023 13:02-0400 Diastolic blood pressure 64 mm[Hg] Dr. Terrell Gonzalez [facility] 08-31-2023 13:02-0400 Heart rate 80 /[facility] 08-31-2023 13:02-0400 Oxygen saturation in Blood 98 % Dr. Terrell Gonzalez [facility] 08-31-2023 13:02-0400 Respiratory rate 16 /min Dr. Terrell Valle [facility] 08-31-2023 13:02-0400 Systolic blood pressure 121 mm[Hg] Dr. Terrell Gonzalez [facility] 08-31-2023 13:00-0400 Heart rate 16 /min Dr. Terrell Valle [facility] 08-31-2023 12:46-0400 PAIN LEVEL 8 {score} Dr. Terrell Valle [facility] 08-31-2023 09:17-0400 PAIN LEVEL 7 {score} Dr. Terrell Valle [facility] 08-31-2023 05:21-0400 PAIN LEVEL 1 {score} Dr. Terrell Valle [facility] 08-31-2023 03:02-0400 Body temperature 99.6 [degF] Dr. Terrell Valle [facility] 08-31-2023 03:02-0400 Diastolic blood pressure 73 mm[Hg] Dr. Terrell Gonzalez [facility] 08-31-2023 03:02-0400 Heart rate 93 /[facility] 08-[facility]-2023 03:02-0400 Oxygen saturation in Blood 95 % Dr. Terrell Gonzalez [facility] 08-31-2023 03:02-0400 Respiratory rate 17 /min Dr. Terrell Valle [facility] 08-31-2023 03:02-0400 Systolic blood pressure 148 mm[Hg] Dr. Terrell Gonzalez [facility] 08-31-2023 01:42-0400 PAIN LEVEL 3 {score} Dr. Terrell Valle [facility] 08-31-2023 00:20-0400 Oxygen saturation in Blood 95 % Dr. Terrell Gonzalez [facility] 08-31-2023 00:16-0400 PAIN LEVEL 0 {score} Dr. Terrell Villatoros[facility] 08-30-2023 20:44-0400 Oxygen saturation in Blood 95 % Dr. Terrell Gonzalez [facility] 08-30-2023 19:27-0400 PAIN LEVEL 3 {score} Dr. Terrell Valle [facility] 08-30-2023 17:42-0400 PAIN LEVEL 4 {score} [facility] 08-30-2023 17:41-0400 PAIN LEVEL 4 {score} [facility] 08-30-2023 13:50-0400 PAIN LEVEL 3 {score} [facility] 08-30-2023 12:45-0400 PAIN LEVEL 5 {score} Dr. Terrell Gonzalez [facility] 08-30-2023 12:33-0400 Diastolic blood pressure 74 mm[Hg] Dr. Terrell Gonzalez [facility] 08-30-2023 12:33-0400 Systolic blood pressure 140 mm[Hg] Dr. Terrell Gonzalez [facility] 08-30-2023 11:41-0400 Oxygen saturation in Blood 96 % Dr. Terrell Gonzalez [facility] 08-30-2023 11:12-0400 Body weight 51.[address] Terrell Gonzalez [facility] 08-30-2023 10:28-0400 Body temperature 97.5 [degF] Dr. Terrell Valle [facility] 08-30-2023 10:28-0400 Diastolic blood pressure 74 mm[Hg] Dr. Terrell Gonzalez [facility] 08-30-2023 10:28-0400 Heart rate 84 /min Dr. Terrell Gonzalez [facility] 08-30-2023 10:28-0400 Oxygen saturation in Blood 96 % Dr. Terrell Gonzalez [facility] 08-30-2023 10:28-0400 Respiratory rate 20 /min [facility]rell [facility] 08-30-2023 10:28-0400 Systolic blood pressure 140 mm[Hg] Dr. Terrell Gonzalez [facility] 08-30-2023 10:19-0400 PAIN LEVEL 3 {score} Dr. Terrell Valle [facility] 08-30-2023 09:25-0400 PAIN LEVEL 5 {score} Dr. Terrell Gonzalez [facility] 08-30-2023 09:25-0400 PAIN LEVEL 5 {score} Dr. Terrell Gonzalez [facility] 08-30-2023 08:15-0400 PAIN LEVEL 3 {score} [facility] 08-30-2023 05:22-0400 PAIN LEVEL 4 {score} Dr. Terrell Gonzalez [facility] 08-30-2023 00:46-0400 Oxygen saturation in Blood 95 % Dr. Terrell Gonzalez [facility] 08-29-2023 23:42-0400 PAIN LEVEL 2 {score} [facility] 05-25-2024 21:08-0400 PAIN LEVEL 0 {score} [facility] Terrell [facility] 08-29-2023 21:08-0400 PAIN LEVEL 0 {score} [facility] 08-29-2023 19:16-0400 PAIN LEVEL 7 {score} Dr. Terrell Valle [facility] 08-29-2023 16:08-0400 PAIN LEVEL 5 {score} [facility] 08-29-2023 15:59-0400 PAIN LEVEL 0 {score} [facility] 08-29-2023 15:50-0400 PAIN LEVEL 3 {score} Dr. Terrell Valle [facility] 08-29-2023 13:39-0400 PAIN LEVEL 5 {score} Dr. Terrell Gonzalez [facility] 08-29-2023 10:26-0400 PAIN LEVEL 3 {score} Dr. Terrell Gonzalez [facility] 08-29-2023 10:26-0400 PAIN LEVEL 3 {score} Dr. Terrell Valle [facility] 08-29-2023 09:35-0400 Body temperature 97 [degF] Dr[facility] Terrell [facility] 08-29-2023 09:35-0400 Diastolic blood pressure 69 mm[Hg] Dr. Terrell Gonzalez [facility] 08-29-2023 09:35-0400 Heart rate 92 /min Dr. Terrell Valle [facility] 08-29-2023 09:35-0400 Oxygen saturation in Blood 97 % Dr. Terrell Gonzalez [facility] 08-29-2023 09:35-0400 Respiratory rate 18 /min Dr. Terrell Valle [facility] 08-29-2023 09:35-0400 Systolic blood pressure 136 mm[Hg] Dr. Terrell Gonzalez [facility] 08-29-2023 08:55-0400 PAIN LEVEL 5 {score} Dr. Terrell Valle [facility] 08-29-2023 08:54-0400 PAIN LEVEL 5 {score} Dr. Terrell Valle [facility] 08-29-2023 08:54-0400 PAIN LEVEL 5 {score} Dr. Terrell Valle [facility] 08-29-2023 05:38-0400 Oxygen saturation in Blood 93 % Dr. Terrell Gonzalez [facility] 08-29-2023 01:18-0400 PAIN LEVEL 0 {score} Dr. Terrell Gonzalez [facility] 08-28-2023 20:18-0400 PAIN LEVEL 4 {score} Dr. Terrell Valle [facility] 08-28-2023 20:16-0400 PAIN LEVEL 2 {score} Dr. Terrell Gonzalez [facility] 08-28-2023 20:16-0400 PAIN LEVEL 2 {score} Dr. Terrell Gonzalez [facility] 08-28-2023 17:31-0400 PAIN LEVEL 4 {score} Dr. Terrell Gonzalez [facility] 08-28-2023 14:59-0400 Body temperature 98.7 [degF] Dr. Terrell Valle [facility] 08-28-2023 14:59-0400 Diastolic blood pressure 68 mm[Hg] [facility]-28-2023 14:59-0400 Heart rate 98 /min Dr. Terrell Valle [facility] 08-28-2023 14:59-0400 Oxygen saturation in Blood 97 % Dr. Terrell Gonzalez [facility] 08-28-2023 14:59-0400 Respiratory rate 16 /min Dr. Terrell Valle [facility] 08-28-2023 14:59-0400 Systolic blood pressure 152 mm[Hg] Dr. Terrell Gonzalez [facility] 08-28-2023 13:48-0400 PAIN LEVEL 4 {score} [facility]-28-[facility]23 12:45-0400 PAIN LEVEL 7 {score} [facility] 08-28-2023 12:43-0400 Body temperature 97.3 [degF] Dr. Terrell Valle [facility] 08-28-2023 12:43-0400 Diastolic blood pressure 76 mm[Hg] Dr. Terrell Gonzalez [facility] 08-28-2023 12:43-0400 Systolic blood pressure 137 mm[Hg] Dr. Terrell Gonzalez [facility] 08-28-2023 12:35-0400 Heart rate 88 /min Dr. Terrell Valle [facility] 08-28-2023 12:35-0400 Respiratory rate 18 /min Dr. Terrell Valle [facility] 08-28-2023 11:46-0400 Oxygen saturation in Blood 96 % Dr. Terrell Gonzalez [facility] 08-28-2023 08:05-0400 PAIN LEVEL 7 {score} Dr. Terrell Valle [facility] 08-28-2023 07:59-0400 PAIN LEVEL 5 {score} Dr. Terrell Valle [facility] 08-28-2023 07:49-0400 PAIN LEVEL 4 {score} Dr. Terrell Valle [facility] 08-28-2023 05:56-0400 PAIN LEVEL 3 {score} Dr. Terrell Valle [facility] 08-28-2023 05:53-0400 PAIN LEVEL 0 {score} [facility] 08-28-2023 05:53-0400 PAIN LEVEL 1 {score} [facility] 00:27-0400 PAIN LEVEL 3 {score} Dr. Terrell Valle [facility] 08-27-2023 23:54-0400 Oxygen saturation in Blood 96 % Dr. Terrell Gonzalez [facility] 08-27-2023 23:41-0400 PAIN LEVEL 0 {score} Dr. Terrell Valle [facility] 08-27-2023 22:49-0400 Body temperature 101 [degF] Dr. Terrell Valle [facility] 08-27-2023 22:49-0400 PAIN LEVEL 4 {score} Dr. Terrell Valle [facility] 08-27-2023 21:46-0400 PAIN LEVEL 2 {score} Dr. Terrell Valle [facility] 08-27-2023 20:25-0400 PAIN LEVEL 2 {score} Dr. Terrell Valle [facility] 08-27-2023 20:25-0400 PAIN LEVEL 2 {score} [facility] 08-27-2023 20:22-0400 PAIN LEVEL 6 {score} Dr. Terrell Valle [facility] 08-27-2023 17:55-0400 Body temperature 98.6 [degF] Dr. Terrell Valle [facility] 08-27-2023 17:55-0400 Diastolic blood pressure 72 mm[Hg] Dr. Terrell Gonzalez [facility] 08-27-2023 17:55-0400 Heart rate 89 /min Dr. Terrell Valle [facility] 08-27-2023 17:55-0400 Oxygen saturation in Blood 99 % Dr. Terrell Gonzalez [facility] 08-27-2023 17:55-0400 Respiratory rate 16 /min Dr. Terrell Gonzalez [facility] 08-27-2023 17:55-0400 Systolic blood pressure 137 mm[Hg] Dr. Terrell Gonzalez [facility] 08-27-2023 16:20-0400 PAIN LEVEL 4 {score} Dr. Terrell Valle [facility] 08-27-2023 15:11-0400 Body temperature 99 [degF] Dr. Terrell Valle [facility] 08-27-2023 15:09-0400 Body temperature 99 [degF] Dr. Terrell Valle [facility] 08-27-2023 15:06-0400 PAIN LEVEL 3 {score} Dr. Terrell Valle [facility] 08-27-2023 14:59-0400 Diastolic blood pressure 57 mm[Hg] Dr. Terrell Gonzalez [facility] 08-27-2023 14:59-0400 Systolic blood pressure 117 mm[Hg] [facility] 08-27-2023 14:50-0400 Body temperature 99 [degF] Dr. Terrell Valle [facility] 08-27-2023 14:50-0400 Diastolic blood pressure 57 mm[Hg] Dr. Terrell Gonzalez [facility] 08-27-2023 14:50-0400 Heart rate 84 /[facility] 08-27-2023 14:50-0400 Oxygen saturation in Blood 96 % Dr. Terrell Gonzalez [facility] 08-27-2023 14:50-0400 Respiratory rate 17 /[facility] 08-27-2023 14:50-0400 Systolic blood pressure 117 mm[Hg] Dr. Terrell Gonzalez [facility] 08-27-2023 13:48-0400 PAIN LEVEL 5 {score} Dr. Terrell Valle [facility] 08-27-2023 11:59-0400 Body temperature 101.6 [degF] Dr. Terrell Valle [facility] 08-27-2023 10:49-0400 Oxygen saturation in Blood 92 % Dr. Terrell Gonzalez [facility] 08-27-2023 09:58-0400 PAIN LEVEL 3 {score} Dr. Terrell Valle [facility] 08-27-2023 08:40-0400 PAIN LEVEL 5 {score} [facility] 08-27-2023 08:35-0400 PAIN LEVEL 3 {score} Dr. Terrell Valle [facility] 08-27-2023 08:33-0400 PAIN LEVEL 3 {score} [facility] 08-27-2023 08:32-0400 PAIN LEVEL 3 {score} Dr. Terrell Gonzalez [facility] 08-27-2023 05:05-0400 Body temperature 100.2 [degF] [facility] 08-27-2023 05:05-0400 PAIN LEVEL 3 {score} [facility] 08-27-2023 05:01-0400 PAIN LEVEL 3 {score} Dr. Terrell Gonzalez [facility] 08-27-2023 05:01-0400 PAIN LEVEL 3 {score} Dr. Terrell Valle [facility] 08-27-2023 01:37-0400 Oxygen saturation in Blood 91 % Dr. Terrell Gonzalez [facility] 08-26-2023 20:51-0400 Oxygen saturation in Blood 86 % Dr. Terrell Gonzalez [facility] 08-26-2023 17:11-0400 PAIN LEVEL 2 {score} Dr. Terrell Valle [facility] 08-26-2023 16:41-0400 PAIN LEVEL 5 {score} Dr. Terrell Valle [facility] 08-26-2023 16:35-0400 Body temperature 102.6 [degF] [facility] 08-26-2023 16:35-0400 Diastolic blood pressure 69 mm[Hg] [facility] 08-26-2023 16:35-0400 Heart rate 104 /min Dr. Terrell Valle [facility] 08-26-2023 16:35-0400 Oxygen saturation in Blood 95 % Dr. Terrell Gonzalez [facility] 08-26-2023 16:35-0400 Respiratory rate 18 /[facility] 08-26-2023 16:35-0400 Systolic blood pressure 163 mm[Hg] Dr. Terrell Gonzalez [facility] 08-26-2023 16:32-0400 PAIN LEVEL 5 {score} [facility] 08-26-2023 13:35-0400 Diastolic blood pressure 78 mm[Hg] Dr. Terrell Gonzalez [facility] 08-26-2023 13:35-0400 Systolic blood pressure 140 mm[Hg] Dr. Terrell Gonzalez [facility] 08-26-2023 12:36-0400 Body temperature 98.4 [degF] Dr. Terrell Valle [facility] 08-26-2023 12:36-0400 Diastolic blood pressure 78 mm[Hg] Dr. Terrell Gonzalez [facility] 08-26-2023 12:36-0400 Heart rate 86 /min [facility] 08-26-2023 12:36-0400 Oxygen saturation in Blood 97 % Dr. Terrell Gonzalez [facility] 08-26-2023 12:36-0400 Respiratory rate 20 /min Dr. Terrell Valle [facility] 08-26-2023 12:36-0400 Systolic blood pressure 140 mm[Hg] Dr. Terrell Gonzalez [facility] 08-26-2023 12:02-0400 PAIN LEVEL 3 {score} Dr. Terrell Valle [facility] 08-26-2023 11:31-0400 Oxygen saturation in Blood 95 % Dr. Terrell Gonzalez [facility] 08-26-2023 10:43-0400 PAIN LEVEL 5 {score} Dr. Terrell Valle [facility] 08-26-2023 09:42-0400 PAIN LEVEL 3 {score} Dr. Terrell Valle [facility] 08-26-2023 08:18-0400 PAIN LEVEL 4 {score} [facility] 08-26-2023 08:18-0400 PAIN LEVEL 4 {score} [facility] 08-26-2023 08:17-0400 PAIN LEVEL 4 {score} [facility] 08-26-2023 05:09-0400 PAIN LEVEL 2 {score} Dr. Terrell Valle [facility] 08-26-2023 05:09-0400 PAIN LEVEL 2 {score} Dr. Terrell Valle [facility] 08-26-2023 01:33-0400 Oxygen saturation in Blood 96 % Dr. Terrell Gonzalez [facility] 08-26-2023 00:18-0400 PAIN LEVEL 3 {score} Dr. Terrell Valle [facility] 08-26-2023 00:17-0400 PAIN LEVEL 3 {score} Dr. Terrell Valle [facility] 08-25-2023 23:19-0400 PAIN LEVEL 2 {score} Dr. Terrell Valle [facility] 08-25-2023 22:03-0400 PAIN LEVEL 6 {score} Dr. Terrell Valle [facility] 08-25-2023 19:41-0400 PAIN LEVEL 3 {score} Dr. Terrell Valle [facility] 08-25-2023 19:41-0400 PAIN LEVEL 2 {score} Dr. Terrell Valle [facility] 08-25-2023 18:43-0400 PAIN LEVEL 6 {score} Dr. Terrell Valle [facility] 08-25-2023 16:24-0400 Body temperature 98.6 [degF] Dr. Terrell Valle [facility] 08-25-2023 16:24-0400 Diastolic blood pressure 72 mm[Hg] Dr. Terrell Gonzalez [facility] 08-25-2023 16:24-0400 Heart rate 84 /min Dr. Terrell Valle [facility] 08-25-2023 16:24-0400 Oxygen saturation in Blood 97 % Dr. Terrell Gonzalez [facility] 08-25-2023 16:24-0400 Respiratory rate 19 /[facility] 08-25-2023 16:24-0400 Systolic blood pressure 152 mm[Hg] Dr. Terrell Gonzalez [facility] 08-25-2023 15:57-0400 PAIN LEVEL 6 {score} Dr. Terrell Valle [facility] 08-25-2023 15:27-0400 PAIN LEVEL 3 {score} [facility] 08-25-2023 14:39-0400 Diastolic blood pressure 78 mm[Hg] Dr. Terrell Gonzalez [facility] 08-25-2023 14:39-0400 Systolic blood pressure 144 mm[Hg] Dr. Terrell Gonzalez [facility] 08-25-2023 13:58-0400 Body temperature 98.4 [degF] Dr. Terrell Valle [facility] 08-25-2023 13:58-0400 Diastolic blood pressure 78 mm[Hg] Dr. Terrell Gonzalez [facility] 08-25-2023 13:58-0400 Heart rate 82 /min Dr. Terrell Valle [facility] 08-25-2023 13:58-0400 Oxygen saturation in Blood 96 % Dr. Terrell Gonzalez [facility] 08-25-2023 13:58-0400 Respiratory rate 18 /min [facility] Terrell Gonzalez [facility] 08-25-2023 13:58-0400 Systolic blood pressure 144 mm[Hg] Dr. Terrell Gonzalez [facility] 08-25-2023 13:50-0400 PAIN LEVEL 5 {score} Dr. Terrell Valle [facility] 08-25-2023 10:54-0400 Oxygen saturation in Blood 95 % Dr. Terrell Gonzalez [facility] 08-25-2023 10:36-0400 PAIN LEVEL 3 {score} Dr. Terrell Valle [facility] 08-25-2023 09:37-0400 PAIN LEVEL 5 {score} [facility] 08-25-2023 09:37-0400 PAIN LEVEL 3 {score} Dr. Terrell Gonzalez [facility] 08-25-2023 08:10-0400 PAIN LEVEL 5 {score} Dr. Terrell Gonzalez [facility] 08-25-2023 08:10-0400 PAIN LEVEL 5 {score} [facility] 08-25-2023 07:09-0400 PAIN LEVEL 3 {score} Dr. Terrell Gonzalez [facility] 08-25-2023 05:31-0400 PAIN LEVEL 3 {score} Dr. Terrell Gonzalez [facility] 08-25-2023 05:31-0400 PAIN LEVEL 2 {score} [facility] 08-25-2023 04:02-0400 Body temperature 98.3 [degF] Dr. Terrell Valle [facility] 08-25-2023 04:02-0400 Diastolic blood pressure 72 mm[Hg] Dr. Terrell Gonzalez [facility] 08-25-2023 04:02-0400 Heart rate 85 /min Dr. Terrell Valle [facility] 08-25-2023 04:02-0400 Oxygen saturation in Blood 95 % Dr. Terrell Gonzalez [facility] 08-25-2023 04:02-0400 Respiratory rate 16 /min Dr. Terrell Valle [facility] 08-25-2023 04:02-0400 Systolic blood pressure 147 mm[Hg] Dr. Terrell Gonzalez [facility] 08-25-2023 01:08-0400 Oxygen saturation in Blood 96 % Dr. Terrell Gonzalez [facility] 08-25-2023 00:46-0400 PAIN LEVEL 0 {score} [facility] 08-24-2023 22:23-0400 PAIN LEVEL 6 {score} Dr. Terrell Valle [facility] 08-24-2023 20:51-0400 PAIN LEVEL 6 {score} [facility] 08-24-2023 20:50-0400 PAIN LEVEL 3 {score} Dr. Terrell Valle [facility] 08-24-2023 20:50-0400 PAIN LEVEL 3 {score} [facility] 08-24-2023 16:32-0400 Body temperature 99 [degF] Dr. Terrell Valle [facility] 08-24-2023 16:32-0400 Diastolic blood pressure 71 mm[Hg] Dr. Terrell Gonzalez [facility] 08-24-2023 16:32-0400 Heart rate 87 /min Dr. Terrell Valle [facility] 08-24-2023 16:32-0400 Oxygen saturation in Blood 97 % Dr. Terrell Gonzalez [facility] 08-24-2023 16:32-0400 Respiratory rate 17 /min Dr. Terrell Valle [facility] 08-24-2023 16:32-0400 Systolic blood pressure 166 mm[Hg] Dr. Terrell Gonzalez [facility] 08-24-2023 16:01-0400 PAIN LEVEL 6 {score} [facility] 08-24-2023 16:00-0400 PAIN LEVEL 6 {score} [facility] 08-24-2023 15:42-0400 PAIN LEVEL 6 {score} Dr. Terrell Valle [facility] 08-24-2023 12:14-0400 PAIN LEVEL 3 {score} Dr. Terrell Valle [facility] 08-24-2023 11:07-0400 PAIN LEVEL 5 {score} [facility] 08-24-2023 11:06-0400 PAIN LEVEL 3 {score} [facility] 08-24-2023 10:41-0400 Body temperature 98.3 [degF] Dr. Terrell Valle [facility] 08-24-2023 10:41-0400 Diastolic blood pressure 75 mm[Hg] Dr. Terrell Gonzalez [facility] 08-24-2023 10:41-0400 Heart rate 106 /min Dr. Terrell Valle [facility] 08-24-2023 10:41-0400 Oxygen saturation in Blood 93 % Dr. Terrell Gonzalez [facility] 08-24-2023 10:41-0400 Respiratory rate 18 /min Dr. Terrell Valle [facility] 08-24-2023 10:41-0400 Systolic blood pressure 166 mm[Hg] Dr. Terrell Gonzalez [facility] 08-24-2023 10:02-0400 Oxygen saturation in Blood 95 % Dr. Terrell Gonzalez [facility] 08-24-2023 08:30-0400 PAIN LEVEL 5 {score} Dr. Terrell Valle [facility] 08-24-2023 08:29-0400 PAIN LEVEL 5 {score} Dr. Terrell Valle [facility] 08-24-2023 08:29-0400 PAIN LEVEL 5 {score} [facility] 08-24-2023 05:10-0400 PAIN LEVEL 3 {score} Dr. Terrell Valle [facility] 08-24-2023 01:10-0400 Body temperature 98.2 [degF] Dr. Terrell Valle [facility] 08-24-2023 01:10-0400 Diastolic blood pressure 57 mm[Hg] [facility] 08-24-2023 01:10-0400 Heart rate 78 /[facility] 08-24-2023 01:10-0400 Oxygen saturation in Blood 93 % Dr. Terrell Gonzalez [facility] 08-24-2023 01:10-0400 Respiratory rate 18 /min Dr. Terrell Valle [facility] 08-24-2023 01:10-0400 Systolic blood pressure 132 mm[Hg[facility] 00:29-0400 PAIN LEVEL 0 {score} Dr. Terrell Valle [facility] 08-23-2023 21:32-0400 PAIN LEVEL 2 {score} [facility] 08-23-2023 19:43-0400 PAIN LEVEL 6 {score} [facility] 08-23-2023 18:42-0400 PAIN LEVEL 3 {score} Dr. Terrell Valle [facility] 08-23-2023 17:42-0400 PAIN LEVEL 3 {score} [facility] 08-23-2023 16:44-0400 Oxygen saturation in Blood 97 % Dr. Terrell Gonzalez [facility] 08-23-2023 16:41-0400 PAIN LEVEL 4 {score} [facility] 08-23-2023 16:16-0400 Body temperature 97.6 [degF] Dr. Terrell Valle [facility] 08-23-2023 16:16-0400 Diastolic blood pressure 71 mm[Hg] [facility] 08-23-2023 16:16-0400 Heart rate 82 /min Dr. Terrell Valle [facility] 08-23-2023 16:16-0400 Oxygen saturation in Blood 99 % Dr. Terrell Gonzalez [facility] 08-23-2023 16:16-0400 Respiratory rate 16 /min Dr. Terrell Valle [facility] 08-23-2023 16:16-0400 Systolic blood pressure 134 mm[Hg] Dr. Terrell Gonzalez [facility] 08-23-2023 15:53-0400 Body temperature 97.2 [degF] Dr. Terrell Gonzalez [facility] 08-23-2023 15:53-0400 Body weight 51.[address] [facility] 08-23-2023 15:53-0400 Diastolic blood pressure 77 mm[Hg] [facility] 08-23-2023 15:53-0400 Heart rate 77 /[facility] 08-23-2023 15:53-0400 Oxygen saturation in Blood 97 % Dr. Terrell Gonzalez [facility] 08-23-2023 15:53-0400 Respiratory rate 16 /min Dr. Terrell Valle [facility] 08-23-2023 15:53-0400 Systolic blood pressure 141 mm[Hg] Dr. Terrell Gonzalez [facility] 08-23-2023 15:01-0400 PAIN LEVEL 7 {score} [facility] 08-23-2023 14:56-0400 Body temperature 97.7 [degF] Dr. Terrell Valle [facility] 08-23-2023 14:56-0400 Diastolic blood pressure 71 mm[Hg] Dr. Terrell Gonzalez [facility] 08-23-2023 14:56-0400 Heart rate 77 /min Dr. Terrell Valle [facility] 08-23-2023 14:56-0400 Respiratory rate 16 /min Dr. Terrell Valle [facility] 08-23-2023 14:56-0400 Systolic blood pressure 148 mm[Hg] Dr. Terrell Gonzalez [facility] 08-23-2023 13:42-0400 Body weight 51.[address] [facility] 08-23-2023 11:45-0400 Body weight 51.[address] Terrell Gonzalez [facility] 08-23-2023 11:44-0400 Body temperature 97.7 [degF] Dr. Terrell Valle [facility] 08-23-2023 11:44-0400 Diastolic blood pressure 71 mm[Hg] Dr. Terrell Gonzalez [facility] 08-23-2023 11:44-0400 Heart rate 77 /[facility] 08-23-2023 11:44-0400 Oxygen saturation in Blood 99 % Dr. Terrell Gonzalez [facility] 08-23-2023 11:44-0400 Respiratory rate 16 /min Dr. Terrell Valle [facility] 08-23-2023 11:44-0400 Systolic blood pressure 148 mm[Hg] Dr. Terrell Gonzalez [facility] 08-23-2023 10:30-0400 PAIN LEVEL 4 {score} Dr. Terrell Valle [facility] 08-23-2023 09:46-0400 PAIN LEVEL 8 {score} Dr. Terrell Valle [facility] 08-23-2023 09:25-0400 PAIN LEVEL 4 {score} Dr. Terrell Valle [facility] 08-23-2023 08:31-0400 PAIN LEVEL 10 {score} [facility] 08-23-2023 08:30-0400 PAIN LEVEL 7 {score} Dr. Terrell Gonzalez [facility] 08-23-2023 05:45-0400 Oxygen saturation in Blood 96 % Dr. Terrell Gonzalez [facility] 08-23-2023 01:28-0400 Body temperature 98.2 [degF] Dr. Terrell Valle [facility] 08-23-2023 01:28-0400 Diastolic blood pressure 60 mm[Hg] Dr. Terrell Gonzalez [facility] 08-23-2023 01:28-0400 Heart rate 77 /min Dr. Terrell Valle [facility] 08-23-2023 01:28-0400 Oxygen saturation in Blood 94 % Dr. Terrell Gonzalez [facility] 08-23-2023 01:28-0400 Respiratory rate 17 /min Dr. Terrell Valle [facility] 08-23-2023 01:28-0400 Systolic blood pressure 125 mm[Hg] Dr. Terrell Gonzalez [facility] 08-23-2023 01:21-0400 PAIN LEVEL 8 {score} Dr. Terrell Valle [facility] 08-23-2023 00:10-0400 PAIN LEVEL 0 {score} Dr. Terrell Valle [facility] 08-22-2023 21:33-0400 PAIN LEVEL 2 {score} Dr. Terrell Valle [facility] 08-22-2023 20:23-0400 PAIN LEVEL 5 {score} Dr. Terrell Valle [facility] 08-22-2023 20:22-0400 PAIN LEVEL 3 {score} [facility] [facility]23 17:57-0400 PAIN LEVEL 3 {score} Dr. Terrell Valle [facility] 08-22-2023 17:55-0400 Body temperature 98.7 [degF] Dr. Terrell Valle [facility] 08-22-2023 17:55-0400 Diastolic blood pressure 71 mm[Hg] Dr. Terrell Gonzalez [facility] 08-22-2023 17:55-0400 Heart rate 91 /min Dr. Terrell Valle [facility] 08-22-2023 17:55-0400 Oxygen saturation in Blood 93 % Dr. Terrell Gonzalez [facility] 08-22-2023 17:55-0400 Respiratory rate 16 /min Dr. Terrell Valle [facility] 08-22-2023 17:55-0400 Systolic blood pressure 136 mm[Hg] Dr. Terrell Gonzalez [facility] 08-22-2023 16:40-0400 PAIN LEVEL 4 {score} Dr. Terrell Valle [facility] 08-22-2023 14:26-0400 PAIN LEVEL 7 {score} Dr. Terrell Valle [facility] 08-22-2023 12:14-0400 Oxygen saturation in Blood 95 % Dr. Terrell Gonzalez [facility] 08-22-2023 11:13-0400 Body temperature 98.7 [degF] Dr. Terrell Valle [facility] 08-22-2023 11:13-0400 Diastolic blood pressure 66 mm[Hg] Dr. Terrell Gonzalez [facility] 08-22-2023 11:13-0400 Heart rate 80 /[facility]23 11:13-0400 Oxygen saturation in Blood 94 % Dr. Terrell Gonzalez [facility] 08-22-2023 11:13-0400 Respiratory rate 16 /min Dr. Terrell Valle [facility] 08-22-2023 11:13-0400 Systolic blood pressure 111 mm[Hg] Dr. Terrell Gonzalez [facility] 08-22-2023 10:30-0400 PAIN LEVEL 4 {score} Dr. Terrell Valle [facility] 08-22-2023 09:32-0400 PAIN LEVEL 7 {score} [facility]rell [facility] 08-22-2023 09:32-0400 PAIN LEVEL 7 {score} [facility]23 09:30-0400 PAIN LEVEL 7 {score} [facility] 08-22-2023 09:26-0400 PAIN LEVEL 7 {score} Dr. Terrell Gonzalez [facility] 08-22-2023 05:11-0400 PAIN LEVEL 4 {score} [facility] 08-22-2023 04:38-0400 PAIN LEVEL 2 {score} [facility] 08-22-2023 04:38-0400 PAIN LEVEL 2 {score} Dr. Terrell Gonzalez [facility] 08-22-2023 00:48-0400 Oxygen saturation in Blood 95 % Dr. Terrell Gonzalez [facility] 08-22-2023 00:38-0400 PAIN LEVEL 0 {score} [facility] 08-21-2023 21:33-0400 Oxygen saturation in Blood 95 % Dr. Terrell Gonzalez [facility] 08-21-2023 20:12-0400 PAIN LEVEL 4 {score} [facility] 08-21-2023 17:17-0400 PAIN LEVEL 10 {score} [facility] 08-21-2023 16:05-0400 Body temperature 99.2 [degF] Dr. Terrell Valle [facility] 08-21-2023 16:05-0400 Diastolic blood pressure 73 mm[Hg] Dr. Terrell Gonzalez [facility] 08-21-2023 16:05-0400 Heart rate 82 /min Dr. Terrell Valle [facility] 08-21-2023 16:05-0400 Oxygen saturation in Blood 96 % Dr. Terrell Gonzalez [facility] 08-21-2023 16:05-0400 Respiratory rate 18 /min Dr. Terrell Valle [facility] 08-21-2023 16:05-0400 Systolic blood pressure 159 mm[Hg] Dr. Terrell Gonzalez [facility] 08-21-2023 15:55-0400 PAIN LEVEL 0 {score} Dr. Terrell Gonzalez [facility] 08-21-2023 14:01-0400 Body weight 52.[address] Terrell Gonzalez [facility] 08-21-2023 13:41-0400 PAIN LEVEL 3 {score} Dr. Terrell Valle [facility] 08-21-2023 13:15-0400 Diastolic blood pressure 68 mm[Hg] Dr. Terrell Gonzalez [facility] 08-21-2023 13:15-0400 Systolic blood pressure 120 mm[Hg] Dr. Terrell Gonzalez [facility] 08-21-2023 12:42-0400 Body temperature 97.6 [degF] Dr. Terrell Valle [facility] 08-21-2023 12:42-0400 Diastolic blood pressure 68 mm[Hg] Dr. Terrell Gonzalez [facility] 08-21-2023 12:42-0400 Heart rate 80 /min Dr. Terrell Valle [facility] 08-21-2023 12:42-0400 Oxygen saturation in Blood 95 % Dr. Terrell Gonzalez [facility] 08-21-2023 12:42-0400 Respiratory rate 17 /[facility]-21-2023 12:42-0400 Systolic blood pressure 120 mm[Hg[facility] 08-21-2023 12:03-0400 PAIN LEVEL 6 {score} Dr. Terrell Valle [facility] 08-21-2023 11:01-0400 Oxygen saturation in Blood 93 % Dr. Terrell Gonzalez [facility] 08-21-2023 10:26-0400 PAIN LEVEL 3 {score} [facility] 08-21-2023 08:19-0400 PAIN LEVEL 5 {score} Dr. Terrell Valle [facility] 08-21-2023 08:19-0400 PAIN LEVEL 5 {score} [facility] 08-21-2023 04:32-0400 PAIN LEVEL 2 {score} Dr. Terrell Valle [facility] 08-21-2023 01:17-0400 Body temperature 98 [degF] Dr. Terrell Valle [facility] 08-21-2023 01:17-0400 Diastolic blood pressure 57 mm[Hg] [facility] 08-21-2023 01:17-0400 Heart rate 78 /[facility] 08-21-2023 01:17-0400 Oxygen saturation in Blood 94 % Dr. Terrell Gonzalez [facility] 08-21-2023 01:17-0400 Respiratory rate 16 /[facility] 08-21-2023 01:17-0400 Systolic blood pressure 123 mm[Hg] [facility] 08-21-2023 00:30-0400 Oxygen saturation in Blood 92 % Dr. Terrell Gonzalez [facility] 08-20-2023 23:37-0400 PAIN LEVEL 4 {score} Dr. Terrell Gonzalez [facility] 08-20-2023 23:37-0400 PAIN LEVEL 4 {score} Dr. Terrell Gonzaelz [facility] 08-20-2023 19:36-0400 PAIN LEVEL 2 {score} [facility] 08-20-2023 19:36-0400 PAIN LEVEL 2 {score} Dr. Terrell Gonzalez [facility] 08-20-2023 18:24-0400 Body temperature 98.6 [degF] Dr. Terrell Valle [facility] 08-20-2023 18:24-0400 Diastolic blood pressure 73 mm[Hg] Dr. Terrell Gonzalez [facility] 08-20-2023 18:24-0400 Heart rate 82 /[facility] 08-20-2023 18:24-0400 Oxygen saturation in Blood 93 % Dr. Terrell Gonzalez [facility] 08-20-2023 18:24-0400 Respiratory rate 18 /min Dr. Terrell Valle [facility] 08-20-2023 18:24-0400 Systolic blood pressure 148 mm[Hg] Dr. Terrell Gonzalez [facility] 08-20-2023 16:59-0400 PAIN LEVEL 6 {score} Dr. Terrell Valle [facility] 08-20-2023 16:51-0400 PAIN LEVEL 6 {score} [facility] Terrell [facility] 08-20-2023 13:37-0400 Body weight 52.[address] Terrell Gonzalez [facility] 08-20-2023 12:37-0400 PAIN LEVEL 3 {score} Dr. Terrell Gonzalez [facility] 08-20-2023 11:50-0400 Diastolic blood pressure 75 mm[Hg] Dr. Terrell Gonzalez [facility] 08-20-2023 11:50-0400 Heart rate 78 /min Dr. Terrell Gonzalez [facility] 08-20-2023 11:50-0400 Systolic blood pressure 136 mm[Hg] Dr. Terrell Gonzalez [facility] 08-20-2023 11:38-0400 PAIN LEVEL 6 {score} [facility] 08-20-2023 11:19-0400 Body temperature 98.5 [degF] Dr. Terrell Valle [facility] 08-20-2023 11:19-0400 Diastolic blood pressure 75 mm[Hg] [facility] 08-20-2023 11:19-0400 Heart rate 78 /min Dr. Terrell Valle [facility] 08-20-2023 11:19-0400 Oxygen saturation in Blood 95 % Dr. Terrell Gonzalez [facility] 08-20-2023 11:19-0400 Respiratory rate 18 /min Dr. Terrell Valle [facility] 08-20-2023 11:19-0400 Systolic blood pressure 136 mm[Hg] Dr. Terrell Gonzalez [facility] 08-20-2023 10:19-0400 Oxygen saturation in Blood 93 % Dr. Terrell Gonzalez [facility] 08-20-2023 09:28-0400 PAIN LEVEL 3 {score} Dr. Terrell Valle [facility] 08-20-2023 08:17-0400 PAIN LEVEL 4 {score} Dr. Terrell Valle [facility] 08-20-2023 08:17-0400 PAIN LEVEL 4 {score} Dr. Terrell Valle [facility] 08-20-2023 08:16-0400 PAIN LEVEL 4 {score} Dr. Terrell Valle [facility] 08-20-2023 05:05-0400 PAIN LEVEL 4 {score} Dr. Terrell Valle [facility] 08-20-2023 04:48-0400 Oxygen saturation in Blood 93 % Dr. Terrell Gonzalez [facility] 08-20-2023 04:17-0400 Body temperature 98.9 [degF] Dr. Terrell Valle [facility] 08-20-2023 04:17-0400 Diastolic blood pressure 73 mm[Hg] Dr. Terrell Gonzalez [facility] 08-20-2023 04:17-0400 Heart rate 85 /min Dr. Terrell Valle [facility] 08-20-2023 04:17-0400 Oxygen saturation in Blood 92 % Dr. Terrell Gonzalez [facility] 08-20-2023 04:17-0400 Respiratory rate 17 /min Dr. Terrell Valle [facility] 08-20-2023 04:17-0400 Systolic blood pressure 132 mm[Hg] Dr. Terrell Gonzalez [facility] 08-20-2023 00:08-0400 PAIN LEVEL 0 {score} Dr. Terrell Valle [facility] 08-19-2023 23:42-0400 PAIN LEVEL 4 {score} Dr. Terrell Valle [facility] 08-19-2023 22:05-0400 PAIN LEVEL 6 {score} Dr. Terrell Valle [facility] 08-19-2023 21:32-0400 Body temperature 98.8 [degF] Dr. Terrell Valle [facility] 08-19-2023 21:32-0400 Diastolic blood pressure 72 mm[Hg] Dr. Terrell Gonzalez [facility] 08-19-2023 21:32-0400 Heart rate 77 /min Dr. Terrell Valle [facility] 08-19-2023 21:32-0400 Oxygen saturation in Blood 95 % Dr. Terrell Gonzalez [facility] 08-19-2023 21:32-0400 Respiratory rate 17 /min Dr. Terrell Valle [facility] 08-19-2023 21:32-0400 Systolic blood pressure 147 mm[Hg] Dr. Terrell Gonzalez [facility] 08-19-2023 20:51-0400 PAIN LEVEL 3 {score} Dr. Terrell Valle [facility] 08-19-2023 17:35-0400 PAIN LEVEL 6 {score} Dr. Terrell Valle [facility] 08-19-2023 16:17-0400 PAIN LEVEL 10 {score} Dr. Terrell Valle [facility] 08-19-2023 14:42-0400 PAIN LEVEL 3 {score} [facility] 08-19-2023 14:32-0400 Body temperature 98.3 [degF] Dr. Terrell Valle [facility] 08-19-2023 14:32-0400 Diastolic blood pressure 59 mm[Hg] [facility] 08-19-2023 14:32-0400 Heart rate 83 /[facility] 08-19-2023 14:32-0400 Oxygen saturation in Blood 92 % Dr. Terrell Gonzalez [facility] 08-19-2023 14:32-0400 Respiratory rate 18 /min Dr. Terrell Valle [facility] 08-19-2023 14:32-0400 Systolic blood pressure 144 mm[Hg] Dr. Terrell Gonzalez [facility] 08-19-2023 13:35-0400 PAIN LEVEL 5 {score} Dr. Terrell Gonzalez [facility] 08-19-2023 12:24-0400 Oxygen saturation in Blood 91 % Dr. Terrell Gonzalez [facility] 08-19-2023 09:51-0400 PAIN LEVEL 2 {score} [facility] 08-19-2023 08:44-0400 PAIN LEVEL 6 {score} [facility] 08-19-2023 08:44-0400 PAIN LEVEL 6 {score} [facility] 08-19-2023 04:41-0400 PAIN LEVEL 6 {score} Dr. Terrell Gonzalez [facility] 08-19-2023 04:41-0400 PAIN LEVEL 6 {score} Dr. Terrell Gonzalez [facility] 08-19-2023 01:19-0400 Oxygen saturation in Blood 90 % Dr. Terrell Gonzalez [facility] 08-18-2023 22:06-0400 PAIN LEVEL 7 {score} [facility] 08-18-2023 20:57-0400 PAIN LEVEL 10 {score} [facility] 08-18-2023 19:43-0400 PAIN LEVEL 6 {score} [facility] 08-18-2023 17:16-0400 Body temperature 98 [degF] Dr. Terrell Valle [facility] 08-18-2023 17:16-0400 Diastolic blood pressure 68 mm[Hg] Dr. Terrell Gonzalez [facility] 08-18-2023 17:16-0400 Heart rate 80 /min Dr. Terrell Valle [facility] 08-18-2023 17:16-0400 Oxygen saturation in Blood 89 % Dr. Terrell Gonzalez [facility] 08-18-2023 17:16-0400 PAIN LEVEL 0 {score} Dr. Terrell Valle [facility] 08-18-2023 17:16-0400 Respiratory rate 17 /min Dr. Terrell Valle [facility] 08-18-2023 17:16-0400 Systolic blood pressure 121 mm[Hg] Dr. Terrell Gonzalez [facility] 08-18-2023 14:01-0400 Body temperature 98.6 [degF] Dr. Terrell Gonzalez [facility] 08-18-2023 13:51-0400 Body height 160.[address] [facility] 08-18-2023 13:51-0400 Body temperature 98.6 [degF] Dr. Terrell Gonzalez [facility] 08-18-2023 13:51-0400 Body weight 54.[address] Terrell Valle [facility] 08-18-2023 13:51-0400 Diastolic blood pressure 81 mm[Hg] Dr. Terrell Gonzalez [facility] 08-18-2023 13:51-0400 Heart rate 83 /min Dr. Terrell Valle [facility] 08-18-2023 13:51-0400 Oxygen saturation in Blood 95 % Dr. Terrell Gonzalez [facility] 08-18-2023 13:51-0400 Respiratory rate 16 /min Dr. Terrell Valle [facility] 08-18-2023 13:51-0400 Systolic blood pressure 163 mm[Hg] [facility] 08-18-2023 11:28-0400 Heart rate 86 /min MD Ruben Velasquez Work Phone: [place] 08-18-2023 11:28-0400 Respiratory rate 20 /min MD Ruben Velasquez Work Phone: [place] 08-18-2023 08:53-0400 Inhaled oxygen flow rate 3 L/min MD Ruben Velasquez Work Phone: [place] 08-18-2023 08:41-0400 Body temperature 98.4 [degF] MD Ruben Velasquez Work Phone: [place] 08-18-2023 08:41-0400 Diastolic blood pressure 52 mm[Hg] MD Ruben Velasquez Work Phone: [place] 08-18-2023 08:41-0400 SaO2% (BldA) [Mass fraction] 96 % MD Ruben Velasquez Work Phone: [place] 08-18-2023 08:41-0400 Systolic blood pressure 105 mm[Hg] MD Ruben Velasquez Work Phone: [place] 08-18-2023 05:59-0400 Body weight 51.8 kg MD Ruben Velasquez Work Phone: [place] 08-14-2023 07:33-0400 Body height 160.02 cm MD Ruben Velasquez Work Phone: [place] 08-05-2023 14:00-0400 Body height 160.[address] Terrell Valle [facility] 08-05-2023 14:00-0400 Body temperature 98.4 [degF] Dr. Terrell Valle [facility] 07-25-2023 11:36-0400 Body temperature 98.7 [degF] MD Ruben Velasquez Work Phone: [place] 07-25-2023 11:36-0400 Diastolic blood pressure 82 mm[Hg] MD Ruben Velasquez Work Phone: [place] 07-25-2023 11:36-0400 Heart rate 85 /min MD Ruben Velasquez Work Phone: [place] 07-25-2023 11:36-0400 Inhaled oxygen flow rate 3 L/min MD Ruben Velasquez Work Phone: [place] 07-25-2023 11:36-0400 Respiratory rate 16 /min MD Ruben Velasquez Work Phone: [place] 07-25-2023 11:36-0400 SaO2% (BldA) [Mass fraction] 97 % MD Ruben Velasquez Work Phone: [place] 07-25-2023 11:36-0400 Systolic blood pressure 154 mm[Hg] MD Ruben Velasquez Work Phone: [place] 07-24-2023 13:10-0400 Body height 160.02 cm MD Ruben Velasquez Work Phone: [place] 07-24-2023 06:00-0400 Body weight 68.2 kg MD Ruben Velasquez Work Phone: [place] 07-21-2023 13:52-0400 Body mass index (BMI) [Ratio] 22.6 kg/m2 MD Ruben Velasquez Work Phone: [place] 07-16-2023 07:36-0400 Body temperature 99.1 [degF] MD Ruben Velasquez Work Phone: [place] 07-16-2023 07:36-0400 Diastolic blood pressure 55 mm[Hg] MD Ruben Velasquez Work Phone: [place] 07-16-2023 07:36-0400 Heart rate 85 /min MD Ruben Velasquez Work Phone: [place] 07-16-2023 07:36-0400 Inhaled oxygen flow rate 2 L/min MD Ruben Velasquez Work Phone: [place] 07-16-2023 07:36-0400 Respiratory rate 17 /min MD Ruben Velasquez Work Phone: [place] 07-16-2023 07:36-0400 SaO2% (BldA) [Mass fraction] 98 % MD Ruben Velasquez Work Phone: [place] 07-16-2023 07:36-0400 Systolic blood pressure 117 mm[Hg] MD Ruben Velasquez Work Phone: [place] 07-16-2023 03:49-0400 Body height 157.48 cm MD Ruben Velasquez Work Phone: [place] 07-16-2023 03:49-0400 Body weight 54.6 kg MD Ruben Velasquez Work Phone: [place] 04-30-2023 15:00-0500 Body height 160 cm Ruben Velasquez MD Work Phone: [facility] 04-30-2023 15:00-0500 Body mass index (BMI) [Ratio] 20.19 kg/m2 Ruben Velasquez MD Work Phone: [facility] 04-30-2023 15:00-0500 Body weight 51.71 kg Ruben Velasquez MD Work Phone: [facility] 04-30-2023 15:00-0500 Heart rate 87 /min Ruben Velasquez MD Work Phone: [facility] 04-30-2023 15:00-0500 SaO2% (BldA) [Mass fraction] 96 % Ruben Velasquez MD Work Phone: [facility] 11-13-2021 12:30-0400 Body height 161.29 cm Christopher Alondra Other [employer] Other 11-13-2021 12:30-0400 Body temperature 97.4 [degF] Christopher Alondra Other [employer] Other 11-13-2021 12:30-0400 Diastolic blood pressure 81 mm[Hg] Christopher Alondra Other [employer] Other 11-13-2021 12:30-0400 Respiratory rate 20 /min Christopher Alondra Other [employer] Other 11-13-2021 12:30-0400 SaO2% (BldA) [Mass fraction] Christopher Alondra Other [employer] Other 11-13-2021 12:30-0400 Systolic blood pressure 162 mm[Hg] Christopher Alondra Other [employer] Other Encounters Encounter Date Encounter Type Care Provider Facility Start: 10-28-2023 End: 10-28-2023 ambulatory MD Ruben Velasquez Work Phone: [facility] Work Phone: Start: 10-28-2023 End: 10-28-2023 Departed Referred MD Ruben Velasquez Work Phone: [facility] [place] Work Phone: Start: 10-23-2023 End: 10-23-2023 Patient encounter procedure MD Ruben Velasquez Work Phone: [facility] [place] Work Phone: Start: 10-23-2023 End: 10-23-2023 MD Ruben Velasquez Work Phone: [facility] [place] Work Phone: Start: 10-23-2023 End: 10-23-2023 ambulatory MD Ruben Velasquez Work Phone: [facility] Work Phone: Start: 10-15-2023 End: 10-15-2023 ambulatory RUBEN VELASQUEZ Not Available Start: 10-07-2023 End: 10-07-2023 ambulatory MD Ruben Velasquez Work Phone: [facility] Work Phone: Start: 10-07-2023 End: 10-07-2023 Patient encounter procedure MD Ruben Velasquez Work Phone: [facility] Work Phone: Start: 10-07-2023 End: 10-07-2023 MD Ruben Velasquez Work Phone: [facility] Work Phone: Start: 10-07-2023 End: 10-07-2023 Patient encounter procedure MD Ruben Velasquez Work Phone: [facility] Start: 10-07-2023 End: 10-07-2023 MD Ruben Velasquez Work Phone: [facility] Start: 10-07-2023 End: 10-07-2023 ambulatory MD Ruben Velasquez Work Phone: [facility] Work Phone: Start: 10-05-2023 End: 10-05-2023 Departed Referred MD Ruben Velasquez Work Phone: [facility] [place] Work Phone: Start: 10-05-2023 End: 10-05-2023 MD Ruben Velasquez Work Phone: [facility] [place] Work Phone: Start: 10-05-2023 End: 10-05-2023 ambulatory MD Ruben Velasquez Work Phone: [facility] Work Phone: Start: 10-02-2023 End: 10-02-2023 Departed Referred MD Ruben Velasquez Work Phone: [facility] [place] Work Phone: Start: 10-02-2023 End: 10-02-2023 MD Ruben Velasquez Work Phone: [facility] [place] Work Phone: Start: 10-02-2023 End: 10-02-2023 ambulatory Ruben Velasquez Facility:[place] Start: 10-01-2023 End: 10-01-2023 ambulatory MD Ruben Velasquez Work Phone: [facility] Work Phone: Start: 10-01-2023 End: 10-01-2023 Patient encounter procedure MD Ruben Velasquez Work Phone: [facility] Work Phone: Start: 10-01-2023 End: 10-01-2023 MD Ruben Velasquez Work Phone: [facility] Work Phone: Start: 09-16-2023 End: 09-16-2023 ambulatory MD Ruben Velasquez Work Phone: [facility] Work Phone: Start: 09-16-2023 End: 09-16-2023 Departed Referred MD Ruben Velasquez Work Phone: [facility] [place] Work Phone: Start: 09-16-2023 End: 09-16-2023 MD Ruben Velasquez Work Phone: [facility] [place] Work Phone: Start: 09-15-2023 End: 09-16-2023 ambulatory RUBEN VELASQUEZ Not Available Start: 08-28-2023 End: 08-28-2023 ambulatory MD Ruben Velasquez Work Phone: [facility] Work Phone: Start: 08-28-2023 End: 08-28-2023 Patient encounter procedure MD Ruben Velasquez Work Phone: [facility] Work Phone: Start: 08-28-2023 End: 08-28-2023 MD Ruben Velasquez Work Phone: [facility] Work Phone: Start: 08-27-2023 End: 08-27-2023 ambulatory MD Ruben Velasquez Work Phone: [facility] Work Phone: Start: 08-27-2023 End: 08-27-2023 Departed Referred MD Ruben Velasquez Work Phone: [facility] Start: 08-27-2023 End: 08-27-2023 MD Ruben Velasquez Work Phone: [facility] Start: 08-25-2023 End: 08-25-2023 ambulatory MD Ruben Velasquez Work Phone: [facility] Work Phone: Start: 08-25-2023 End: 08-25-2023 Patient encounter procedure MD Ruben Velasquez Work Phone: [facility] Start: 08-25-2023 End: 08-25-2023 MD Ruben Velasquez Work Phone: [facility] Start: 08-18-2023 End: 09-10-2023 Evaluation and management of inpatient Terrell Gonzalez [facility] Start: 08-17-2023 End: 08-18-2023 Non-patient / Non-visit MD Ruben Velasquez Work Phone: [facility] Work Phone: Start: 08-17-2023 End: 08-18-2023 MD Ruben Velasquez Work Phone: [facility] Work Phone: Start: 08-11-2023 End: 08-18-2023 Non-patient / Non-visit MD Ruben Velasquez Work Phone: [facility] Work Phone: Start: 08-11-2023 End: 08-18-2023 MD Ruben Velasquez Work Phone: [facility] Work Phone: Start: 08-10-2023 End: 08-18-2023 Non-patient / Non-visit MD Ruben Velasquez Work Phone: [facility] Work Phone: Start: 08-10-2023 End: 08-18-2023 MD Ruben Velasquez Work Phone: [facility] Work Phone: Start: 08-03-2023 End: 08-18-2023 Non-patient / Non-visit MD Ruben Velasquez Work Phone: [facility] Work Phone: Start: 08-03-2023 End: 08-18-2023 MD Ruben Velasquez Work Phone: [facility] Work Phone: Start: 08-02-2023 End: 08-18-2023 Non-patient / Non-visit MD Ruben Velasquez Work Phone: [facility] Work Phone: Start: 08-02-2023 End: 08-18-2023 MD Ruben Velasquez Work Phone: [facility] Work Phone: Start: 07-27-2023 End: 08-18-2023 MD Ruben Velasquez Work Phone: [facility] Work Phone: Start: 07-26-2023 End: 08-18-2023 MD Ruben Velasquez Work Phone: [facility] Work Phone: Start: 07-26-2023 End: 08-18-2023 MD Ruben Velasquez Work Phone: [facility] Work Phone: Start: 07-25-2023 End: 08-18-2023 MD Ruben Velasquez Work Phone: [facility] Work Phone: Start: 07-25-2023 End: 08-18-2023 Evaluation and management of inpatient MD Ruben Velasquez Work Phone: [facility] Work Phone: Start: 07-23-2023 Non-patient / Non-visit MD Noble Velasquez Work Phone: [facility] Work Phone: Start: 07-23-2023 End: 07-25-2023 MD Ruben Velasquez Work Phone: [facility] Work Phone: Start: 07-20-2023 Non-patient / Non-visit MD Noble Velasquez Work Phone: [facility] Work Phone: Start: 07-20-2023 End: 07-25-2023 MD Ruben Velasquez Work Phone: [facility] Work Phone: Start: 07-17-2023 Non-patient / Non-visit MD Noble Velasquez Work Phone: [facility] Work Phone: Start: 07-17-2023 End: 07-25-2023 MD Ruben Velasquez Work Phone: [facility] Work Phone: Start: 07-16-2023 Non-patient / Non-visit MD Noble Velasquez Work Phone: [facility] Work Phone: Start: 07-16-2023 End: 07-25-2023 MD Ruben Velasquez Work Phone: [facility] Work Phone: Start: 07-16-2023 Non-patient / Non-visit MD Noble Velasquez Work Phone: [facility] Work Phone: Start: 07-16-2023 End: 07-25-2023 MD Ruben Velasquez Work Phone: [facility] Work Phone: Start: 07-16-2023 Non-patient / Non-visit MD Noble Velasquez Work Phone: [facility] Work Phone: Start: 07-16-2023 End: 07-25-2023 MD Ruben Velasquez Work Phone: [facility] Work Phone: Start: 07-16-2023 End: 07-25-2023 Evaluation and management of inpatient MD Ruben Velasquez Work Phone: [facility] Work Phone: Start: 07-16-2023 End: 07-25-2023 MD Ruben Velasquez Work Phone: [facility] Work Phone: Start: 06-04-2023 End: 06-04-2023 ambulatory RUBEN VELASQUEZ Not Available Start: 04-30-2023 End: 04-30-2023 Office outpatient visit 25 minutes Ruben Velasquez MD Work Phone: [facility] Comment on above: Peripheral edema (Pr imary Dx); Venous (peripheral) insufficiency; Simple chronic bronchitis (CMS/HCC); Dependence on supplemental oxygen; Chronic respiratory failure with hypoxia (CMS/HCC); Adenocarcinoma of right lung (CMS/HCC); ASCVD (arteriosclerotic cardiovascular disease) (CMS/HCC); Polypharmacy; Nonrheumatic aortic valve stenosis; Late effects of cerebrovascular disease Start: 04-30-2023 End: 04-30-2023 ambulatory RUBEN VELASQUEZ Not Available Start: 02-19-2023 End: 02-19-2023 ambulatory RUBEN VELASQUEZ Not Available Start: 12-01-2022 End: 12-02-2022 ambulatory Charles Tenorio Facility:[facility] Start: 12-01-2022 End: 12-01-2022 Patient encounter procedure Charles Tenorio [facility] Start: 10-16-2022 End: 10-16-2022 ambulatory Yvan Cantu Other [employer] Other Start: 10-16-2022 Telephone encounter Yvan patel [facility] Start: 02-28-2022 End: 02-28-[address] RUBEN VELASQUEZ Facility:[facility] Start: 01-04-2022 End: 01-04-[address] RUBEN VELASQUEZ Facility:[facility] Start: 12-07-2021 End: 12-08-[address] RUBEN VELASQUEZ Facility:[facility] Start: 11-13-2021 End: 11-13-2021 ambulatory Yvan Cantu Other [employer] Other Start: 11-13-2021 Office outpatient vi sit 15 minutes Yvan Cantu [facility] Start: 11-08-2021 End: 11-08-2021 ambulatory Yvan Cantu Other [employer] Other Start: 11-08-2021 Telephone encounter Yvan patel [facility] Start: 04-04-2018 End: 04-05-2018 Patient encounter procedure DEFAULT PHYSICIAN Facility:[facility] Start: 02-19-2018 End: 12-03-2022 Patient encounter status Ruben Velasquez MD Work Phone: [facility] Procedures Date Procedure Procedure Detail Performing Clinician Start: 10-23-2023 US scan of bladder MD Shawn Velasquez Work Phone: Start: 10-07-2023 Plain X-ray of right hip MD Ruben Velasquez Work Phone: Start: 10-05-2023 Urine culture MD Ruben Velasquez Work Phone: Start: 09-16-2023 Urine culture MD Ruben Velasquez Work Phone: Start: 08-28-2023 Plain X-ray of right hip MD Ruben Velasquez Work Phone: Start: 08-27-2023 Urine culture MD Ruben Velasquez Work Phone: Start: 08-17-2023 Plain X-ray of right hip MD Ruben Velasquez Work Phone: Start: 08-10-2023 Plain X-ray of right hip MD Ruben Velasquez Work Phone: Start: 08-10-2023 Aerobic microbial culture MD Ruben Velasquez Work Phone: Start: 08-02-2023 Plain chest X-ray Ed gray Ron Work Phone: Start: 07-25-2023 Plain chest X-ray Ed gray Ron Work Phone: Start: 07-21-2023 Prosthetic total arthroplasty of right shoulder MD Ruben Velasquez Work Phone: Start: 07-21-2023 Plain X-ray of right shoulder MD Ruben Velasquez Work Phone: Start: 07-21-2023 Antibody screen Nils Boudreaux Comment on above: Order Comment: Trans fuse now? Y Number of units to transfuse now? 1 Comment Please transfuse both units Transfuse now? Y Number of units to transfuse now? 2 Result Comment: PERF ORMED BY:[facility] [place], [place] [phone] MEDICAL DIRECTORAMPARO MONTAGUE M.D. Start: 07-20-2023 CT of right shoulder MD Ruben Velasquez Work Phone: Start: 07-17-2023 Plain X-ray of right hip MD Ruben Velasquez Work Phone: Start: 07-17-2023 Plain X-ray of right femur MD Ruben Velasquez Work Phone: Start: 07-17-2023 Revision of hip arthroplasty MD Ruben Velasquez Work Phone: Start: 07-16-2023 Plain chest X-ray MD Prakash Velasquez Work Phone: Start: 07-16-2023 Urine culture MD Ruben Velasquez Work Phone: Start: 07-16-2023 CT of right hip MD Tino Velasquez Work Phone: Start: 07-16-2023 Plain X-ray of right femur MD Ruben Velasquez Work Phone: Start: 07-16-2023 Plain chest X-ray MD Prakash Velasquez Work Phone: Start: 07-16-2023 Plain X-ray of right shoulder MD Ruben Velasquez Work Phone: Start: 05-27-2017 Colonoscopy Ruben chapman MD Work Phone: Cataract (disorder) XXXX NON E Comment on above: right ovarian cyst removed XXXX NO NE Prosthetic arthropla sty of the hip Hip replacement( Confirmed ) 1 XXXX NONE Comment on above: Right rt hip replacement XXXX NONE tubaligation XXXX NONE Plan of Treatment Date Care Activity Detail Author Start: 05-27-2027 Screening for malignant neoplasm of colon [facility] Start: 11-06-2023 Medicare Annual Wellness (AWV) Medicare Annual Wellness (AWV) [facility] Start: 10-28-2023 Bacteria identified in Urine by Culture [place] Start: 10-07-2023 Plain X-ray of right hip [facility] Start: 10-07-2023 XR Hip - right [address] [facility] Start: 10-05-2023 [place] Start: 09-16-2023 [place] Start: 08-27-2023 [place] Start: 08-20-2023 End: 08-20-2023 Patient encounter procedure 08/20/2023 2:30 PM EDT Office Visit [facility] [address] [place] [address] Ruben Velasquez MD [address] [place] [address] (Fax) [facility] Start: 08-18-2023 [place] Start: 07-27-2023 Referral to palliative care physician [place] Start: 07-25-2023 Referral to psychiatrist [facility] Start: 07-25-2023 Administration of prophylactic treatment [place] Start: 07-25-2023 Hospital admission [place] Start: 07-25-2023 Referral to clinical clam grader [place] Start: 07-25-2023 [place] Start: 07-22-2023 End: 07-22-2023 Patient encounter procedure 07/22/2023 2:30 PM EDT Office Visit [facility] [address] [place] [address] Ruben Velasquez MD [address] [place] [address] (Fax) [facility] Start: 07-20-2023 Administration of prophylactic treatment [place] Start: 07-17-2023 Referral to rehabilitation physician [place] Start: 07-17-2023 Hospital admission [place] Start: 07-16-2023 Bacteria identified in Urine by Culture [place] Start: 07-16-2023 Bipolar hemiarthroplasty of both hips [place] Start: 07-16-2023 Reposition Right Femoral Shaft with Internal Fixation Device, [facility] Approach [place] Start: 07-16-2023 Reposition Right Upper Femur with Internal Fixation Device, [facility] Start: 07-16-2023 [place] Start: 07-16-2023 [place] Start: 07-16-2023 Consultation [place] Start: 07-16-2023 Consultation [place] Start: 07-16-2023 CT Hip - right WO contrast [facility] Start: 07-16-2023 CT of right hip CT hip RT wo con [place] Start: 07-16-2023 Plain X-ray of right femur XR femur RT 2V* [facility] Start: 07-16-2023 XR Femur - right [address] [facility] Start: 07-16-2023 Pelvis X-ray XR pelvis 1-2V [place] Start: 07-16-2023 Plain chest X-ray XR chest 1V portable [place] Start: 07-16-2023 Plain X-ray of right shoulder XR shoulder RT min 2V* [place] Start: 07-16-2023 XR Chest Single view [place] Start: 07-16-2023 XR Pelvis [address] [facility] Start: 07-16-2023 XR Shoulder - right Views [facility] Start: 07-14-2023 End: 07-14-2023 Patient encounter procedure 07/14/2023 1:15 PM EDT Office Visit [facility] [address] [place] [address] Charles Tenorio DO [address] [place], [place] [id number] [facility] Start: 1950 Screening for malignant neoplasm of colon [facility] Bacteria identified in Urine by Culture [place] Bacteria identified in Urine by Culture [place] Bacteria identified in Urine by Culture [place] Patient Education [facility] Work Phone: Patient referral [facility] Work Phone: Immunizations Immunization Date Immunization Notes Care Provider Fa cili 02-19-2023 RSV, recombinant, protein subunit RSVpreF, adjuvant reconstitu, 120mcg/0.5mL, PF (Arexvy) Ruben Velasquez MD Work Phone: [facility] 12-14-2022 Influenza, Seasonal, Quadrivalent, Adjuvanted Ruben Velasquez MD Work Phone: [facility] 12-27-2021 Influenza, High-dose Seasonal, Quadrivalent, Preservative Free Ruben Velasquez MD Work Phone: [facility] 12-27-2021 Pfizer Bivalent Booster 12 Years And Older Ruben Velasquez MD Work Phone: [facility] 12-27-2021 SARS-COV-2 (COVID-19 ) vaccine, mRNA, spike protein, LNP, bivalent, preservative free, 30 mcg/0.3 mL dose, shantell-sucrose formulation Ruben Velasquez MD Work Phone: [facility] 12-26-2021 Influenza, High-dose Seasonal, Quadrivalent, Preservative Free Ruben Velasquez MD Work Phone: [facility] 02-07-2021 pneumococcal polysaccharide vaccine, 23 valent Ruben Velasquez MD Work Phone: [facility] 02-06-2021 pneumococcal polysaccharide vaccine, 23 valent Ruben Velasquez MD Work Phone: [facility] 01-26-2021 COVID-19 Vaccine Pfizer - Documentation Purposes Only Yvan Cantu Other [place] 01-25-2021 Pfizer Purple Cap SARS-CoV-2 Vaccination Ruben Velasquez MD Work Phone: [facility] 01-19-2021 Influenza, High-dose Seasonal, Quadrivalent, Preservative Free Ruben Velasquez MD Work Phone: [facility] 01-18-2021 Influenza, High-dose Seasonal, Quadrivalent, Preservative Free Ruben Velasquez MD Work Phone: [facility] 06-13-2020 Moderna SARS-CoV-2 Vaccination Ruben Velasquez MD Work Phone: [facility] 06-12-2020 Moderna SARS-CoV-2 Vaccination Ruben Velasquez MD Work Phone: [facility] 06-05-2020 COVID-19 Vaccine Pfizer - Documentation Purposes Only Christopher Alondra Other [place] 06-04-2020 Pfizer Purple Cap SARS-CoV-2 Vaccination Ruben Velasquez MD Work Phone: [facility] 05-14-2020 COVID-19 Vaccine Pfizer - Documentation Purposes Only Yvan Cantu Other [place] 2020 Pfizer Purple Cap SARS-CoV-2 Vaccination Ruben Velasquez MD Work Phone: [facility] 12-30-2019 Influenza, High-dose Seasonal, Quadrivalent, Preservative Free Ruben Velasquez MD Work Phone: [facility] 12-30-2019 influenza, injectabl e, quadrivalent, preservative free Ruben Velasquez MD Work Phone: [facility] 12-30-2019 pneumococcal conjuga te vaccine, 13 valent Ruben Velasquez MD Work Phone: [facility] 12-29-2019 Influenza, High-dose Seasonal, Quadrivalent, Preservative Free Ruben Velasquez MD Work Phone: [facility] 12-29-2019 pneumococcal conjuga te vaccine, 13 valcharles Velasquez MD Work Phone: [facility] 12-18-2018 influenza virus vaccine, unspecified formulation MD Ruben Velasquez Work Phone: [place] 12-18-2018 influenza, high dose seasonal, preservative-free Christopher Alondra Other [employer] [facility] [employer] Other 12-18-2018 tetanus toxoid, reduced diphtheria toxoid, and acellular pertussis vaccine, adsorbed Christopher Alondra Other [facility] [employer] Other 12-17-2018 Influenza, High-dose Seasonal, Quadrivalent, Preservative Free Ruben Velasquez MD Work Phone: [facility] 12-17-2018 tetanus toxoid, reduced diphtheria toxoid, and acellular pertussis vaccine, adsorbed Ruben Velasquez MD Work Phone: [facility] 03-04-2018 influenza, high dose seasonal, preservative-free Ruben Velasquez MD Work Phone: [facility] 03-03-2018 influenza, high dose seasonal, preservative-free Ruben Velasquez MD Work Phone: [facility] 01-30-2017 influenza, high dose seasonal, preservative-free Christopher Alondra Other [facility] [employer] Other 01-30-2017 influenza virus vaccine, unspecified formulation MD Ruben Velasquez Work Phone: [place] 01-30-2017 influenza, injectabl e, quadrivalent, preservative free Ruben Velasquez MD Work Phone: [facility] 01-30-2017 pneumococcal conjuga te vaccine, 13 valent Ruben Velasquez MD Work Phone: [facility] 02-05-2016 influenza, injectabl e, quadrivalent, preservative free MD Ruben Velasquez Work Phone: [place] 02-05-2016 influenza, injectabl e, quadrivalent, contains preservative Christopher Alondra Other [employer] [facility] [employer] Other 12-17-2015 influenza, injectabl e, quadrivalent, preservative free Ruben Velasquez MD Work Phone: [facility] 03-09-2015 influenza, injectabl e, quadrivalent, preservative free Ruben Velasquez MD Work Phone: [facility] 03-09-2015 influenza, injectabl e, quadrivalent, contains preservative Christopher Alondra Other [employer] Other 01-04-2014 influenza, seasonal, injectable, preservative free Ruben Velasquez MD Work Phone: [facility] 04-06-2011 pneumococcal polysaccharide vaccine, 23 valent Yvan Alondra Other [facility] 12-31-2009 influenza virus vaccine, unspecified formulation MD Ruben Velasquez Work Phone: [place] 12-31-2009 influenza virus vaccine, split virus (incl. purified surface antigen) Yvan Cantu Other [facility] [employer] Other 11-19-2009 pneumococcal Conjugate, unspecified formulation MD Ruben Velasquez Work Phone: [place] 11-19-2009 pneumococcal conjuga te vaccine, 7 valent Yvan Cantu Other [facility] [employer] Other 02-24-2009 novel [id number], preservative-free, injectable Ruben Velasquez MD Work Phone: [facility] Healthcare Payers Date Payer Category Payer Unknown [id number] 2023 Medicare [id number] 2023 Self-pay 2021 Medicaid MEDICAID [facility] [id number] 2021-Present [phone] [address] [place] [address] Medicaid [id number] 2017 Medicare ANTHEM MEDICARE ADVANTAGE ANTHEM MEDICARE ADVANTAGE [id number] 2017-Present [address] [place] [address] [id number] 2017 Medicare [id number] 1959 Medicaid [id number] 1959 Medicare [id number] 2.16.840.1.006037.19 1950 Unknown [id number] 2.16.840.1.912120.3.579.2.647 1950 Unknown [id number] 2.16.840.1.316026.3.579.2.593 1950 Unknown [id number] 2.16.840.1.086991.3.579.2.593 1950 Unknown [id number] 2.16.840.1.218646.3.579.2.593 1950 Unknown [id number] 2.16.840.1.497985.3.579.2.727 1950 Unknown [id number] 2..840.1.235000.3.579.2.1259 1950 Unknown [id number] 2.16.840.1.667210.3.579.2.1259 1950 Unknown [id number] 2.16.840.1.113826.3.579.2.1259 1950 Unknown [id number] 2.16.840.1.666419.3.579.2.1259 1950 Unknown [id number] 2.16840.1.060891.3.579.2.1259 Medicare [id number] Unknown Unknown [id number] Unknown [id number] 2.16.840.1.292097.3.579.2.531 Unknown [id number] 2.16.840.1.411989.3.579.2.531 Unknown [id number] 2.840.1.387977.3.579.2.531 Unknown [id number] 2.16.840.1.096155.3.579.2.531 Unknown [id number] 2.16840.1.285906.3.579.2.531 Unknown [id number] 2.16.840.1.540457.3.579.2.531 Unknown [id number] 2.16.840.1.985927.3.579.2.531 Unknown [id number] 2.16840.1.161144.3.579.2.531 Unknown [id number] 2.16840.1.102147.3.579.2.531 Unknown [id number] 2.16840.1.033163.3.579.2.531 Unknown [id number] 2.16840.1.696642.3.579.2.531 Social History Date Type Detail Facility Tobacco Cigarettes [facility] Comment on above: 1 ppd Start: 11-05-2022 End: 01-29-2023 Sex Assigned At Female [facility] Tobacco smoking status No Smokin g Status Entered [facility] Start: 12-02-2022 End: 10-01-2023 Tobacco smoking status [facility] Ex-smoker [facility] History of tobacco use Current smoker [facility] History of tobacco use Cigarette Smoker [facility] Start: 12-02-2022 Tobacco use and exposure Smokeless tobacco non-user [facility] Start: 05-14-2023 Alcohol intake Ex-drinker (finding) [facility] Start: 11-05-2022 End: 01-29-2023 History of Social function [facility] Within the last year , have you been afraid of your partner or ex-partner? No [facility] Are you now , , , , never or living with a partner? [facility] How often to you hav e a drink containing alcohol? Never [facility] How many standard drinks containing alcohol do you have on a typical day? Patient does not drink [facility] Do you feel stress - tense, restless, nervous, or anxious, or unable to sleep at night because your mind is troubled all the time - these days [OSQ] Only a little [facility] (I/We) worried wheth er (my/our) food would run out before (I/we) got money to buy more. Never true [facility] In the past 12 month s, was there a time when you were not able to pay the mortgage or rent on time? Yes [facility] Start: 12-02-2022 Tobacco Comment Last smoke : 6 -12 months [facility] Start: 12-02-2022 Alcohol Comment Caffeine intak e : more than 4 cups per day [facility] Start: 1950 Sex Assigned At Not on file [facility] Start: 1950 Sex Assigned At Female F [facility] Start: 09-05-2023 Unknown if ever smoked [facility] Medical Equipment Procedure Code Equipment Code Equipment Origin al Text Equipment Identifier Dates Minimally invasive revision of total replacement of hip ()[id number] FDA Start: 07-17-2023 Minimally invasive revision of total replacement of hip ()[id number]( [id number] 90 FDA Start: 07-17-2023 Minimally invasive revision of total replacement of hip ()[id number]( [id number])[id number] 69 FDA Start: 07-17-2023 Minimally invasive revision of total replacement of hip ()[id number]( 17)[id number] 5 FDA Start: 07-17-2023 Minimally invasive revision of total replacement of hip ()[id number]( 17)[id number])[id number] 23 FDA Start: 07-17-2023 Minimally invasive revision of total replacement of hip ()[id number]( 17)[id number])[id number] 06 FDA Start: 07-17-2023 Minimally invasive revision of total replacement of hip ([id number]( 17)[id number])[id number] 26 FDA Start: 07-17-2023 Minimally invasive revision of total replacement of hip ()[id number]( 17)[id number](89)[id number] 93 FDA Start: 07-17-2023 Minimally invasive revision of total replacement of hip (01)[id number]( 17)[id number](39)[id number] 11 FDA Start: 07-17-2023 Minimally invasive revision of total replacement of hip (01)[id number]( 17)[id number])[id number] 54 FDA Start: 07-17-2023 Arthroplasty, shoulder, total (01)[id number]( 17)230007(91)[id number] 57 FDA Start: 07-21-2023 Arthroplasty, shoulder, total (01)[id number]( 17)253292(15)[id number] 23 FDA Start: 07-21-2023 Arthroplasty, shoulder, total (01)[id number]( 17)729876(76)[id number] 11 FDA Start: 07-21-2023 Arthroplasty, shoulder, total (01)[id number]( 17)[id number] 66 FDA Start: 07-21-2023 Arthroplasty, shoulder, total (01)[id number]( 17)667557(56)[id number] 66 FDA Start: 07-21-2023 Arthroplasty, shoulder, total (01)[id number]( 17)119592(69)[id number] 41 FDA Start: 07-21-2023 Arthroplasty, shoulder, total (01)[id number]( 17)[id number](14)[id number] 38 FDA Start: 07-21-2023 Arthroplasty, shoulder, total (01)[id number]( 17)708586(07)[id number] 56 FDA Start: 07-21-2023 Arthroplasty, shoulder, total (01)[id number]( 17)[id number](19)[id number] 73 FDA Start: 07-21-2023 Arthroplasty, shoulder, total (01)[id number]( 17)[id number] FDA Start: 07-21-2023 Arthroplasty, shoulder, total (01)[id number]( 17)172850(10)[id number] 16 FDA Start: 07-21-2023 Goals Date Patient Goal Desired Activity /State Functional Status Date Assessment Result Facility 08-18-2023 Functional status Patient is Pro gressing Toward Baseline [facility] Work Phone: 07-16-2023 Functional status Patient Not at Baseline [facility] Work Phone: Mental Status Date Assessment Result Facility 08-18-2023 Cognitive function Patient at Baseline [facility] Work Phone: 07-16-2023 Cognitive function Patient at Baseline [facility] Work Phone: Clinical Notes 11-08-2021 to 07-24-2023 Note Date & Type Note Facility 07-24-2023 Progress note Note Date/Time July 24, 2023 3:19pm [facility] [address] [place] [address] Orthopedic Progress Note Signed Patient: Margaret Anderson MR#: [id number] : 1950 Acct:[id number] Age/Sex: 73 / F Adm Date: 4 Loc: 4N Room: [address] [place] [address] Type: ADM IN Attending Dr: Jennifer Blanco MD Copies to: ~ Date of Service: 07/24/2023 Subjective Subjective Interval History: No issues overnight. Denies fevers, chills, chest pain, shortness of breath. Pain in both the right shoulder and right hip. Exam Physical Exam Vital Signs: Temp Pulse Resp BP Pulse Ox O2 Del Method O2 Flow Rate 98.3 F 94 24 136/79 97 Nasal Cannula 4 07/24/23 11:44 07/24/23 13:35 07/24/23 13:35 07/24/23 11:44 07/24/23 13:35 07/24/23 13:35 07/24/23 13:35 Examination of the right upper extremity shows dressings clean dry and intact. Mild tenderness around the incision. Arcs of motion of the shoulder tolerated with mild pain. Painless arcs of motion of the elbow tolerated. AIN, PIN, radial, median, ulnar nerves intact. Sensation intact to light touch C5-T1. Radial artery palpable. Objective Labs Labs: Laboratory Results - last 24 hr 04/19/24 05:25 Corrected WBC 8.3 Uncorrected WBC Count 8.3 RBC 2.87 L Hgb 9.0 L Hct 27.7 L MCV 96.5 MCH 31.4 MCHC 32.6 RDW 15.8 H Plt Count 341 MPV 8.0 Neut % (Auto) 66.4 Lymph % (Auto) 19.6 [place] % (Auto) 11.6 Eos % (Auto) 2.0 Baso % (Auto) 0.4 Nucleat RBC Rel Count 0.1 Neut # (Auto) 5.5 Lymph # (Auto) 1.6 [place] # (Auto) 1.0 H Eos # (Auto) 0.2 Baso # (Auto) 0.0 Assessment / Plan Assessment and plan (1) Closed fracture of proximal end of right humerus: Code(s): S42.201A - Unspecified fracture of upper end of right humerus, initial encounterfor closed fracture (2) Periprosthetic fracture around internal prosthetic right hip joint: Code(s): M97.01XA - Periprosthetic fracture around internal prosthetic right hip joint, initial encounter Plan Patient is status post right hip revision arthroplasty on 07/17/[address] Ruiz and is now status post right reverse shoulder arthroplasty by Dr. Yusuf 07/21/2023. Patient is recovering well after the procedure. She denies any new problems. She is complaining of a good amount of pain in her right shoulder. She denies any numbness or tingling. 1. DVT prophylaxis: DAYA Hose bilaterally, SCDs bilaterally, and recommend staying on the Lovenox that she is currently on by the primary team. Once mobile, would recommend chemical prophylaxis for total of 35 days postop with either heparinoid or factor Xa inhibitor. 3. Perioperative antibiotics with IV Ancef and then 7 days of Duricef 4. PT/OT: Toe touch weight bearing RLE with strict posterior hip and abductor precautions. Okay for PT/OT of the right upper extremity. Allowed to use her walker. Strongly encourage aggressive ambulation and activity to avoid significant atrophy or complications from inactivity/surgery. 5. Appreciate hospitalist assistance with medical management 6. PACU x-rays look good 7. Hemoglobin 9.0 this am. Continue Fe and Vit C. Has required 2 units pRBC prior to hip surgery and more blood perioperatively with shoulder surgery. 8. Osteoporosis: Will order Vit D lab. Continue Ca and Vit D supplementation. Will get her into our own the bone program. 9. Today's Plan: Work with PT/OT. Informed nurse that I am okay with removal of the Colmenares but need to check with medicine first. 10. Disposition: Pending pre-CERT to acute inpatient rehab 11. Ortho will sign off. Contact with questions Documented By: Garry Leung DO 07/24/23 1517 Signed By: <Electronically signed by Garry Leung, > 07/24/23 1519 [facility] Work Phone: [phone] 120-436304-19-2024 Progress note Author Jennifer Blanco [place] July 24, 2023 12:15pm Note Date/Time July 24, 2023 12: 15pm [facility] [address] [place] [address] Hospitalist Progress Note Signed Patient: Margaret Anderson MR#: [id number] : 1950 Acct:[id number] Age/Sex: 73 / F Adm Date: 4 Loc: N Room: [address] [place] [address] Type: ADM IN Attending Dr: Jennifer Blanco MD Copies to: ~ Date of Service: 07/24/2023 Subjective Subjective Narrative: Patient was seen at bedside earlier this morning. She is sitting in the chair, still complains of pain mainly in the left shoulderarea otherwise denies any shortness of breath and chest pain any palpitation General -awake, alert, oriented ?3, not in acute distress, does not appear to bein respiratory distress, sitting in the chair Cardiovascular -S1 with S2, no murmurs, no rubs, no gallops Pulmonary -diminished breath sounds bilaterally Gastrointestinal - abdomen is soft, nondistended, nontender, bowel sounds positive, there is no rigidity, no rebound Extremities -no edema Neurological -no focal neurological dysfunction noted Limited joint motions because of the fractures and recent surgery Exam Physical Exam Vital Signs: Temp Pulse Resp BP Pulse Ox O2 Del Method O2 Flow Rate 36.8 C 90 19 136/79 99 Nasal Cannula 3 07/24/23 11:44 07/24/23 11:44 07/24/23 11:44 07/24/23 11:44 07/24/23 11:44 07/24/23 12:00 07/24/23 12:00 Objective Lab Results 07/24/23 05:25 07/23/23 05:54 Meds Allergies and Active Meds Allergies doxycycline Allergy (Unknown, Verified 07/17/23 13:42) vomiting Active Meds: Active Medications Generic Name Dose Route Start Last Admin Trade Name Juanq PRN Reason Stop Dose Admin Acetaminophen 650 mg 07/16/23 07:50 07/19/23 09:27 Acetaminophen 325 Mg Tablet PO 07/15/24 07:49 650 mg Q6HR PRN Administration Pain Scale 1 - 3 or fever Acetaminophen/Butalbital/Caffeine 1 tab 07/17/23 16:52 07/23/23 23:44 Butalb/Acetamin/Caffeine 50-325-40 1 Tab Tablet PO 07/16/24 16:51 1 tab QID PRN Administration headache Albuterol 1.25 mg 07/16/23 14:00 07/24/23 05:25 Albuterol Neb 2.5 Mg/3 Ml Vial.Neb INHALATION 07/15/24 13:59 1.25 mg Q8HR BENEDICTO Administration Ascorbic Acid 500 mg 07/18/23 08:00 07/24/23 08:47 Ascorbic Acid 500 Mg Tablet PO 07/17/24 07:59 500 mg BID.WITH.MEALS BENEDICTO Administration Atorvastatin Calcium 10 mg 07/16/23 09:00 07/24/23 08:47 Atorvastatin 10 Mg Tablet PO 07/15/24 08:59 10 mg DAILY BENEDICTO Administration Bisacodyl 10 mg 07/16/23 07:50 07/20/23 08:02 Bisacodyl 5 Mg Tablet.Dr PO 07/15/24 07:49 10 mg DAILY PRN Administration Constipation Buspirone HCl 15 mg 07/21/23 21:00 07/24/23 08:47 Buspirone 10 Mg Tablet PO 07/20/24 20:59 15 mg BID BENEDICTO Administration Calcium Carbonate 500 mg 07/19/23 14:00 07/24/23 08:46 Calcium Carbonate 500 Mg Tablet PO 07/18/24 13:59 500 mg TID BENEDICTO Administration Cefadroxil 500 mg 07/19/23 16:30 07/24/23 08:46 Cefadroxil 500 Mg Capsule PO 04/20/24 21:01 500 mg BID BENEDICTO Administration Diazepam 5 mg 07/16/23 18:17 07/24/23 11:18 Diazepam 5 Mg Tablet PO 01/12/24 18:16 5 mg TID PRN Administration muscle spasms Docusate Sodium 100 mg 07/16/23 07:50 07/20/23 20:11 Docusate 100 Mg Capsule PO 07/15/24 07:49 100 mg BID PRN Administration Constipation Enoxaparin Sodium 40 mg 07/16/23 10:00 07/24/23 10:11 Enoxaparin 40 Mg/0.4 Ml Syringe SUBCUT 07/15/24 09:59 Not Given DAILY@10 BENEDICTO Ergocalciferol 1,250 mcg 07/20/23 09:00 07/20/23 08:01 Ergocalciferol 1,250 Mcg (50,000 Units) Capsule PO 07/19/24 08:59 1,250 mcg Mo@0900 BENEDICTO Administration Ferrous Sulfate 324 mg 07/18/23 08:00 07/24/23 08:46 Ferrous Sulfate 324 Mg Tablet.Dr PO 07/17/24 07:59 324 mg BID.WITH.MEALS BENEDICTO Administration Hydromorphone HCl 0.25 mg 07/21/23 13:43 Hydromorphone 0.5 Mg/0.5 Ml Syringe IV-PUSH Q4H PRN Pain Scale 8 - 10 Lidocaine HCl 0.1 ml 07/20/23 15:40 Lidocaine 1% 50 Ml Vial INTRADERMA PREOP PRN Venipuncture x 1 Dose Melatonin 5 mg 07/16/23 07:50 07/22/23 22:08 Melatonin 5 Mg Tablet PO 07/15/24 07:49 5 mg QHS PRN Administration Insomnia Metoprolol Tartrate 25 mg 07/17/23 12:15 07/24/23 08:47 Metoprolol Tartrate 25 Mg Tablet PO 07/16/24 12:14 25 mg BID BENEDICTO Administration Naloxone HCl 0.4 mg 07/17/23 21:39 Naloxone Hcl 0.4 Mg/Ml Vial IV-PUSH 07/16/24 21:38 Q2M PRN Opioid Reversal Ondansetron HCl 4 mg 07/16/23 07:50 07/23/23 18:46 Ondansetron 4 Mg/2 Ml Vial IV-PUSH 07/15/24 07:49 4 mg Q8H PRN Administration Nausea And Vomiting Oxycodone/Acetaminophen 1 tab 07/16/23 07:50 07/24/23 08:46 Oxycodone/Acetaminophen 5-325 Mg Tablet PO 1 tab Q4H PRN Administration Pain Scale 4 - 7 Polyethylene Glycol 17 gm 07/23/23 09:00 07/24/23 08:47 Polyethylene Glycol 3350 17 Gm Powd.Pack PO 07/30/23 08:59 17 gm DAILY BENEDICTO Administration Senna/Docusate Sodium 2 tab 07/22/23 21:00 07/24/23 08:47 Sennosides/Docusate 8.6-50mg 1 Tab Tablet PO 08/21/23 20:59 2 tab BID BENEDICTO Administration Sodium Chloride 0 ml 07/17/23 22:00 07/24/23 06:20 Sodium Chloride 0.9 % 10 Ml Syringe IV-PUSH 07/16/24 21:59 10 ml QSHIFT BENEDICOT Administration Sodium Chloride 0 ml 07/20/23 15:40 07/23/23 02:49 Sodium Chloride 0.9 % 10 Ml Syringe IV-PUSH 07/19/24 15:39 10 ml PRN PRN Administration Flush Sodium Chloride 0 ml 07/21/23 14:00 07/24/23 06:20 Sodium Chloride 0.9 % 10 Ml Syringe IV-PUSH 07/20/24 13:59 Not Given QSHIFT BENEDICTO A&P - Hospitalist Assessment/Plan (1) Closed fracture of proximal end of right humerus: (2) Periprosthetic fracture around internal prosthetic right hip joint: (3) Fall at home: (4) Osteoarthritis: (5) Chronic obstructive pulmonary disease: (6) Crohn's disease: (7) Hypertension: (8) On home oxygen therapy: (9) Brain aneurysm: (10) Congestive heart failure: Plan 1. Mechanical fall complicated by right femur fracture status postrepair on July 16 and right proximal humerus fracture, status post repair on July 20 For now continue with pain management, pain is quite well-controlled Appreciate orthopedic input 2.E. coli cystitis, finished antibiotic therapy 3. Normocytic anemia -without active signs of bleeding, H&H at the lower range, status post transfusion of 3 units of packed red blood Dropping hematocrit noted, recheck H&H 4. Severe aortic stenosis -patient seems to be compensated Echocardiogram: Ejection Fraction = 60-65%. There is left ventricular diastolic dysfunction. Severe valvular aortic stenosis. cardiac clearance was done prior to the surgery 5. Chronic hypoxic and hypercapnic respiratory failure due to COPD on home oxygen 3 L, respiratory status Albuterol Atrovent nebulizer as needed 6. Chronic congestive heart failure with preserved ejection fraction 60%: Compensated 7. Hypertension: Continue with Coreg twice daily 8. Crohn disease 9. DVT prophylaxis: Lovenox daily Documented By: Jennifer Blanco MD 07/24/231213 Signed By: <Electronically signed by Jennifer Blanco MD> 07/24/23 1215 [facility] Work Phone: 1(366) 244-357304-18-2024 Progress note Author Garry Leung [place] July 23, 2023 9:53am Note Date/Time July 23, 2023 9:5 3am [facility] [address] [place] [address] Orthopedic Progress Note Signed Patient: Margaret Anderson MR#: [id number] : 1950 Acct:[id number] Age/Sex: 73 / F Adm Date: 4 Loc: Room: [address] [place] [address] Type: ADM IN Attending Dr: Jennifer Blanco MD Copies to: ~ Date of Service: 07/23/2023 Subjective Subjective Interval History: Patient doing much better today pain montiel. She states it is controllable. Denies any new issues. She denies any fevers, chills, chest pain, shortness of breath. Exam Physical Exam Vital Signs: Temp Pulse Resp BP Pulse Ox O2 Del Method O2 Flow Rate 98.1 F 87 17 138/71 99 Nasal Cannula 3 07/23/23 07:43 07/23/23 07:43 07/23/23 07:43 07/23/23 07:43 07/23/23 07:43 07/23/23 08:00 07/23/23 08:00 Examination of the right upper extremity shows dressings clean dry and intact. Mild tenderness around the incision. Arcs of motion of the shoulder tolerated with mild pain. Painless arcs of motion of the elbow tolerated. AIN, PIN, radial, median, ulnar nerves intact. Sensation intact to light touch C5-T1. Radial artery palpable. Objective Labs Labs: Laboratory Results - last 24 hr 07/21/23 07/23/23 07/23/23 07:51 05:54 05:54 Corrected WBC 8.7 Uncorrected WBC Count 8.7 RBC 2.67 L Hgb 8.5 L Hct 25.4 L MCV 95.0 MCH 31.8 MCHC 33.5 RDW 16.1 H Plt Count 303 MPV 7.9 Neut % (Auto) 64.7 Lymph % (Auto) 21.7 [place] % (Auto) 11.4 Eos % (Auto) 1.9 Baso % (Auto) 0.3 Nucleat RBC Rel Count 0.2 Neut # (Auto) 5.6 Lymph # (Auto) 1.9 [place] # (Auto) 1.0 H Eos # (Auto) 0.2 Baso # (Auto) 0.0 PHA Creatinine Clear 58.02 Sodium 139 Potassium 4.4 Chloride 100 Carbon Dioxide 39.9 H Anion Gap 3.5 L BUN 12 Creatinine 0.48 L Est GFR (CKD-EPI) > 60.0 Glucose 91 Calcium 8.1 L 25-OH Vitamin D Total 9.9 L Cancelled Blood Type A Positive Antibody Screen Negative Crossmatch (AHG) See Detail Assessment / Plan Assessment and plan (1) Closed fracture of proximal end of right humerus: Code(s): S42.201A - (2) Periprosthetic fracture around internal prosthetic right hip joint: Code(s): M97.01XA - Plan Patient is status post right hip revision arthroplasty on 07/17/[address] Ruiz and is now status post right reverse shoulder arthroplasty by Dr. Yusuf 07/21/2023. Patient is recovering well after the procedure. She denies any new problems. She is complaining of a good amount of pain in her right shoulder. She denies any numbness or tingling. -Touchdown weightbearing right lower extremity posterior hip precautions and abduction precautions -Okay for PT/OT of the right upper extremity. Allowed to use her walker. Strongly encourage aggressive ambulation and activity to avoid significant atrophy or complications from inactivity/surgery. -24-hour perioperative antibiotics. Duricef for 7 days s/p hip surgery -DVT prophylaxis per primary -Lovenox 40 daily -Anticipate patient needing extensive rehab due to her orthopedic issues. Documented By: Garry Leung DO 07/23/23 0952 Signed By: <Electronically signed by Garry Leung, DO> 07/23/23 0953 [facility] Work Phone: 1(628) 730-385804-18-2024 Progress note Author Surendra Ruiz [place] July 23, 2023 8:31am Note Date/Time July 23, 2023 8:2 8am [facility] [address] [place], [place] [id number] Orthopedic Progress Note Signed Patient: Margaret Anderson MR#: [id number] : 1950 Acct:[id number] Age/Sex: 73 / F Adm Date: 4 Loc: 4N Room: 6H5860-9 Type: ADM IN Attending Dr: Jennifer Blanco MD Copies to: ~ Date of Service: 07/23/2023 Subjective Subjective Interval History: Patient resting comfortably in her bed this morning. She states she is generally more comfortable now that she has her shoulder fixed. Although, she still has soreness throughout the leg. Nursing reports no acute events overnight. Exam Physical Exam Vital Signs: Temp Pulse Resp BP Pulse Ox O2 Del Method O2 Flow Rate 98.1 F 87 17 138/71 99 Nasal Cannula 3 07/23/23 07:43 07/23/23 07:43 07/23/23 07:43 07/23/23 07:43 07/23/23 07:43 07/23/23 07:43 07/23/23 07:43 Narrative: Right lower extremity wound VAC is on and working. No drainage in the container. Mild tenderness throughout the thigh but it is soft and compressible. Foot is warm and well-perfused. Sensation intact to light touch throughout the foot without paresthesias. She wiggles her toes moves her ankle up and down. Some discomfort with passive logroll Objective Labs Labs: Laboratory Results - last 24 hr 07/21/23 07/23/23 07:51 05:54 Corrected WBC 8.7 Uncorrected WBC Count 8.7 RBC 2.67 L Hgb 8.5 L Hct 25.4 L MCV 95.0 MCH 31.8 MCHC 33.5 RDW 16.1 H Plt Count 303 MPV 7.9 Neut % (Auto) 64.7 Lymph % (Auto) 21.7 [place] % (Auto) 11.4 Eos % (Auto) 1.9 Baso % (Auto) 0.3 Nucleat RBC Rel Count 0.2 Neut # (Auto) 5.6 Lymph # (Auto) 1.9 [place] # (Auto) 1.0 H Eos # (Auto) 0.2 Baso # (Auto) 0.0 PHA Creatinine Clear 58.02 Sodium 139 Potassium 4.4 Chloride 100 Carbon Dioxide 39.9 H Anion Gap 3.5 L BUN 12 Creatinine 0.48 L Est GFR (CKD-EPI) > 60.0 Glucose 91 Calcium 8.1 L Blood Type A Positive Antibody Screen Negative Crossmatch (AHG) See Detail [facility] INPATIENT [place] Of [place] [facility] TJC Ambulation: 2 No, Ambulation Day of Surgery or 4 hours from PACU discharge TJC Discharge Exclusion: 3 Unknown Assessment / Plan Assessment and plan (1) Closed fracture of proximal end of right humerus: Code(s): S42.201A - Unspecified fracture of upper end of right humerus, initial encounterfor closed fracture (2) Periprosthetic fracture around internal prosthetic right hip joint: Code(s): M97.01XA - Periprosthetic fracture around internal prosthetic right hip joint, initial encounter Plan POD 6 s/p R hip femoral revision with ORIF 1. Pain control 2. DVT prophylaxis: DAYA [place] bilaterally, SCDs bilaterally, and recommend staying on the Lovenox that she is currently on by the primary team. Once mobile, would recommend chemical prophylaxis for total of 35 days postop with either heparinoid or factor Xa inhibitor. 3. Perioperative antibiotics with IV Ancef and then 7 days of Duricef 4. PT/OT: Toe touch weight bearing RLE with strict posterior hip and abductor precautions 5. Appreciate hospitalist assistance with medical management 6. PACU x-rays look good 7. Hemoglobin 8.5 this am. Continue Fe and Vit C. Has required 2 units pRBC prior to hip surgery and more blood perioperatively with shoulder surgery. 8. Osteoporosis: Will order Vit D lab. Continue Ca and Vit D supplementation. Will get her into our own the bone program. 9. Today's Plan: Work with PT/OT. Informed nurse that I am okay with removal of the Colmenares but need to check with medicine first. 10. Disposition: Pending pre-CERT to acute inpatient rehab Documented By: Surendra Ruiz MD 07/23/23 08 26 Signed By: <Electronically signed by Surendra Ruiz MD> 07/23/2331 [facility] Work Phone: [phone] 550-984904-18-2024 Progress note Author Jennifer Blanco [place] July 23, 2023 8:27am Note Date/Time July 23, 2023 8:2 7am [facility] [address] [place] [address] Hospitalist Progress Note Signed Patient: Margaret Anderson MR#: [id number] : 1950 Acct:[id number] Age/Sex: 73 / F Adm Date: 4 Loc: 4N Room: [address] [place] [address] Type: ADM IN Attending Dr: Jennifer Blanco MD Copies to: ~ Date of Service: 07/23/2023 Subjective Subjective Narrative: Patient was seen at bedside earlier this morning. Patient appears to be more comfortable today, she did complain of some nausea yesterday, but no nausea no vomiting today. Eating breakfast. Denies any shortness of breath any chest pain. Still complains of pain in her shoulder andleg, but it seems to be better controlled than yesterday Patient did have large bowel movements yesterday General -awake, alert, oriented ?3, not in acute distress, does not appear to bein respiratory distress Cardiovascular -S1 with S2, no murmurs, no rubs, no gallops Pulmonary -diminished breath sounds bilaterally Gastrointestinal - abdomen is soft, nondistended, nontender, bowel sounds positive, there is no rigidity, no rebound Extremities -no edema Neurological -no focal neurological dysfunction noted Limited joint motions because of the fractures and recent surgery Exam Physical Exam Vital Signs: Temp Pulse Resp BP Pulse Ox O2 Del Method O2 Flow Rate 36.7 C 87 17 138/71 99 Nasal Cannula 3 07/23/23 07:43 07/23/23 07:43 07/23/23 07:43 07/23/23 07:43 07/23/23 07:43 07/23/23 07:43 07/23/23 07:43 Objective Lab Results 07/23/23 05:54 07/23/23 05:54 Meds Allergies and Active Meds Allergies doxycycline Allergy (Unknown, Verified 07/17/23 13:42) vomiting Active Meds: Active Medications Generic Name Dose Route Start Last Admin Trade Name Eboni PRN Reason Stop Dose Admin Acetaminophen 650 mg 07/16/23 07:50 07/19/23 09:27 Acetaminophen 325 Mg Tablet PO 07/15/24 07:49 650 mg Q6HR PRN Administration Pain Scale 1 - 3 or fever Acetaminophen 500 mg 07/20/23 21:45 07/23/23 04:22 Acetaminophen 500 Mg Tablet PO 07/23/23 21:44 Not Given Q6H BENEDICTO Acetaminophen/Butalbital/Caffeine 1 tab 07/17/23 16:52 07/23/23 07:50 Butalb/Acetamin/Caffeine 50-325-40 1 Tab Tablet PO 07/16/24 16:51 1 tab QID PRN Administration headache Albuterol 1.25 mg 07/16/23 14:00 07/23/23 06:11 Albuterol Neb 2.5 Mg/3 Ml Vial.Neb INHALATION 07/15/24 13:59 1.25 mg Q8HR BENEDICTO Administration Ascorbic Acid 500 mg 07/18/23 08:00 07/23/23 08:11 Ascorbic Acid 500 Mg Tablet PO 07/17/24 07:59 500 mg BID.WITH.MEALS BENEDICTO Administration Atorvastatin Calcium 10 mg 07/16/23 09:00 07/23/23 08:11 Atorvastatin 10 Mg Tablet PO 07/15/24 08:59 10 mg DAILY BENEDICTO Administration Bisacodyl 10 mg 07/16/23 07:50 07/20/23 08:02 Bisacodyl 5 Mg Tablet.Dr PO 07/15/24 07:49 10 mg DAILY PRN Administration Constipation Buspirone HCl 15 mg 07/21/23 21:00 07/23/23 08:11 Buspirone 10 Mg Tablet PO 07/20/24 20:59 15 mg BID BENEDICTO Administration Calcium Carbonate 500 mg 07/19/23 14:00 07/23/23 08:11 Calcium Carbonate 500 Mg Tablet PO 07/18/24 13:59 500 mg TID BENEDICTO Administration Cefadroxil 500 mg 07/19/23 16:30 07/23/23 08:11 Cefadroxil 500 Mg Capsule PO 07/25/23 21:01 500 mg BID BENEDICTO Administration Diazepam 5 mg 07/16/23 18:17 07/22/23 22:08 Diazepam 5 Mg Tablet PO 01/12/24 18:16 5 mg TID PRN Administration muscle spasms Docusate Sodium 100 mg 07/16/23 07:50 07/20/23 20:11 Docusate 100 Mg Capsule PO 07/15/24 07:49 100 mg BID PRN Administration Constipation Enoxaparin Sodium 40 mg 07/16/23 10:00 07/22/23 10:48 Enoxaparin 40 Mg/0.4 Ml Syringe SUBCUT 07/15/24 09:59 Not Given DAILY@10 BENEDICTO Ergocalciferol 1,250 mcg 07/20/23 09:00 07/20/23 08:01 Ergocalciferol 1,250 Mcg (50,000 Units) Capsule PO 07/19/24 08:59 1,250 mcg Mo@0900 BENEDICTO Administration Ferrous Sulfate 324 mg 07/18/23 08:00 07/23/23 08:11 Ferrous Sulfate 324 Mg Tablet.Dr PO 07/17/24 07:59 324 mg BID.WITH.MEALS BENEDICTO Administration Hydromorphone HCl 0.25 mg 07/21/23 13:43 Hydromorphone 0.5 Mg/0.5 Ml Syringe IV-PUSH Q4H PRN Pain Scale 8 - 10 Lidocaine HCl 0.1 ml 07/20/23 15:40 Lidocaine 1% 50 Ml Vial INTRADERMA PREOP PRN Venipuncture x 1 Dose Melatonin 5 mg 07/16/23 07:50 07/22/23 22:08 Melatonin 5 Mg Tablet PO 07/15/24 07:49 5 mg QHS PRN Administration Insomnia Metoprolol Tartrate 25 mg 07/17/23 12:15 07/23/23 08:11 Metoprolol Tartrate 25 Mg Tablet PO 07/16/24 12:14 25 mg BID BENEDICTO Administration Naloxone HCl 0.4 mg 07/17/23 21:39 Naloxone Hcl 0.4 Mg/Ml Vial IV-PUSH 07/16/24 21:38 Q2M PRN Opioid Reversal Ondansetron HCl 4 mg 07/16/23 07:50 07/22/23 17:13 Ondansetron 4 Mg/2 Ml Vial IV-PUSH 07/15/24 07:49 4 mg Q8H PRN Administration Nausea And Vomiting Oxycodone/Acetaminophen 1 tab 07/16/23 07:50 07/23/23 04:23 Oxycodone/Acetaminophen 5-325 Mg Tablet PO 1 tab Q4H PRN Administration Pain Scale 4 - 7 Polyethylene Glycol 17 gm 07/23/23 09:00 07/23/23 08:10 Polyethylene Glycol 3350 17 Gm Powd.Pack PO 07/30/23 08:59 17 gm DAILY BENEDICTO Administration Senna/Docusate Sodium 2 tab 07/22/23 21:00 07/23/23 08:10 Sennosides/Docusate 8.6-50mg 1 Tab Tablet PO 08/21/23 20:59 2 tab BID BENEDICTO Administration Sodium Chloride 0 ml 07/17/23 22:00 07/23/23 05:13 Sodium Chloride 0.9 % 10 Ml Syringe IV-PUSH 07/16/24 21:59 Not Given QSHIFT BENEDICTO Sodium Chloride 0 ml 07/20/23 15:40 07/23/23 02:49 Sodium Chloride 0.9 % 10 Ml Syringe IV-PUSH 07/19/24 15:39 10 ml PRN PRN Administration Flush Sodium Chloride 0 ml 07/21/23 14:00 07/23/23 05:13 Sodium Chloride 0.9 % 10 Ml Syringe IV-PUSH 07/20/24 13:59 Not Given QSHIFT BENEDICTO A&P - Hospitalist Assessment/Plan (1) Closed fracture of proximal end of right humerus: (2) Periprosthetic fracture around internal prosthetic right hip joint: (3) Fall at home: (4) Osteoarthritis: (5) Chronic obstructive pulmonary disease: (6) Crohn's disease: (7) Hypertension: (8) On home oxygen therapy: (9) Brain aneurysm: (10) Congestive heart failure: Plan 1. Mechanical fall complicated by right femur fracture status postrepair on July 16 and right proximal humerus fracture, status post repair on July 20 For now continue with pain management, pain is quite well-controlled Appreciate orthopedic input 2.E. coli cystitis, finished antibiotic therapy 3. Normocytic anemia -without active signs of bleeding, H&H at the lower range, status post transfusion of 3 units of packed red blood Dropping hematocrit noted, recheck H&H 4. Severe aortic stenosis -patient seems to be compensated Echocardiogram: Ejection Fraction = 60-65%. There is left ventricular diastolic dysfunction. Severe valvular aortic stenosis. cardiac clearance was done prior to the surgery 5. Chronic hypoxic and hypercapnic respiratory failure due to COPD on home oxygen 3 L, respiratory status Albuterol Atrovent nebulizer as needed 6. Chronic congestive heart failure with preserved ejection fraction 60%: Compensated 7. Hypertension: Continue with Coreg twice daily 8. Crohn disease 9. DVT prophylaxis: Lovenox daily Documented By: Jennifer Blanco MD 07/23/23823 Signed By: <Electronically signed by Jennifer Blanco MD> 07/23/23826 [facility] Work Phone: [phone] 831-639204-17-2024 Progress note Author Garry Leung [place] July 22, 2023 9:47am Note Date/Time July 22, 2023 9:4 2am [facility] [address] [place] [address] Orthopedic Progress Note Signed Patient: Margaret Anderson MR#: [id number] : 1950 Acct:[id number] Age/Sex: 73 / F Adm Date: 4 Loc: 4 Room: [address] [place] [address] Type: ADM IN Attending Dr: Jennifer Blanco MD Copies to: ~ Date of Service: 07/22/2023 Subjective Subjective Interval History: Patient doing well today. She is complaining of significant pain in her shoulder. She denies any fevers, chills, chest pain, shortness of breath. No new issues with her lower extremities. Denies any numbness in her hand. Exam Physical Exam Vital Signs: Temp Pulse Resp BP Pulse Ox O2 Del Method O2 Flow Rate 98.6 F 86 16 139/69 96 Nasal Cannula 3 07/22/23 07:21 07/22/23 07:21 07/22/23 07:21 07/22/23 07:21 07/22/23 07:21 07/22/23 08:00 07/22/23 08:00 Examination of the right upper extremity shows dressings clean dry and intact. Mild tenderness around the incision. Arcs of motion of the shoulder tolerated with mild pain. Painless arcs of motion of the elbow tolerated. AIN, PIN, radial, median, ulnar nerves intact. Sensation intact to light touch C5-T1. Radial artery palpable. Objective Labs Labs: Laboratory Results - last 24 hr 07/16/23 07/21/23 07/21/23 23:23 07:51 19:53 Corrected WBC Uncorrected WBC Count RBC Hgb 10.9 L Hct 32.5 L D MCV MCH MCHC RDW Plt Count MPV Neut % (Auto) Lymph % (Auto) [place] % (Auto) Eos % (Auto) Baso % (Auto) Nucleat RBC Rel Count Neut # (Auto) Lymph # (Auto) [place] # (Auto) Eos # (Auto) Baso # (Auto) PHA Creatinine Clear Sodium Potassium Chloride Carbon Dioxide Anion Gap BUN Creatinine Est GFR (CKD-EPI) Glucose Calcium Blood Type A Positive Antibody Screen Negative Crossmatch (AHG) See Detail See Detail 07/22/23 07/22/23 06:00 06:20 Corrected WBC 10.6 Uncorrected WBC Count 10.6 RBC 2.99 L Hgb 9.4 L Hct 27.7 L MCV 92.9 MCH 31.6 MCHC 34.0 RDW 16.9 H Plt Count 279 MPV 8.2 Neut % (Auto) 83.3 Lymph % (Auto) 7.8 [place] % (Auto) 8.8 Eos % (Auto) 0.0 Baso % (Auto) 0.1 Nucleat RBC Rel Count 0.1 Neut # (Auto) 8.8 H Lymph # (Auto) 0.8 L [place] # (Auto) 0.9 H Eos # (Auto) 0.0 Baso # (Auto) 0.0 PHA Creatinine Clear 57.62 Sodium 139 Potassium 4.6 Chloride 99 Carbon Dioxide 35.2 H Anion Gap 9.4 BUN 10 Creatinine 0.43 L Est GFR (CKD-EPI) > 60.0 Glucose 127 H Calcium 8.0 L Blood Type Antibody Screen Crossmatch (AHG) Assessment / Plan Assessment and plan (1) Closed fracture of proximal end of right humerus: Code(s): S42.201A - Unspecified fracture of upper end of right humerus, initial encounterfor closed fracture (2) Periprosthetic fracture around internal prosthetic right hip joint: Code(s): M97.01XA - Periprosthetic fracture around internal prosthetic right hip joint, initial encounter Plan Patient is status post right hip revision arthroplasty on 07/17/[address] Ruiz and is now status post right reverse shoulder arthroplasty by Dr. Yusuf 07/21/2023. Patient is recovering well after the procedure. She denies any new problems. She is complaining of a good amount of pain in her right shoulder. She denies any numbness or tingling. -Touchdown weightbearing right lower extremity posterior hip precautions and abduction precautions -Okay for PT/OT of the right upper extremity. Allowed to use her walker. Strongly encourage aggressive ambulation and activity to avoid significant atrophy or complications from inactivity/surgery. -24-hour perioperative antibiotics -DVT prophylaxis per primary -Lovenox 40 daily -Anticipate patient needing extensive rehab due to her orthopedic issues. Documented By: Garry Leung DO 07/22/23 0940 Signed By: <Electronically signed by Garry Leung DO> 07/22/23 0947 [facility] Work Phone: [phone] Progress note Author Jennifer Blanco [place] July 22, 2023 9:37am Note Date/Time July 22, 2023 9:1 1am [facility] [address] [place] [address] Hospitalist Progress Note Signed Patient: Margaret Anderson MR#: [id number] : 1950 Acct:[id number] Age/Sex: 73 / F Adm Date: 4 Loc: 4N Room: [address] [place] [address] Type: ADM IN Attending Dr: Jennifer Blanco MD Copies to: ~ Date of Service: 07/22/2023 Subjective Subjective Narrative: Patient was seen at bedside earlier this morning. Patient complains of pain allover, but mainly in the right leg and the right shoulder , She denies any abdominal pain, she denies any shortness of breath any chest pain any dizziness any lightheadedness General -awake, alert, oriented ?3, not in acute distress, does not appear to bein respiratory distress Cardiovascular -S1 with S2, no murmurs, no rubs, no gallops Pulmonary -diminished breath sounds bilaterally Gastrointestinal - abdomen is soft, nondistended, nontender, bowel sounds positive, there is no rigidity, no rebound Extremities -no edema Neurological -no focal neurological dysfunction noted Limited joint motions because of the fractures and recent surgery Exam Physical Exam Vital Signs: Temp Pulse Resp BP Pulse Ox O2 Del Method O2 Flow Rate 37.0 C 86 16 139/69 96 Nasal Cannula 3 07/22/23 07:21 07/22/23 07:21 07/22/23 07:21 07/22/23 07:21 07/22/23 07:21 07/22/23 08:00 07/22/23 08:00 Objective Lab Results 07/22/23 06:00 07/22/23 06:20 Meds Allergies and Active Meds Allergies doxycycline Allergy (Unknown, Verified 07/17/23 13:42) vomiting Active Meds: Active Medications Generic Name Dose Route Start Last Admin Trade Name Freq PRN Reason Stop Dose Admin Acetaminophen 650 mg 07/16/23 07:50 07/19/23 09:27 Acetaminophen 325 Mg Tablet PO 07/15/24 07:49 650 mg Q6HR PRN Administration Pain Scale 1 - 3 or fever Acetaminophen 500 mg 07/20/23 21:45 07/22/23 04:18 Acetaminophen 500 Mg Tablet PO 07/23/23 21:44 500 mg Q6H BENEDITCO Administration Acetaminophen/Butalbital/Caffeine 1 tab 07/17/23 16:52 07/19/23 17:21 Butalb/Acetamin/Caffeine 50-325-40 1 Tab Tablet PO 07/16/24 16:51 1 tab QID PRN Administration headache Albuterol 1.25 mg 07/16/23 14:00 07/22/23 05:31 Albuterol Neb 2.5 Mg/3 Ml Vial.Neb INHALATION 07/15/24 13:59 1.25 mg Q8HR BENEDICTO Administration Ascorbic Acid 500 mg 07/18/23 08:00 07/22/23 08:07 Ascorbic Acid 500 Mg Tablet PO 07/17/24 07:59 500 mg BID.WITH.MEALS BENEDICTO Administration Atorvastatin Calcium 10 mg 07/16/23 09:00 07/22/23 08:07 Atorvastatin 10 Mg Tablet PO 07/15/24 08:59 10 mg DAILY BENEDICTO Administration Bisacodyl 10 mg 07/16/23 07:50 07/20/23 08:02 Bisacodyl 5 Mg Tablet. PO 07/15/24 07:49 10 mg DAILY PRN Administration Constipation Buspirone HCl 15 mg 07/21/23 21:00 07/22/23 08:07 Buspirone 10 Mg Tablet PO 07/20/24 20:59 15 mg BID BENEDICTO Administration Calcium Carbonate 500 mg 07/19/23 14:00 07/22/23 08:07 Calcium Carbonate 500 Mg Tablet PO 07/18/24 13:59 500 mg TID BENEDICTO Administration Cefadroxil 500 mg 07/19/23 16:30 07/22/23 08:07 Cefadroxil 500 Mg Capsule PO 07/25/23 21:01 500 mg BID BENEDICTO Administration Diazepam 5 mg 07/16/23 18:17 07/21/23 08:35 Diazepam 5 Mg Tablet PO 01/12/24 18:16 5 mg TID PRN Administration muscle spasms Docusate Sodium 100 mg 07/16/23 07:50 07/20/23 20:11 Docusate 100 Mg Capsule PO 07/15/24 07:49 100 mg BID PRN Administration Constipation Enoxaparin Sodium 40 mg 07/16/23 10:00 07/22/23 08:09 Enoxaparin 40 Mg/0.4 Ml Syringe SUBCUT 07/15/24 09:59 40 mg DAILY@10 BENEDICTO Administration Ergocalciferol 1,250 mcg 07/20/23 09:00 07/20/23 08:01 Ergocalciferol 1,250 Mcg (50,000 Units) Capsule PO 07/19/24 08:59 1,250 mcg Mo@0900 BENEDICTO Administration Ferrous Sulfate 324 mg 07/18/23 08:00 07/22/23 08:07 Ferrous Sulfate 324 Mg Tablet.Dr PO 07/17/24 07:59 324 mg BID.WITH.MEALS BENEDICTO Administration Hydromorphone HCl 0.25 mg 07/21/23 13:43 Hydromorphone 0.5 Mg/0.5 Ml Syringe IV-PUSH Q4H PRN Pain Scale 8 - 10 Lactated Ringer's 1,000 mls @ 20 mls/hr 07/21/23 13:00 07/21/23 18:35 Lactated Ringers IV 07/22/23 12:59 20 mls/hr .Q24H ONE Administration Lactated Ringer's 1,000 mls @ 75 mls/hr 07/21/23 13:45 07/22/23 08:07 Lactated Ringers IV 07/20/24 13:44 Not Given .[id number] BENEDICTO Ketorolac Tromethamine 15 mg 07/20/23 13:28 Ketorolac Tromethamine 30 Mg/Ml Vial IV-PUSH Q6H PRN Pain Lidocaine HCl 0.1 ml 07/20/23 15:40 Lidocaine 1% 50 Ml Vial INTRADERMA PREOP PRN Venipuncture x 1 Dose Melatonin 5 mg 07/16/23 07:50 Melatonin 5 Mg Tablet PO 07/15/24 07:49 QHS PRN Insomnia Metoprolol Tartrate 25 mg 07/17/23 12:15 07/22/23 08:07 Metoprolol Tartrate 25 Mg Tablet PO 07/16/24 12:14 25 mg BID BENEDICTO Administration Naloxone HCl 0.4 mg 07/17/23 21:39 Naloxone Hcl 0.4 Mg/Ml Vial IV-PUSH 07/16/24 21:38 Q2M PRN Opioid Reversal Ondansetron HCl 4 mg 07/16/23 07:50 07/19/23 15:19 Ondansetron 4 Mg/2 Ml Vial IV-PUSH 07/15/24 07:49 4 mg Q8H PRN Administration Nausea And Vomiting Oxycodone/Acetaminophen 1 tab 07/16/23 07:50 07/22/23 08:07 Oxycodone/Acetaminophen 5-325 Mg Tablet PO 1 tab Q4H PRN Administration Pain Scale 4 - 7 Polyethylene Glycol 17 gm 07/17/23 21:39 07/20/23 22:00 Polyethylene Glycol 3350 17 Gm Powd.Pack PO 07/24/23 21:38 17 gm DAILY PRN Administration Constipation Senna/Docusate Sodium 2 tab 07/18/23 09:00 07/22/23 08:07 Sennosides/Docusate 8.6-50mg 1 Tab Tablet PO 08/17/23 08:59 2 tab DAILY BENEDICTO Administration Sodium Chloride 0 ml 07/17/23 22:00 07/22/23 06:08 Sodium Chloride 0.9 % 10 Ml Syringe IV-PUSH 07/16/24 21:59 Not Given QSHIFT BENEDICTO Sodium Chloride 0 ml 07/20/23 15:40 Sodium Chloride 0.9 % 10 Ml Syringe IV-PUSH 07/19/24 15:39 PRN PRN Flush Sodium Chloride 0 ml 07/21/23 14:00 07/22/23 06:08 Sodium Chloride 0.9 % 10 Ml Syringe IV-PUSH 07/20/24 13:59 Not Given QSHIFT [facility] A&P - Hospitalist Assessment/Plan (1) Closed fracture of proximal end of right humerus: (2) Periprosthetic fracture around internal prosthetic right hip joint: (3) Fall at home: (4) Osteoarthritis: (5) Chronic obstructive pulmonary disease: (6) Crohn's disease: (7) Hypertension: (8) On home oxygen therapy: (9) Brain aneurysm: (10) Congestive heart failure: Plan 1. Mechanical fall complicated by right femur fracture status postrepair on July 16 and right proximal humerus fracture, status post repair on July 20 For now continue with pain management Appreciate orthopedic input 2.E. coli cystitis, finished antibiotic therapy 3. Normocytic anemia -without active signs of bleeding, H&H at the lower range, status post transfusion of 3 units of packed red blood 4. Severe aortic stenosis -patient seems to be compensated Echocardiogram: Ejection Fraction = 60-65%. There is left ventricular diastolic dysfunction. Severe valvular aortic stenosis. cardiac clearance was done prior to the surgery 5. Chronic hypoxic and hypercapnic respiratory failure due to COPD on home oxygen 3 L, respiratory status Albuterol Atrovent nebulizer as needed 6. Chronic congestive heart failure with preserved ejection fraction 60%: Compensated 7. Hypertension: Continue with Coreg twice daily 8. Crohn disease 9. DVT prophylaxis: Lovenox daily Documented By: Jennifer Blanco MD 07/22/23 0906 Signed By: <Electronically signed by Jennifer Blanco MD> 07/22/23 0937 [facility] Work Phone: [phone] 287-669604-16-2024 Progress note Author Jennifer Blanco [place] July 21, 2023 2:13pm Note Date/Time July 21, 2023 2:1 3pm [facility] EN[facility] [address] [place] [address] Hospitalist Progress Note Signed Patient: Margaret Anderson MR#: [id number] : 1950 Acct:[id number] Age/Sex: 73 / F Adm Date: 4 Loc: Room: [address] [place] [address] Type: ADM IN Attending Dr: Jennifer Blanco MD Copies to: ~ Date of Service: 07/21/2023 Subjective Subjective Narrative: Patient was seen at bedside earlier this morning. Patient will be going for right shoulder surgery. She denies any respiratory problems. She does have baseline shortness of breath and cough, per patient it did not get worse. Denies any chest pain. On chronic oxygen at home. As per nursing she was not participating in PT OT because of her excruciating pain. S/P right hip and right femur fixation On supplemental oxygen at 3 L/min via nasal cannula which is chronic for the patient General -awake, alert, oriented ?3, not in acute distress, does not appear to bein respiratory distress Cardiovascular -S1 with S2, no murmurs, no rubs, no gallops Pulmonary -diminished breath sounds bilaterally Gastrointestinal - abdomen is soft, nondistended, nontender, bowel sounds positive, there is no rigidity, no rebound Extremities -no edema Neurological -no focal neurological dysfunction noted Limited joint motions because of the fractures and recent surgery Exam Physical Exam Vital Signs: Temp Pulse Resp BP Pulse Ox O2 Del Method O2 Flow Rate 36.9 C 84 16 147/77 H 100 Nasal Cannula 3 07/21/23 12:50 07/21/23 12:50 07/21/23 12:50 07/21/23 12:50 07/21/23 12:50 07/21/23 08:00 07/21/23 08:00 Objective Lab Results 07/21/23 04:55 07/21/23 04:55 Meds Allergies and Active Meds Allergies doxycycline Allergy (Unknown, Verified 07/17/23 13:42) vomiting Active Meds: Active Medications Generic Name Dose Route Start Last Admin Trade Name Freq PRN Reason Stop Dose Admin Acetaminophen 650 mg 07/16/23 07:50 07/19/23 09:27 Acetaminophen 325 Mg Tablet PO 07/15/24 07:49 650 mg Q6HR PRN Administration Pain Scale 1 - 3 or fever Acetaminophen 500 mg 07/20/23 21:45 07/21/23 08:53 Acetaminophen 500 Mg Tablet PO 07/23/23 21:44 Not Given Q6H BENEDICTO Acetaminophen/Butalbital/Caffeine 1 tab 07/17/23 16:52 07/19/23 17:21 Butalb/Acetamin/Caffeine 50-325-40 1 Tab Tablet PO 07/16/24 16:51 1 tab QID PRN Administration headache Albuterol 1.25 mg 07/16/23 14:00 07/21/23 05:43 Albuterol Neb 2.5 Mg/3 Ml Vial.Neb INHALATION 07/15/24 13:59 1.25 mg Q8HR BENEDICTO Administration Ascorbic Acid 500 mg 07/18/23 08:00 07/21/23 08:04 Ascorbic Acid 500 Mg Tablet PO 07/17/24 07:59 Not Given BID.WITH.MEALS BENEDICTO Atorvastatin Calcium 10 mg 07/16/23 09:00 07/21/23 08:35 Atorvastatin 10 Mg Tablet PO 07/15/24 08:59 10 mg DAILY BENEDICTO Administration Bisacodyl 10 mg 07/16/23 07:50 07/20/23 08:02 Bisacodyl 5 Mg Tablet.Dr PO 07/15/24 07:49 10 mg DAILY PRN Administration Constipation Buspirone HCl 15 mg 07/16/23 09:00 07/21/23 08:35 Buspirone 15 Mg Tablet PO 07/15/24 08:59 15 mg BID BENEDICTO Administration Calcium Carbonate 500 mg 07/19/23 14:00 07/21/23 08:04 Calcium Carbonate 500 Mg Tablet PO 07/18/24 13:59 Not Given TID BENEDICTO Cefadroxil 500 mg 07/19/23 16:30 07/21/23 08:35 Cefadroxil 500 Mg Capsule PO 07/25/23 21:01 500 mg BID BENEDICTO Administration Diazepam 5 mg 07/16/23 18:17 07/21/23 08:35 Diazepam 5 Mg Tablet PO 01/12/24 18:16 5 mg TID PRN Administration muscle spasms Docusate Sodium 100 mg 07/16/23 07:50 07/20/23 20:11 Docusate 100 Mg Capsule PO 07/15/24 07:49 100 mg BID PRN Administration Constipation Enoxaparin Sodium 40 mg 07/16/23 10:00 07/21/23 09:13 Enoxaparin 40 Mg/0.4 Ml Syringe SUBCUT 07/15/24 09:59 Not Given DAILY@10 BENEDICTO Ergocalciferol 1,250 mcg 07/20/23 09:00 07/20/23 08:01 Ergocalciferol 1,250 Mcg (50,000 Units) Capsule PO 07/19/24 08:59 1,250 mcg Mo@0900 BENEDICTO Administration Ferrous Sulfate 324 mg 07/18/23 08:00 07/21/23 08:35 Ferrous Sulfate 324 Mg Tablet.Dr PO 07/17/24 07:59 324 mg BID.WITH.MEALS BENEDICTO Administration Hydromorphone HCl 0.25 mg 07/21/23 13:43 Hydromorphone 0.5 Mg/0.5 Ml Syringe IV-PUSH Q4H PRN Pain Scale 8 - 10 Hydromorphone HCl 0.5 mg 07/21/23 13:53 Hydromorphone 0.5 Mg/0.5 Ml Syringe IV-PUSH 07/21/23 16:53 Q5M PRN Pain Lactated Ringer's 1,000 mls @ 20 mls/hr 07/21/23 13:00 07/21/23 14:09 Lactated Ringers IV 07/22/23 12:59 20 mls/hr .Q24H ONE Administration Sodium Chloride 500 mls @ 20 mls/hr 07/21/23 07:31 0.9 % Sodium Chloride IV 07/22/23 07:30 PROTOCOL PRN BLOOD TRANSFUSION Lactated Ringer's 1,000 mls @ 75 mls/hr 07/21/23 13:45 Lactated Ringers IV 07/20/24 13:44 .[id number] [facility] Vancomycin HCl 1 gm in 250 mls @ 250 mls/hr 07/22/23 01:45 Vancomycin IV 07/22/23 02:44 Q12H [facility] Ketorolac Tromethamine 15 mg 07/20/23 13:28 Ketorolac Tromethamine 30 Mg/Ml Vial IV-PUSH Q6H PRN Pain Lidocaine HCl 0.1 ml 07/20/23 15:40 Lidocaine 1% 50 Ml Vial INTRADERMA PREOP PRN Venipuncture x 1 Dose Melatonin 5 mg 07/16/23 07:50 Melatonin 5 Mg Tablet PO 07/15/24 07:49 QHS PRN Insomnia Metoprolol Tartrate 25 mg 07/17/23 12:15 07/21/23 08:35 Metoprolol Tartrate 25 Mg Tablet PO 07/16/24 12:14 25 mg BID BENEDICTO Administration Naloxone HCl 0.4 mg 07/17/23 21:39 Naloxone Hcl 0.4 Mg/Ml Vial IV-PUSH 07/16/24 21:38 Q2M PRN Opioid Reversal Ondansetron HCl 4 mg 07/16/23 07:50 07/19/23 15:19 Ondansetron 4 Mg/2 Ml Vial IV-PUSH 07/15/24 07:49 4 mg Q8H PRN Administration Nausea And Vomiting Ondansetron HCl 4 mg 07/21/23 13:53 Ondansetron 4 Mg/2 Ml Vial IV-PUSH 07/21/23 16:53 ONCE PRN Nausea/Vomiting Oxycodone/Acetaminophen 1 tab 07/16/23 07:50 07/21/23 10:46 Oxycodone/Acetaminophen 5-325 Mg Tablet PO 1 tab Q4H PRN Administration Pain Scale 4 - 7 Polyethylene Glycol 17 gm 07/17/23 21:39 07/20/23 22:00 Polyethylene Glycol 3350 17 Gm Powd.Pack PO 07/24/23 21:38 17 gm DAILY PRN Administration Constipation Senna/Docusate Sodium 2 tab 07/18/23 09:00 07/21/23 08:04 Sennosides/Docusate 8.6-50mg 1 Tab Tablet PO 08/17/23 08:59 Not Given DAILY BENEDICTO Sodium Chloride 0 ml 07/17/23 22:00 07/21/23 05:20 Sodium Chloride 0.9 % 10 Ml Syringe IV-PUSH 07/16/24 21:59 10 ml QSHIFT BENEDICTO Administration Sodium Chloride 0 ml 07/20/23 15:40 Sodium Chloride 0.9 % 10 Ml Syringe IV-PUSH 07/19/24 15:39 PRN PRN Flush Sodium Chloride 0 ml 07/21/23 14:00 Sodium Chloride 0.9 % 10 Ml Syringe IV-PUSH 07/20/24 13:59 QSHIFT B[facility]ICTO A&P - Hospitalist Assessment/Plan (1) Closed fracture of proximal end of right humerus: (2) Periprosthetic fracture around internal prosthetic right hip joint: (3) Fall at home: (4) Osteoarthritis: (5) Chronic obstructive pulmonary disease: (6) Crohn's disease: (7) Hypertension: (8) On home oxygen therapy: (9) Brain aneurysm: (10) Congestive heart failure: Plan Mechanical fall Right proximal humerus fracture Right periprosthetic hip Status post right hip and femur surgery. Percocet 1 tablet every 4 hours as needed for pain Dilaudid 0.5 mg every 4 hours as needed for pain Ongoing PT OT: However limiting factor is right shoulder pain plan for surgical intervention today Urinary tract infection Culture grew E. coli pansensitive Finished antibiotic therapy Anemia -without active signs of bleeding, H&H at the lower range, recheck H&H after the surgery Chronic medical conditions: Severe aortic stenosis Echocardiogram: Ejection Fraction = 60-65%. There is left ventricular diastolic dysfunction. Severe valvular aortic stenosis. cardiac clearance was done prior to the surgery Chronic COPD on home oxygen Continue with home oxygen at 3 L Albuterol Atrovent nebulizer as needed Chronic congestive heart failure : Compensated Hypertension: Continue with Coreg twice daily Crohn disease DVT prophylaxis: Lovenox daily Documented By: Jennifer Blanco MD 07/21/231410 Signed By: <Electronically signed by Jennifer Blanco MD> 07/21/23 1413 [facility] Work Phone: [phone] 557-189004-15-2024 Progress note Author Jennifer Blanco [place] July 20, 2023 1:32pm Note Date/Time July 20, 2023 1:3 1pm [facility] EN[facility] [address] [place] [address] Hospitalist Progress Note Signed Patient: Margaret Anderson MR#: [id number] : 1950 Acct:[id number] Age/Sex: 73 / F Adm Date: 4 Loc: Room: [address] [place] [address] Type: ADM IN Attending Dr: Jennifer Blanco MD Copies to: ~ Date of Service: 07/20/2023 Subjective Subjective Narrative: Patient was seen at bedside earlier this morning. She was asleep. She had a rough night. She needed her pain medications on the clock. As per nursing she was not participating in PT OT because of her excruciating pain. S/P right hip and right femur fixation. POD #2 On supplemental oxygen at 3 L/min via nasal cannula. Exam Physical Exam Vital Signs: Temp Pulse Resp BP Pulse Ox O2 Del Method O2 Flow Rate 36.6 C 83 16 136/74 100 Nasal Cannula 3 07/20/23 11:54 07/20/23 11:54 07/20/23 11:54 07/20/23 11:54 07/20/23 11:54 07/20/23 08:00 07/20/23 08:00 Objective Lab Results 07/20/23 05:54 07/20/23 05:54 Meds Allergies and Active Meds Allergies doxycycline Allergy (Unknown, Verified 07/17/23 13:42) vomiting Active Meds: Active Medications Generic Name Dose Route Start Last Admin Trade Name Juanq PRN Reason Stop Dose Admin Acetaminophen 650 mg 07/16/23 07:50 07/19/23 09:27 Acetaminophen 325 Mg Tablet PO 07/15/24 07:49 650 mg Q6HR PRN Administration Pain Scale 1 - 3 or fever Acetaminophen/Butalbital/Caffeine 1 tab 07/17/23 16:52 07/19/23 17:21 Butalb/Acetamin/Caffeine 50-325-40 1 Tab Tablet PO 07/16/24 16:51 1 tab QID PRN Administration headache Albuterol 1.25 mg 07/16/23 14:00 07/20/23 05:38 Albuterol Neb 2.5 Mg/3 Ml Vial.Neb INHALATION 07/15/24 13:59 Not Given Q8HR BENEDICTO Ascorbic Acid 500 mg 07/18/23 08:00 07/20/23 08:01 Ascorbic Acid 500 Mg Tablet PO 07/17/24 07:59 500 mg BID.WITH.MEALS BENEDICTO Administration Atorvastatin Calcium 10 mg 07/16/23 09:00 07/20/23 08:01 Atorvastatin 10 Mg Tablet PO 07/15/24 08:59 10 mg DAILY BNEEDICTO Administration Bisacodyl 10 mg 07/16/23 07:50 07/20/23 08:02 Bisacodyl 5 Mg Tablet. PO 07/15/24 07:49 10 mg DAILY PRN Administration Constipation Buspirone HCl 15 mg 07/16/23 09:00 07/20/23 08:02 Buspirone 15 Mg Tablet PO 07/15/24 08:59 15 mg BID BENEDICTO Administration Calcium Carbonate 500 mg 07/19/23 14:00 07/20/23 08:02 Calcium Carbonate 500 Mg Tablet PO 07/18/24 13:59 500 mg TID BENEDICTO Administration Cefadroxil 500 mg 07/19/23 16:30 07/20/23 08:02 Cefadroxil 500 Mg Capsule PO 07/25/23 21:01 500 mg BID BENEDICTO Administration Diazepam 5 mg 07/16/23 18:17 07/20/23 09:37 Diazepam 5 Mg Tablet PO 01/12/24 18:16 5 mg TID PRN Administration muscle spasms Docusate Sodium 100 mg 07/16/23 07:50 07/19/23 09:22 Docusate 100 Mg Capsule PO 07/15/24 07:49 100 mg BID PRN Administration Constipation Enoxaparin Sodium 40 mg 07/16/23 10:00 07/20/23 09:37 Enoxaparin 40 Mg/0.4 Ml Syringe SUBCUT 07/15/24 09:59 40 mg DAILY@10 BENEDICTO Administration Ergocalciferol 1,250 mcg 07/20/23 09:00 07/20/23 08:01 Ergocalciferol 1,250 Mcg (50,000 Units) Capsule PO 07/19/24 08:59 1,250 mcg Mo@0900 EBNEDICTO Administration Ferrous Sulfate 324 mg 07/18/23 08:00 07/20/23 08:01 Ferrous Sulfate 324 Mg Tablet.Dr PO 07/17/24 07:59 324 mg BID.WITH.MEALS BENEDICTO Administration Hydromorphone HCl 1 mg 07/16/23 13:14 07/20/23 08:02 Hydromorphone 1 Mg/Ml Syringe IV-PUSH 1 mg Q4H PRN Administration Pain Scale 8 - 10 Sodium Chloride 1,000 mls @ 75 mls/hr 07/16/23 08:00 07/20/23 02:02 0.9% Sodium Chloride 1,000 Ml IV 07/15/24 07:59 75 mls/hr .[id number] BENEDICTO Administration Ketorolac Tromethamine 30 mg 07/16/23 16:49 07/19/23 13:46 Ketorolac Tromethamine 30 Mg/Ml Vial IV-PUSH 07/21/23 16:48 30 mg Q6H PRN Administration Pain Melatonin 5 mg 07/16/23 07:50 Melatonin 5 Mg Tablet PO 07/15/24 07:49 QHS PRN Insomnia Metoprolol Tartrate 25 mg 07/17/23 12:15 07/20/23 08:01 Metoprolol Tartrate 25 Mg Tablet PO 07/16/24 12:14 25 mg BID BENEDICTO Administration Mineral Oil 1 each 07/20/23 21:39 Mineral Oil ([place]) 1 Each Enema [place] ONCE PRN Constipation Naloxone HCl 0.4 mg 07/17/23 21:39 Naloxone Hcl 0.4 Mg/Ml Vial IV-PUSH 07/16/24 21:38 Q2M PRN Opioid Reversal Ondansetron HCl 4 mg 07/16/23 07:50 07/19/23 15:19 Ondansetron 4 Mg/2 Ml Vial IV-PUSH 07/15/24 07:49 4 mg Q8H PRN Administration Nausea And Vomiting Oxycodone/Acetaminophen 1 tab 07/16/23 07:50 07/20/23 11:38 Oxycodone/Acetaminophen 5-325 Mg Tablet PO 1 tab Q4H PRN Administration Pain Scale 4 - 7 Polyethylene Glycol 17 gm 07/17/23 21:39 Polyethylene Glycol 3350 17 Gm Powd.Pack PO 07/24/23 21:38 DAILY PRN Constipation Senna/Docusate Sodium 2 tab 07/18/23 09:00 07/20/23 08:01 Sennosides/Docusate 8.6-50mg 1 Tab Tablet PO 08/17/23 08:59 2 tab DAILY BENEDICTO Administration Sodium Chloride 0 ml 07/16/23 03:49 07/17/23 05:39 Sodium Chloride 0.9 % 10 Ml Syringe IV-PUSH 07/15/24 03:48 10 ml PRN PRN Administration Flush Sodium Chloride 0 ml 07/16/23 22:38 07/18/23 14:00 Sodium Chloride 0.9 % 10 Ml Syringe IV-PUSH 07/15/24 22:37 10 ml PRN PRN Administration Flush Sodium Chloride 0 ml 07/17/23 22:00 07/20/23 08:01 Sodium Chloride 0.9 % 10 Ml Syringe IV-PUSH 07/16/24 21:59 10 ml QSHIFT BENEDICTO Administration A&P - Hospitalist Assessment/Plan (1) Closed fracture of proximal end of right humerus: (2) Periprosthetic fracture around internal prosthetic right hip joint: (3) Fall at home: (4) Osteoarthritis: (5) Chronic obstructive pulmonary disease: (6) Crohn's disease: (7) Hypertension: (8) On home oxygen therapy: (9) Brain aneurysm: (10) Congestive heart failure: Plan Mechanical fall Right proximal humerus fracture Right periprosthetic hip Status post right hip and femur surgery. Percocet 1 tablet every 4 hours as needed for pain Dilaudid 0.5 mg every 4 hours as needed for pain Ongoing PT OT: However limiting factor is right shoulder pain. Orthopedics is thinking that she may need to get also the right shoulder fixed so that she would perform PT OT well. Urinary tract infection Culture grew E. coli pansensitive on cefadroxil Anemia - recheck hh Chronic medical conditions: Severe aortic stenosis Echocardiogram: Ejection Fraction = 60-65%. There is left ventricular diastolic dysfunction. Severe valvular aortic stenosis. cardiac clearance was done prior to the surgery Chronic COPD on home oxygen Continue with home oxygen at 3 L Albuterol Atrovent nebulizer as needed Chronic congestive heart failure : Compensated Hypertension: Continue with Coreg twice daily Crohn disease DVT prophylaxis: Lovenox daily Documented By: Jennifer Blanco MD 07/20/23 1329 Signed By: <Electronically signed by Jennifer Blanco MD> 07/20/23 1332 [facility] Work Phone: [phone] Consult note Author Mat Olvera [place] July 20, 2023 1:30pm Note Date/Time July 20, 2023 12: 28pm [facility] [address] [place] [address] Physiatry (Rehab) Consult Note Signed Patient: Margaret Anderson MR#: [id number] : 1950 Acct:[id number] Age/Sex: 73 / F Adm Date: 4 Loc: Room: [address] [place] [address] Type: ADM IN Attending Dr: Jennifer Blanco MD Copies to: MD Ruben White MD Ruta Semaskiene, MD~ HPI Consult Date: 07/20/23 Requesting Physician: Jennifer Blanco MD Primary Care Provider: Ruben Velasquez MD Consult Narrative HPI: Ms. Anderson is a 73 year old female with PMH of COPD on 3L NC, HFpEF, hx of ruptured brain aneurysm s/p coiling, lung cancer s/p radiation who presented to the hospital after a fall and sustained a right hip periprosthetic fracture as well as a right proximal humeral fracture. Patient underwent right hip femoral revision with ORIF. Is TTWB. Likely will be undergoing fixation of right humerus. Of note, has multiple medical comorbidities including HFpEF with last ECHO demonstrating moderate to severe aortic stenosis. LVEF 60-65%. Patient lives at home alone. Able to perform ADLs. Ambulatory without walker or cane. Continues to have significant pain that is limiting ability to tolerate therapy. PM&R consulted for evaluation for inpatient rehab. Review of Systems Review of Systems All other systems reviewed & are negative unless noted below or in HPI [facility] Medical History (Updated 07/20/23 @ 13:26 by Mat Olvera MD) On home oxygen therapy 3L High cholesterol Hypertension Brain aneurysm Osteoarthritis Degenerative disc disease Crohn's disease Congestive heart failure Chronic obstructive pulmonary disease Surgical History History of right hip replacement History of lung biopsy H/O ventral hernia repair H/O exploratory laparotomy History of tubal ligation Family History (Updated 06/23/23 @ 11:43 by Brenda Cuellar LPN) Brother Heart disease Father COPD (chronic obstructive pulmonary disease) Mother History of malignant neoplasm of cervix Hypertension Cancer 64 yrs Social History Smoking Status: Former smoker Tobacco Type: cigarettes Substance Use Type: None Meds Medications and Allergies Allergies doxycycline Allergy (Unknown, Verified 07/17/23 13:42) vomiting Home Medications Oxygen 06/23/23 [History Confirmed 07/16/23] albuterol sulfate 90 mcg/actuation aerosol inhaler (Ventolin HFA) 2 puff inhalation QID 06/23/23 [History Confirmed 07/16/23] aspirin 81 mg tablet,delayed release (Adult Low Dose Aspirin) 81 mg PO DAILY 06/23/23 [History Confirmed 07/16/23] buprenorphine 8 mg-naloxone 2 mg sublingual film (Suboxone) 1.5 film sublingual ONCE 06/23/23 [History Confirmed 07/16/23] tbgfherynp-yxbldpbtteaxi-acvkwmba 50 mg-325 mg-40 mg tablet 1 tab PO QID PRN headache 06/23/23 [History Confirmed 07/17/23] ondansetron HCl 4 mg tablet 4 mg PO Q8HR PRN nausea and vomiting 06/23/23 [History Confirmed 07/16/23] rosuvastatin 5 mg tablet 1 tab PO DAILY 06/23/23 [History Confirmed 07/16/23] albuterol sulfate 1.25 mg/3 mL solution for nebulization 1.25 mg inhalation Q8HR07/16/23 [History] albuterol sulfate 2.5 mg/3 mL (0.083 %) solution for nebulization 2.5 mg continuous nebulization Q4HR PRN shortness of breath or wheezing 07/16/23 [History Confirmed 07/16/23] bumetanide 0.5 mg tablet 0.5 mg PO DAILY 07/16/23 [History Confirmed 07/16/23] buprenorphine 8 mg-naloxone 2 mg sublingual tablet 1 tab sublingual DAILY 07/16/23 [History Confirmed 07/16/23] buspirone 10 mg tablet 10 mg PO TID 07/16/23 [History Confirmed 07/16/23] gabapentin 100 mg capsule 100 mg PO TID 07/16/23 [History Confirmed 07/16/23] guaifenesin 600 mg tablet, extended release 12 hr (Mucus Relief ER) 600 mg PO Q12HR 07/16/23 [History Confirmed 07/16/23] meclizine 25 mg tablet 25 mg PO TID PRN dizziness 07/16/23 [History Confirmed 07/16/23] metoprolol tartrate 25 mg tablet 25 mg PO BID 07/16/23 [History Confirmed 07/16/23] tiotropium 2.5 mcg-olodaterol 2.5 mcg/actuation mist for inhalation (Stiolto Respimat) 2 inh inhalation QAM 07/16/23 [History Confirmed 07/16/23] Exam Physical Exam Vital Signs: Temp Pulse Resp BP Pulse Ox O2 Del Method O2 Flow Rate 97.9 F 83 16 136/74 100 Nasal Cannula 3 07/20/23 11:54 07/20/23 11:54 07/20/23 11:54 07/20/23 11:54 07/20/23 11:54 07/20/23 08:00 07/20/23 08:00 Narrative: General: Awake, A&O x 3, pleasant, cooperative, well nourished. Resting in bed. Appears uncomfortably HENT: NC, AT Eyes: No scleral icterus Neck: Supple Cardio: RRR, no murmurs, rubs or gallops. Extremities well perfused Respiratory: CTAB, no wheezes rhonchi or rales. No evidence of respiratory distress GI: Soft, nontender, nondistended Neuro: CN II-XII intact. Moves all extremities spontaneously. RLE and GAYLE strength limited by pain. Left upper and lower extremity strenght 5/5. Sensation intact bilateral lower extremities. Extremities: No erythema, cyanosis. Noted nonpitting edema RUE. Psych: Affect, speech and movements normal. Mood congruent Results - Phys. Rehab Labs Labs: Laboratory Results - last 24 hr 07/16/23 07/20/23 23:23 05:54 Corrected WBC 7.5 Uncorrected WBC Count 7.5 RBC 2.26 L Hgb 7.3 L Hct 21.8 L MCV 96.6 MCH 32.4 MCHC 33.5 RDW 15.4 H Plt Count 238 MPV 8.4 Neut % (Auto) 67.5 Lymph % (Auto) 18.7 [place] % (Auto) 10.8 Eos % (Auto) 2.6 Baso % (Auto) 0.4 Nucleat RBC Rel Count 0.1 Neut # (Auto) 5.1 Lymph # (Auto) 1.4 [place] # (Auto) 0.8 Eos # (Auto) 0.2 Baso # (Auto) 0.0 PHA Creatinine Clear 51.81 Sodium 140 Potassium 4.6 Chloride 105 Carbon Dioxide 34.9 H Anion Gap 4.7 L BUN 6 L Creatinine 0.46 L Est GFR (CKD-EPI) > 60.0 Glucose 89 Calcium 7.9 L Magnesium 1.8 L Total Bilirubin 0.3 AST 22 ALT 9 Alkaline Phosphatase 61 Total Protein 4.0 L Albumin 2.3 L Globulin 1.7 Albumin/Globulin Ratio 1.4 Blood Type A Positive Antibody Screen Negative Crossmatch (AHG) See Detail Assessment/Plan (1) Closed fracture of proximal end of right humerus: (2) Periprosthetic fracture around internal prosthetic right hip joint: (3) Fall at home: (4) Congestive heart failure: (5) Moderate to severe aortic stenosis: (6) Brain aneurysm: (7) On home oxygen therapy: (8) Hypertension: (9) Impaired mobility and activities of daily living: (10) Post-operative pain: Plan This is a 73-year-old female who presents to the hospital after a fall. Was found to have right periprosthetic femur fracture for which she is status post right revision JANNET as well as concomitant proximal humerus fracture on the right. Plan for ORIF as well as arthroplasty for treatment of right proximal humerus fracture. Will need optimization of labs prior to this. Patient continues to have very significant pain that is limiting therapy. -Pain continues to be a major limitation with therapy. This will need to be optimized prior to discharge to a skilled therapy facility. -Plan for orthopedic surgery tomorrow. -Will continue to follow from a rehab standpoint. Patient would likely have therapy needs when ready. Will need to see if patient is tolerating out of bed therapy after her second surgery prior to final recommendations. -Thank you for this consult. Patient was personally seen by me, Dr. Olvera, on the day of encounter, reviewed the history and the relevant portions of the chart, including current orders, allied health and citrix consultant notes, labs/imaging and performed [place] elements of exam and I formulated the plan of care and facilitated the medical decision making. I completed a substantive portion of this encounter, the medical decision makingportion of this note in its entirety, including Allied health note review, nursing note review, [employer] consultant note review, discussion with nursing and case management, and more than 50% of my time was spent on counseling and coordination of care, time spent 75 minutes Documented By: Mat Olvera MD 1220 Signed By: <Electronically signed by Mat Olvera MD> 07/20/23 1330 [facility] Work Phone: 1(791) 229-215704-15-2024 Progress note Author Emir Mcintyre [place] July 20, 2023 1:11pm Note Date/Time July 20, 2023 1:0 5pm [facility] [address] [place] [address] Orthopedic Progress Note Signed Patient: Margaret Anderson MR#: [id number] : 1950 Acct:[id number] Age/Sex: 73 / F Adm Date: 4 Loc: Room: [address] [place] [address] Type: ADM IN Attending Dr: Jennifer Blanco MD Copies to: ~ Date of Service: 07/20/2023 Subjective Subjective Interval History: Margaret is a 73-year-old female who is now POD #3 s/p right revision JANNET for periprosthetic femur fracture who also has concomitant proximal humerus fractureon the right. Dr. Ruiz has asked me to see her in regards to her right proximal humerus fracture. Patient states that she suffered a fall in which shehad this injury. In regards to treatment of right hip she will be toe-touch weightbearing for some amount of time. She does endorse significant pain in theright shoulder which is worsened with motion. She is unable to bear weight in the right arm. She denies any prior right shoulder issues. She denies any numbness or tingling at this time. Exam Physical Exam Vital Signs: Temp Pulse Resp BP Pulse Ox O2 Del Method O2 Flow Rate 97.9 F 83 16 136/74 100 Nasal Cannula 3 07/20/23 11:54 07/20/23 11:54 07/20/23 11:54 07/20/23 11:54 07/20/23 11:54 07/20/23 08:00 07/20/23 08:00 Narrative: Patient seen and evaluated on regular nursing floor she is resting in supine position. She is receiving O2 per nasal cannula. She is alert and oriented andpleasant in conversation today. Right upper extremities evaluated. Right shoulder shows no significant swellingtoday and no ecchymosis present. Right arm distal to the elbow shows moderate swelling. She has tenderness palpation of the shoulder as expected but no tenderness at the elbow wrist or hand. She can wiggle fingers move the hand without difficulty. Hand is warm well-perfused normal sensation. Any range of motion of the shoulder does cause pain. Sling present right upper extremity Objective Labs Labs: Laboratory Results - last 24 hr 07/16/23 07/20/23 23:23 05:54 Corrected WBC 7.5 Uncorrected WBC Count 7.5 RBC 2.26 L Hgb 7.3 L Hct 21.8 L MCV 96.6 MCH 32.4 MCHC 33.5 RDW 15.4 H Plt Count 238 MPV 8.4 Neut % (Auto) 67.5 Lymph % (Auto) 18.7 [place] % (Auto) 10.8 Eos % (Auto) 2.6 Baso % (Auto) 0.4 Nucleat RBC Rel Count 0.1 Neut # (Auto) 5.1 Lymph # (Auto) 1.4 [place] # (Auto) 0.8 Eos # (Auto) 0.2 Baso # (Auto) 0.0 PHA Creatinine Clear 51.81 Sodium 140 Potassium 4.6 Chloride 105 Carbon Dioxide 34.9 H Anion Gap 4.7 L BUN 6 L Creatinine 0.46 L Est GFR (CKD-EPI) > 60.0 Glucose 89 Calcium 7.9 L Magnesium 1.8 L Total Bilirubin 0.3 AST 22 ALT 9 Alkaline Phosphatase 61 Total Protein 4.0 L Albumin 2.3 L Globulin 1.7 Albumin/Globulin Ratio 1.4 Blood Type A Positive Antibody Screen Negative Crossmatch (AHG) See Detail Assessment / Plan Assessment and plan (1) Closed fracture of proximal end of right humerus: Code(s): S42.201A - Unspecified fracture of upper end of right humerus, initial encounterfor closed fracture (2) Periprosthetic fracture around internal prosthetic right hip joint: Code(s): M97.01XA - Periprosthetic fracture around internal prosthetic right hip joint, initial encounter Plan Margaret presents with proximal humerus fracture and is s/p right JANNET revision forperiprosthetic femur fracture. At this juncture we have discussed the findings and diagnosis as well as personally reviewed appropriate imaging and performed interpretation of related testing and examination with the patient today. Prior medical notes from Dr. Ruiz and history have been reviewed. We thoroughly discussed treatment options including nonoperative treatment, ORIFas well as arthroplasty procedure for treatment of her right proximal humerus fracture. Her bone quality is significantly poor and this is demonstrated on both x-ray as well as CT scan. I do not feel that she is a good candidate for ORIF due to the poor bone quality and the difficult nature she may have for healing this fracture. If we were to perform ORIF I would still limit her weightbearing on her right arm. Nonoperative treatment would consist of immobilization as well as ongoing nonweightbearing to the right upper extremity. Overall think she should mobilize as effectively as possible to lessen her comorbidities associated with being nonambulatory. The best option for her to progress quickly would be a reverse shoulder arthroplasty and have discussed this at length with the patient. She would like to move forward for surgery forboth pain control as well as function. At this juncture we have discussed the findings and diagnosis as well as reviewed appropriate imaging and performed interpretation of testing. Surgical intervention is recommended. Prior medical notes and history have been reviewed.Surgical versus non-operative management have been discussed in detail and non-operative management was given as an option. The risks of surgical intervention were given. Pre- operative optimization will be done prior to surgical procedure to limit tracie-operative risks. I have discussed the planned procedure, how and who performs the procedure, and the personnel involved. Cardiovascular, pulmonary, and other life threatening episodes can occur during surgery althoughthere is a low risk of these happening. Surgical risks including bleeding, neurovascular injury, wound closure problems, clotting disorders including pulmoary embolism and infection were discussed. Tracie- operative risks including infection, bleeding, wound healing problems, and need for further surgery were discussed. It was discussed that there is a possibility of blood transfusion with any surgical procedure and the risks involved in receiving a blood transfusion. Possibility of, and need for, future bracing or DME use, physical or occupational therapy, mental therapy, rehabilitation, pain management and need for secondary procedures was discussed. I have warned against smoking and the use of tobacco products due to the risks associated with them, in particular, poor healing. I have advised against the terminal press operator use of narcotic pain medication. I have advised to follow all post-operative instructions in order to obtain the best outcome. Informed consent has been verbally affirmed and signed as indicated. Hemoglobin this morning is 7.2. This will need to be improved prior to any operative intervention. Her vitals are overall benign but would like to see thehemoglobin closer to 9 which seems to be her baseline. If possible would plan for OR tomorrow if the patient a.m. lab work allows. If not then will be delayed until optimized Documented By: Emir Mcintyre DO 07/20/23 1302 Signed By: <Electronically signed by Emir Mcintyre DO> 07/20/23 1311 [facility] Work Phone: [phone]) [phone] Progress note Author Lino Mackey [place] July 19, 2023 12:17pm Note Date/Time July 19, 2023 12: 17pm [facility] [address] [place] [address] Hospitalist Progress Note Signed Patient: Margaret Anderson MR#: [id number] : 1950 Acct:[id number] Age/Sex: 73 / F Adm Date: 4 Loc: 4P Room: [address] [place] [address] Type: ADM IN Attending Dr: Lino Mackey MD Copies to: ~ Date of Service: 07/19/2023 Subjective Subjective Narrative: Patient was seen at bedside earlier this morning. She was asleep. She had a rough night. She needed her pain medications on the clock. As per nursing she was not participating in PT OT because of her excruciating pain. S/P right hip and right femur fixation. POD #2 On supplemental oxygen at 3 L/min via nasal cannula. ON ADMISSION: 73-year-old white female past medical history of hypertension, hyperlipidemia, chronic COPD, on home oxygen at 3 L, chronic congestive heart failure, chronic disease and osteoarthritis who presented to emergency room after 4. Fell today when she tried to get out of bed and hit her right side workup with the emergency room showed right proximal humerus and right periprosthetic hip fracture. Patient lives by herself patient complains of 10/10 of right hip painhe denies any chest pain or shortness of breath. She is on home oxygen nasal cannula. She denies any orthopnea or PND. No cough. No fever or chills. She denies of any nausea vomiting. She denies having abdominal pain. She denies having dysuria, hematuria, or frequency. Exam Physical Exam Vital Signs: Temp Pulse Resp BP Pulse Ox O2 Del Method O2 Flow Rate 98.0 F 76 17 147/78 H 98 Nasal Cannula 3 07/19/23 11:01 07/19/23 11:01 07/19/23 11:01 07/19/23 11:01 07/19/23 11:01 07/19/23 11:01 07/19/23 11:01 Objective Lab Results 07/19/23 04:59 07/18/23 05:05 Microbiology Results Microbiology 07/16/23 05:00 Urine - Colmenares Catheter Urine Culture - Final Escherichia coli Meds Allergies and Active Meds Allergies doxycycline Allergy (Unknown, Verified 07/17/23 13:42) vomiting Active Meds: Active Medications Generic Name Dose Route Start Last Admin Trade Name Freq PRN Reason Stop Dose Admin Acetaminophen 650 mg 07/16/23 07:50 07/19/23 09:27 Acetaminophen 325 Mg Tablet PO 07/15/24 07:49 650 mg Q6HR PRN Administration Pain Scale 1 - 3 or fever Acetaminophen/Butalbital/Caffeine 1 tab 07/17/23 16:52 07/18/23 07:39 Butalb/Acetamin/Caffeine 50-325-40 1 Tab Tablet PO 07/16/24 16:51 1 tab QID PRN Administration headache Albuterol 1.25 mg 07/16/23 14:00 07/19/23 05:42 Albuterol Neb 2.5 Mg/3 Ml Vial.Neb INHALATION 07/15/24 13:59 Not Given Q8HR BENEDICTO Ascorbic Acid 500 mg 07/18/23 08:00 07/19/23 09:22 Ascorbic Acid 500 Mg Tablet PO 07/17/24 07:59 500 mg BID.WITH.MEALS BENEDICTO Administration Atorvastatin Calcium 10 mg 07/16/23 09:00 07/19/23 09:22 Atorvastatin 10 Mg Tablet PO 07/15/24 08:59 10 mg DAILY BENEDICTO Administration Bisacodyl 10 mg 07/16/23 07:50 Bisacodyl 5 Mg Tablet.Dr PO 07/15/24 07:49 DAILY PRN Constipation Buspirone HCl 15 mg 07/16/23 09:00 07/19/23 09:22 Buspirone 15 Mg Tablet PO 07/15/24 08:59 15 mg BID BENEDICTO Administration Calcium Carbonate 500 mg 07/19/23 14:00 Calcium Carbonate 500 Mg Tablet PO 07/18/24 13:59 TID BENEDICTO Cefadroxil 500 mg 07/19/23 09:00 Cefadroxil 500 Mg Capsule PO 07/25/23 21:01 BID BENEDICTO Diazepam 5 mg 07/16/23 18:17 07/19/23 01:11 Diazepam 5 Mg Tablet PO 01/12/24 18:16 5 mg TID PRN Administration muscle spasms Docusate Sodium 100 mg 07/16/23 07:50 07/19/23 09:22 Docusate 100 Mg Capsule PO 07/15/24 07:49 100 mg BID PRN Administration Constipation Enoxaparin Sodium 40 mg 07/16/23 10:00 07/19/23 09:19 Enoxaparin 40 Mg/0.4 Ml Syringe SUBCUT 07/15/24 09:59 40 mg DAILY@10 BENEDICTO Administration Ergocalciferol 1,250 mcg 07/20/23 09:00 Ergocalciferol 1,250 Mcg (50,000 Units) Capsule PO 07/19/24 08:59 Mo@0900 [facility] Ferrous Sulfate 324 mg 07/18/23 08:00 07/19/23 09:22 Ferrous Sulfate 324 Mg Tablet. PO 07/17/24 07:59 324 mg BID.WITH.MEALS BENEDICTO Administration Hydromorphone HCl 1 mg 07/16/23 13:14 07/19/23 09:18 Hydromorphone 1 Mg/Ml Syringe IV-PUSH 0.5 mg Q4H PRN Administration Pain Scale 8 - 10 Sodium Chloride 1,000 mls @ 75 mls/hr 07/16/23 08:00 07/19/23 09:28 0.9% Sodium Chloride 1,000 Ml IV 07/15/24 07:59 75 mls/hr .[id number] BENEDICTO Administration Ceftriaxone Sodium 1 gm in 50 mls @ 100 mls/hr 07/16/23 08:30 07/19/23 09:20 Rocephin IV 100 mls/hr Q24H BENEDICTO Administration Ketorolac Tromethamine 30 mg 07/16/23 16:49 07/18/23 23:18 Ketorolac Tromethamine 30 Mg/Ml Vial IV-PUSH 07/21/23 16:48 30 mg Q6H PRN Administration Pain Melatonin 5 mg 07/16/23 07:50 Melatonin 5 Mg Tablet PO 07/15/24 07:49 QHS PRN Insomnia Metoprolol Tartrate 25 mg 07/17/23 12:15 07/19/23 09:23 Metoprolol Tartrate 25 Mg Tablet PO 07/16/24 12:14 25 mg BID BENEDICTO Administration Mineral Oil 1 each 07/20/23 21:39 Mineral Oil ([place]) 1 Each Enema MN ONCE PRN Constipation Naloxone HCl 0.4 mg 07/17/23 21:39 Naloxone Hcl 0.4 Mg/Ml Vial IV-PUSH 07/16/24 21:38 Q2M PRN Opioid Reversal Ondansetron HCl 4 mg 07/16/23 07:50 07/18/23 21:48 Ondansetron 4 Mg/2 Ml Vial IV-PUSH 07/15/24 07:49 4 mg Q8H PRN Administration Nausea And Vomiting Oxycodone/Acetaminophen 1 tab 07/16/23 07:50 07/19/23 11:02 Oxycodone/Acetaminophen 5-325 Mg Tablet PO 1 tab Q4H PRN Administration Pain Scale 4 - 7 Polyethylene Glycol 17 gm 07/17/23 21:39 Polyethylene Glycol 3350 17 Gm Powd.Pack PO 07/24/23 21:38 DAILY PRN Constipation Senna/Docusate Sodium 2 tab 07/18/23 09:00 07/19/23 09:22 Sennosides/Docusate 8.6-50mg 1 Tab Tablet PO 08/17/23 08:59 2 tab DAILY BENEDICTO Administration Sodium Chloride 0 ml 07/16/23 03:49 07/17/23 05:39 Sodium Chloride 0.9 % 10 Ml Syringe IV-PUSH 07/15/24 03:48 10 ml PRN PRN Administration Flush Sodium Chloride 0 ml 07/16/23 22:38 07/18/23 14:00 Sodium Chloride 0.9 % 10 Ml Syringe IV-PUSH 07/15/24 22:37 10 ml PRN PRN Administration Flush Sodium Chloride 0 ml 07/17/23 22:00 07/19/23 08:25 Sodium Chloride 0.9 % 10 Ml Syringe IV-PUSH 07/16/24 21:59 Not Given QSHIFT BENEDICTO A&P - Hospitalist Assessment/Plan (1) Closed fracture of proximal end of right humerus: (2) Periprosthetic fracture around internal prosthetic right hip joint: (3) Fall at home: (4) Osteoarthritis: (5) Chronic obstructive pulmonary disease: (6) Crohn's disease: (7) Hypertension: (8) On home oxygen therapy: (9) Brain aneurysm: (10) Congestive heart failure: Plan 73-year-old white female past medical history of hypertension, hyperlipidemia, chronic COPD, on home oxygen at 3 L, chronic congestive heart failure, chronic disease and osteoarthritis who presented to emergency room after 4. Fell today when she tried to get out of bed and hit her right side workup with the emergency room showed right proximal humerus and right periprosthetic hip fracture. Patient lives by herself patient complains of 10/10 of right hip painhe denies any chest pain or shortness of breath. She is on home oxygen nasal cannula. She denies any orthopnea or PND. No cough. No fever or chills. She denies of any nausea vomiting. She denies having abdominal pain. She denies having dysuria, hematuria, or frequency. ASSESSMENT AND PLAN: 07/19/2023 Mechanical fall Right proximal humerus fracture Right periprosthetic hip Status post right hip and femur surgery. Percocet 1 tablet every 4 hours as needed for pain Dilaudid 0.5 mg every 4 hours as needed for pain Ongoing PT OT: However limiting factor is right shoulder pain. Orthopedics is thinking that she may need to get also the right shoulder fixed so that she would perform PT OT well. Urinary tract infection Culture grew E. coli pansensitive Will continue with IV ceftriaxone Chronic medical conditions: Severe aortic stenosis Echocardiogram: Ejection Fraction = 60-65%. There is left ventricular diastolic dysfunction. Severe valvular aortic stenosis. cardiac clearance was done prior to the surgery Chronic COPD on home oxygen Continue with home oxygen at 3 L Albuterol Atrovent nebulizer as needed Chronic congestive heart failure : Compensated Hypertension: Continue with Coreg twice daily Crohn disease DVT prophylaxis: Lovenox daily Documented By: Lino Mackey MD 07/19/231212 Signed By: <Electronically signed by Lino Mackey MD> 07/19/23 1217 [facility] Work Phone: 1(225) 599-228004-14-2024 Progress note Author Surendra Ruiz [place] July 19, 2023 11:54am Note Date/Time July 19, 2023 11: 54am [facility] [address] [place] [address] Orthopedic Progress Note Signed Patient: Margaret Anderson MR#: [id number] : 1950 Acct:[id number] Age/Sex: 73 / F Adm Date: 4 Loc: Room: 4J6891-0 Type: ADM IN Attending Dr: Lino Mackey MD Copies to: ~ Date of Service: 07/19/2023 Subjective Subjective Interval History: Patient is asleep when I entered the room this morning. She quickly awakens andtells me that she is having more pain/soreness into the thigh. She is also still complaining of pain into the shoulder. She tells me that she worked with therapy yesterday but it did not go so well because she could really use her andrade she had so much pain in her thigh. She also says there is a radiating pain that shooting down like a stinging pain into her leg. She denies any numbness or tingling into the foot. Nursing reports no acute events overnight. They do report that she has been given IV and oral pain medications pretty regularly in addition to some muscle relaxers. They also report that patient has been very reluctant to move and it was a difficult physical therapy session yesterday. Exam Physical Exam Vital Signs: Temp Pulse Resp BP Pulse Ox O2 Del Method O2 Flow Rate 98.0 F 76 17 147/78 H 98 Nasal Cannula 3 07/19/23 11:07/19/23 11:07/19/23 11:07/19/23 11:07/19/23 11:07/19/23 11:07/19/23 11:01 Narrative: Right shoulder is in a sling. There is ecchymosis noted around the proximal humerus and into the axilla. No areas concerning for open fracture. Warm well-perfused hand with 2+ radial pulse. Sensation intact to light touch throughout the hand. She fires her AIN, PIN, median, ulnar, radial nerves. Right lower extremity wound VAC is on and working. No drainage in the container. Abduction pillow is in place. Foot is warm and well-perfused. Sensation intact to light touch throughout the foot without paresthesias. She wiggles her toes moves her ankle up and down. Objective Labs Labs: Laboratory Results - last 24 hr 07/16/23 07/19/23 23:23 04:59 Corrected WBC 9.7 Uncorrected WBC Count 9.7 RBC 2.59 L Hgb 8.3 L Hct 24.9 L MCV 96.4 MCH 32.0 MCHC 33.3 RDW 15.8 H Plt Count 232 MPV 8.4 Neut % (Auto) 70.8 Lymph % (Auto) 16.0 [place] % (Auto) 12.3 Eos % (Auto) 0.7 Baso % (Auto) 0.2 Nucleat RBC Rel Count 0.1 Neut # (Auto) 6.9 Lymph # (Auto) 1.6 [place] # (Auto) 1.2 H Eos # (Auto) 0.1 Baso # (Auto) 0.0 Crossmatch (AHG) See Detail Micro Microbiology Results: Microbiology 07/16/23 05:00 Urine - Colmenares Catheter Urine Culture - Final Escherichia coli AJRR INPATIENT Citizen Of [place] [facility] Ambulation: 2 No, Ambulation Day of Surgery or 4 hours from PACU discharge TJC Discharge Exclusion: 3 Unknown Assessment / Plan Assessment and plan (1) Closed fracture of proximal end of right humerus: Code(s): S42.201A - Unspecified fracture of upper end of right humerus, initial encounterfor closed fracture (2) Periprosthetic fracture around internal prosthetic right hip joint: Code(s): M97.01XA - Periprosthetic fracture around internal prosthetic right hip joint, initial encounter Plan POD 2 s/p R hip femoral revision with ORIF 1. Pain control: IV and PO meds including muscle relaxer 2. DVT prophylaxis: DAYA Hose bilaterally, SCDs bilaterally, and recommend staying on the Lovenox that she is currently on by the primary team. Once mobile, would recommend chemical prophylaxis for total of 35 days postop with either heparinoid or factor Xa inhibitor. 3. Perioperative antibiotics with IV Ancef and then 7 days of Duricef 4. PT/OT: Toe touch weight bearing RLE with strict posterior hip and abductor precautions 5. Appreciate hospitalist assistance with medical management 6. PACU x-rays look good 7. Hemoglobin 8.3 this am. Will start Fe and Vit C. Did require 2 units of pRBCpreop. 8. Osteoporosis: Will order Vit D lab. Will start Ca and Vit D supplementation.Will get her into our own the bone program. 9. Today's Plan: work with PT/OT 10. Disposition: From nursing perspective patient did not tolerate PT well secondary to pain in the thigh and difficulty moving around without ability to utilizer her R arm. Closed right displaced proximal humerus fracture 1. Pain control 2. Nonweightbearing right upper extremity with sling for comfort 3. In its current state, patient is not able to use it to help with a walker orany other assistive devices that she is recovering from her hip replacement surgery. She has not done well with PT thus far and while pain in the hip is certainly a limiting factor, the inability to use her right arm is also a contributing factor. I will reach out to my partners to determine if they feel fixation of her right shoulder would then allow her to weight-bear and utilize it more during the rehabilitation for her right hip. If so, that may be something we can get taking care of surgically in the next couple days. Documented By: Surendra Ruiz MD 07/19/23 11 49 Signed By: <Electronically signed by Surendra Ruiz MD> 07/19/23 6092 [facility] Work Phone: [phone] Progress note Author Lino Mackey [place] July 18, 2023 1:45pm Note Date/Time July 18, 2023 1:4 5pm [facility] [address] [place] [address] Hospitalist Progress Note Signed Patient: Margaret Anderson MR#: [id number] : 1950 Acct:[id number] Age/Sex: 73 / F Adm Date: 4 Loc: Room: [address] [place] [address] Type: ADM IN Attending Dr: Lino Mackey MD Copies to: ~ Date of Service: 07/18/2023 Subjective Subjective Narrative: Patient was seen at bedside. Status post right hip and right femur surgery lastnight. She complains of pain pain when she is moving otherwise she is resting comfortably. Patient will go for right humerus surgery possibly on Thursday. Otherwise on supplemental oxygen at 3 L/min via nasal cannula. ON ADMISSION: 73-year-old white female past medical history of hypertension, hyperlipidemia, chronic COPD, on home oxygen at 3 L, chronic congestive heart failure, chronic disease and osteoarthritis who presented to emergency room after 4. Fell today when she tried to get out of bed and hit her right side workup with the emergency room showed right proximal humerus and right periprosthetic hip fracture. Patient lives by herself patient complains of 10/10 of right hip painhe denies any chest pain or shortness of breath. She is on home oxygen nasal cannula. She denies any orthopnea or PND. No cough. No fever or chills. She denies of any nausea vomiting. She denies having abdominal pain. She denies having dysuria, hematuria, or frequency. Exam Physical Exam Vital Signs: Temp Pulse Resp BP Pulse Ox O2 Del Method O2 Flow Rate 97.5 F L 76 20 111/58 L 100 Nasal Cannula 3 07/18/23 12:00 07/18/23 12:00 07/18/23 12:00 07/18/23 12:00 07/18/23 12:00 07/18/23 12:00 07/18/23 12:00 Objective Lab Results 07/18/23 05:05 07/18/23 05:05 Microbiology Results Microbiology 07/16/23 05:00 Urine - Colmenares Catheter Urine Culture - Final Escherichia coli Meds Allergies and Active Meds Allergies doxycycline Allergy (Unknown, Verified 07/17/23 13:42) vomiting Active Meds: Active Medications Generic Name Dose Route Start Last Admin Trade Name Freq PRN Reason Stop Dose Admin Acetaminophen 650 mg 07/16/23 07:50 07/16/23 21:05 Acetaminophen 325 Mg Tablet PO 07/15/24 07:49 650 mg Q6HR PRN Administration Pain Scale 1 - 3 or fever Acetaminophen/Butalbital/Caffeine 1 tab 07/17/23 16:52 07/18/23 07:39 Butalb/Acetamin/Caffeine 50-325-40 1 Tab Tablet PO 07/16/24 16:51 1 tab QID PRN Administration headache Albuterol 1.25 mg 07/16/23 14:00 07/18/23 05:04 Albuterol Neb 2.5 Mg/3 Ml Vial.Neb INHALATION 07/15/24 13:59 Not Given Q8HR BENEDICTO Ascorbic Acid 500 mg 07/18/23 08:00 07/18/23 09:01 Ascorbic Acid 500 Mg Tablet PO 07/17/24 07:59 500 mg BID.WITH.MEALS BENEDICTO Administration Atorvastatin Calcium 10 mg 07/16/23 09:00 07/18/23 09:01 Atorvastatin 10 Mg Tablet PO 07/15/24 08:59 10 mg DAILY BENEDICTO Administration Bisacodyl 10 mg 07/16/23 07:50 Bisacodyl 5 Mg Tablet. PO 07/15/24 07:49 DAILY PRN Constipation Buspirone HCl 15 mg 07/16/23 09:00 07/18/23 09:01 Buspirone 15 Mg Tablet PO 07/15/24 08:59 15 mg BID BENEDICTO Administration Cefadroxil 500 mg 07/19/23 09:00 Cefadroxil 500 Mg Capsule PO 07/25/23 21:01 BID BENEDICTO Diazepam 5 mg 07/16/23 18:17 07/17/23 06:55 Diazepam 5 Mg Tablet PO 01/12/24 18:16 5 mg TID PRN Administration muscle spasms Docusate Sodium 100 mg 07/16/23 07:50 Docusate 100 Mg Capsule PO 07/15/24 07:49 BID PRN Constipation Enoxaparin Sodium 40 mg 07/16/23 10:00 07/18/23 09:25 Enoxaparin 40 Mg/0.4 Ml Syringe SUBCUT 07/15/24 09:59 40 mg DAILY@10 BENEDICTO Administration Ferrous Sulfate 324 mg 07/18/23 08:00 07/18/23 09:01 Ferrous Sulfate 324 Mg Tablet.Dr PO 07/17/24 07:59 324 mg BID.WITH.MEALS BENEDICTO Administration Hydromorphone HCl 1 mg 07/16/23 13:14 07/18/23 08:59 Hydromorphone 1 Mg/Ml Syringe IV-PUSH 1 mg Q4H PRN Administration Pain Scale 8 - 10 Sodium Chloride 1,000 mls @ 75 mls/hr 07/16/23 08:00 07/18/23 13:00 0.9% Sodium Chloride 1,000 Ml IV 07/15/24 07:59 Not Given .[id number] BENEDICTO Ceftriaxone Sodium 1 gm in 50 mls @ 100 mls/hr 07/16/23 08:30 07/18/23 09:02 Rocephin IV 100 mls/hr Q24H BENEDICTO Administration Lactated Ringer's 1,000 mls @ 75 mls/hr 07/17/23 21:45 07/17/23 22:16 Lactated Ringers IV 07/16/24 21:44 20 mls/hr .[id number] BENEDICTO Infusion Cefazolin Sodium 1 gm in 50 mls @ 100 mls/hr 07/18/23 05:45 07/18/23 13:00 Ancef IV 07/18/23 14:14 100 mls/hr Q8H BENEDICTO Administration Ketorolac Tromethamine 30 mg 07/16/23 16:49 Ketorolac Tromethamine 30 Mg/Ml Vial IV-PUSH 07/21/23 16:48 Q6H PRN Pain Melatonin 5 mg 07/16/23 07:50 Melatonin 5 Mg Tablet PO 07/15/24 07:49 QHS PRN Insomnia Metoprolol Tartrate 25 mg 07/17/23 12:15 07/18/23 09:01 Metoprolol Tartrate 25 Mg Tablet PO 07/16/24 12:14 25 mg BID BENEDICTO Administration Mineral Oil 1 each 07/20/23 21:39 Mineral Oil ([place]) 1 Each Enema MN ONCE PRN Constipation Naloxone HCl 0.4 mg 07/17/23 21:39 Naloxone Hcl 0.4 Mg/Ml Vial IV-PUSH 07/16/24 21:38 Q2M PRN Opioid Reversal Ondansetron HCl 4 mg 07/16/23 07:50 07/17/23 22:58 Ondansetron 4 Mg/2 Ml Vial IV-PUSH 07/15/24 07:49 4 mg Q8H PRN Administration Nausea And Vomiting Oxycodone/Acetaminophen 1 tab 07/16/23 07:50 07/18/23 12:20 Oxycodone/Acetaminophen 5-325 Mg Tablet PO 1 tab Q4H PRN Administration Pain Scale 4 - 7 Polyethylene Glycol 17 gm 07/17/23 21:39 Polyethylene Glycol 3350 17 Gm Powd.Pack PO 07/24/23 21:38 DAILY PRN Constipation Senna/Docusate Sodium 2 tab 07/18/23 09:00 07/18/23 09:01 Sennosides/Docusate 8.6-50mg 1 Tab Tablet PO 08/17/23 08:59 2 tab DAILY BENEDICTO Administration Sodium Chloride 0 ml 07/16/23 03:49 07/17/23 05:39 Sodium Chloride 0.9 % 10 Ml Syringe IV-PUSH 07/15/24 03:48 10 ml PRN PRN Administration Flush Sodium Chloride 0 ml 07/16/23 22:38 Sodium Chloride 0.9 % 10 Ml Syringe IV-PUSH 07/15/24 22:37 PRN PRN Flush Sodium Chloride 0 ml 07/17/23 22:00 07/18/23 13:00 Sodium Chloride 0.9 % 10 Ml Syringe IV-PUSH 07/16/24 21:59 Not Given QSHIFT BENEDICTO A&P - Hospitalist Assessment/Plan (1) Closed fracture of proximal end of right humerus: (2) Periprosthetic fracture around internal prosthetic right hip joint: (3) Fall at home: (4) Osteoarthritis: (5) Chronic obstructive pulmonary disease: (6) Crohn's disease: (7) Hypertension: (8) On home oxygen therapy: (9) Brain aneurysm: (10) Congestive heart failure: Plan 73-year-old white female past medical history of hypertension, hyperlipidemia, chronic COPD, on home oxygen at 3 L, chronic congestive heart failure, chronic disease and osteoarthritis who presented to emergency room after 4. Fell today when she tried to get out of bed and hit her right side workup with the emergency room showed right proximal humerus and right periprosthetic hip fracture. Patient lives by herself patient complains of 10/10 of right hip painhe denies any chest pain or shortness of breath. She is on home oxygen nasal cannula. She denies any orthopnea or PND. No cough. No fever or chills. She denies of any nausea vomiting. She denies having abdominal pain. She denies having dysuria, hematuria, or frequency. ASSESSMENT AND PLAN: 07/18/2023 Mechanical fall Right proximal humerus fracture Right periprosthetic hip Status post right hip and femur surgery. Percocet 1 tablet every 4 hours as needed for pain Dilaudid 0.5 mg every 4 hours as needed for pain Ongoing PT OT. Urinary tract infection Culture grew E. coli pansensitive Will continue with IV ceftriaxone Chronic medical conditions: Severe aortic stenosis Echocardiogram: Ejection Fraction = 60-65%. There is left ventricular diastolic dysfunction. Severe valvular aortic stenosis. cardiac clearance was done prior to the surgery Chronic COPD on home oxygen Continue with home oxygen at 3 L Albuterol Atrovent nebulizer as needed Chronic congestive heart failure : Compensated Hypertension: Continue with Coreg twice daily Crohn disease DVT prophylaxis: Lovenox daily Documented By: Lino Mackey MD 07/18/23 1336 Signed By: <Electronically signed by Lino Mackey MD> 07/18/23 0681 [facility] Work Phone: 1([phone]) [phone] Progress note Author Angelica Hilton [place] July 18, 2023 1:31pm Note Date/Time July 18, 2023 1:3 1pm [facility] [address] [place] [address] Cardiology Progress Note Signed Patient: Margaret Anderson MR#: [id number] : 1950 Acct:[id number] Age/Sex: 73 / F Adm Date: 4 Loc: 4 Room: [address] [place] [address] Type: ADM IN Attending Dr: Lino Mackey MD Copies to: ~ Date of Service: 07/18/2023 Subjective Interval history: Ms. Anderson is a 73 year old female with PMH of COPD on 3L NC, HFpEF, hx of ruptured brain aneurysm s/p coiling, lung cancer s/p radiation who presented after a mechanical fall at home and sustained a R hip periprosthetic fracture aswell as R prox humeral fracture. Pt states she was getting up from her recliner when she lost balance and fell. She denies light headedness, dizziness or palpitations prior to fall. Cardiology was consulted for risk stratification prior to hip surgery. She was noted to have a murmur on exam and ECHO completed shows moderate to severe aortic stenosis with ANIKA of 0.9cm2, Vmax 3.9m/s and mean gradient of 34 mmHg in the setting of anemia- Hb 7.4. LVEF 60-65%. She has been seen by cardiology at [facility] in the past for surgical clearance during her lung cancer treatment and did not have follow-up. Does not recall having a previous ECHO or stress MPI. She lives alone at home and is able to perform her own ADLs. She is ambulatory without a walker or a cane. She is able to walk up a flight of stairs but is limited by chronic dyspnea due to COPD. Denies chest pain, BLE edema, weight gain. Endorses orthopnea and sleeps in a recliner and has occasional leg edema for which she is on low dose Bumex. She is a former smoker. Interim evaluation 07/18/2023: Pt is s/p ORIF R hip; tolerated surgery well. No acute events overnight. She is hemodynamically stable. Denies chest pain, shortness of breath. Normal sinus rhythm on telemetry. Exam Physical Exam Vital Signs: Temp Pulse Resp BP Pulse Ox O2 Del Method O2 Flow Rate 97.5 F L 76 20 111/58 L 100 Nasal Cannula 3 07/18/23 12:00 07/18/23 12:00 07/18/23 12:00 07/18/23 12:00 07/18/23 12:00 07/18/23 12:00 07/18/23 12:00 Narrative: GEN: AAOx3. No acute distress. Neck: No JVD. Lungs: Diminished bilaterally Heart: Regular rate and rhythm. 4/6 crescendo decrescendo murmur noted throughout precordium. Abdomen: Soft, nontender, nondistended, bowel sounds present. Extremities: No BLE edema. Neuro: AAOx3. No focal deficits. Objective Labs 07/18/23 05:05 07/18/23 05:05 Labs: Laboratory Results - last 24 hr 07/16/23 07/18/23 23:23 05:05 Corrected WBC 12.0 H Uncorrected WBC Count 12.0 H RBC 2.86 L Hgb 9.1 L Hct 27.1 L MCV 94.8 MCH 31.6 MCHC 33.4 RDW 16.0 H Plt Count 183 MPV 8.4 Neut % (Auto) 83.2 Lymph % (Auto) 7.5 [place] % (Auto) 9.2 Eos % (Auto) 0.0 Baso % (Auto) 0.1 Nucleat RBC Rel Count 0.0 Neut # (Auto) 10.0 H Lymph # (Auto) 0.9 L [place] # (Auto) 1.1 H Eos # (Auto) 0.0 Baso # (Auto) 0.0 PHA Creatinine Clear 51.81 Sodium 136 Potassium 4.9 Chloride 105 Carbon Dioxide 28.2 Anion Gap 7.7 BUN 14 Creatinine 0.64 Est GFR (CKD-EPI) > 60.0 Glucose 144 H Calcium 8.2 L Blood Type A Positive Antibody Screen Negative Crossmatch (AHG) See Detail A&P - Cardiology (1) Moderate to severe aortic stenosis: Code(s): I35.0 - Nonrheumatic aortic (valve) stenosis (2) Hypertension: Code(s): I10 - Essential (primary) hypertension (3) On home oxygen therapy: Code(s): Z99.81 - Dependence on supplemental oxygen (4) Congestive heart failure: Code(s): I50.9 - Heart failure, unspecified (5) Chronic obstructive pulmonary disease: Code(s): J44.9 - Chronic obstructive pulmonary disease, unspecified (6) Crohn's disease: Code(s): K50.90 - Crohn's disease, unspecified, without complications (7) Degenerative disc disease: (8) Osteoarthritis: Code(s): M19.90 - Unspecified osteoarthritis, unspecified site (9) Fall at home: Code(s): W19.XXXA - Unspecified fall, initial encounter; Y92.009 - Unspecified place in unspecified non-institutional (private) residence as the place of occurrence of the external cause (10) Periprosthetic fracture around internal prosthetic right hip joint: Code(s): M97.01XA - Periprosthetic fracture around internal prosthetic right hip joint, initial encounter (11) Closed fracture of proximal end of right humerus: Code(s): S42.201A - Unspecified fracture of upper end of right humerus, initial encounterfor closed fracture (12) Brain aneurysm: Code(s): I67.1 - Cerebral aneurysm, nonruptured Plan Ms. Anderson is a 73 year old female with PMH of COPD on 3L NC, HFpEF, hx of ruptured brain aneurysm s/p coiling, lung cancer s/p radiation who presented after a mechanical fall at home and sustained a R hip periprosthetic fracture aswell as R prox humeral fracture. Cardiology was consulted for risk stratification prior to hip surgery. ECHO completed shows moderate to severe aortic stenosis with ANIKA of 0.9cm2, Vmax3.9m/s and mean gradient of 34 mmHg in the setting of anemia- Hb 7.4. LVEF 60-65%. EKG shows normal sinus rhythm with no ischemic changes Assessment: Pre-op risk stratification Moderate to severe Aortic stenosis HFpEF. LVEF 60-65% Severe COPD on 3L NC Anemia- Hb 7.4 Recommendations: - s/p R ORIF 07/16. Tolerated surgery well. Remains hemodynamically stable. Has no complaints. Hb stable following transfusion. - Receiving IVF, no signs of volume overload. Monitor for hypervolemia. Resume home PO bumetanide once taking adequate PO. - Continue Metoprolol 25mg BID. - Will plan for cardiology follow up as outpatient for repeat ECHO once acute issues resolve to evaluate AV gradients and assess for TAVR referral. - Cardiology will sign off. Please call with questions. Documented By: Angelica Hilton MD 07/18/23 1328 Signed By: <Electronically signed by Angelica Hilton MD> 07/18/23 4897 [facility] Work Phone: 1(370) 163-420204-13-2024 Progress note Author Surendra Ruiz [place] July 18, 2023 10:40am Note Date/Time July 18, 2023 10: 37am [facility] [address] [place] [id number] Orthopedic Progress Note Signed Patient: Margaret Anderson MR#: [id number] : 1950 Acct:[id number] Age/Sex: 73 / F Adm Date: 4 Loc: 4 Room: [address] [place] [address] Type: ADM IN Attending Dr: Lino Mackey MD Copies to: ~ Date of Service: 07/18/2023 Subjective Subjective Interval History: Patient is resting comfortably in bed this morning. She reports she is sore in the leg but really has more discomfort and soreness into the knee almost like she fell on it. She still complains of soreness into the right shoulder. Nursing reports no acute events overnight. Exam Physical Exam Vital Signs: Temp Pulse Resp BP Pulse Ox O2 Del Method O2 Flow Rate 97.9 F 81 20 126/68 97 Nasal Cannula 3 07/18/23 08:00 07/18/23 08:00 07/18/23 08:00 07/18/23 08:00 07/18/23 08:00 07/18/23 08:00 07/18/23 08:00 Narrative: Right shoulder is in a sling. There is ecchymosis noted around the proximal humerus and into the axilla. No areas concerning for open fracture. Warm well-perfused hand with 2+ radial pulse. Sensation intact to light touch throughout the hand. She fires her AIN, PIN, median, ulnar, radial nerves. Right lower extremity wound VAC is on and working. No drainage in the container. Abduction pillow is in place. Foot is warm and well-perfused. Sensation intact to light touch throughout the foot without paresthesias. She wiggles her toes moves her ankle up and down. Objective Labs Labs: Laboratory Results - last 24 hr 07/16/23 07/18/23 23:23 05:05 Corrected WBC 12.0 H Uncorrected WBC Count 12.0 H RBC 2.86 L Hgb 9.1 L Hct 27.1 L MCV 94.8 MCH 31.6 MCHC 33.4 RDW 16.0 H Plt Count 183 MPV 8.4 Neut % (Auto) 83.2 Lymph % (Auto) 7.5 [place] % (Auto) 9.2 Eos % (Auto) 0.0 Baso % (Auto) 0.1 Nucleat RBC Rel Count 0.0 Neut # (Auto) 10.0 H Lymph # (Auto) 0.9 L [place] # (Auto) 1.1 H Eos # (Auto) 0.0 Baso # (Auto) 0.0 PHA Creatinine Clear 51.81 Sodium 136 Potassium 4.9 Chloride 105 Carbon Dioxide 28.2 Anion Gap 7.7 BUN 14 Creatinine 0.64 Est GFR (CKD-EPI) > 60.0 Glucose 144 H Calcium 8.2 L Blood Type A Positive Antibody Screen Negative Crossmatch (AHG) See Detail Micro Microbiology Results: Microbiology 07/16/23 05:00 Urine - Colmenares Catheter Urine Culture - Final Escherichia coli AJ INPATIENT Citizen Of [place] [employer] [facility] Ambulation: 3 No, other medical factors preventing ambulation TJC Discharge Exclusion: 3 Unknown Assessment / Plan Assessment and plan (1) Closed fracture of proximal end of right humerus: Code(s): S42.201A - Unspecified fracture of upper end of right humerus, initial encounterfor closed fracture (2) Periprosthetic fracture around internal prosthetic right hip joint: Code(s): M97.01XA - Periprosthetic fracture around internal prosthetic right hip joint, initial encounter Plan POD 1 s/p R hip femoral revision with ORIF 1. Pain control 2. DVT prophylaxis: DAYA Hose bilaterally, SCDs bilaterally, and recommend staying on the Lovenox that she is currently on by the primary team. Once mobile, would recommend chemical prophylaxis for total of 35 days postop. 3. Perioperative antibiotics with IV Ancef and then 7 days of Duricef 4. PT/OT: Toe touch weight bearing RLE with strict posterior hip and abductor precautions 5. Appreciate hospitalist assistance with medical management 6. PACU x-rays look good 7. Hemoglobin 9.1 this am. Will start Fe and Vit C. Did require 2 units of pRBCpreop. 8. Today's Plan: work with PT/OT 9. Disposition: pending PT/OT eval Closed right displaced proximal humerus fracture 1. Pain control 2. Nonweightbearing right upper extremity with sling for comfort 3. In its current state, patient is not able to use it to help with a walker orany other assistive devices that she is recovering from her hip replacement surgery. We will see how she does with physical therapy over the weekend and then I may have one of my partners evaluate her to determine if ORIF of her proximal humerus would be indicated to help her in the overall recovery process from these injuries. Documented By: Surendra Ruiz MD 07/18/23 10 36 Signed By: <Electronically signed by Surendra Ruiz MD> 07/18/23 1040 [facility] Work Phone: [phone] 412-553504-12-2024 Consult note Author Angelica Hilton [place] July 17, 2023 12:21pm Note Date/Time July 17, 2023 12: 05pm [facility] [address] [place] [address] Cardiology Consult Note Signed Patient: Margaret Anderson MR#: [id number] : 1950 Acct:[id number] Age/Sex: 73 / F Adm Date: 4 Loc: Room: [address] [place] [address] Type: ADM IN Attending Dr: Aylin Borden MD Copies to: MD Ruben Quintana MD Linda Njoroge, MD~ Cardiology HPI History of Present Illness Consult Date: 07/17/23 Reason for Consult: Pre-op risk stratification HPI: Ms. Anderson is a 73 year old female with PMH of COPD on 3L NC, HFpEF, hx of ruptured brain aneurysm s/p coiling, lung cancer s/p radiation who presented after a mechanical fall at home and sustained a R hip periprosthetic fracture aswell as R prox humeral fracture. Pt states she was getting up from her recliner when she lost balance and fell. She denies light headedness, dizziness or palpitations prior to fall. Cardiology was consulted for risk stratification prior to hip surgery. She was noted to have a murmur on exam and ECHO completed shows moderate to severe aortic stenosis with ANIKA of 0.9cm2, Vmax 3.9m/s and mean gradient of 34 mmHg in the setting of anemia- Hb 7.4. LVEF 60-65%. She has been seen by cardiology at [facility] in the past for surgical clearance during her lung cancer treatment and did not have follow-up. Does not recall having a previous ECHO or stress MPI. She lives alone at home and is able to perform her own ADLs. She is ambulatory without a walker or a cane. She is able to walk up a flight of stairs but is limited by chronic dyspnea due to COPD. Denies chest pain, BLE edema, weight gain. Endorses orthopnea and sleeps in a recliner and has occasional leg edema for which she is on low dose Bumex. She is a former smoker. Review of Systems Review of Systems All other systems reviewed & are negative unless noted below or in HPI [facility] Medical History (Updated 07/17/23 @ 11:58 by Angelica Hilton MD) On home oxygen therapy 3L High cholesterol Hypertension Brain aneurysm Osteoarthritis Degenerative disc disease Crohn's disease Congestive heart failure Chronic obstructive pulmonary disease Surgical History History of right hip replacement History of lung biopsy H/O ventral hernia repair H/O exploratory laparotomy History of tubal ligation Family History (Updated 06/23/23 @ 11:43 by Brenda Cuellar LPN) Brother Heart disease Father COPD (chronic obstructive pulmonary disease) Mother History of malignant neoplasm of cervix Hypertension Cancer 64 yrs Social History Smoking Status: Former smoker Tobacco Type: cigarettes Substance Use Type: None Meds Medications and Allergies Allergies doxycycline Allergy (Unknown, Verified 11/13/21 11:56) vomiting Home Medications Oxygen 06/23/23 [History Confirmed 07/16/23] albuterol sulfate 90 mcg/actuation aerosol inhaler (Ventolin HFA) 2 puff inhalation QID 06/23/23 [History Confirmed 07/16/23] aspirin 81 mg tablet,delayed release (Adult Low Dose Aspirin) 81 mg PO DAILY 06/23/23 [History Confirmed 07/16/23] buprenorphine 8 mg-naloxone 2 mg sublingual film (Suboxone) 1.5 film sublingual ONCE 06/23/23 [History Confirmed 07/16/23] lckcibampy-tgzkbqeipjtjf-klizyndj 50 mg-325 mg-40 mg tablet 1 tab PO QID PRN headache 06/23/23 [History Confirmed 07/17/23] ondansetron HCl 4 mg tablet 4 mg PO Q8HR PRN nausea and vomiting 06/23/23 [History Confirmed 07/16/23] rosuvastatin 5 mg tablet 1 tab PO DAILY 06/23/23 [History Confirmed 07/16/23] albuterol sulfate 1.25 mg/3 mL solution for nebulization 1.25 mg inhalation Q8HR07/16/23 [History] albuterol sulfate 2.5 mg/3 mL (0.083 %) solution for nebulization 2.5 mg continuous nebulization Q4HR PRN shortness of breath or wheezing 07/16/23 [History Confirmed 07/16/23] bumetanide 0.5 mg tablet 0.5 mg PO DAILY 07/16/23 [History Confirmed 07/16/23] buprenorphine 8 mg-naloxone 2 mg sublingual tablet 1 tab sublingual DAILY 07/16/23 [History Confirmed 07/16/23] buspirone 10 mg tablet 10 mg PO TID 07/16/23 [History Confirmed 07/16/23] gabapentin 100 mg capsule 100 mg PO TID 07/16/23 [History Confirmed 07/16/23] guaifenesin 600 mg tablet, extended release 12 hr (Mucus Relief ER) 600 mg PO Q12HR 07/16/23 [History Confirmed 07/16/23] meclizine 25 mg tablet 25 mg PO TID PRN dizziness 07/16/23 [History Confirmed 07/16/23] metoprolol tartrate 25 mg tablet 25 mg PO BID 07/16/23 [History Confirmed 07/16/23] tiotropium 2.5 mcg-olodaterol 2.5 mcg/actuation mist for inhalation (Stiolto Respimat) 2 inh inhalation QAM 07/16/23 [History Confirmed 07/16/23] Exam Physical Exam Vital Signs: Temp Pulse Resp BP Pulse Ox O2 Del Method O2 Flow Rate 98.2 F 91 18 132/60 95 Nasal Cannula 3 07/17/23 08:00 07/17/23 08:00 07/17/23 08:00 07/17/23 08:00 07/17/23 08:00 07/17/23 08:00 07/17/23 08:00 Narrative: GEN: AAOx3. No acute distress. Neck: No JVD. Lungs: Diminished bilaterally Heart: Regular rate and rhythm. 4/6 crescendo decrescendo murmur noted throughout precordium. Abdomen: Soft, nontender, nondistended, bowel sounds present. Extremities: No BLE edema. Neuro: AAOx3. No focal deficits. Results - Cardiology Labs 07/17/23 09:08 07/16/23 03:56 Lab results: CBC 07/17/23 Range/Units 09:08 RBC 2.25 L (3.60-5.00) X10E6/uL Hgb 7.4 L (11.8-15.4) g/dL Hct 22.4 L (34.0-46.4) % Plt Count 214 (150-450) x10E3/uL Neut # (Auto) 4.5 (1.8-7.7) x10E3/uL Lymph # (Auto) 1.1 (1.00-4.8) x10E3/uL [place] # (Auto) 0.5 (0.0-0.8) x10E3/uL Eos # (Auto) 0.0 (0.0-0.45) x10E3/uL Baso # (Auto) 0.0 (0.0-0.2) x10E3/uL Intake and Output 07/16/23 07/17/23 07/17/23 23:59 07:59 15:59 Intake Total 1300 / 1850 0 / 0 Output Total 650 / 650 650 / 650 Balance 650 / 1200 -650 / -650 Intake: IV 1000 / 1550 Sodium Chloride 0.9% 1,000 ml 1 1000 / 1000 ,000 ml @ 75 mls/hr IV .[id number] [facility] Rx#:[id number] Oral 300 / 300 0 / 0 Output: Urine Amount (Catheter) 650 / 650 650 / 650 Urethral (Col[place]) 650 / 650 650 / 650 Other: # Bowel Movements 0 Weight 54.1 kg Patient Weight 07/17/23 23:59 Weight 54.1 kg Lab 07/16/23 03:56 PT 10.5 INR 0.9 APTT 30.8 A&P - Cardiology (1) Moderate to severe aortic stenosis: Code(s): I35.0 - Nonrheumatic aortic (valve) stenosis (2) Hypertension: Code(s): I10 - Essential (primary) hypertension (3) On home oxygen therapy: Code(s): Z99.81 - Dependence on supplemental oxygen (4) Congestive heart failure: Code(s): I50.9 - Heart failure, unspecified (5) Chronic obstructive pulmonary disease: Code(s): J44.9 - Chronic obstructive pulmonary disease, unspecified (6) Crohn's disease: Code(s): K50.90 - Crohn's disease, unspecified, without complications (7) Degenerative disc disease: (8) Osteoarthritis: Code(s): M19.90 - Unspecified osteoarthritis, unspecified site (9) Fall at home: Code(s): W19.XXXA - Unspecified fall, initial encounter; Y92.009 - Unspecified place in unspecified non-institutional (private) residence as the place of occurrence of the external cause (10) Periprosthetic fracture around internal prosthetic right hip joint: Code(s): M97.01XA - Periprosthetic fracture around internal prosthetic right hip joint, initial encounter (11) Closed fracture of proximal end of right humerus: Code(s): S42.201A - Unspecified fracture of upper end of right humerus, initial encounterfor closed fracture (12) Brain aneurysm: Code(s): I67.1 - Cerebral aneurysm, nonruptured Plan Ms. Anderson is a 73 year old female with PMH of COPD on 3L NC, HFpEF, hx of ruptured brain aneurysm s/p coiling, lung cancer s/p radiation who presented after a mechanical fall at home and sustained a R hip periprosthetic fracture aswell as R prox humeral fracture. Cardiology was consulted for risk stratification prior to hip surgery. ECHO completed shows moderate to severe aortic stenosis with ANIKA of 0.9cm2, Vmax3.9m/s and mean gradient of 34 mmHg in the setting of anemia- Hb 7.4. LVEF 60-65%. EKG shows normal sinus rhythm with no ischemic changes Assessment: Pre-op risk stratification Moderate to severe Aortic stenosis HFpEF. LVEF 60-65% Severe COPD on 3L NC Anemia- Hb 7.4 Recommendations: - ECHO consistent with moderate to severe aortic stenosis; anemia also contributing to elevated gradient. Pt achieves ~4 METS at home;mainly limited bychronic dyspnea from her COPD. She is currently euvolemic on examination. No concern for ischemia. EKG unremarkable. -Given moderate to severe aortic stenosis, pt is high risk for perioperative MACE however she is optimized from a CHF standpoint and is hemodynamically stable. Continue BB perioperatively; Maintain euvolemia as pt is pre-load dependent. Agree with transfusion to correct anemia. Recommend cautious diuresisfollowing blood transfusion to avoid congestion. No further cardiac work up recommended. May proceed with surgery. - Cardiology will be available perioperatively. Documented By: Angelica Hilton MD 07/17/23 1155 Signed By: <Electronically signed by Angelica Hilton MD> 07/17/23 1221 [facility] Work Phone: 1(355) 107-268004-12-2024 Progress note Author Surendra Ruiz [place] July 17, 2023 11:12am Note Date/Time July 17, 2023 11: 12am [facility] [address] [place] [address] Orthopedic Progress Note Signed Patient: Margaret Anderson MR#: [id number] : 1950 Acct:[id number] Age/Sex: 73 / F Adm Date: 4 Loc: 4 Room: 5C5196-8 Type: ADM IN Attending Dr: Aylin Borden MD Copies to: ~ Date of Service: 07/17/2023 Subjective Subjective Interval History: Patient resting in bed still having significant pain into the right hip and the right shoulder. No acute events overnight per nursing reports. Exam Physical Exam Vital Signs: Temp Pulse Resp BP Pulse Ox O2 Del Method O2 Flow Rate 98.2 F 91 18 132/60 95 Nasal Cannula 3 07/17/23 08:00 07/17/23 08:00 07/17/23 08:00 07/17/23 08:00 07/17/23 08:00 07/17/23 08:00 07/17/23 08:00 Narrative: Right shoulder is in a sling. There is ecchymosis noted around the proximal humerus and into the axilla. No areas concerning for open fracture. Warm well-perfused hand with 2+ radial pulse. Sensation intact to light touch throughout the hand with paresthesias in the ulnar nerve distribution. She fires her AIN, PIN, median, ulnar, radial nerves. Right lower extremity is resting in shortened actually rotated position. There is a anterior lateral based longitudinal scar on the hip that appears well-healed with no areas of erythema. Significantly tender palpation of the proximal femur and into the thigh. There is fullness in this area but very softand compressible. Warm well-perfused foot with palpable dorsalis pedis pulse. Moves her toes moves her ankle up and down. Sensation intact light touch throughout the foot. Objective Labs Labs: Laboratory Results - last 24 hr 07/16/23 07/17/23 07/17/23 23:23 00:09 09:08 Corrected WBC 6.1 Uncorrected WBC Count 6.1 RBC 2.25 L Hgb 7.4 L Hct 22.4 L MCV 99.7 MCH 33.0 MCHC 33.2 RDW 13.7 Plt Count 214 MPV 8.2 Neut % (Auto) 72.6 Lymph % (Auto) 17.2 [place] % (Auto) 8.9 Eos % (Auto) 0.7 Baso % (Auto) 0.6 Nucleat RBC Rel Count 0.0 Neut # (Auto) 4.5 Lymph # (Auto) 1.1 [place] # (Auto) 0.5 Eos # (Auto) 0.0 Baso # (Auto) 0.0 Blood Type A Positive Blood Type Recheck A Positive Antibody Screen Negative Crossmatch (AHG) See Detail Micro Microbiology Results: Microbiology 07/16/23 05:00 Urine - Colmenares Catheter Urine Culture - Preliminary Gram Negative Bacilli Assessment / Plan Assessment and plan (1) Closed fracture of proximal end of right humerus: Plan: Closed right displaced proximal humerus fracture I discussed with the patient that I have talked with my trauma partner regardingher proximal numerous fracture. At this time we will continue with the sling and await her recovery from her right hip surgery. If we feel that fixing that I would allow her to platform weightbearing using a walker to help her rehabilitate sooner then we will consider surgical fixation of the right shoulder. In the meantime remain nonweightbearing with the right shoulder. Code(s): S42.201A - Unspecified fracture of upper end of right humerus, initial encounterfor closed fracture (2) Periprosthetic fracture around internal prosthetic right hip joint: Plan: Closed right displaced [place] B proximal femur fracture I had a long discussion with the patient again regarding the surgical options regarding her hip. I still feel that the best option is to remove her stem, remove the vcjxj-oc-hltlo articulation, fix the fracture, and revise the femoralcomponent with a different articulating surface. At this point she has been cleared by the hospitalist service. She is been seen by our pulmonary service and they are recommending evaluation by cardiology. As long as cardiology is okay with us moving forward with surgery worse over the plan for surgery today around 1:00. In the meantime remain nonweightbearing and n.p.o. We extensively discussed the risk and benefits of the procedure. All of her questions were answered and concerns. Informed consent was obtained. She currently has 4 units of blood on hold but her hemoglobin is 7.4 today. I will reach out to anesthesia to determine if we want to start giving blood now in anticipation of a large revision surgery and possible blood loss. Code(s): M97.01XA - Periprosthetic fracture around internal prosthetic right hip joint, initial encounter Documented By: Surendra Ruiz MD 07/17/23 11 09 Signed By: <Electronically signed by Surendra Ruiz MD> 07/17/[address] [place] [address] Work Phone: 1([phone]) 168-587504-12-2024 Progress note Author Aylin Borden [place] July 17, 2023 10:16am Note Date/Time July 17, 2023 10: 17am [facility] [address] [place] [address] Hospitalist Progress Note Signed Patient: Margaret Anderson MR#: [id number] : 1950 Acct:[id number] Age/Sex: 73 / F Adm Date: 4 Loc: 4 Room: [id number] Type: ADM IN Attending Dr: Aylin Borden MD Copies to: ~ Date of Service: 07/17/2023 Subjective Subjective Narrative: 73-year-old white female past medical history of hypertension, hyperlipidemia, chronic COPD, on home oxygen at 3 L, chronic congestive heart failure, chronic disease and osteoarthritis who presented to emergency room after 4. Fell today when she tried to get out of bed and hit her right side workup with the emergency room showed right proximal humerus and right periprosthetic hip fracture. Patient lives by herself patient complains of 10/10 of right hip painhe denies any chest pain or shortness of breath. She is on home oxygen nasal cannula. She denies any orthopnea or PND. No cough. No fever or chills. She denies of any nausea vomiting. She denies having abdominal pain. She denies having dysuria, hematuria, or frequency. Seen and examined Clinically stable C/O severe hip pain NO chest pain NO SOB ON NC at 3 liter Exam Physical Exam Vital Signs: Temp Pulse Resp BP Pulse Ox O2 Del Method O2 Flow Rate 98.2 F 91 18 132/60 95 Nasal Cannula 3 07/17/23 08:00 07/17/23 08:00 07/17/23 08:00 07/17/23 08:00 07/17/23 08:00 07/17/23 08:00 07/17/23 08:00 Narrative: General patient laying in bed in no acute distress alert awake oriented x3 HEENT PERRLA Neck supple no JVD no carotid bruit CVS S1-S2 regular rate and rhythm no murmur no gallop Chest clear to auscultation percussion Abdomen soft bowel sounds normoactive no rebound no guarding Extremities no stenosis no clubbing no edema Musculoskeletal exam normal no joint effusion Neurologic exam oriented x3 alert awake no focal left Psychiatry: Normal insight and judgment Skin: no rash or lesions Objective Lab Results 07/17/23 09:08 07/16/23 03:56 Meds Allergies and Active Meds Allergies doxycycline Allergy (Unknown, Verified 11/13/21 11:56) vomiting Active Meds: Active Medications Generic Name Dose Route Start Last Admin Trade Name Freq PRN Reason Stop Dose Admin Acetaminophen 650 mg 07/16/23 07:50 07/16/23 21:05 Acetaminophen 325 Mg Tablet PO 07/15/24 07:49 650 mg Q6HR PRN Administration Pain Scale 1 - 3 or fever Albuterol 1.25 mg 07/16/23 14:00 07/17/23 06:02 Albuterol Neb 2.5 Mg/3 Ml Vial.Neb INHALATION 07/15/24 13:59 Not Given Q8HR BENEDICTO Atorvastatin Calcium 10 mg 07/16/23 09:00 07/16/23 12:11 Atorvastatin 10 Mg Tablet PO 07/15/24 08:59 10 mg DAILY BENEDICTO Administration Bisacodyl 10 mg 07/16/23 07:50 Bisacodyl 5 Mg Tablet.Dr LOZANO 07/15/24 07:49 DAILY PRN Constipation Buspirone HCl 15 mg 07/16/23 09:00 07/16/23 21:05 Buspirone 15 Mg Tablet PO 07/15/24 08:59 15 mg BID BENEDICTO Administration Carvedilol 3.125 mg 07/16/23 08:00 07/16/23 16:44 Carvedilol 3.125 Mg Tablet PO 07/15/24 07:59 3.125 mg BID.WITH.MEALS BENEDICTO Administration Diazepam 5 mg 07/16/23 18:17 07/17/23 06:55 Diazepam 5 Mg Tablet PO 01/12/24 18:16 5 mg TID PRN Administration muscle spasms Docusate Sodium 100 mg 07/16/23 07:50 Docusate 100 Mg Capsule PO 07/15/24 07:49 BID PRN Constipation Enoxaparin Sodium 40 mg 07/16/23 10:00 07/16/23 14:47 Enoxaparin 40 Mg/0.4 Ml Syringe SUBCUT 07/15/24 09:59 40 mg DAILY@10 BENEDICTO Administration Hydromorphone HCl 1 mg 07/16/23 13:14 07/17/23 05:39 Hydromorphone 1 Mg/Ml Syringe IV-PUSH 1 mg Q4H PRN Administration Pain Scale 8 - 10 Sodium Chloride 1,000 mls @ 75 mls/hr 07/16/23 08:00 07/16/23 21:46 0.9% Sodium Chloride 1,000 Ml IV 07/15/24 07:59 75 mls/hr .[id number] BENEDICTO Administration Ceftriaxone Sodium 1 gm in 50 mls @ 100 mls/hr 07/16/23 08:30 07/17/23 08:29 Rocephin IV 100 mls/hr Q24H BENEDICTO Administration Ketorolac Tromethamine 30 mg 07/16/23 16:49 Ketorolac Tromethamine 30 Mg/Ml Vial IV-PUSH 07/21/23 16:48 Q6H PRN Pain Melatonin 5 mg 07/16/23 07:50 Melatonin 5 Mg Tablet PO 07/15/24 07:49 QHS PRN Insomnia Ondansetron HCl 4 mg 07/16/23 07:50 Ondansetron 4 Mg/2 Ml Vial IV-PUSH 07/15/24 07:49 Q8H PRN Nausea And Vomiting Oxycodone/Acetaminophen 1 tab 07/16/23 07:50 07/17/23 08:28 Oxycodone/Acetaminophen 5-325 Mg Tablet PO 1 tab Q4H PRN Administration Pain Scale 4 - 7 Sodium Chloride 0 ml 07/16/23 03:49 07/17/23 05:39 Sodium Chloride 0.9 % 10 Ml Syringe IV-PUSH 07/15/24 03:48 10 ml PRN PRN Administration Flush Sodium Chloride 0 ml 07/16/23 22:38 Sodium Chloride 0.9 % 10 Ml Syringe IV-PUSH 07/15/24 22:37 PRN PRN Flush A&P - Hospitalist Assessment/Plan (1) Closed fracture of proximal end of right humerus: (2) Periprosthetic fracture around internal prosthetic right hip joint: (3) Fall at home: (4) Osteoarthritis: (5) Chronic obstructive pulmonary disease: (6) Crohn's disease: (7) Hypertension: (8) On home oxygen therapy: (9) Brain aneurysm: (10) Congestive heart failure: Plan 73-year-old white female past medical history of hypertension, hyperlipidemia, chronic COPD, on home oxygen at 3 L, chronic congestive heart failure, chronic disease and osteoarthritis who presented to emergency room after 4. Fell today when she tried to get out of bed and hit her right side workup with the emergency room showed right proximal humerus and right periprosthetic hip fracture. Patient lives by herself patient complains of 10/10 of right hip painhe denies any chest pain or shortness of breath. She is on home oxygen nasal cannula. She denies any orthopnea or PND. No cough. No fever or chills. She denies of any nausea vomiting. She denies having abdominal pain. She denies having dysuria, hematuria, or frequency. Assessment Mechanical fall Right proximal humerus fracture Right periprosthetic hip Seen and examined Clinically stable C/O severe pain Percocet 1 tablet every 4 hours as needed for pain Dilaudid 0.5 mg every 4 hours as needed for pain Echocardiogram LV dimensions are small Mild to moderate concentric left ventricular hypertrophy. Ejection Fraction = 60-65%. There is left ventricular diastolic dysfunction. Severe valvular aortic stenosis. There is trace mitral regurgitation. There is trace tricuspid regurgitation. Right ventricular systolic pressure is consistent with mild to moderate pulmonary hypertension. Cardiology was consulted for Sever aortic stenosis and cardiac clearance Pulmonary was consulted Plan for surgery today if she cleared Chronic COPD on home oxygen Continue with home oxygen at 3 L Albuterol Atrovent nebulizer as needed Chronic congestive heart failure Compensated Hypertension: Continue with Coreg twice daily History of Crohn disease DVT prophylaxis: Lovenox daily Documented By: Aylin Borden MD 07/17/23 1011 Signed By: <Electronically signed by Aylin Borden MD> 07/17/23 1016 [facility] Work Phone: [phone]) 442-618304-11-2024 Consult note Author Yvan Cantu [place] July 16, 2023 4:27pm Note Date/Time July 16, 2023 3:1 8pm [facility] [address] [place] [address] Pulmonology Consult Note Signed Patient: Margaret Anderson MR#: [id number] : 1950 Acct:[id number] Age/Sex: 73 / F Adm Date: 4 Loc: Room: [address] [place] [address] Type: ADM IN Attending Dr: Aylin Borden MD Copies to: MD Yvan Quintana MD Edward J Hemeyer, MD~ HPI Date/Time of Consultation: Date of Service: 07/16/2023 Time of Service: 15:16 Consulting Provider: Yvan Cantu Requesting Provider: Aylin Borden History of Present Illness History of present illness: Ms. Anderson is a 73 year old female seen at the request of the hospitalist servicefor preoperative evaluation prior to hip repair. Patient presented to the emergency department after a fall apparently from standing position after losingher balance after getting out of bed to go to the bathroom. She complained of right hip and shoulder pain without loss of consciousness nor head trauma. Patient already has a history of a right hip replacement but reportedly has history of congestive heart failure and COPD with patient chronically on oxygen at 3 L/min nasal cannula. Workup in the emergency department ultimately revealeda fracture of the proximal humerus and proximal femur on the right. Patient is admitted to the hospitalist service and is evaluated by Dr. Ruiz. Plan is for open reduction and internal fixation but given patient's COPD patient needs pulmonary clearance. Patient is chronically on Stiolto and albuterol with patient having been taken off inhaled corticosteroids due to recurrent thrush. Patient's only PFTs from our outpatient records are from 2009 at which time shehad an FEV1 of 43.5% predicted and thus had severe COPD at that time. Note thatcardiothoracic surgery note from 2018 revealed FEV1 of 61% of predicted with patient reportedly having right upper lobe adenocarcinoma though per her report she did not have surgery. Reportedly, patient had diffusion capacity of 11% at that time but I question the accuracy of this. She has continued to smoke untilapproximately 2 to 3 years ago. She was last seen in our office in November 2021 she denies fever, shaking shivering chills, or sweats. She does admit to cough but is not able to expectorate mucus. She admits to occasional wheezing but mostly complains of dyspnea. Patient denies chest pain pleuritic otherwise and denies palpitations. She does admit to occasional lower extremity edema. She is sleeping primarily in a chair due to orthopnea. She denies significant nausea, vomiting, diarrhea, constipation. Review of Systems Review of Systems All other systems reviewed & are negative unless noted below or in HPI [facility] Medical History (Updated 07/16/23 @ 10:52 by Aylin Borden MD) On home oxygen therapy 3L High cholesterol Hypertension Brain aneurysm Osteoarthritis Degenerative disc disease Crohn's disease Congestive heart failure Chronic obstructive pulmonary disease Surgical History History of right hip replacement History of lung biopsy H/O ventral hernia repair H/O exploratory laparotomy History of tubal ligation Family History (Updated 06/23/23 @ 11:43 by Brenda Cuellar LPN) Brother Heart disease Father COPD (chronic obstructive pulmonary disease) Mother History of malignant neoplasm of cervix Hypertension Cancer 64 yrs Social History Smoking Status: Former smoker Tobacco Type: cigarettes Substance Use Type: None Meds Medications and Allergies Allergies doxycycline Allergy (Unknown, Verified 11/13/21 11:56) vomiting Home Medications Oxygen 06/23/23 [History Confirmed 07/16/23] albuterol sulfate 90 mcg/actuation aerosol inhaler (Ventolin HFA) 2 puff inhalation QID 06/23/23 [History Confirmed 07/16/23] aspirin 81 mg tablet,delayed release (Adult Low Dose Aspirin) 81 mg PO DAILY 06/23/23 [History Confirmed 07/16/23] buprenorphine 8 mg-naloxone 2 mg sublingual film (Suboxone) 1.5 film sublingual ONCE 06/23/23 [History Confirmed 07/16/23] srusafbzvs-jlijxuoiuyyfy-axiwnoqv 50 mg-325 mg-40 mg tablet 1 tab PO .twice daily PRN 06/23/23 [History] ondansetron HCl 4 mg tablet 4 mg PO Q8HR PRN nausea and vomiting 06/23/23 [History Confirmed 07/16/23] rosuvastatin 5 mg tablet 1 tab PO DAILY 06/23/23 [History Confirmed 07/16/23] albuterol sulfate 1.25 mg/3 mL solution for nebulization 1.25 mg inhalation Q8HR07/16/23 [History] albuterol sulfate 2.5 mg/3 mL (0.083 %) solution for nebulization 2.5 mg continuous nebulization Q4HR PRN shortness of breath or wheezing 07/16/23 [History Confirmed 07/16/23] bumetanide 0.5 mg tablet 0.5 mg PO DAILY 07/16/23 [History Confirmed 07/16/23] buprenorphine 8 mg-naloxone 2 mg sublingual tablet 1 tab sublingual DAILY 07/16/23 [History Confirmed 07/16/23] buspirone 10 mg tablet 10 mg PO TID 07/16/23 [History Confirmed 07/16/23] gabapentin 100 mg capsule 100 mg PO TID 07/16/23 [History Confirmed 07/16/23] guaifenesin 600 mg tablet, extended release 12 hr (Mucus Relief ER) 600 mg PO Q12HR 07/16/23 [History Confirmed 07/16/23] meclizine 25 mg tablet 25 mg PO TID PRN dizziness 07/16/23 [History Confirmed 07/16/23] metoprolol tartrate 25 mg tablet 25 mg PO BID 07/16/23 [History Confirmed 07/16/23] tiotropium 2.5 mcg-olodaterol 2.5 mcg/actuation mist for inhalation (Stiolto Respimat) 2 inh inhalation QAM 07/16/23 [History Confirmed 07/16/23] Exam Physical Exam Vital Signs: Temp Pulse Resp BP Pulse Ox O2 Del Method O2 Flow Rate 99.0 F 78 16 115/69 97 Nasal Cannula 3 07/16/23 11:52 07/16/23 11:52 07/16/23 11:52 07/16/23 11:52 07/16/23 11:52 07/16/23 13:04 07/16/23 13:04 Const General: cooperative Nutritional Appearance: average body habitus Orientation: alert HEENT Head: normocephalic Ears: hearing grossly normal bilaterally and external ears normal Face and sinus: normal facial exam Eyes Eyelids: eyelids normal Sclera: sclerae normal Neck Neck: normal visual inspection Lymphatic: no lymphadenopathy noted Chest Chest palpation & inspection: normal inspection of the chest Resp Effort & Inspection: normal respiratory effort Auscultation: clear to auscultation bilaterally Cardio Rate: regular rate Rhythm: regular rhythm Heart Sounds: S1 normal and murmur systolic decrescendo and crescendo GI Inspection: normal to inspection Rectal Exam: visual inspection normal General: deferred Skin General: no rashes or lesions noted Neuro General: patient alert and patient awake Extrem General: normal to inspection (Right arm immobilized with sling) Psych Attitude: cooperative Results - Pulmonology Intake and Output I&O - Last 24 Hours: Intake & Output 07/15/23 07/16/23 07/16/23 23:59 07:59 15:59 Intake Total 500 / 500 Balance 500 / 500 Weight 116 lb 13.52 oz Labs 07/16/23 03:56 07/16/23 03:56 Microbiology Micro: 07/16/23 05:00 Urine Culture - Pending Urine - [place]ares Catheter Assessment/Plan (1) Chronic obstructive pulmonary disease: (2) On home oxygen therapy: Plan Patient is seen at request of hospitalist service with patient noted to have severe emphysema and markedly diminished diffusion capacity with reported history of lung adenocarcinoma from 2018 and is unclear whether this was treatedwith chemotherapy/radiation with the patient reportedly not having had surgery. We will obtain a chest x-ray and do not feel that due to the patient's hip fracture that she can effectively give adequate effort for pulmonary function test. The patient would certainly be at significant risk for cardiopulmonary complications postoperatively but is on optimal medical therapy and there would be no interventions to improve her perioperative risk. Patient does have a significant systolic murmur which should be evaluated with echocardiogram prior to surgery. I also discussed with patient and family potential transfer to tertiary [facility] for surgery with patient wishing to keep her care local. Given the understanding that she has increased risk for complications postoperatively but also understanding that she is at increased risk for pulmonary embolism, pneumonia, skin breakdown, and overall poor quality of life with patient having significant pain from her hip fracture, the patient can proceed with surgery from a pulmonary perspective with recommendation for early ambulation as well as patient coughing and deep breathing with aggressive pulmonary clearance measures including incentive spirometry and bronchodilators. Patient should also have aggressive DVT prophylaxis. She will need to be cleared from a cardiology perspective before patient should proceed with surgeryas well. Pulmonary will follow with you Documented By: Yvan Cantu MD 4 1515 Signed By: <Electronically signed by MD Yvan Cantu> 07/16/23 1624 [facility] Work Phone: [phone] History and physical note Author Aylin Borden [place] July 16, 2023 11:04am Note Date/Time July 16, 2023 10: 55am [facility] [address] [place] [address] Hospitalist H&P Signed Patient: Margaret Anderson MR#: [id number] : 1950 Acct:[id number] Age/Sex: 73 / F Adm Date: 4 Loc: 4 Room: [address] [place] [address] Type: ADM IN Attending Dr: Aylin Borden MD Copies to: MD Ruben Quintana MD~ HPI DATE OF EXAMINATION: 07/16/23 CHIEF COMPLAINT: fall HISTORY OF PRESENT ILLNESS: 73-year-old white female past medical history of hypertension, hyperlipidemia, chronic COPD, on home oxygen at 3 L, chronic congestive heart failure, chronic disease and osteoarthritis who presented to emergency room after 4. Fell today when she tried to get out of bed and hit her right side workup with the emergency room showed right proximal humerus and right periprosthetic hip fracture. Patient lives by herself patient complains of 10/10 of right hip painhe denies any chest pain or shortness of breath. She is on home oxygen nasal cannula. She denies any orthopnea or PND. No cough. No fever or chills. She denies of any nausea vomiting. She denies having abdominal pain. She denies having dysuria, hematuria, or frequency. Review of Systems Review of Systems All other systems reviewed & are negative unless noted below or in HPI [facility] Medical History (Updated 07/16/23 @ 10:52 by Aylin Borden MD) On home oxygen therapy 3L High cholesterol Hypertension Brain aneurysm Osteoarthritis Degenerative disc disease Crohn's disease Congestive heart failure Chronic obstructive pulmonary disease Surgical History History of right hip replacement History of lung biopsy H/O ventral hernia repair H/O exploratory laparotomy History of tubal ligation Family History (Updated 06/23/23 @ 11:43 by Brenda Cuellar LPN) Brother Heart disease Father COPD (chronic obstructive pulmonary disease) Mother History of malignant neoplasm of cervix Hypertension Cancer 64 yrs Social History Smoking Status: Former smoker Tobacco Type: cigarettes Substance Use Type: None Meds Medications and Allergies Allergies doxycycline Allergy (Unknown, Verified 11/13/21 11:56) vomiting Home Medications Oxygen 06/23/23 [History Confirmed 07/16/23] albuterol sulfate 90 mcg/actuation aerosol inhaler (Ventolin HFA) 2 puff inhalation QID 06/23/23 [History Confirmed 07/16/23] aspirin 81 mg tablet,delayed release (Adult Low Dose Aspirin) 81 mg PO DAILY 06/23/23 [History Confirmed 07/16/23] buprenorphine 8 mg-naloxone 2 mg sublingual film (Suboxone) 1 film sublingual ONCE 06/23/23 [History Confirmed 07/16/23] buspirone 15 mg tablet 15 mg PO BID 06/23/23 [History] ourdpublme-acmrozcomjyko-ecspthhp 50 mg-325 mg-40 mg tablet 1 tab PO .twice daily PRN 06/23/23 [History] carvedilol 3.125 mg tablet 1 tab PO BID 06/23/23 [History] ondansetron HCl 4 mg tablet 4 mg PO Q8HR PRN nausea and vomiting 06/23/23 [History Confirmed 07/16/23] rosuvastatin 5 mg tablet 1 tab PO DAILY 06/23/23 [History Confirmed 07/16/23] albuterol sulfate 1.25 mg/3 mL solution for nebulization 1.25 mg inhalation Q8HR07/16/23 [History] albuterol sulfate 2.5 mg/3 mL (0.083 %) solution for nebulization 2.5 mg continuous nebulization Q4HR PRN shortness of breath or wheezing 07/16/23 [History Confirmed 07/16/23] bumetanide 0.5 mg tablet 0.5 mg PO DAILY 07/16/23 [History Confirmed 07/16/23] buprenorphine 8 mg-naloxone 2 mg sublingual tablet 1 tab sublingual DAILY 07/16/23 [History Confirmed 07/16/23] buspirone 10 mg tablet 10 mg PO TID 07/16/23 [History Confirmed 07/16/23] gabapentin 100 mg capsule 100 mg PO TID 07/16/23 [History Confirmed 07/16/23] guaifenesin 600 mg tablet, extended release 12 hr (Mucus Relief ER) 600 mg PO Q12HR 07/16/23 [History Confirmed 07/16/23] meclizine 25 mg tablet 25 mg PO TID PRN dizziness 07/16/23 [History Confirmed 07/16/23] metoprolol tartrate 25 mg tablet 25 mg PO BID 07/16/23 [History Confirmed 07/16/23] tiotropium 2.5 mcg-olodaterol 2.5 mcg/actuation mist for inhalation (Stiolto Respimat) 2 inh inhalation QAM 07/16/23 [History Confirmed 07/16/23] Exam Physical Exam Vital Signs: Temp Pulse Resp BP Pulse Ox O2 Del Method O2 Flow Rate 99.4 F H 91 18 102/58 L 95 Nasal Cannula 3 07/16/23 07:46 07/16/23 07:46 07/16/23 07:46 07/16/23 07:46 07/16/23 07:46 07/16/23 08:00 07/16/23 08:00 Narrative: General patient laying in bed in no acute distress alert awake oriented x3 HEENT PERRLA Neck supple no JVD no carotid bruit CVS S1-S2 regular rate and rhythm no murmur no gallop Chest clear to auscultation percussion Abdomen soft bowel sounds normoactive no rebound no guarding Extremities no stenosis no clubbing no edema Musculoskeletal exam normal no joint effusion Neurologic exam oriented x3 alert awake no focal left Psychiatry: Normal insight and judgment Skin: no rash or lesions Results - Hospitalist H&P Lab Results Labs: Laboratory Last Values Corrected WBC 8.4 X10E3/uL (3.8-11.6) 07/16/23 03:56 Uncorrected WBC Count 8.4 x10E3/uL (3.8-11.6) 07/16/23 03:56 RBC 2.84 X10E6/uL (3.60-5.00) L 07/16/23 03:56 Hgb 9.2 g/dL (11.8-15.4) L 07/16/23 03:56 Hct 28.0 % (34.0-46.4) L 07/16/23 03:56 MCV 98.6 fl (80-100) 07/16/23 03:56 MCH 32.4 pg (24.7-34.3) 07/16/23 03:56 MCHC 32.9 g/dL (32.0-35.0) 07/16/23 03:56 RDW 13.9 % (11.9-15.3) 07/16/23 03:56 Plt Count 268 x10E3/uL (150-450) 07/16/23 03:56 MPV 7.9 fl (6.3-10.7) 07/16/23 03:56 Neut % (Auto) 75.9 % (.) 07/16/23 03:56 Lymph % (Auto) 15.4 % (.) 07/16/23 03:56 [place] % (Auto) 6.6 % (.) 07/16/23 03:56 Eos % (Auto) 1.7 % (.) 07/16/23 03:56 Baso % (Auto) 0.4 % (.) 07/16/23 03:56 Nucleat RBC Rel Count 0.0 /100 WBC (0-0.5) 07/16/23 03:56 Neut # (Auto) 6.4 x10E3/uL (1.8-7.7) 07/16/23 03:56 Lymph # (Auto) 1.3 x10E3/uL (1.00-4.8) 07/16/23 03:56 [place] # (Auto) 0.6 x10E3/uL (0.0-0.8) 07/16/23 03:56 Eos # (Auto) 0.1 x10E3/uL (0.0-0.45) 07/16/23 03:56 Baso # (Auto) 0.0 x10E3/uL (0.0-0.2) 07/16/23 03:56 Monocyte Dist Width 15.83 % (0.00-20.00) 07/16/23 03:56 PT 10.5 Seconds (9.0-12.9) 07/16/23 03:56 INR 0.9 07/16/23 03:56 APTT 30.8 Seconds (25.1-36.5) 07/16/23 03:56 PHA Creatinine Clear 42.61 07/16/23 03:56 Sodium 135 mmol/L (136-145) L 07/16/23 03:56 Potassium 4.4 mmol/L (3.5-5.1) 07/16/23 03:56 Chloride 97 mmol/L (98-107) L 07/16/23 03:56 Carbon Dioxide 34.1 mmol/L (21.0-31.0) H 07/16/23 03:56 Anion Gap 8.3 mEq/L (6.0-15.0) 07/16/23 03:56 BUN 15 mg/dL (7-25) 07/16/23 03:56 Creatinine 0.93 mg/dL (0.60-1.20) 07/16/23 03:56 Est GFR (CKD-EPI) > 60.0 mL/Min 07/16/23 03:56 Glucose 97 mg/dL (70-100) 07/16/23 03:56 Calcium 8.9 mg/dL (8.6-10.3) 07/16/23 03:56 Total Bilirubin 0.3 mg/dl (0.3-1.0) 07/16/23 03:56 AST 16 U/L (13-39) 07/16/23 03:56 ALT 10 U/L (7-52) 07/16/23 03:56 Alkaline Phosphatase 97 U/L (34-104) 07/16/23 03:56 Total Protein 6.3 gm/dL (6.4-8.9) L 07/16/23 03:56 Albumin 3.8 gm/dL (3.5-5.7) 07/16/23 03:56 Globulin 2.5 gm/dL 07/16/23 03:56 Albumin/Globulin Ratio 1.5 07/16/23 03:56 Urine Color Yellow (Yellow) 07/16/23 05:00 Urine Appearance Clear (Clear) 07/16/23 05:00 Urine pH 6.0 (5.0-9.0) 07/16/23 05:00 Ur Specific [place] 1.011 (1.001-1.030) 07/16/23 05:00 Urine Protein Negative mg/dL (Negative) 07/16/23 05:00 Urine Glucose (UA) Normal mg/dL (Normal) 07/16/23 05:00 Urine Ketones Negative (Negative) 07/16/23 05:00 Urine Occult Blood Negative (Negative) 07/16/23 05:00 Urine Nitrite Positive (Negative) H 07/16/23 05:00 Urine Bilirubin Negative (Negative) 07/16/23 05:00 Urine Urobilinogen Normal mg/dL (Normal) 07/16/23 05:00 Ur Leukocyte Esterase 1+ (Negative) H 07/16/23 05:00 Urine RBC 0-1 /HPF (0-4) 07/16/23 05:00 Urine WBC 5-9 /HPF (0-4) H 07/16/23 05:00 Ur Squamous Epith Cells None seen /HPF (0-2) 07/16/23 05:00 Urine Bacteria 3+ (None Seen) H 07/16/23 05:00 Hyaline Casts None seen /LPF (0-8) 07/16/23 05:00 Assessment & Plan Assessment/Plan (1) Closed fracture of proximal end of right humerus: (2) Periprosthetic fracture around internal prosthetic right hip joint: (3) Fall at home: (4) Osteoarthritis: (5) Chronic obstructive pulmonary disease: (6) Crohn's disease: (7) Hypertension: (8) On home oxygen therapy: (9) Brain aneurysm: (10) Congestive heart failure: Plan 73-year-old white female past medical history of hypertension, hyperlipidemia, chronic COPD, on home oxygen at 3 L, chronic congestive heart failure, chronic disease and osteoarthritis who presented to emergency room after 4. Fell today when she tried to get out of bed and hit her right side workup with the emergency room showed right proximal humerus and right periprosthetic hip fracture. Patient lives by herself patient complains of 10/10 of right hip painhe denies any chest pain or shortness of breath. She is on home oxygen nasal cannula. She denies any orthopnea or PND. No cough. No fever or chills. She denies of any nausea vomiting. She denies having abdominal pain. She denies having dysuria, hematuria, or frequency. Assessment Mechanical fall Right proximal humerus fracture Right periprosthetic hip Inpatient admission Normal saline 75 cc/h Percocet 1 tablet every 4 hours as needed for pain Dilaudid 0.5 mg every 4 hours as needed for pain Orthopedic consult PT OT evaluation Social service consult Chronic COPD on home oxygen Continue with home oxygen at 3 L Albuterol Atrovent nebulizer as needed Chronic congestive heart failure Compensated Hypertension: Continue with Coreg twice daily History of crohn disease DVT prophylaxis: Lovenox daily IP vs OBS Justification Based on differential dx, clinical care plan, and risk of adverse events, if untreated, in my clinical judgement this patient requires an acute care setting as: INPATIENT because of an expectation of an over 2 midnight stay. Estimated length of stay (# of days): 3 Documented By: Aylin Borden MD 07/16/23 1050 Signed By: <Electronically signed by Aylin Borden MD> 07/16/23 1104 [facility] Work Phone: [phone] Consult note Author Surendra Ruiz [place] July 16, 2023 8:44am Note Date/Time July 16, 2023 8:4 4am [facility] [address] [place] [address] Orthopedic Consult Note Signed Patient: Margraet Anderson MR#: [id number] : 1950 Acct:[id number] Age/Sex: 73 / F Adm Date: 4 Loc: Room: 8E3441-1 Type: ADM IN Attending Dr: Aylin Borden MD Copies to: MD Ruben Quintana MD Robert M Carlisle, MD~ History of Present Illness HPI Consult date: 07/16/2023 Requesting provider: Aylin Borden MD History of present illness: Patient is a 73-year-old female with a history of COPD, aneurysmal repair, Crohn's, hypertension, and hyperlipidemia. She lives at home by herself and fell asleep in her recliner last night. When she got up to go to the bathroom she tripped and fell directly onto her right hip and right shoulder. She was able to crawl to get in contact with family so she get to the hospital. Upon evaluation she was found to have a right hip periprosthetic fracture and a rightproximal humerus fracture. She has been admitted to the hospital service and orthopedics was consulted for further management and treatment. Patient reports that she has had COPD for quite some time and has required 24/7 oxygen at 3 L for several years now. She had an aneurysm that burst a few yearsago and ever since then she has been off of cigarettes and tobacco but prior to that she had several decade pack history. Prior to this fall she denies having any issues with the right hip. It was replaced by Dr. Roberts at [facility] in the . It sounds like she had a hip fracture that failed closed reduction and pinning and ultimately led to a hip replacement. She denies having any pain in the hip prior to this fall. She occasionally uses a cane forbalance purposes and weakness in her legs but did not rely on any other assistive devices. She still drives and still would go shopping but would go with somebody. At this point she is resting in bed but in significant pain in the right leg as well as the right shoulder. She denies any numbness or tingling into the right leg but complains of some tingling in the tips of all of her fingers on the right hand. [facility] Medical History (Updated 07/16/23 @ 07:51 by Dot Knight RN) On home oxygen therapy 3L High cholesterol Hypertension Brain aneurysm Osteoarthritis Degenerative disc disease Crohn's disease Congestive heart failure Chronic obstructive pulmonary disease Surgical History History of right hip replacement History of lung biopsy H/O ventral hernia repair H/O exploratory laparotomy History of tubal ligation Family History (Updated 06/23/23 @ 11:43 by Brenda Cuellar LPN) Brother Heart disease Father COPD (chronic obstructive pulmonary disease) Mother History of malignant neoplasm of cervix Hypertension Cancer 64 yrs Social History Smoking Status: Former smoker Tobacco Type: cigarettes Substance Use Type: None Allergies & Medications Medications and Allergies Allergies doxycycline Allergy (Unknown, Verified 11/13/21 11:56) vomiting Home Medications Oxygen 06/23/23 [History] albuterol sulfate 90 mcg/actuation aerosol inhaler (Ventolin HFA) 2 puff inhalation QID 06/23/23 [History Confirmed 07/16/23] aspirin 81 mg tablet,delayed release (Adult Low Dose Aspirin) 81 mg PO DAILY 06/23/23 [History Confirmed 07/16/23] buprenorphine 8 mg-naloxone 2 mg sublingual film (Suboxone) 1 film sublingual ONCE 06/23/23 [History Confirmed 07/16/23] buspirone 15 mg tablet 15 mg PO BID 06/23/23 [History Confirmed 07/16/23] ygucgaqvhg-yfyjnsgqjqlfq-arlqdzmo 50 mg-325 mg-40 mg tablet 1 tab PO .twice daily PRN 06/23/23 [History] carvedilol 3.125 mg tablet 1 tab PO BID 06/23/23 [History Confirmed 07/16/23] ondansetron HCl 4 mg tablet 4 mg PO 06/23/23 [History] rosuvastatin 5 mg tablet 1 tab PO DAILY 06/23/23 [History Confirmed 07/16/23] albuterol sulfate 1.25 mg/3 mL solution for nebulization 1.25 mg inhalation Q8HR07/16/23 [History Confirmed 07/16/23] bumetanide 0.5 mg tablet mg 07/16/23 [History] guaifenesin 600 mg tablet, extended release 12 hr (Mucus Relief ER) mg PO 07/16/23 [History] tiotropium 2.5 mcg-olodaterol 2.5 mcg/actuation mist for inhalation (Stiolto Respimat) inhalation 07/16/23 [History] Exam Physical Exam Vital Signs: Temp Pulse Resp BP Pulse Ox O2 Del Method O2 Flow Rate 99.4 F H 91 18 102/58 L 95 Nasal Cannula 3 07/16/23 07:46 07/16/23 07:46 07/16/23 07:46 07/16/23 07:46 07/16/23 07:46 07/16/23 07:46 07/16/23 07:46 Narrative: Right shoulder is in a sling. There is ecchymosis noted around the proximal humerus and into the axilla. No areas concerning for open fracture. Warm well-perfused hand with 2+ radial pulse. Sensation intact to light touch throughout the hand with paresthesias in the ulnar nerve distribution. She fires her AIN, PIN, median, ulnar, radial nerves. Right lower extremity is resting in shortened actually rotated position. There is a anterior lateral based longitudinal scar on the hip that appears well-healed with no areas of erythema. Significantly tender palpation of the proximal femur and into the thigh. There is fullness in this area but very soft and compressible. Warm well-perfused foot with palpable dorsalis pedis pulse. Moves her toes moves her ankle up and down. Sensation intact light touch throughout the foot. Results - Orthopedics Lab Results 07/16/23 03:56 07/16/23 03:56 Labs: Laboratory Results - Last 48 hrs. 07/16/23 05:00: Urine Color Yellow, Urine Appearance Clear, Urine pH 6.0, Ur Specific [place] 1.011, Urine Protein Negative, Urine Glucose (UA) Normal, Urine Ketones Negative, Urine Occult Blood Negative, Urine Nitrite Positive H, Urine Bilirubin Negative, Urine Urobilinogen Normal, Ur Leukocyte Esterase 1+ H, Urine RBC 0-1, Urine WBC 5-9 H, Ur Squamous Epith Cells None seen, Urine Bacteria 3+ H, Hyaline Casts None seen 07/16/23 03:56: Corrected WBC 8.4, Uncorrected WBC Count 8.4, RBC 2.84 L, Hgb 9.2 L, Hct 28.0 L, MCV 98.6, MCH 32.4, MCHC 32.9, RDW 13.9, Plt Count 268, MPV 7.9, Neut % (Auto) 75.9, Lymph % (Auto) 15.4, [place] % (Auto) 6.6, Eos % (Auto) 1.7, Baso % (Auto) 0.4, Nucleat RBC Rel Count 0.0, Neut # (Auto) 6.4, Lymph # (Auto) 1.3, [place] # (Auto) 0.6, Eos # (Auto) 0.1, Baso # (Auto) 0.0, Monocyte Dist Width 15.83, PT 10.5, INR 0.9, APTT 30.8, PHA Creatinine Clear 42.61, Sodium 135 L, Potassium 4.4, Chloride 97 L, Carbon Dioxide 34.1 H, Anion Gap 8.3, BUN 15, Creatinine 0.93, Est GFR (CKD- EPI) > 60.0, Glucose 97, Calcium 8.9, Total Bilirubin 0.3, AST 16, ALT 10, Alkaline Phosphatase 97, Total Protein 6.3 L, Albumin 3.8, Globulin 2.5, Albumin/Globulin Ratio 1.5 H & H 07/16/23 Range/Units 03:56 Hgb 9.2 L (11.8-15.4) g/dL Hct 28.0 L (34.0-46.4) % Coagulation 07/16/23 Range/Units 03:56 INR 0.9 All other labs are normal. Imaging & Diagnostic Results Imaging/Diagnostics: X-rays of the right proximal humerus does demonstrate a proximal humerus fracture. The lateral aspect of the proximal humerus is flipped out consistent with a fracture likely of the tuberosity. Overall alignment though on the coronal and then the Scap Y appears fairly well aligned. X-rays of the pelvis and right hip were independently reviewed today as well. These demonstrate a tthzv-ke-nvqde total hip with a longstem. There is sclerotic lines outlining the stem of the hip and the femoral shaft. The hip component now sits in a little bit of varus and is outside of those sclerotic lines. There is a cortical breach medially that appears to extend distal. I do not appreciate a fracture line distally around the tip of the stem. No prior x-rays to compare stem positioning, concern for stem loosening. No concern for fractures around the acetabulum based on these x-rays. CT scan of the right femur was obtained today and independently reviewed. This again demonstrates the femoral component and acetabular component. It does appear to be a yqxrj-my-bipco component. The stem has subsided and appears in some varus and is outside of the sclerotic lines that are seen on the x-ray. The fracture extends proximally both anterior and posterior then extending distally to the posterior medial aspect of the stem. The fracture extends to about 2 cm above the tip of the stem distally. I do not appreciate any acute osseous abnormalities surrounding the acetabulum. Assessment/Plan (1) Closed fracture of proximal end of right humerus: Plan: Closed right displaced proximal humerus fracture I explained to the patient that in of itself this fracture is something that typically we can treat nonoperatively. However, I will speak with my trauma colleague about whether or not this is a fracture that could be considered being fixed to help with her rehab after her right hip fracture. Furthermore, we need to determine if the patient is medically fit to be treated here at [facility]. In the meantime remain nonweightbearing on the right upper extremity Code(s): S42.201A - Unspecified fracture of upper end of right humerus, initial encounter for closed fracture (2) Periprosthetic fracture around internal prosthetic right hip joint: Plan: Closed right displaced [place] B2 proximal femur periprosthetic fracture I explained to the patient that she is fractured around the femoral component of her hip replacement. I explained that the component appears to be loose and as a result I would ultimately recommend surgical fixation. We did briefly discuss conservative treatment but I explained that given her pulmonary status and the low likelihood of getting the component to reattach I would not recommend conservative treatment. In regards to surgical intervention I would recommend removal of the stem and changing the articulation so it is no longer [id number]. Based on the CT scan and x- rays her acetabular component appears well-fixed and I will plan to leave that if at all possible. In regards to the femoral component I would remove it, fix the fracture, and place a revision stem. We discussed the risk and benefits of this procedure at length. Proceeding with this procedure changes on her medical status and our facility's ability to treat her. I have spoken with anesthesia and they are going to review her case. I have also spoken with the charge nurse and they are going to work to get information on her medical history especially from her aneurysm several years ago and her pulmonary status. In the meantime, remain nonweightbearing on the right lower extremity Code(s): M97.01XA - Periprosthetic fracture around internal prosthetic right hip joint, initial encounter Documented By: Surendra Ruiz MD 07/16/23 08 33 Signed By: <Electronically signed by Surendra Ruiz MD> 07/16/23 0844 [facility] Work Phone: [phone] History of Present illness Narrative* Ruben Velasquez MD - 04/30/2023 3:00 PM EST Patient ID: Margaret Anderson is a 73 y.o. female who presents for: Edema Patient complains of edema in both ankles and feet, both feet, and both lower legs. The edema has been moderate. Onset of symptoms was 7 days ago, and patient reports symptoms have gradually worsenedsince that time. The edema is present all day. The patient states the problem has been intermittentfor several years but this time it is not going away . The swelling has been aggravated by nothing.The swelling has been relieved by nothing. Associated factors include: she states they get hot, swollen, itchy, look deformed, red . Cardiac risk factors include hypertension and sedentary lifestyle. Review of Systems Constitutional: Negative for activity change and fatigue. HENT: Positive for congestion and ear pain. Respiratory: Positive for shortness of breath. Negative for cough and wheezing. Cardiovascular: Positive for leg swelling. Negative for chest pain and palpitations. Neurological: Positive for dizziness, light-headedness and headaches. Objective The patient is pleasant and in no acute distress. The head is normocephalic and atraumatic. Both eyes appear grossly normal without obvious lid pathology or icterus. Both ears hearing is grossly intact. The neck is supple and trachea is midline. No masses are appreciated. The anterior cervical lymphatics demonstrates shoddy bilateral nontender lymphadenopathy. There is no supraclavicular lymphadenopathy. The heart Sounds are distant but regular rate and rhythm without S3, S4. No murmur. She has nasal cannula oxygen. The patient has Prolonged expiratory respiratory pattern. The breath sounds are Significantly and diffusely decreased but symmetrical without evidence of wheezing, rhonchi, or rales. The chest is normal shape. The skin is warm and dry. The lower extremities have 1-2+ at the ankles and about 1+ pretibial which is an increase for her. The patient has good eye contact and speech is clear. Visit Vitals Pulse 87 Ht 5' 3 Wt 114 lb SpO2 96% BMI 20.19 kg/m OB Status Postmenopausal Smoking Status Former BSA 1.52 m Allergies Allergen Reactions Citalopram Other Reaction(s): nausea, anxiousness Duloxetine Hcl Other Reaction(s): unsteady Furosemide Other Reaction(s): nausea and vomiting Levofloxacin Other Reaction(s): nausea, headache, unable to sleep Current Outpatient Medications Medication Instructions acetaminophen (TYLENOL) 325 mg, Oral, Every 4 hours PRN albuterol HFA (Ventolin HFA) 90 mcg/act inhaler 2 puffs, Inhalation, Every 6 hours PRN albuterol 2.5 mg, Nebulization, Every 4 hours PRN bumetanide (Bumex) 0.5 MG tablet Take 1 tablet twice daily for 2 weeks, then once daily in AM buprenorphine-naloxone (Suboxone) 8-2 MG SL tablet 1.5 tablets, Sublingual, Daily busPIRone (Buspar) 10 MG tablet 1.5 tablet in AM, 0.5 tablet at lunch, 1 tablet in PM ccamnrdwwa-sdfxzsnkynyil-tbwmzeic 50-325-40 MG tablet 1 tablet, Oral, Every 6 hours PRN cloNIDine (CATAPRES) 0.1 mg, Oral, Daily PRN guaiFENesin (Mucus Relief) 600 MG 12 hr tablet TAKE 1 TABLET BY MOUTH EVERY 12 HOURS NEEDED FOR 30 DAYS meclizine (ANTIVERT) 25 mg, Oral, 3 times daily PRN metoprolol tartrate (LOPRESSOR) 25 mg, Oral, 2 times daily ondansetron (ZOFRAN) 4 mg, Oral, Every 8 hours PRN rosuvastatin (CRESTOR) 5 mg, Oral, Nightly tiotropium-olodaterol (Stiolto Respimat) 2.5-2.5 MCG/ACT aerosol solution inhaler 2 Inhalation , Inhalation, Daily Assessment/Plan Diagnoses and all orders for this visit: Peripheral edema - bumetanide (Bumex) 0.5 MG tablet; Take 1 tablet twice daily for 2 weeks, then once daily in AM Acute on chronic problem. This is significantly worse than I remember. I discussed with her further evaluation versus a trial of treatment at this point. Cardiovascularlyshe is relatively asymptomatic. She would prefer the trial of treatment. In prescribing a new medication consideration of the following encompasses moderate decision making: the current prescriptions and supplements, the current allergies and medication intolerances, the current medical conditions, and potential drug interactions. Drug interaction screening is reviewed and there are moderate to major severity ratings to consider during prescription drug management. Ifthe new medication is considered a controlled substance, then the OARRS and NARX scores are obtained and reviewed. Risks, benefits, and reason for starting their medication were discussed. The patient was given a chance to ask questions today and all questions were answered. The patient is to contact us, preferably by using the patient portal, or call if any other questions arise or ifany problems occur with the adjustment in their medication. Venous (peripheral) insufficiency Chronic problem that is a comorbid condition that can be contributing to the edema. Simple chronic bronchitis (CMS/HCC) - tiotropium-olodaterol (Stiolto Respimat) 2.5-2.5 MCG/ACT aerosol solution inhaler; Inhale 2 Inhalation in the morning. Chronic problem that is severe but significantly stable for her. Being monitored longitudinally. Patient needs refill today. In prescribing a renewal to their current medication, consideration of the following encompasses moderate decision making; the current prescriptions and supplements, the current allergies and medication intolerances, current medical conditions, and potential drug interactions. Drug interaction screening is reviewed and there are moderate to major severity ratings to consider during prescription drug management. If the adjusted medication is considered a controlled substance, then the OARRS and NARX scores are obtained and reviewed. Any changes to risks, benefits, and reason for renewing their current medication due to the above were discussed. The patient was given a chance to ask questions today and all questions were answered. The patient is to contact us, preferably by using the patient portal, or call if any other questions arise or ifany problems occur with the renewal of their medication. (Utilizing the original guidelines or the 2020 new office/outpatient code guidelines for selecting the level of E/M service, In both sets of guidelines, prescription drug management appearsin the moderate medical decision making (MDM) row. Neither the original guidelines nor the new guidelines state that a new prescription or change is needed in order to credit prescription drug management) Dependence on supplemental oxygen Chronic problem that is stable and utilized to treat the hypoxia. She has not had any increase in her oxygen requirements per usual. Chronic respiratory failure with hypoxia (CMS/HCC) Chronic problem that is stable and followed longitudinally. Adenocarcinoma of right lung (CMS/HCC) Chronic problem that has been historically stable without significant progression and monitored longitudinally. ASCVD (arteriosclerotic cardiovascular disease) (CMS/HCC) Chronic problem that appears to be stable, no angina or anginal equivalents. Polypharmacy Chronic problem Evaluating the patient's electronic health record today, we specifically note the patient has 5 or more prescriptions and/or multi-morbidity defined as 5 or more diagnoses. Treatment regimens are increasingly complex and potentially harmful, and people with polypharmacy need regular review and prescribing optimisation, with at least a moderate risk of morbidity from themedications themselves creating at least a moderate degree of evaluation and management. This was done today and reviewed with the patient. [facility] https://www.ncbi.nlm.nih.gov/pmc/articles/EQP0175479/. 2014; 13: 74. Published online 2014Jul 11. https://www.ncbi.nlm.nih.gov/pubmed/41514722 The rising tide of polypharmacy and drug-drug interactions: population database analysis [id number] https://www.ncbi.nlm.nih.gov/pmc/articles/CNP5523805/. 5. Rolf K, Cara SW, Rishabh M, Jerod G, Shandra S, Mitchell B. Epidemiology of multimorbidity and implications for health care, research, and medical education: a cross-sectional study. Lancet. 2012;380:37-43. documented in this encounterTimothy [place] [id number] Evaluation note* Encounter Date Diagnosis Assessment Notes Treatment Notes Treatment Clinical Notes Oct, Chronic obstructive pulmonary disease (ICD-10 - J44.9) [employer] Other 08-10-2022 Evaluation note* Encounter Date Diagnosis Assessment Notes Treatment Notes Treatment Clinical Notes Nov, Chronic obstructive pulmonary disease (ICD-10 - J44.9) Nov, Cigarette nicotine dependence, uncomplicated (ICD-10 - F17.210) [employer] Other 08-05-2022 Evaluation note* Encounter Date Diagnosis Assessment Notes Treatment Notes Treatment Clinical Notes Nov, Chronic obstructive pulmonary disease (ICD-10 - J44.9) [employer] Other Evaluation + Plan note No data available for this section [facility] Peripheral edema- Primary Edema Venous (peripheral) insufficiency Unspecified venous (peripheral) insufficiency Simple chronic bronchitis (CMS/HCC) Simple chronic bronchitis Dependence on supplemental oxygen Chronic respiratory failure with hypoxia (CMS/HCC) Adenocarcinoma of right lung (CMS/HCC) ASCVD (arteriosclerotic cardiovascular disease) (CMS/HCC) Unspecified cardiovascular disease Polypharmacy Issue of repeat prescriptions Nonrheumatic aortic valve stenosis Late effects of cerebrovascular disease documented in this encounter [facility] Diagnosis Onset Date Resolution Status Chronic obstructive pulmonary disease acute Closed fracture of proximal end of right humerus acute Fall at home acute Periprosthetic fracture arou nd internal prosthetic right hip joint acute [facility] Work Phone: Evaluation note* Diagnosis Onset Date Resolution Status Brain aneurysm acute Chronic obstructive pulmonary disease acute Closed fracture of proximal end of right humerus acute Congestive heart failure acu te Crohn's disease acute Degenerative disc disease ac [place] Fall at home acute Hypertension acute Impaired mobility and activities of daily living acute Moderate to severe aortic stenosis acute On home oxygen therapy acute Osteoarthritis acute Periprosthetic fracture arou nd internal prosthetic right hip joint acute Post-operative pain acute [facility] Work Phone: Evaluation note* Diagnosis Onset Date Resolution Status Brain aneurysm resolved Chronic obstructive pulmonary disease resolved Closed fracture of proximal end of right humerus resolved Congestive heart failure res olved Crohn's disease resolved Degenerative disc disease re solved Fall at home resolved Hypertension resolved Impaired mobility and activities of daily living resolved Moderate to severe aortic stenosis resolved On home oxygen therapy resol karine Osteoarthritis resolved Periprosthetic fracture arou nd internal prosthetic right hip joint resolved Post-operative pain resolved (HFpEF) heart failure with preserved ejection fraction acute Acute blood loss anemia acut e Chronic pain syndrome acute Generalized anxiety disorder acute Closed fracture of proximal end of right humerus resolved Crohn's disease resolved Hypertension resolved Impaired mobility and activities of daily living resolved Moderate to severe aortic stenosis resolved On home oxygen therapy resol karine Osteoarthritis resolved Periprosthetic fracture arou nd internal prosthetic right hip joint resolved Post-operative pain resolved [facility] Work Phone: Evaluation note* Diagnosis Onset Date Resolution Status Brain aneurysm resolved Chronic obstructive pulmonary disease resolved Closed fracture of proximal end of right humerus resolved Congestive heart failure res olved Crohn's disease resolved Degenerative disc disease re solved Fall at home resolved Hypertension resolved Impaired mobility and activities of daily living resolved Moderate to severe aortic stenosis resolved On home oxygen therapy resol karine Osteoarthritis resolved Periprosthetic fracture arou nd internal prosthetic right hip joint resolved Post-operative pain resolved (HFpEF) heart failure with preserved ejection fraction acute Acute blood loss anemia acut e Chronic pain syndrome acute Generalized anxiety disorder acute Closed fracture of proximal end of right humerus resolved Crohn's disease resolved Hypertension resolved Impaired mobility and activities of daily living resolved Moderate to severe aortic stenosis resolved On home oxygen therapy resol karine Osteoarthritis resolved Periprosthetic fracture arou nd internal prosthetic right hip joint resolved Post-operative pain resolved Closed right hip fracture ac [place] [facility] Work Phone: Evaluation note* Diagnosis Onset Date Resolution Status Hypertension acute On home oxygen therapy acute Brain aneurysm resolved Chronic obstructive pulmonary disease resolved Closed fracture of proximal end of right humerus resolved Congestive heart failure res olved Crohn's disease resolved Degenerative disc disease re solved Fall at home resolved Impaired mobility and activities of daily living resolved Moderate to severe aortic stenosis resolved Osteoarthritis resolved Periprosthetic fracture arou nd internal prosthetic right hip joint resolved Post-operative pain resolved (HFpEF) heart failure with preserved ejection fraction acute Acute blood loss anemia acut e Chronic pain syndrome acute Generalized anxiety disorder acute Hypertension acute On home oxygen therapy acute Closed fracture of proximal end of right humerus resolved Crohn's disease resolved Impaired mobility and activities of daily living resolved Moderate to severe aortic stenosis resolved Osteoarthritis resolved Periprosthetic fracture arou nd internal prosthetic right hip joint resolved Post-operative pain resolved Closed right hip fracture ac [place] (HFpEF) heart failure with preserved ejection fraction acute Acute blood loss anemia acut e Chronic pain acute Closed right hip fracture ac [place] High cholesterol acute Hypertension acute On home oxygen therapy acute Moderate to severe aortic stenosis resolved [facility] Work Phone: Evaluation note* Diagnosis Onset Date Resolution Status Hypertension acute On home oxygen therapy acute Brain aneurysm resolved Chronic obstructive pulmonary disease resolved Closed fracture of proximal end of right humerus resolved Congestive heart failure res olved Crohn's disease resolved Degenerative disc disease re solved Fall at home resolved Impaired mobility and activities of daily living resolved Moderate to severe aortic stenosis resolved Osteoarthritis resolved Periprosthetic fracture arou nd internal prosthetic right hip joint resolved Post-operative pain resolved (HFpEF) heart failure with preserved ejection fraction acute Acute blood loss anemia acut e Chronic pain syndrome acute Generalized anxiety disorder acute Hypertension acute On home oxygen therapy acute Closed fracture of proximal end of right humerus resolved Crohn's disease resolved Impaired mobility and activities of daily living resolved Moderate to severe aortic stenosis resolved Osteoarthritis resolved Periprosthetic fracture arou nd internal prosthetic right hip joint resolved Post-operative pain resolved Closed right hip fracture ac [place] (HFpEF) heart failure with preserved ejection fraction acute Acute blood loss anemia acut e Chronic pain acute Closed right hip fracture ac [place] High cholesterol acute Hypertension acute On home oxygen therapy acute Moderate to severe aortic stenosis resolved Closed right hip fracture ac [facility] Work Phone: Evaluation note* Diagnosis Onset Date Resolution Status (HFpEF) heart failure with preserved ejection fraction acute Acute blood loss anemia acut e Chronic pain syndrome acute Generalized anxiety disorder acute Hypertension acute On home oxygen therapy acute Closed fracture of proximal end of right humerus resolved Crohn's disease resolved Impaired mobility and activities of daily living resolved Moderate to severe aortic stenosis resolved Osteoarthritis resolved Periprosthetic fracture arou nd internal prosthetic right hip joint resolved Post-operative pain resolved Closed right hip fracture ac [place] (HFpEF) heart failure with preserved ejection fraction acute Acute blood loss anemia acut e Chronic pain acute Closed right hip fracture ac [place] High cholesterol acute Hypertension acute On home oxygen therapy acute Moderate to severe aortic stenosis resolved Closed right hip fracture ac [facility] Work Phone: History general Narrative - Reported* Type Description Date Medical History Crohns disease Medical History degenerative disc disease Medical History osteoarthritis Medical History congestive heart failure Medical History COPD Surgical History hip fracture, right 1998 Surgical History right hip replacement 2000 Surgical History SOFIE tubal ligation 09/15/1971 Surgical History hip replacement, right 2000 Surgical History exploratory laparotomy Surgical History tubal ligation Surgical History ventral hernia repai r/ exc benign lymph node deep femoral 01/29/2017 Surgical History Lung biopsy - then radiation Hospitalization History see surgical hx Hospitalization History IV hydration 7 [employer] Other Hospital Discharge instructions No data available for this section [facility] No data available for this section [facility] Purpose Family History No Family History Records Found Relationship Condition Age at Onset Recorded Date/T luisa brother Heart disease Unknown father Chronic obstructive pulmonary disease Unk nown Unknown Not Specified History of malignant neoplasm of cervix Unknown Hypertension Unknown Malignant neoplasm Unknown Relationship Condition Age at Onset Recorded Date/T luisa brother Heart disease Unknown mother History of malignant neoplasm of cervix U nknown Hypertension Unknown Malignant neoplasm Unknown Unknown Aneurysm Unknown father Unknown Advance Directives No Advanced Directives Records FoundDocuments on File Type Date Recorded Patient [employer] Expl anation Power of Credit Analyst 12/03/2022 2:31 PM 09-15 Healthcare Power Of Credit Analyst- Power Of Credit Analyst Advance Directives and Living Will 12/03/2022 2:27 PM 2014-05-11 Living Wi ll Advance Directive Response Recorded Date/ Time Advance Directives No July 15, 024 4:26am Advance Directive Response Recorded Date/ Time Advance Directives No August 24 4:53pm Chief Complaint and Reason for Visit Chief Complaint Fall Reason for Visit Chronic obstructive pulmonary disease Closed fracture of proximal end of right humerus Fall at home Periprosthetic fracture around internal prosthetic right hip joint Chief Complaint Fall Fall Fall Fall Fall Fall Fall Fall Reason for Visit Brain aneurysm Chronic obstructive pulmonary disease Closed fracture of proximal end of right humerus Congestive heart failure Crohn's disease Degenerative disc disease Fall at home Hypertension Impaired mobility and activities of daily living Moderate to severe aortic stenosis On home oxygen therapy Osteoarthritis Periprosthetic fracture around internal prosthetic right hip joint Post-operative pain Chief Complaint Fall Fall Fall Fall Fall Fall Fall Fall Right tracie=prothetic femur fx s\p revision r humer Right tracie=prothetic femur fx s\p revision r humer Right tracie=prothetic femur fx s\p revision r humer Right tracie=prothetic femur fx s\p revision r humer Right tracie=prothetic femur fx s\p revision r humer Right tracie=prothetic femur fx s\p revision r humer Right tracie=prothetic femur fx s\p revision r humer Right tracie=prothetic femur fx s\p revision r humer Right tracie=prothetic femur fx s\p revision r humer Right tracie=prothetic femur fx s\p revision r humer Right tracie=prothetic femur fx s\p revision r humer D62 I50.9 I73.9 Reason for Visit Brain aneurysm Chronic obstructive pulmonary disease Closed fracture of proximal end of right humerus Congestive heart failure Crohn's disease Degenerative disc disease Fall at home Hypertension Impaired mobility and activities of daily living Moderate to severe aortic stenosis On home oxygen therapy Osteoarthritis Periprosthetic fracture around internal prosthetic right hip joint Post-operative pain (HFpEF) heart failure with preserved ejection fraction Acute blood loss anemia Chronic pain syndrome Generalized anxiety disorder Closed fracture of proximal end of right humerus Crohn's disease Hypertension Impaired mobility and activities of daily living Moderate to severe aortic stenosis On home oxygen therapy Osteoarthritis Periprosthetic fracture around internal prosthetic right hip joint Post-operative pain Chief Complaint Fall Fall Fall Fall Fall Fall Fall Fall Right tracie=prothetic femur fx s\p revision r humer Right tracie=prothetic femur fx s\p revision r humer Right tracie=prothetic femur fx s\p revision r humer Right tracie=prothetic femur fx s\p revision r humer Right tracie=prothetic femur fx s\p revision r humer Right tracie=prothetic femur fx s\p revision r humer Right tracie=prothetic femur fx s\p revision r humer Right tracie=prothetic femur fx s\p revision r humer Right tracie=prothetic femur fx s\p revision r humer Right tracie=prothetic femur fx s\p revision r humer Right tracie=prothetic femur fx s\p revision r humer D62 I50.9 I73.9 FOLLOW UP FROM HOSP RT FEMUR FX S72.001A - Fracture of unspecified part of neck of Reason for Visit Brain aneurysm Chronic obstructive pulmonary disease Closed fracture of proximal end of right humerus Congestive heart failure Crohn's disease Degenerative disc disease Fall at home Hypertension Impaired mobility and activities of daily living Moderate to severe aortic stenosis On home oxygen therapy Osteoarthritis Periprosthetic fracture around internal prosthetic right hip joint Post-operative pain (HFpEF) heart failure with preserved ejection fraction Acute blood loss anemia Chronic pain syndrome Generalized anxiety disorder Closed fracture of proximal end of right humerus Crohn's disease Hypertension Impaired mobility and activities of daily living Moderate to severe aortic stenosis On home oxygen therapy Osteoarthritis Periprosthetic fracture around internal prosthetic right hip joint Post-operative pain Closed right hip fracture Chief Complaint Fall Fall Fall Fall Fall Fall Fall Fall Right tracie=prothetic femur fx s\p revision r humer Right tracie=prothetic femur fx s\p revision r humer Right tracie=prothetic femur fx s\p revision r humer Right tracie=prothetic femur fx s\p revision r humer Right tracie=prothetic femur fx s\p revision r humer Right tracie=prothetic femur fx s\p revision r humer Right tracie=prothetic femur fx s\p revision r humer Right tracie=prothetic femur fx s\p revision r humer Right tracie=prothetic femur fx s\p revision r humer Right tracie=prothetic femur fx s\p revision r humer Right tracie=prothetic femur fx s\p revision r humer D62 I50.9 I73.9 dysuria FOLLOW UP FROM HOSP RT FEMUR FX S72.001A - Fracture of unspecified part of neck of Reason for Visit Brain aneurysm Chronic obstructive pulmonary disease Closed fracture of proximal end of right humerus Congestive heart failure Crohn's disease Degenerative disc disease Fall at home Hypertension Impaired mobility and activities of daily living Moderate to severe aortic stenosis On home oxygen therapy Osteoarthritis Periprosthetic fracture around internal prosthetic right hip joint Post-operative pain (HFpEF) heart failure with preserved ejection fraction Acute blood loss anemia Chronic pain syndrome Generalized anxiety disorder Closed fracture of proximal end of right humerus Crohn's disease Hypertension Impaired mobility and activities of daily living Moderate to severe aortic stenosis On home oxygen therapy Osteoarthritis Periprosthetic fracture around internal prosthetic right hip joint Post-operative pain Closed right hip fracture Chief Complaint Fall Fall Fall Fall Fall Fall Fall Fall Right tracie=prothetic femur fx s\p revision r humer Right tracie=prothetic femur fx s\p revision r humer Right tracie=prothetic femur fx s\p revision r humer Right tracie=prothetic femur fx s\p revision r humer Right tracie=prothetic femur fx s\p revision r humer Right tracie=prothetic femur fx s\p revision r humer Right tracie=prothetic femur fx s\p revision r humer Right tracie=prothetic femur fx s\p revision r humer Right tracie=prothetic femur fx s\p revision r humer Right tracie=prothetic femur fx s\p revision r humer Right tracie=prothetic femur fx s\p revision r humer D62 I50.9 I73.9 dysuria FOLLOW UP FROM HOSP RT FEMUR FX S72.001A - Fracture of unspecified part of neck of Frequent UTI Reason for Visit Brain aneurysm Chronic obstructive pulmonary disease Closed fracture of proximal end of right humerus Congestive heart failure Crohn's disease Degenerative disc disease Fall at home Hypertension Impaired mobility and activities of daily living Moderate to severe aortic stenosis On home oxygen therapy Osteoarthritis Periprosthetic fracture around internal prosthetic right hip joint Post-operative pain (HFpEF) heart failure with preserved ejection fraction Acute blood loss anemia Chronic pain syndrome Generalized anxiety disorder Closed fracture of proximal end of right humerus Crohn's disease Hypertension Impaired mobility and activities of daily living Moderate to severe aortic stenosis On home oxygen therapy Osteoarthritis Periprosthetic fracture around internal prosthetic right hip joint Post-operative pain Closed right hip fracture Chief Complaint Fall Fall Fall Fall Fall Fall Fall Fall Right tracie=prothetic femur fx s\p revision r humer Right tracie=prothetic femur fx s\p revision r humer Right tracie=prothetic femur fx s\p revision r humer Right tracie=prothetic femur fx s\p revision r humer Right tracie=prothetic femur fx s\p revision r humer Right tracie=prothetic femur fx s\p revision r humer Right tracie=prothetic femur fx s\p revision r humer Right tracie=prothetic femur fx s\p revision r humer Right tracie=prothetic femur fx s\p revision r humer Right tracie=prothetic femur fx s\p revision r humer Right tracie=prothetic femur fx s\p revision r humer D62 I50.9 I73.9 dysuria FOLLOW UP FROM HOSP RT FEMUR FX S72.001A - Fracture of unspecified part of neck of Frequent UTI z48.00 Z48.00 R53.83 R06.2 I10 Reason for Visit Hypertension On home oxygen therapy Brain aneurysm Chronic obstructive pulmonary disease Closed fracture of proximal end of right humerus Congestive heart failure Crohn's disease Degenerative disc disease Fall at home Impaired mobility and activities of daily living Moderate to severe aortic stenosis Osteoarthritis Periprosthetic fracture around internal prosthetic right hip joint Post-operative pain (HFpEF) heart failure with preserved ejection fraction Acute blood loss anemia Chronic pain syndrome Generalized anxiety disorder Hypertension On home oxygen therapy Closed fracture of proximal end of right humerus Crohn's disease Impaired mobility and activities of daily living Moderate to severe aortic stenosis Osteoarthritis Periprosthetic fracture around internal prosthetic right hip joint Post-operative pain Closed right hip fracture (HFpEF) heart failure with preserved ejection fraction Acute blood loss anemia Chronic pain Closed right hip fracture High cholesterol Hypertension On home oxygen therapy Moderate to severe aortic stenosis Chief Complaint Fall Fall Fall Fall Fall Fall Fall Fall Right tracie=prothetic femur fx s\p revision r humer Right tracie=prothetic femur fx s\p revision r humer Right tracie=prothetic femur fx s\p revision r humer Right tracie=prothetic femur fx s\p revision r humer Right tracie=prothetic femur fx s\p revision r humer Right tracie=prothetic femur fx s\p revision r humer Right tracie=prothetic femur fx s\p revision r humer Right tracie=prothetic femur fx s\p revision r humer Right tracei=prothetic femur fx s\p revision r humer Right tracie=prothetic femur fx s\p revision r humer Right tracie=prothetic femur fx s\p revision r humer D62 I50.9 I73.9 dysuria FOLLOW UP FROM HOSP RT FEMUR FX S72.001A - Fracture of unspecified part of neck of Frequent UTI z48.00 Z48.00 R53.83 R06.2 I10 S72.001A - Fracture of unspecified part of neck of 6 WEEKS Reason for Visit Hypertension On home oxygen therapy Brain aneurysm Chronic obstructive pulmonary disease Closed fracture of proximal end of right humerus Congestive heart failure Crohn's disease Degenerative disc disease Fall at home Impaired mobility and activities of daily living Moderate to severe aortic stenosis Osteoarthritis Periprosthetic fracture around internal prosthetic right hip joint Post-operative pain (HFpEF) heart failure with preserved ejection fraction Acute blood loss anemia Chronic pain syndrome Generalized anxiety disorder Hypertension On home oxygen therapy Closed fracture of proximal end of right humerus Crohn's disease Impaired mobility and activities of daily living Moderate to severe aortic stenosis Osteoarthritis Periprosthetic fracture around internal prosthetic right hip joint Post-operative pain Closed right hip fracture (HFpEF) heart failure with preserved ejection fraction Acute blood loss anemia Chronic pain Closed right hip fracture High cholesterol Hypertension On home oxygen therapy Moderate to severe aortic stenosis Closed right hip fracture Chief Complaint Right tracie=prothetic femur fx s\p revision r humer Right tracie=prothetic femur fx s\p revision r humer Right tracie=prothetic femur fx s\p revision r humer Right tracie=prothetic femur fx s\p revision r humer Right tracie=prothetic femur fx s\p revision r humer Right tracie=prothetic femur fx s\p revision r humer Right tracie=prothetic femur fx s\p revision r humer Right tracie=prothetic femur fx s\p revision r humer Right tracie=prothetic femur fx s\p revision r humer Right tracie=prothetic femur fx s\p revision r humer Right tracie=prothetic femur fx s\p revision r humer D62 I50.9 I73.9 dysuria FOLLOW UP FROM HOSP RT FEMUR FX S72.001A - Fracture of unspecified part of neck of Frequent UTI z48.00 Z48.00 R53.83 R06.2 I10 S72.001A - Fracture of unspecified part of neck of 6 WEEKS n30.00 n39.0 Reason for Visit (HFpEF) heart failur e with preserved ejection fraction Acute blood loss anemia Chronic pain syndrome Generalized anxiety disorder Hypertension On home oxygen therapy Closed fracture of proximal end of right humerus Crohn's disease Impaired mobility and activities of daily living Moderate to severe aortic stenosis Osteoarthritis Periprosthetic fracture around internal prosthetic right hip joint Post-operative pain Closed right hip fracture (HFpEF) heart failure with preserved ejection fraction Acute blood loss anemia Chronic pain Closed right hip fracture High cholesterol Hypertension On home oxygen therapy Moderate to severe aortic stenosis Closed right hip fracture Chief Complaint Right tracie=prothetic femur fx s\p revision r humer Right tracie=prothetic femur fx s\p revision r humer Right tracie=prothetic femur fx s\p revision r humer Right tracie=prothetic femur fx s\p revision r humer Right tracie=prothetic femur fx s\p revision r humer Right tracie=prothetic femur fx s\p revision r humer Right tracie=prothetic femur fx s\p revision r humer D62 I50.9 I73.9 dysuria FOLLOW UP FROM HOSP RT FEMUR FX S72.001A - Fracture of unspecified part of neck of Frequent UTI z48.00 Z48.00 R53.83 R06.2 I10 S72.001A - Fracture of unspecified part of neck of 6 WEEKS n30.00 n39.0 N39.0 Reason for Visit (HFpEF) heart failur e with preserved ejection fraction Acute blood loss anemia Chronic pain syndrome Generalized anxiety disorder Hypertension On home oxygen therapy Closed fracture of proximal end of right humerus Crohn's disease Impaired mobility and activities of daily living Moderate to severe aortic stenosis Osteoarthritis Periprosthetic fracture around internal prosthetic right hip joint Post-operative pain Closed right hip fracture (HFpEF) heart failure with preserved ejection fraction Acute blood loss anemia Chronic pain Closed right hip fracture High cholesterol Hypertension On home oxygen therapy Moderate to severe aortic stenosis Closed right hip fracture Additional Source Comments INFORMATION SOURCE (unrecogn ized section and content) DATE CREATED AUTHOR 07/22/2018 [facility] DATE CREATED AUTHOR AUTHOR'S ORGANIZ ATION 05/20/2022 [facility] DATE CREATED AUTHOR AUTHOR'S ORGANIZ ATION 12/03/2022 [facility] DATE CREATED AUTHOR AUTHOR'S ORGANIZ ATION 09/12/2023 [facility] DATE CREATED AUTHOR AUTHOR'S ORGANIZ ATION 10/22/2023 [facility] EPIC DATE CREATED AUTHOR AUTHOR'S ORGANIZ ATION 11/05/2023 [facility] REASON FOR VISIT (unrecogniz ed section and content) Reason Comments Edema Patient Care team informatio n (unrecognized section and content) Team Status: Active Member Role Status Dates Services [facility] Primary Care Provider Active Team Status: Inactive Member Role Status Dates Ruben Velasquez MD Primary Care Provider Active Start: July 16, 2023 End: July 25, 2023 Solo Yepez Jr, MD Emergency Provider Active Start: July 16, 2023 End: July 25, 2023 Aylin Borden MD Admit Provider Active Start: A pril 2023 End: July 25, 2023 Solo Sargent MD Other Provider Active Start: A pril 2023 End: July 25, 2023 Mc Cabrales MD Other Provider Active Start: July 16, 2023 End: July 25, 2023 Alayna Jones MD Other Provider Active Star t: July 16, 2023 End: July 25, 2023 Елена Conde NP-C Other Provider Active Start: July 16, 2023 End: July 25, 2023 Emir Mcintyre DO Other Provider Active Start : July 16, 2023 End: July 25, 2023 Surendra Ruiz II, MD Other Provider Active S tart: July 16, 2023 End: July 25, 2023 Garry Leung DO Other Provider Active Start: July 16, 2023 End: July 25, 2023 Yvan Cantu MD Other Provider Active Start: July 16, 2023 End: July 25, 2023 Nils Boudreaux MD Other Provider Active Start: A pril 2023 End: July 25, 2023 Jennifer Blanco MD Attending Provider Active S tart: July 16, 2023 End: July 25, 2023 Team Status: Active Member Role Status Dates Ruben Velasquez MD Primary Care Provider Active Start: July 16, 2023 End: July 25, 2023 Solo Yepez Jr, MD Emergency Provider Active Start: July 16, 2023 End: July 25, 2023 Aylin Borden MD Admit Provider, Othe r Provider Active Start: July 16, 2023 End: July 25, 2023 Solo Sargent MD Other Provider Active Start: A pril 2023 End: July 25, 2023 Mc Cabrales MD Other Provider Active Start: July 16, 2023 End: July 25, 2023 Alayna Jones MD Other Provider Active Star t: July 16, 2023 End: July 25, 2023 TERESA FarmerC Other Provider Active Start: July 16, 2023 End: July 25, 2023 Emir Mcintyre DO Other Provider Active Start : July 16, 2023 End: July 25, 2023 Surendra Ruiz II, MD Attending [facility], Other Provider Active Start: July 16, 2023 End: July 25, 2023 Garry Leung DO Other Provider Active Start: July 16, 2023 End: July 25, 2023 Team Status: Active Member Role Status Dates Ruben Velasquez MD Primary Care Provider Active Start: July 16, 2023 End: July 25, 2023 Solo Yepez Jr, MD Emergency Provider Active Start: July 16, 2023 End: July 25, 2023 Aylin Borden MD Admit Provider, Atte nding Provider, Other Provider Active Start: July 16, 2023 End: July 25, 2023 Solo Sargent MD Other Provider Active Start: A 2023 End: July 25, 2023 Mc Cabrales MD Other Provider Active Start: July 16, 2023 End: July 25, 2023 Alayna Jones MD Other Provider Active Star t: July 16, 2023 End: July 25, 2023 SHAYY Farmer Other Provider Active Start: July 16, 2023 End: July 25, 2023 Emir Mcintyre DO Other Provider Active Start : July 16, 2023 End: July 25, 2023 Surendra Ruiz II, MD Other Provider Active S tart: July 16, 2023 End: July 25, 2023 Garry Leung DO Other Provider Active Start: July 16, 2023 End: July 25, 2023 Jessica Lemon MD Active Start: A 2023 End: July 25, 2023 Team Status: Active Member Role Status Dates Ruben Velasquez MD Primary Care Provider Active Start: July 16, 2023 End: July 25, 2023 Solo Yepez Jr, MD Emergency Provider Active Start: July 16, 2023 End: July 25, 2023 Aylin Borden MD Admit Provider, Othe r Provider Active Start: July 16, 2023 End: July 25, 2023 Solo Sargent MD Other Provider Active Start: A 2023 End: July 25, 2023 Mc Cabrales MD Other Provider Active Start: July 16, 2023 End: July 25, 2023 Alayna Jones MD Other Provider Active Star t: July 16, 2023 End: July 25, 2023 Елена Conde NP-C Other Provider Active Start: July 16, 2023 End: July 25, 2023 Emir Mcintyre DO Other Provider Active Start : July 16, 2023 End: July 25, 2023 Surendra Ruiz II, MD Other Provider Active S tart: July 16, 2023 End: July 25, 2023 Garry Leung DO Other Provider Active Start: July 16, 2023 End: July 25, 2023 Yvan Cantu MD Attending Jabari martinez Other Provider Active Start: July 16, 2023 End: July 25, 2023 Team Status: Active Member Role Status Dates Ruben Velasquez MD Primary Care Provider Active Start: July 17, 2023 End: July 25, 2023 Solo Yepez Jr, MD Emergency Provider Active Start: July 17, 2023 End: July 25, 2023 Aylin Borden MD Admit Provider, Othe r Provider Active Start: July 17, 2023 End: July 25, 2023 Solo Sargent MD Other Provider Active Start: A pri2023 End: July 25, 2023 Mc Cabrales MD Other Provider Active Start: July 17, 2023 End: July 25, 2023 Alayna Jones MD Other Provider Active Star t: July 17, 2023 End: July 25, 2023 SHAYY Farmer Other Provider Active Start: July 17, 2023 End: July 25, 2023 Emir Mcintyre DO Other Provider Active Start : July 17, 2023 End: July 25, 2023 Surendra Ruiz II, MD Other Provider Active S tart: July 17, 2023 End: July 25, 2023 Garry Leung DO Other Provider Active Start: July 17, 2023 End: July 25, 2023 Yvan Cantu MD Other Provider Active Start: July 17, 2023 End: July 25, 2023 Verna Saleem RN Other Provider Active Star t: July 17, 2023 End: July 25, 2023 Ramiro White MD Other Provider Active Start: A 2023 End: July 25, 2023 Jimi Sanchez MD Other Provider Active Start: July 17, 2023 End: July 25, 2023 Angelica Hilton MD Attending Provider, Other Provider Active Start: July 17, 2023 End: July 25, 2023 Team Status: Active Member Role Status Dates Ruben Velasquez MD Primary Care Provider Active Start: July 20, 2023 End: July 25, 2023 Solo Yepez Jr, MD Emergency Provider Active Start: July 20, 2023 End: July 25, 2023 Aylin Borden MD Admit Provider Active Start: A pril 2023 End: July 25, 2023 Solo Sargent MD Other Provider Active Start: A pril 2023 End: July 25, 2023 Mc Cabrales MD Other Provider Active Start: July 20, 2023 End: July 25, 2023 Alayna Jones MD Other Provider Active Star t: July 20, 2023 End: July 25, 2023 SHAYY Farmer Other Provider Active Start: July 20, 2023 End: July 25, 2023 Emir Mcintyre DO Other Provider Active Start : July 20, 2023 End: July 25, 2023 Surendra Ruiz II, MD Other Provider Active S tart: July 20, 2023 End: July 25, 2023 Garry Leung DO Other Provider Active Start: July 20, 2023 End: July 25, 2023 Yvan Cantu MD Other Provider Active Start: July 20, 2023 End: July 25, 2023 Nils Boudreaux MD Other Provider Active Start: A pril 2023 End: July 25, 2023 Jennifer Blanco MD Other Provider Active Start : July 20, 2023 End: July 25, 2023 Mat Olvera MD Attending Provider Active Start: July 20, 2023 End: July 25, 2023 Team Status: Active Member Role Status Dates Ruben Velasquez MD Primary Care Provider Active Start: July 23, 2023 End: July 25, 2023 Solo Yepez Jr, MD Emergency Provider Active Start: July 23, 2023 End: July 25, 2023 Aylin Borden MD Admit Provider Active Start: A pril 2023 End: July 25, 2023 Solo Sargent MD Other Provider Active Start: A pril 2023 End: July 25, 2023 Mc Cabrales MD Other Provider Active Start: July 23, 2023 End: July 25, 2023 Alayna Jones MD Other Provider Active Star t: July 23, 2023 End: July 25, 2023 Елена Conde NP-C Other Provider Active Start: July 23, 2023 End: July 25, 2023 Emir Mcintyre DO Other Provider Active Start : July 23, 2023 End: July 25, 2023 Surendra Ruiz II, MD Other Provider Active S tart: July 23, 2023 End: July 25, 2023 Garyr Leung DO Other Provider Active Start: July 23, 2023 End: July 25, 2023 Yvan Cantu MD Other Provider Active Start: July 23, 2023 End: July 25, 2023 Nils Boudreaux MD Other Provider Active Start: A pril 2023 End: July 25, 2023 Jennifer Blanco MD Attending Provider, Other Provider Active Start: July 23, 2023 End: July 25, 2023 Team Status: Active Member Role Status Dates Ruben Velasquez MD Primary Care Provider Active Start: July 23, 2023 End: July 25, 2023 Solo Yepez Jr, MD Emergency Provider Active Start: July 23, 2023 End: July 25, 2023 Aylin Borden MD Admit Provider Active Start: A pril 2023 End: July 25, 2023 Solo Sargent MD Other Provider Active Start: A pril 2023 End: July 25, 2023 Mc Cabrales MD Other Provider Active Start: July 23, 2023 End: July 25, 2023 Alayna Jones MD Other Provider Active Star t: July 23, 2023 End: July 25, 2023 TERESA FarmerC Other Provider Active Start: July 23, 2023 End: July 25, 2023 Emir Mcintyre DO Other Provider Active Start : July 23, 2023 End: July 25, 2023 Surendra Ruiz II, MD Attending [facility], Other Provider Active Start: July 23, 2023 End: July 25, 2023 Garry Leung DO Other Provider Active Start: July 23, 2023 End: July 25, 2023 Yvan Cantu MD Other Provider Active Start: July 23, 2023 End: July 25, 2023 Nils Boudreaux MD Other Provider Active Start: A 2023 End: July 25, 2023 Jennifer Blanco MD Other Provider Active Start : July 23, 2023 End: July 25, 2023 Team Status: Inactive Member Role Status Dates Ruebn Velasquez MD Primary Care Provider Active Start: July 25, 2023 End: August 18, 2023 Nils Boudreaux MD Admit Provider, Atte nding Provider Active Start: July 25, 2023 End: August 18, 2023 Cale Burgess MD Other Provider Active Start: July 25, 2023 End: August 18, 2023 Eva Deleon RN Other Provider Active Star t: July 25, 2023 End: August 18, 2023 Mohini Willoughby RN Other Provider Active Start : July 25, 2023 End: August 18, 2023 Abbey Patricia RN Other Provider Active Start: A 2023 End: August 18, 2023 Nanda Cordero RN Other Provider Active Star t: July 25, 2023 End: August 18, 2023 Arabella Freire RN Other Provider Active Start: A 2023 End: August 18, 2023 Trinh Rogel RN Other Provider Active Start: Ap ril 2023 End: August 18, 2023 Sofiya Suero MD Other Provider Active Start: July 25, 2023 End: August 18, 2023 Viridiana Mandujano DO Other Provider Active Start : July 25, 2023 End: August 18, 2023 Lino Mackey MD Other Provider Active Start : July 25, 2023 End: August 18, 2023 Enrique Mccormick DO Other Provider Active Start: July 25, 2023 End: August 18, 2023 Chance Menchaca MD Other Provider Active Start: July 25, 2023 End: August 18, 2023 Jennifer Blanco MD Other Provider Active Start : July 25, 2023 End: August 18, 2023 Bob Rice MD Other Provider Active Start: A 2023 End: August 18, 2023 Jo Cotton APRN Other Provider Active Start: July 25, 2023 End: August 18, 2023 Jessica Lemon MD Other Provider Active Start: July 25, 2023 End: August 18, 2023 Savage Wick MD Other Provider Active Start: A 2023 End: August 18, 2023 Yeimy Tapia MD Other Provider Active Start: July 25, 2023 End: August 18, 2023 Maryam Felton MD Other Provider Active Start: July 25, 2023 End: August 18, 2023 Mc Frye DO Other Provider Active Start: July 25, 2023 End: August 18, 2023 Lorenzo Gomez MD Other Provider Active Start: Ap [facility] 2023 End: August 18, 2023 Domenico Leach MD Other Provider Active Start: Apr il 2023 End: August 18, 2023 SHAYY Cook Other Provider Active St art: July 25, 2023 End: August 18, 2023 Hunter Graff APRN Other Provider Active Star t: July 25, 2023 End: August 18, 2023 Nathaniel Noyola MD Other Provider Active Start: July 25, 2023 End: August 18, 2023 Allen Shoemaker MD Other Provider Active Start: Ap ril 2023 End: August 18, 2023 Evans Stubbs MD Other Provider Active Start: Apr il 2023 End: August 18, 2023 Lucas Anderson MD Other Provider Active Star t: July 25, 2023 End: August 18, 2023 Rad Shen MD Other Provider Active Start: A pril 2023 End: August 18, 2023 Echo Jasso DO Other Provider Active Start: Ap [facility] 2023 End: August 18, 2023 Yakov Mccormick DO Other Provider Active Start : July 25, 2023 End: August 18, 2023 Angelica Martinez APRN Other Provider Active Start: July 25, 2023 End: August 18, 2023 Volodymyr Pickard DO Other Provider Active Start: July 25, 2023 End: August 18, 2023 Bernice Motley MD Other Provider Active Sta rt: July 25, 2023 End: August 18, 2023 Silvia Urias APRN Other Provider Active Start : July 25, 2023 End: August 18, 2023 Augustina Castañeda APRN Other Provider Active St art: July 25, 2023 End: August 18, 2023 Aylin Borden MD Other Provider Active Start: A pri2023 End: August 18, 2023 Chente Tan MD Other Provider Active S tart: July 25, 2023 End: August 18, 2023 Tayo Garcia , Other Provider Active Star t: July 25, 2023 End: August 18, 2023 Ace Romo DO Other Provider Active Start: July 25, 2023 End: August 18, 2023 Lucas Stubbs MD Other Provider Active Start: July 25, 2023 End: August 18, 2023 Faith Drew RN Other Provider Active Start: A pril 2023 End: August 18, 2023 Kristopher Kelly , DO Other Provider Active Start: July 25, 2023 End: August 18, 2023 Kayy Smith APRN Other Provider Active Start: July 25, 2023 End: August 18, 2023 Rosa Elena Prather DO Other Provider Active Sta rt: July 25, 2023 End: August 18, 2023 Team Status: Active Member Role Status Dates Ruben Velasquez MD Primary Care Provider Active Start: July 26, 2023 Nils Boudreaux MD Admit Provider, Othe r Provider Active Start: July 26, 2023 Eva Deleon , RUBEN Other Provider Active Star t: July 26, 2023 Mohini Willoughby , RUBEN Other Provider Active Start : July 26, 2023 Abbey Patricia , RUBEN Other Provider Active Start: A 2023 Nanda Cordero , RUBEN Other Provider Active Star t: July 26, 2023 Arabella Freire , RUBEN Other Provider Active Start: A 2023 Trinh Rogel , RUBEN Other Provider Active Start: Ap ril 2023 Sofiya Suero MD Other Provider Active Start: July 26, 2023 Viridiana Mandujano DO Other Provider Active Start : July 26, 2023 Lino Mackey MD Other Provider Active Start : July 26, 2023 Enrique Mccormick DO Other Provider Active Start: July 26, 2023 Chance Menchaca MD Other Provider Active Start: July 26, 2023 Jennifer Blanco MD Other Provider Active Start : July 26, 2023 Bob Rice MD Other Provider Active Start: A 2023 Jo Cotton APRN Other Provider Active Start: July 26, 2023 Jessica Lemon MD Other Provider Active Start: July 26, 2023 Savage Wick MD Other Provider Active Start: A 2023 eYimy Tapia MD Other Provider Active Start: July 26, 2023 Maryam Felton MD Other Provider Active Start: July 26, 2023 Mc Frye DO Other Provider Active Start: July 26, 2023 Lornezo Gomez MD Other Provider Active Start: Ap ril 2023 Domenico Leach MD Other Provider Active Start: Apr il 2023 Yesenia Rosario , WOOD BOAT BUILDER SUPERVISOR-C Other Provider Active St art: July 26, 2023 Hunter Graff , RN RADIATION Other Provider Active Star t: July 26, 2023 Nathaniel Noyola MD Other Provider Active Start: July 26, 2023 Allen Shoemaker MD Other Provider Active Start: Ap ril 2023 Evans Stubbs MD Other Provider Active Start: Jul Lucas Anderson MD Other Provider Active Star t: July 26, 2023 Rad Shen MD Other Provider Active Start: A pril 2023 Echo Jasso , DO Other Provider Active Start: Ap ril 2023 Yakov Mccormick , DO Other Provider Active Start : July 26, 2023 Angelica Martinez APRN Other Provider Active Start: July 26, 2023 Volodymyr Pickard , DO Other Provider Active Start: July 26, 2023 Bernice Motley MD Other Provider Active Sta rt: July 26, 2023 Silvia Urias APRN Other Provider Active Start : July 26, 2023 Augustina Castañeda APRN Other Provider Active St art: July 26, 2023 Aylin Borden MD Other Provider Active Start: A pri2023 Chente Tan MD Other Provider Active S tart: July 26, 2023 Tayo Garcia , Other Provider Active Star t: July 26, 2023 Ace Romo , DO Other Provider Active Start: July 26, 2023 Lucas Stubbs MD Other Provider Active Start: July 26, 2023 Faith Drew RN Other Provider Active Start: A pril 2023 Cale Burgess MD Attending Pro vider, Other Provider Active Start: July 26, 2023 Team Status: Active Member Role Status Dates Ruben Velasquez MD Primary Care Provider Active Start: July 26, 2023 Nils Boudreaux MD Admit Provider, Othe r Provider Active Start: July 26, 2023 Cale Burgess MD Other Provider Active Start: July 26, 2023 Eva Deleon RN Other Provider Active Star t: July 26, 2023 Mohini iWlloughby RN Other Provider Active Start : July 26, 2023 Abbey Patricia , RUBEN Other Provider Active Start: A pril 2023 Nanda Cordero , RUBEN Other Provider Active Star t: July 26, 2023 Arabella Freire , RUBEN Other Provider Active Start: A pril 2023 Trinh Rogel RN Other Provider Active Start: Ap ril 2023 Sofiya Suero MD Other Provider Active Start: July 26, 2023 Viridiana Mandujano , Other Provider Active Start : July 26, 2023 Lino Mackey MD Other Provider Active Start : July 26, 2023 Enrique Mccormick , Other Provider Active Start: July 26, 2023 Chance Menchaca MD Other Provider Active Start: July 26, 2023 Jennifer Blanco MD Other Provider Active Start : July 26, 2023 Bob Rice MD Other Provider Active Start: A 2023 Jo Cotton APRN Other Provider Active Start: July 26, 2023 Jessica Lemon MD Other Provider Active Start: July 26, 2023 Savage Wick MD Other Provider Active Start: A 2023 Yeimy Tapia MD Other Provider Active Start: July 26, 2023 Maryam Felton MD Other Provider Active Start: July 26, 2023 Mc Frye DO Other Provider Active Start: July 26, 2023 Lorenzo Gomez MD Other Provider Active Start: Ap ril 2023 Domenico Leach MD Other Provider Active Start: Jul Yesenia Rosario NP-C Other Provider Active St art: July 26, 2023 Hunter Graff APRN Other Provider Active Star t: July 26, 2023 Nathaniel Noyola MD Other Provider Active Start: July 26, 2023 Allen Shoemaker MD Other Provider Active Start: Ap ril 2023 Evans Stubbs MD Other Provider Active Start: Jul Lucas Anderson MD Other Provider Active Star t: July 26, 2023 Rad Shen MD Other Provider Active Start: A pril 2023 Echo Jasso , DO Other Provider Active Start: Ap ril 2023 Yakov Mccormick , DO Other Provider Active Start : July 26, 2023 Angelica Martinez , RAUDEL Other Provider Active Start: July 26, 2023 Volodymyr Pickard , Other Provider Active Start: July 26, 2023 Bernice Motley MD Other Provider Active Sta rt: July 26, 2023 Silvia Urias APRN Other Provider Active Start : July 26, 2023 Augustina Castañeda , RN RADIATION Other Provider Active St art: July 26, 2023 Aylin Borden MD Other Provider Active Start: A pril 2023 Chente Tan MD Other Provider Active S tart: July 26, 2023 Tayo Garcia , DO Other Provider Active Star t: July 26, 2023 Ace Romo , DO Other Provider Active Start: July 26, 2023 Lucas Stubbs MD Other Provider Active Start: July 26, 2023 Faith Drew RN Other Provider Active Start: A pril 2023 Verna Saleem RN Other Provider Active Star t: July 26, 2023 Ramiro White MD Other Provider Active Start: A pril 2023 Jimi Sanchez MD Other Provider Active Start: July 26, 2023 Angelica Hilton MD Other Provider Active Start: July 26, 2023 Kristopher Kelly DO Other Provider Active Start: July 26, 2023 Kayy Smith APRN Other Provider Active Start: July 26, 2023 Rosa Elena Prather DO Other Provider Active Sta rt: July 26, 2023 Alejandra Stallworth APRN Attending Provider Active Start: July 26, 2023 Team Status: Active Member Role Status Dates Ruben Velasquez MD Primary Care Provider Active Start: July 27, 2023 Nils Boudreaux MD Admit Provider, Othe r Provider Active Start: July 27, 2023 Cale Burgess MD Other Provider Active Start: July 27, 2023 Eva Deleon RN Other Provider Active Star t: July 27, 2023 Mohini Willoughby RN Other Provider Active Start : July 27, 2023 Abbey Patricia , RUBEN Other Provider Active Start: A pril 2023 Nanda Cordero RN Other Provider Active Star t: July 27, 2023 Arabella Freire RN Other Provider Active Start: A pril 2023 Trinh Rgoel RN Other Provider Active Start: Ap ril 2023 Sofiya Suero MD Other Provider Active Start: July 27, 2023 Viridiana Mandujano , Other Provider Active Start : July 27, 2023 Lino Mackey MD Other Provider Active Start : July 27, 2023 Enrique Mccormick , Other Provider Active Start: July 27, 2023 Chance Menchaca MD Other Provider Active Start: July 27, 2023 Jennifer Blanco MD Other Provider Active Start : July 27, 2023 Bob Rice MD Other Provider Active Start: A pril 2023 Jo Cotton APRN Other Provider Active Start: July 27, 2023 Jessica Lemon MD Other Provider Active Start: July 27, 2023 Savage Wick MD Other Provider Active Start: A pril 2023 Yeimy Tapia MD Other Provider Active Start: July 27, 2023 Maryam Felton MD Other Provider Active Start: July 27, 2023 Mc Frye DO Other Provider Active Start: July 27, 2023 Lorenzo Gomez MD Other Provider Active Start: Ap ril 2023 Domenico Leach MD Other Provider Active Start: Apr il 2023 Yesenia Rosario NP-C Other Provider Active St art: July 27, 2023 Hunter Graff APRN Other Provider Active Star t: July 27, 2023 Nathaniel Noyola MD Other Provider Active Start: July 27, 2023 Allen Shoemaker MD Other Provider Active Start: Ap ril 2023 Evans Stubbs MD Other Provider Active Start: Apr il 2023 Lucas Anderson MD Other Provider Active Star t: July 27, 2023 Rad Shen MD Other Provider Active Start: A pril 2023 Echo Jasso DO Other Provider Active Start: Ap ril 2023 Yakov Mccormick , Other Provider Active Start : July 27, 2023 Angelica Martinez APRN Other Provider Active Start: July 27, 2023 Volodymyr Pickard , Other Provider Active Start: July 27, 2023 Bernice Motley MD Other Provider Active Sta rt: July 27, 2023 Silvia Urias APRN Other Provider Active Start : July 27, 2023 Augustina Castañeda APRN Other Provider Active St art: July 27, 2023 Aylin Borden MD Other Provider Active Start: A pril 2023 Chente Tan MD Other Provider Active S tart: July 27, 2023 Tayo Garcia , DO Other Provider Active Star t: July 27, 2023 Ace Romo , Other Provider Active Start: July 27, 2023 Lucas Stubbs MD Other Provider Active Start: July 27, 2023 Faith Drew RN Other Provider Active Start: A pril 2023 Verna Saleem RN Other Provider Active Star t: July 27, 2023 Ramiro White MD Other Provider Active Start: A pril 2023 Jimi Sanchez MD Other Provider Active Start: July 27, 2023 Angelica Hilton MD Attending Provider, Other Provider Active Start: July 27, 2023 Kristopher Kelly DO Other Provider Active Start: July 27, 2023 Kayy Smith APRN Other Provider Active Start: July 27, 2023 Rosa Elena Prather DO Other Provider Active Sta rt: July 27, 2023 Team Status: Active Member Role Status Dates Ruben Velasquez MD Primary Care Provider Active Start: July 27, 2023 Nils Boudreaux MD Admit Provider, Othe r Provider Active Start: July 27, 2023 Cale Burgess MD Other Provider Active Start: July 27, 2023 Eva Deleon , RUBEN Other Provider Active Star t: July 27, 2023 Mohini Willoughby , RUBEN Other Provider Active Start : July 27, 2023 Abbey Patricia , RUBEN Other Provider Active Start: A pril 2023 Nanda Cordero , RUBEN Other Provider Active Star t: July 27, 2023 Arabella Freire RN Other Provider Active Start: A pril 2023 Trinh Rogel RN Other Provider Active Start: Ap ril 2023 Sofiya Suero MD Other Provider Active Start: July 27, 2023 Viridiana Mandujano , Other Provider Active Start : July 27, 2023 Lino Mackey MD Other Provider Active Start : July 27, 2023 Enrique Mccormick , Other Provider Active Start: July 27, 2023 Chance Menchaca MD Other Provider Active Start: July 27, 2023 Jennifer Blanco MD Other Provider Active Start : July 27, 2023 Bob Rice MD Other Provider Active Start: A pril 2023 Jo Cotton APRN Other Provider Active Start: July 27, 2023 Jessica Lemon MD Other Provider Active Start: July 27, 2023 Savage Wick MD Other Provider Active Start: A pril 2023 Yeimy Tapia MD Other Provider Active Start: July 27, 2023 Maryam Felton MD Other Provider Active Start: July 27, 2023 Mc Frye DO Other Provider Active Start: July 27, 2023 Lorenzo Gomez MD Other Provider Active Start: Ap ril 2023 Domenico Leach MD Other Provider Active Start: Apr il 2023 Yesenia Rosario NP-C Other Provider Active St art: July 27, 2023 Hunter Graff APRN Other Provider Active Star t: July 27, 2023 Nathaniel Noyola MD Other Provider Active Start: July 27, 2023 Allen Shoemaker MD Other Provider Active Start: Ap ril 2023 Evans Stubbs MD Other Provider Active Start: Apr il 2023 Lucas Anderson MD Other Provider Active Star t: July 27, 2023 Rad Shen MD Other Provider Active Start: A pril 2023 Echo Jasso DO Other Provider Active Start: Ap ril 2023 Yakov Mccormick , DO Other Provider Active Start : July 27, 2023 Angelica Martinez APRN Other Provider Active Start: July 27, 2023 Volodymyr Pickard , DO Other Provider Active Start: July 27, 2023 Bernice Motley MD Other Provider Active Sta rt: July 27, 2023 Silvia Urias APRN Other Provider Active Start : July 27, 2023 Augustina Castañeda APRN Other Provider Active St art: July 27, 2023 Aylin Borden MD Other Provider Active Start: A pril 2023 Chente Tan MD Other Provider Active S tart: July 27, 2023 Tayo Garcia , DO Other Provider Active Star t: July 27, 2023 Ace Romo , Other Provider Active Start: July 27, 2023 Lucas Stubbs MD Other Provider Active Start: July 27, 2023 Faith Drew RN Other Provider Active Start: A pril 2023 Verna Saleem RN Other Provider Active Star t: July 27, 2023 Ramiro White MD Other Provider Active Start: A pril 2023 Jimi Sanchez MD Other Provider Active Start: July 27, 2023 Angelica Hilton MD Other Provider Active Start: July 27, 2023 Kristopher Kelly DO Attending Provider, Other Provider Active Start: July 27, 2023 Kayy Smith APRN Other Provider Active Start: July 27, 2023 Rosa Elena Prather DO Other Provider Active Sta rt: July 27, 2023 Team Status: Active Member Role Status Dates Ruben Velasquez MD Primary Care Provider Active Start: August 02, 2023 Nils Boudreaux MD Admit Provider, Atte nding Provider, Other Provider Active Start: August 02, 2023 Cale Burgess MD Other Provider Active Start: August 02, 2023 Eva Deleon , RUBEN Other Provider Active Star t: August 02, 2023 Mohini Willoughby , RUBEN Other Provider Active Start : August 02, 2023 Abbey Patricia , RUBEN Other Provider Active Start: A pril 2023 Nanda Cordero , RUBEN Other Provider Active Star t: August 02, 2023 Arabella Freire , RUBEN Other Provider Active Start: A pril 2023 Trinh Rogel , RUBEN Other Provider Active Start: Ap ril 2023 Sofiya Suero MD Other Provider Active Start: August 02, 2023 Viridiana Mandujano , Other Provider Active Start : August 02, 2023 Lino Mackey MD Other Provider Active Start : August 02, 2023 Enrique Mccormcik , Other Provider Active Start: August 02, 2023 Chance Menchaca MD Other Provider Active Start: August 02, 2023 Jennifer Blanco MD Other Provider Active Start : August 02, 2023 Bob Rice MD Other Provider Active Start: A pril 2023 Jo Cotton RN RADIATION Other Provider Active Start: August 02, 2023 Jessica Lemon MD Other Provider Active Start: August 02, 2023 Savage Wick MD Other Provider Active Start: A pril 2023 Yeimy Tapia MD Other Provider Active Start: August 02, 2023 Maryam Felton MD Other Provider Active Start: August 02, 2023 Mc Frye DO Other Provider Active Start: August 02, 2023 Lorenzo Gomez MD Other Provider Active Start: Ap ril 2023 Domenico Leach MD Other Provider Active Start: Apr il 2023 Yesenia Rosario NP-C Other Provider Active St art: August 02, 2023 Hunter Graff APRN Other Provider Active Star t: August 02, 2023 Nathaniel Noyola MD Other Provider Active Start: August 02, 2023 Allen Shoemaker MD Other Provider Active Start: Ap ril 2023 Evans Stubbs MD Other Provider Active Start: Apr il 2023 Lucas Anderson MD Other Provider Active Star t: August 02, 2023 Rad Shen MD Other Provider Active Start: A pril 2023 Echo Jasso DO Other Provider Active Start: Ap ril 2023 Yakov Mccormick DO Other Provider Active Start : August 02, 2023 Angelica Martinez APRN Other Provider Active Start: August 02, 2023 Volodymyr Pickard , Other Provider Active Start: August 02, 2023 Bernice Motley MD Other Provider Active Sta rt: August 02, 2023 Silvia Urias , RN RADIATION Other Provider Active Start : August 02, 2023 Augustina Castañeda , RAUDEL Other Provider Active St art: August 02, 2023 Aylin Borden MD Other Provider Active Start: A pril 2023 Chente Tan MD Other Provider Active S tart: August 02, 2023 Tayo Garcia , DO Other Provider Active Star t: August 02, 2023 Ace Romo , Other Provider Active Start: August 02, 2023 Lucas Stubbs MD Other Provider Active Start: August 02, 2023 Faith Drew , RUBEN Other Provider Active Start: A pril 2023 Kristopher Kelly DO Other Provider Active Start: August 02, 2023 Kayy Smith , RAUDEL Other Provider Active Start: August 02, 2023 Rosa Elena Prather DO Other Provider Active Sta rt: August 02, 2023 Team Status: Active Member Role Status Dates Ruben Velasquez MD Primary Care Provider Active Start: August 03, 2023 Nils Boudreaux MD Admit Provider, Othe r Provider Active Start: August 03, 2023 Cale Burgess MD Other Provider Active Start: August 03, 2023 Eva Deleon , RUBEN Other Provider Active Star t: August 03, 2023 Mohini Willoughby , RUBEN Other Provider Active Start : August 03, 2023 Abbey Patricia , RUBEN Other Provider Active Start: A pril 2023 Nanda Cordero , RUBEN Other Provider Active Star t: August 03, 2023 Arabella Freire , RUBEN Other Provider Active Start: A pril 2023 Trinh Rogel , RUBEN Other Provider Active Start: Ap ril 2023 Sofiya Suero MD Other Provider Active Start: August 03, 2023 Viridiana Mandujano DO Other Provider Active Start : August 03, 2023 Lino Mackey MD Other Provider Active Start : August 03, 2023 Enrique Mccormick DO Other Provider Active Start: August 03, 2023 Chance Menchaca MD Other Provider Active Start: August 03, 2023 Jennifer Blanco MD Other Provider Active Start : August 03, 2023 Bob Rice MD Other Provider Active Start: A pril 2023 Jo Cotton APRN Other Provider Active Start: August 03, 2023 Jessica Lemon MD Other Provider Active Start: August 03, 2023 Savage Wick MD Other Provider Active Start: A pril 2023 Yeimy Tapia MD Other Provider Active Start: August 03, 2023 Maryam Felton MD Other Provider Active Start: August 03, 2023 Mc Frye DO Other Provider Active Start: August 03, 2023 Lorenzo Gomez MD Other Provider Active Start: Ap ril 2023 Domenico Leach MD Other Provider Active Start: Apr il 2023 Yesenia Rosario WOOD BOAT BUILDER SUPERVISOR-C Other Provider Active St art: August 03, 2023 Hunter Graff APRN Other Provider Active Star t: August 03, 2023 Nathaniel Noyola MD Other Provider Active Start: August 03, 2023 Allen Shoemaker MD Other Provider Active Start: Ap ril 2023 Evans Stubbs MD Other Provider Active Start: Apr il 2023 Lucas Anderson MD Other Provider Active Star t: August 03, 2023 Rad Shen MD Other Provider Active Start: A pril 2023 Echo Jasso DO Other Provider Active Start: Ap ril 2023 Yakov Mccormick DO Other Provider Active Start : August 03, 2023 Angelica Martinez APRN Other Provider Active Start: August 03, 2023 Volodyymr Pickard DO Other Provider Active Start: August 03, 2023 Bernice Motley MD Other Provider Active Sta rt: August 03, 2023 Silvia Urias APRN Other Provider Active Start : August 03, 2023 Augustina Castañeda APRN Other Provider Active St art: August 03, 2023 Aylin Borden MD Other Provider Active Start: A pril 2023 Chente Tan MD Other Provider Active S tart: August 03, 2023 Tayo Garcia , DO Other Provider Active Star t: August 03, 2023 Ace Romo , DO Other Provider Active Start: August 03, 2023 Lucas Stubbs MD Other Provider Active Start: August 03, 2023 Faith Drew , RUBEN Other Provider Active Start: A pril 2023 Kristopher Kelly , DO Attending Provider, Other Provider Active Start: August 03, 2023 Kayy Smith APRN Other Provider Active Start: August 03, 2023 Rosa Elena Prather , Other Provider Active Sta rt: August 03, 2023 Team Status: Active Member Role Status Dates Ruben Velasquez MD Primary Care Provider Active Start: August 10, 2023 Nils Boudreaux MD Admit Provider, Othe r Provider Active Start: August 10, 2023 Cale Burgess MD Other Provider Active Start: August 10, 2023 Eva Deleon , RUBEN Other Provider Active Star t: August 10, 2023 Mohini Willoughby RN Other Provider Active Start : August 10, 2023 Abbey Patricia , RUBEN Other Provider Active Start: M ay 2023 Nanda Cordero , RUBEN Other Provider Active Star t: August 10, 2023 Arabella Freire , RUBEN Other Provider Active Start: M ay 2023 Trinh Rogel , RUBEN Other Provider Active Start: Ma y 2023 Sofiya Suero MD Other Provider Active Start: August 10, 2023 Viridiana Mandujano , Other Provider Active Start : August 10, 2023 Lino Mackey MD Other Provider Active Start : August 10, 2023 Enrique Mccormick DO Other Provider Active Start: August 10, 2023 Chance Menchaca MD Other Provider Active Start: August 10, 2023 Jennifer Blanco MD Other Provider Active Start : August 10, 2023 Bob Rice MD Other Provider Active Start: M ay 2023 Jo Cotton APRN Other Provider Active Start: August 10, 2023 Jessica Lemon MD Other Provider Active Start: August 10, 2023 Savage Wick MD Other Provider Active Start: M ay 2023 Yeimy Tapia MD Other Provider Active Start: August 10, 2023 Maryam Felton MD Other Provider Active Start: August 10, 2023 Mc Frye , DO Other Provider Active Start: August 10, 2023 Lorenzo Gomez MD Other Provider Active Start: Ma y 2023 Domenico Leach MD Other Provider Active Start: August 10, 2023 Yesenia Rosario , WOOD BOAT BUILDER SUPERVISOR-C Other Provider Active St art: August 10, 2023 Hunter Graff , RN RADIATION Other Provider Active Star t: August 10, 2023 Nathaniel Noyola MD Other Provider Active Start: August 10, 2023 Allen Shoemaker MD Other Provider Active Start: Ma y 2023 Evans Stubbs MD Other Provider Active Start: August 10, 2023 Lucas Anderson MD Other Provider Active Star t: August 10, 2023 Rad Shen MD Other Provider Active Start: M ay 2023 Echo Jasso , DO Other Provider Active Start: Ma y 2023 Yakov Mccormick , DO Other Provider Active Start : August 10, 2023 Angelica Martinez APRN Other Provider Active Start: August 10, 2023 Volodymyr Pickard , DO Other Provider Active Start: August 10, 2023 Bernice Motley MD Other Provider Active Sta rt: August 10, 2023 Silvia Urias APRN Other Provider Active Start : August 10, 2023 Augustina Castañeda APRN Other Provider Active St art: August 10, 2023 Aylin Borden MD Other Provider Active Start: M ay 2023 Chente Tan MD Other Provider Active S tart: August 10, 2023 Tayo Garcia , DO Other Provider Active Star t: August 10, 2023 Ace Romo , DO Other Provider Active Start: August 10, 2023 Lucas Stubbs MD Other Provider Active Start: August 10, 2023 Faith Drew RN Other Provider Active Start: M ay 2023 Kristopher Kelly , Attending Provider, Other Provider Active Start: August 10, 2023 Kayy Smith APRN Other Provider Active Start: August 10, 2023 Rosa Elena Prather , DO Other Provider Active Sta rt: August 10, 2023 Team Status: Active Member Role Status Dates Ruben Velasquez MD Primary Care Provider Active Start: August 10, 2023 Nils Boudreaux MD Admit Provider, Atte nding Provider, Other Provider Active Start: August 10, 2023 Cale Burgess MD Other Provider Active Start: August 10, 2023 Eva Deleon , RUBEN Other Provider Active Star t: August 10, 2023 Mohini Willoughby , RUBEN Other Provider Active Start : August 10, 2023 Abbey Patricia , RUBEN Other Provider Active Start: M ay 2023 Nanda Cordero RN Other Provider Active Star t: August 10, 2023 Arabella Freire RN Other Provider Active Start: M ay 2023 Trinh Rogel RN Other Provider Active Start: Ma y 2023 Sofiya Suero MD Other Provider Active Start: August 10, 2023 Viridiana Mandujano DO Other Provider Active Start : August 10, 2023 Lino Mackey MD Other Provider Active Start : August 10, 2023 Enrique Mccormick DO Other Provider Active Start: August 10, 2023 Chance Menchaca MD Other Provider Active Start: August 10, 2023 Jennifer Blanco MD Other Provider Active Start : August 10, 2023 Bob Rice MD Other Provider Active Start: M ay 2023 Jo Cotton APRN Other Provider Active Start: August 10, 2023 Jessica Lemon MD Other Provider Active Start: August 10, 2023 Savage Wick MD Other Provider Active Start: M ay 2023 Yeimy Tapia MD Other Provider Active Start: August 10, 2023 Maryam Felton MD Other Provider Active Start: August 10, 2023 Mc Frye DO Other Provider Active Start: August 10, 2023 Lorenzo Gomez MD Other Provider Active Start: Ma y 2023 Domenico Leach MD Other Provider Active Start: August 10, 2023 Yesenia Rosario NP-C Other Provider Active St art: August 10, 2023 Hunter Graff APRN Other Provider Active Star t: August 10, 2023 Nathaniel Noyola MD Other Provider Active Start: August 10, 2023 Allen Shoemaker MD Other Provider Active Start: Ma y 2023 Evans Stubbs MD Other Provider Active Start: August 10, 2023 Lucas Anderson MD Other Provider Active Star t: August 10, 2023 Rad Shen MD Other Provider Active Start: M ay 2023 Echo Jasso , DO Other Provider Active Start: Ma y 2023 Yakov Mccormick , DO Other Provider Active Start : August 10, 2023 Angelica Martinez APRN Other Provider Active Start: August 10, 2023 Volodymyr Pickard , DO Other Provider Active Start: August 10, 2023 Bernice Motley MD Other Provider Active Sta rt: August 10, 2023 Silvia Urias APRN Other Provider Active Start : August 10, 2023 Augustina Castañeda APRN Other Provider Active St art: August 10, 2023 Aylin Borden MD Other Provider Active Start: M ay 2023 Chente Tan MD Other Provider Active S tart: August 10, 2023 Tayo Garcia , DO Other Provider Active Star t: August 10, 2023 Ace Romo , DO Other Provider Active Start: August 10, 2023 Lucas Stubbs MD Other Provider Active Start: August 10, 2023 Faith Drew RN Other Provider Active Start: M ay 2023 Kristopher Kelly , DO Other Provider Active Start: August 10, 2023 Kayy Smith APRN Other Provider Active Start: August 10, 2023 Rosa Elena Prather , DO Other Provider Active Sta rt: August 10, 2023 Team Status: Active Member Role Status Dates Ruben Velasquez MD Primary Care Provider Active Start: August 11, 2023 Nils Boudreaux MD Admit Provider, Othe r Provider Active Start: August 11, 2023 Cale Burgess MD Other Provider Active Start: August 11, 2023 Eva Deleon RN Other Provider Active Star t: August 11, 2023 Mohini Willoughby RN Other Provider Active Start : August 11, 2023 Abbey Patricia , RUBEN Other Provider Active Start: M ay 2023 Nanda Cordero , RUBEN Other Provider Active Star t: August 11, 2023 Arabella Freire RN Other Provider Active Start: M ay 2023 Trinh Rogel RN Other Provider Active Start: Ma y 2023 Sofiya Suero MD Other Provider Active Start: August 11, 2023 Viridiana Mandujano , DO Other Provider Active Start : August 11, 2023 Lino Mackey MD Other Provider Active Start : August 11, 2023 Enrique Mccormick , DO Other Provider Active Start: August 11, 2023 Chance Menchaca MD Other Provider Active Start: August 11, 2023 Jennifer Blanco MD Other Provider Active Start : August 11, 2023 Bob Rice MD Other Provider Active Start: M ay 2023 Jo Cotton APRN Other Provider Active Start: August 11, 2023 Jessica Lemon MD Other Provider Active Start: August 11, 2023 Savage Wick MD Other Provider Active Start: M ay 2023 Yeimy Tapia MD Other Provider Active Start: August 11, 2023 Maryam Felton MD Other Provider Active Start: August 11, 2023 Mc Frye , Other Provider Active Start: August 11, 2023 Lorenzo Gomez MD Other Provider Active Start: Ma y 2023 Domenico Leach MD Other Provider Active Start: August 11, 2023 Yesenia Rosario NP-C Other Provider Active St art: August 11, 2023 Hunter Graff APRN Other Provider Active Star t: August 11, 2023 Nathaniel Noyola MD Other Provider Active Start: August 11, 2023 Allen Shoemaker MD Other Provider Active Start: Ma y 2023 Evans Stubbs MD Other Provider Active Start: August 11, 2023 Lucas Anderson MD Other Provider Active Star t: August 11, 2023 Rad Shen MD Other Provider Active Start: M ay 2023 Echo Jasso , DO Other Provider Active Start: Ma y 2023 Yakov Mccormick , DO Other Provider Active Start : August 11, 2023 Angelica Martinez APRN Other Provider Active Start: August 11, 2023 Volodymyr Pickard , DO Other Provider Active Start: August 11, 2023 Bernice Motley MD Other Provider Active Sta rt: August 11, 2023 Silvia Urias , RN RADIATION Other Provider Active Start : August 11, 2023 Augustina Castañeda , RAUDEL Other Provider Active St art: August 11, 2023 Aylin Borden MD Other Provider Active Start: M ay 2023 Chente Tan MD Other Provider Active S tart: August 11, 2023 Tayo Garcia , DO Other Provider Active Star t: August 11, 2023 Ace Romo , DO Other Provider Active Start: August 11, 2023 Lucas Stubbs MD Other Provider Active Start: August 11, 2023 Faith Drew RN Other Provider Active Start: M ay 2023 Kristopher Kelly , DO Other Provider Active Start: August 11, 2023 Kayy Smith APRN Other Provider Active Start: August 11, 2023 Rosa Elena Prather , DO Other Provider Active Sta rt: August 11, 2023 Surendra Ruiz II, MD Attending Provider Active Start: August 11, 2023 Team Status: Active Member Role Status Dates Ruben Velasquez MD Primary Care Provider Active Start: August 17, 2023 Nils Boudreaux MD Admit Provider, Othe r Provider Active Start: August 17, 2023 Cale Burgess MD Other Provider Active Start: August 17, 2023 Eva Deleon RN Other Provider Active Star t: August 17, 2023 Mohini Willoughby RN Other Provider Active Start : August 17, 2023 Abbey Patricia , RUBEN Other Provider Active Start: M ay 2023 Nanda Cordero , RUBEN Other Provider Active Star t: August 17, 2023 Arabella Freire , RUBEN Other Provider Active Start: M ay 2023 Trinh Rogel , RUBEN Other Provider Active Start: Ma y 2023 Sofiya Suero MD Other Provider Active Start: August 17, 2023 Viridiana Mandujano , DO Other Provider Active Start : August 17, 2023 Lino Mackey MD Other Provider Active Start : August 17, 2023 Enrique Mccormick , DO Other Provider Active Start: August 17, 2023 Chance Menchaca MD Other Provider Active Start: August 17, 2023 Jennifer Blanco MD Other Provider Active Start : August 17, 2023 Bob Rice MD Other Provider Active Start: M ay 2023 Jo Cotton APRN Other Provider Active Start: August 17, 2023 Jessica Lemon MD Other Provider Active Start: August 17, 2023 Savage Wick MD Other Provider Active Start: M ay 2023 Yeimy Tapia MD Other Provider Active Start: August 17, 2023 Maryam Felton MD Other Provider Active Start: August 17, 2023 Mc Frye , Other Provider Active Start: August 17, 2023 Lorenzo Gomez MD Other Provider Active Start: Ma y 2023 Domenico Leach MD Other Provider Active Start: August 17, 2023 Yesenia Rosario , WOOD [employer]AT BUILDER SUPERVISOR-C Other Provider Active St art: August 17, 2023 Hunter Graff APRN Other Provider Active Star t: August 17, 2023 Nathaniel Noyola MD Other Provider Active Start: August 17, 2023 Allen Shoemaker MD Other Provider Active Start: Ma y 2023 Evans Stubbs MD Other Provider Active Start: August 17, 2023 Lucas Anderson MD Other Provider Active Star t: August 17, 2023 Rad Shen MD Other Provider Active Start: ay 2023 Echo Jasso DO Other Provider Active Start: y 2023 Yakov Mccormick , Other Provider Active Start : August 17, 2023 Angelica Martinez APRN Other Provider Active Start: August 17, 2023 Volodymyr Pickard , Other Provider Active Start: August 17, 2023 Bernice Motley MD Other Provider Active Sta rt: August 17, 2023 Silvia Urias APRN Other Provider Active Start : August 17, 2023 Augustina Castañeda APRN Other Provider Active St art: August 17, 2023 Aylin Borden MD Other Provider Active Start: M ay 2023 Chente Tan MD Other Provider Active S tart: August 17, 2023 Tayo Garcia , DO Other Provider Active Star t: August 17, 2023 Ace Romo , DO Other Provider Active Start: August 17, 2023 Lucas Stubbs MD Other Provider Active Start: August 17, 2023 Faith Drew RN Other Provider Active Start: M felton 2023 Kristopher Kelly , DO Other Provider Active Start: August 17, 2023 Kayy Smith , RAUDEL Other Provider Active Start: August 17, 2023 Rosa Elena Prather , DO Other Provider Active Sta rt: August 17, 2023 Alejandra Stallworth APRN Attending Provider Active Start: August 17, 2023 Team Status: Inactive Member Role Status Dates Terrell Gonzalez MD Attending Provider Active St art: August 25, 2023 End: August 25, 2023 Team Status: Active Member Role Status Dates Terrell Gonzalez MD Attending Provider Active St art: August 27, 2023 Team Status: Inactive Member Role Status Dates Surendra Ruiz II, MD Attending Provider Active Start: August 28, 2023 End: August 28, 2023 Services [facility] Primary Care Provider Active Start: August 28, 2023 End: August 28, 2023 Team Status: Active Member Role Status Dates [facility] Primary Care Provider Active Start: August 28, 2023 Surendra Ruiz II, MD Attending Provider Active Start: August 28, 2023 Team Status: Active Member Role Status Dates Ruben Velasquez MD Primary Care Provider Active Team Status: Active Member Role Status Dates Ruben Velasquez MD Primary Care Provider Active Start: July 16, 2023 Solo Yepez Jr, MD Emergency Provider Active Start: July 16, 2023 Aylin Borden MD Admit Provider, Othe r Provider Active Start: July 16, 2023 Solo Sargent MD Other Provider Active Start: A pril 2023 Mc Cabrales MD Other Provider Active Start: July 16, 2023 Alayna Jones MD Other Provider Active Star t: July 16, 2023 Елена Conde NP-C Other Provider Active Start: July 16, 2023 Emir Mcintyre , Other Provider Active Start : July 16, 2023 Surendra Ruiz II, MD Attending Lesly valle, Other Provider Active Start: July 16, 2023 Garry A Xochitl , DO Other Provider Active Start: July 16, 2023 Team Status: Active Member Role Status Dates Ruben Velasquez MD Primary Care Provider Active Start: July 16, 2023 Solo Yepez Jr, MD Emergency Provider Active Start: July 16, 2023 Aylin Borden MD Admit Provider, Atte nding Provider, Other Provider Active Start: July 16, 2023 Solo Sargent MD Other Provider Active Start: A pril 2023 Mc Cabrales MD Other Provider Active Start: July 16, 2023 Alayna Jones MD Other Provider Active Star t: July 16, 2023 Елена Conde NP-C Other Provider Active Start: July 16, 2023 Emir Mcintyre DO Other Provider Active Start : July 16, 2023 Surendra Ruiz II, MD Other Provider Active S tart: July 16, 2023 Garry Leung DO Other Provider Active Start: July 16, 2023 Team Status: Active Member Role Status Dates Ruben Velasquez MD Primary Care Provider Active Start: July 16, 2023 Solo Yepez Jr, MD Emergency Provider Active Start: July 16, 2023 Aylin Borden MD Admit Provider, Othe r Provider Active Start: July 16, 2023 Solo Sargent MD Other Provider Active Start: A pril 2023 Mc Cabrales MD Other Provider Active Start: July 16, 2023 Alayna Jones MD Other Provider Active Star t: July 16, 2023 Елена Conde NP-C Other Provider Active Start: July 16, 2023 Emir Mcintyre DO Other Provider Active Start : July 16, 2023 Surendra Ruiz II, MD Other Provider Active S tart: July 16, 2023 Garry Leung DO Other Provider Active Start: July 16, 2023 Yvan Cantu MD Attending Jabari martinez, Other Provider Active Start: July 16, 2023 Team Status: Active Member Role Status Dates Ruben Velasquez MD Primary Care Provider Active Start: July 17, 2023 Solo Yepez Jr, MD Emergency Provider Active Start: July 17, 2023 Aylin Borden MD Admit Provider, Othe r Provider Active Start: July 17, 2023 Solo Sargent MD Other Provider Active Start: A pril 2023 Mc Cabrales MD Other Provider Active Start: July 17, 2023 Alayna Jones MD Other Provider Active Star t: July 17, 2023 TERESA FarmerC Other Provider Active Start: July 17, 2023 Emir Mcintyre DO Other Provider Active Start : July 17, 2023 Surendra Ruiz II, MD Other Provider Active S tart: July 17, 2023 Garry Leung DO Other Provider Active Start: July 17, 2023 Yvan Cantu MD Other Provider Active Start: July 17, 2023 Verna Saleem RN Other Provider Active Star t: July 17, 2023 Ramiro White MD Other Provider Active Start: A pril 2023 Jimi Sanchez MD Other Provider Active Start: July 17, 2023 Angelica Hilton MD Attending Provider, Other Provider Active Start: July 17, 2023 Team Status: Active Member Role Status Dates Ruben Velasquez MD Primary Care Provider Active Start: July 20, 2023 Solo Yepez Jr, MD Emergency Provider Active Start: July 20, 2023 Aylin Borden MD Admit Provider Active Start: A pril 2023 Solo Sargent MD Other Provider Active Start: A pril 2023 Mc Cabrales MD Other Provider Active Start: July 20, 2023 Alayna Jones MD Other Provider Active Star t: July 20, 2023 Елена Conde NP-C Other Provider Active Start: July 20, 2023 Emir Mcintyre DO Other Provider Active Start : July 20, 2023 Surendra Ruiz II, MD Other Provider Active S tart: July 20, 2023 Garry Leung DO Other Provider Active Start: July 20, 2023 Yvan Cantu MD Other Provider Active Start: July 20, 2023 Nils Boudreaux MD Other Provider Active Start: A pril 2023 Jennifer Blanco MD Other Provider Active Start : July 20, 2023 Mat Olvera MD Attending Provider Active Start: July 20, 2023 Team Status: Active Member Role Status Dates Ruben Velasquez MD Primary Care Provider Active Start: July 23, 2023 Solo Yepez Jr, MD Emergency Provider Active Start: July 23, 2023 Aylin Borden MD Admit Provider Active Start: A pril 2023 Solo Sargent MD Other Provider Active Start: A pril 2023 Mc Cabrales MD Other Provider Active Start: July 23, 2023 Alayna Jones MD Other Provider Active Star t: July 23, 2023 Елена Conde NP-C Other Provider Active Start: July 23, 2023 Emir Mcintyre DO Other Provider Active Start : July 23, 2023 Surendra Ruiz II, MD Other Provider Active S tart: July 23, 2023 Garry Leung DO Other Provider Active Start: July 23, 2023 Yvan Cantu MD Other Provider Active Start: July 23, 2023 Nils Boudreaux MD Other Provider Active Start: A 2023 Jennifer Blanco MD Attending Provider, Other Provider Active Start: July 23, 2023 Team Status: Active Member Role Status Dates Ruben Velasquez MD Primary Care Provider Active Start: July 23, 2023 Solo Yepez Jr, MD Emergency Provider Active Start: July 23, 2023 Aylin Borden MD Admit Provider Active Start: A 2023 Solo Sargent MD Other Provider Active Start: A pri2023 Mc Cabrales MD Other Provider Active Start: July 23, 2023 Alayna Jones MD Other Provider Active Star t: July 23, 2023 SHAYY Farmer Other Provider Active Start: July 23, 2023 Emir Mcintyre DO Other Provider Active Start : July 23, 2023 Surendra Ruiz II, MD Attending [facility], Other Provider Active Start: July 23, 2023 Garry Leung DO Other Provider Active Start: July 23, 2023 Yvan Cantu MD Other Provider Active Start: July 23, 2023 Nils Boudreaux MD Other Provider Active Start: A pril 2023 Jennifer Blanco MD Other Provider Active Start : July 23, 2023 [employer] Start Date End Date Ruben Velasquez MD [address] [place] [address] PCP - [facility] 10/20/22 Ruben Velasquez MD [address] [place] [address] PCP - [facility] 03/06/23 Team Status: Active Member Role Status Dates Ruben Velasquez MD Primary Care Provider Active Start: July 16, 2023 Solo Yepez Jr, MD Emergency Provider Active Start: July 16, 2023 Mc Frye DO Admit Provider, Atte nding Provider Active Start: July 16, 2023 Team Status: Inactive Member Role Status Dates Terrell Gonzalez MD Attending Provider Active St art: August 27, 2023 End: August 27, 2023 Team Status: Inactive Member Role Status Dates [facility] Primary Care Provider Active Start: August 28, 2023 End: August 28, 2023 Surendra Ruiz II, MD Attending Provider Active Start: August 28, 2023 End: August 28, 2023 Team Status: Active Member Role Status Dates Ruben Velasquez MD Primary Care Provider Active Start: July 26, 2023 End: August 18, 2023 Nils Boudreaux MD Admit Provider, Othe r Provider Active Start: July 26, 2023 End: August 18, 2023 Eva Deleon RN Other Provider Active Star t: July 26, 2023 End: August 18, 2023 Mohini Willoughby , RUBEN Other Provider Active Start : July 26, 2023 End: August 18, 2023 Abbey Patricia , RUBEN Other Provider Active Start: A pril 2023 End: August 18, 2023 Nanda Cordero RN Other Provider Active Star t: July 26, 2023 End: August 18, 2023 Arabella Freire RN Other Provider Active Start: A pril 2023 End: August 18, 2023 Trinh Rogel RN Other Provider Active Start: Ap ril 2023 End: August 18, 2023 Sofiya Suero MD Other Provider Active Start: July 26, 2023 End: August 18, 2023 Viridiana Mandujano DO Other Provider Active Start : July 26, 2023 End: August 18, 2023 Lino Mackey MD Other Provider Active Start : July 26, 2023 End: August 18, 2023 Enrique Mccormick DO Other Provider Active Start: July 26, 2023 End: August 18, 2023 Chance Menchaca MD Other Provider Active Start: July 26, 2023 End: August 18, 2023 Jennifer Blanco MD Other Provider Active Start : July 26, 2023 End: August 18, 2023 Bob Rice MD Other Provider Active Start: A pril 2023 End: August 18, 2023 Jo Cotton APRN Other Provider Active Start: July 26, 2023 End: August 18, 2023 Jesisca Lemon MD Other Provider Active Start: July 26, 2023 End: August 18, 2023 Savage Wick MD Other Provider Active Start: A pril 2023 End: August 18, 2023 Yeimy Tapia MD Other Provider Active Start: July 26, 2023 End: August 18, 2023 Maryam Felton MD Other Provider Active Start: July 26, 2023 End: August 18, 2023 Mc Frye DO Other Provider Active Start: July 26, 2023 End: August 18, 2023 Lorenzo Gomez MD Other Provider Active Start: Ap ril 2023 End: August 18, 2023 Domenico Leach MD Other Provider Active Start: Jul il 2023 End: August 18, 2023 SHAYY Cook Other Provider Active St art: July 26, 2023 End: August 18, 2023 Hunter Graff APRN Other Provider Active Star t: July 26, 2023 End: August 18, 2023 Nathaniel Noyola MD Other Provider Active Start: July 26, 2023 End: August 18, 2023 Allen Shoemaker MD Other Provider Active Start: Ap ril 2023 End: August 18, 2023 Evans Stubbs MD Other Provider Active Start: Jul End: August 18, 2023 Lucas Anderson MD Other Provider Active Star t: July 26, 2023 End: August 18, 2023 Rad Shen MD Other Provider Active Start: A pril 2023 End: August 18, 2023 Echo Jasso , Other Provider Active Start: Ap 2023 End: August 18, 2023 Yakov Mccormick , Other Provider Active Start : July 26, 2023 End: August 18, 2023 Angelica Martinez APRN Other Provider Active Start: July 26, 2023 End: August 18, 2023 Volodymyr Pickard DO Other Provider Active Start: July 26, 2023 End: August 18, 2023 Bernice Motley MD Other Provider Active Sta rt: July 26, 2023 End: August 18, 2023 Silvia Urias APRN Other Provider Active Start : July 26, 2023 End: August 18, 2023 Augustina Castañeda APRN Other Provider Active St art: July 26, 2023 End: August 18, 2023 Aylin Borden MD Other Provider Active Start: A 2023 End: August 18, 2023 Chente Tan MD Other Provider Active S tart: July 26, 2023 End: August 18, 2023 Tayo Garcia , Other Provider Active Star t: July 26, 2023 End: August 18, 2023 Ace Romo DO Other Provider Active Start: July 26, 2023 End: August 18, 2023 Lucas Stubbs MD Other Provider Active Start: July 26, 2023 End: August 18, 2023 Faith Drew RN Other Provider Active Start: A pri2023 End: August 18, 2023 Cale Burgess MD Attending Pro vider, Other Provider Active Start: July 26, 2023 End: August 18, 2023 Team Status: Active Member Role Status Dates Ruben Velasquez MD Primary Care Provider Active Start: July 26, 2023 End: August 18, 2023 Nils Boudreaux MD Admit Provider, Othe r Provider Active Start: July 26, 2023 End: August 18, 2023 Cale Burgess MD Other Provider Active Start: July 26, 2023 End: August 18, 2023 Eva Deleon , URBEN Other Provider Active Star t: July 26, 2023 End: August 18, 2023 Mohini Willoughby , RUBEN Other Provider Active Start : July 26, 2023 End: August 18, 2023 Abbey Patricia , RUBEN Other Provider Active Start: A 2023 End: August 18, 2023 Nanda Cordero RN Other Provider Active Star t: July 26, 2023 End: August 18, 2023 Arabella Freire RN Other Provider Active Start: A 2023 End: August 18, 2023 Trinh Rogel RN Other Provider Active Start: 2023 End: August 18, 2023 Sofiya Suero MD Other Provider Active Start: July 26, 2023 End: August 18, 2023 Viridiana Mandujano DO Other Provider Active Start : July 26, 2023 End: August 18, 2023 Lino Mackey MD Other Provider Active Start : July 26, 2023 End: August 18, 2023 Enrique Mccormick DO Other Provider Active Start: July 26, 2023 End: August 18, 2023 Chance Menchaca MD Other Provider Active Start: July 26, 2023 End: August 18, 2023 Jennifer Blanco MD Other Provider Active Start : July 26, 2023 End: August 18, 2023 Bob Rice MD Other Provider Active Start: A 2023 End: August 18, 2023 Jo Cottno APRN Other Provider Active Start: July 26, 2023 End: August 18, 2023 Jessica Lemon MD Other Provider Active Start: July 26, 2023 End: August 18, 2023 Savage Wick MD Other Provider Active Start: A 2023 End: August 18, 2023 Yeimy Tapia MD Other Provider Active Start: July 26, 2023 End: August 18, 2023 Maryam Felton MD Other Provider Active Start: July 26, 2023 End: August 18, 2023 Mc Frye DO Other Provider Active Start: July 26, 2023 End: August 18, 2023 Lorenzo Gomez MD Other Provider Active Start: [facility] 2023 End: August 18, 2023 Domenico Leach MD Other Provider Active Start: Jul End: August 18, 2023 Yesenia Rosario , WOOD BOAT BUILDER SUPERVISOR-C Other Provider Active St art: July 26, 2023 End: August 18, 2023 Hunter Graff APRN Other Provider Active Star t: July 26, 2023 End: August 18, 2023 Nathaniel Noyola MD Other Provider Active Start: July 26, 2023 End: August 18, 2023 Allen Shoemaker MD Other Provider Active Start: 2023 End: August 18, 2023 Evans Stubbs MD Other Provider Active Start: Jul End: August 18, 2023 Lucas Anderson MD Other Provider Active Star t: July 26, 2023 End: August 18, 2023 Rad Shen MD Other Provider Active Start: A 2023 End: August 18, 2023 Echo Jasso DO Other Provider Active Start: [facility] 2023 End: August 18, 2023 Yakov Mccormick DO Other Provider Active Start : July 26, 2023 End: August 18, 2023 Angelica Martinez APRN Other Provider Active Start: July 26, 2023 End: August 18, 2023 Volodymyr Pickard DO Other Provider Active Start: July 26, 2023 End: August 18, 2023 Bernice Motley MD Other Provider Active Sta rt: July 26, 2023 End: August 18, 2023 Silvia Urias APRN Other Provider Active Start : July 26, 2023 End: August 18, 2023 Augustina Castañeda APRN Other Provider Active St art: July 26, 2023 End: August 18, 2023 Aylin Borden MD Other Provider Active Start: A pri2023 End: August 18, 2023 Chente Tan MD Other Provider Active S tart: July 26, 2023 End: August 18, 2023 Tayo Garcia , DO Other Provider Active Star t: July 26, 2023 End: August 18, 2023 Ace Romo , Other Provider Active Start: July 26, 2023 End: August 18, 2023 Lucas Stubbs MD Other Provider Active Start: July 26, 2023 End: August 18, 2023 Faith Drew RN Other Provider Active Start: A 2023 End: August 18, 2023 Verna Saleem RN Other Provider Active Star t: July 26, 2023 End: August 18, 2023 Ramiro White MD Other Provider Active Start: A 2023 End: August 18, 2023 Jimi Sanchez MD Other Provider Active Start: July 26, 2023 End: August 18, 2023 Angelica Hilton MD Other Provider Active Start: July 26, 2023 End: August 18, 2023 Kristopher Kelly DO Other Provider Active Start: July 26, 2023 End: August 18, 2023 Kayy Smith APRN Other Provider Active Start: July 26, 2023 End: August 18, 2023 Rosa Elena Prather DO Other Provider Active Sta rt: July 26, 2023 End: August 18, 2023 Alejandra Stallworth APRN Attending Provider Active Start: July 26, 2023 End: August 18, 2023 Team Status: Active Member Role Status Dates Ruben Velasquez MD Primary Care Provider Active Start: July 27, 2023 End: August 18, 2023 Nils Boudreaux MD Admit Provider, Othe r Provider Active Start: July 27, 2023 End: August 18, 2023 Cale Burgess MD Other Provider Active Start: July 27, 2023 End: August 18, 2023 Eva Deleon RN Other Provider Active Star t: July 27, 2023 End: August 18, 2023 Mohini Willoughby , RUBEN Other Provider Active Start : July 27, 2023 End: August 18, 2023 Abbey Patricia , RUBEN Other Provider Active Start: A pri2023 End: August 18, 2023 Nanda Cordero , RUBEN Other Provider Active Star t: July 27, 2023 End: August 18, 2023 Arabella Freire RN Other Provider Active Start: A pril 2023 End: August 18, 2023 Trinh Rogel RN Other Provider Active Start: Ap ril 2023 End: August 18, 2023 Sofiya Suero MD Other Provider Active Start: July 27, 2023 End: August 18, 2023 Viridiana Mandujano DO Other Provider Active Start : July 27, 2023 End: August 18, 2023 Lino Mackey MD Other Provider Active Start : July 27, 2023 End: August 18, 2023 Enrique Mccormick DO Other Provider Active Start: July 27, 2023 End: August 18, 2023 Chance Menchaca MD Other Provider Active Start: July 27, 2023 End: August 18, 2023 Jennifer Blanco MD Other Provider Active Start : July 27, 2023 End: August 18, 2023 Bob Rice MD Other Provider Active Start: A pril 2023 End: August 18, 2023 Jo Cotton APRN Other Provider Active Start: July 27, 2023 End: August 18, 2023 Jessica Lemon MD Other Provider Active Start: July 27, 2023 End: August 18, 2023 Savage Wick MD Other Provider Active Start: A pril 2023 End: August 18, 2023 Yeimy Tapia MD Other Provider Active Start: July 27, 2023 End: August 18, 2023 Maryam Felton MD Other Provider Active Start: July 27, 2023 End: August 18, 2023 Mc Frye DO Other Provider Active Start: July 27, 2023 End: August 18, 2023 Lorenzo Gomez MD Other Provider Active Start: Ap ril 2023 End: August 18, 2023 Domenico Leach MD Other Provider Active Start: Apr il 2023 End: August 18, 2023 SHAYY Cook Other Provider Active St art: July 27, 2023 End: August 18, 2023 Hunter Graff APRN Other Provider Active Star t: July 27, 2023 End: August 18, 2023 Nathaniel Noyola MD Other Provider Active Start: July 27, 2023 End: August 18, 2023 Allen Shoemaker MD Other Provider Active Start: Ap ril 2023 End: August 18, 2023 Evans Stubbs MD Other Provider Active Start: Apr il 2023 End: August 18, 2023 Lucas Anderson MD Other Provider Active Star t: July 27, 2023 End: August 18, 2023 Rad Shen MD Other Provider Active Start: A pril 2023 End: August 18, 2023 Echo Jasso DO Other Provider Active Start: Ap ril 2023 End: August 18, 2023 Yakov Mccormick , Other Provider Active Start : July 27, 2023 End: August 18, 2023 Angelica Martinez APRN Other Provider Active Start: July 27, 2023 End: August 18, 2023 Volodymyr Pickard , Other Provider Active Start: July 27, 2023 End: August 18, 2023 Bernice Motley MD Other Provider Active Sta rt: July 27, 2023 End: August 18, 2023 Silvia Urias APRN Other Provider Active Start : July 27, 2023 End: August 18, 2023 Augustina Castañeda APRN Other Provider Active St art: July 27, 2023 End: August 18, 2023 Aylin Borden MD Other Provider Active Start: A pril 2023 End: August 18, 2023 Chente Tan MD Other Provider Active S tart: July 27, 2023 End: August 18, 2023 Tayo Garcia , DO Other Provider Active Star t: July 27, 2023 End: August 18, 2023 Ace Romo , Other Provider Active Start: July 27, 2023 End: August 18, 2023 Lucas Stubbs MD Other Provider Active Start: July 27, 2023 End: August 18, 2023 Faith Drew , RUBEN Other Provider Active Start: A 2023 End: August 18, 2023 Verna Saleem , RUBEN Other Provider Active Star t: July 27, 2023 End: August 18, 2023 Ramiro White MD Other Provider Active Start: A pri2023 End: August 18, 2023 Jimi Sanchez MD Other Provider Active Start: July 27, 2023 End: August 18, 2023 Angelica Hilton MD Attending Provider, Other Provider Active Start: July 27, 2023 End: August 18, 2023 Kristopher Kelly DO Other Provider Active Start: July 27, 2023 End: August 18, 2023 Kayy Smith APRN Other Provider Active Start: July 27, 2023 End: August 18, 2023 Rosa Elena Prather DO Other Provider Active Sta rt: July 27, 2023 End: August 18, 2023 Team Status: Active Member Role Status Dates Ruben Velasquez MD Primary Care Provider Active Start: July 27, 2023 End: August 18, 2023 Nils Boudreaux MD Admit Provider, Othe r Provider Active Start: July 27, 2023 End: August 18, 2023 Cale Burgess MD Other Provider Active Start: July 27, 2023 End: August 18, 2023 Eva Deleon , RUBEN Other Provider Active Star t: July 27, 2023 End: August 18, 2023 Mohini Willoughby , RUBEN Other Provider Active Start : July 27, 2023 End: August 18, 2023 Abbey Patricia , RUBEN Other Provider Active Start: A 2023 End: August 18, 2023 Nanda Cordero , RUBEN Other Provider Active Star t: July 27, 2023 End: August 18, 2023 Arabella Freire , RUBEN Other Provider Active Start: A pri2023 End: August 18, 2023 Trinh Rogel , RUBEN Other Provider Active Start: Ap [facility] 2023 End: August 18, 2023 Sofiya Suero MD Other Provider Active Start: July 27, 2023 End: August 18, 2023 Viridiana Mandujano DO Other Provider Active Start : July 27, 2023 End: August 18, 2023 Lino Mackey MD Other Provider Active Start : July 27, 2023 End: August 18, 2023 Enrique Mccormick DO Other Provider Active Start: July 27, 2023 End: August 18, 2023 Chance Menchaca MD Other Provider Active Start: July 27, 2023 End: August 18, 2023 Jennifer Blanco MD Other Provider Active Start : July 27, 2023 End: August 18, 2023 Bob Rice MD Other Provider Active Start: A pri 2023 End: August 18, 2023 Jo Cotton APRN Other Provider Active Start: July 27, 2023 End: August 18, 2023 Jessica Lemon MD Other Provider Active Start: July 27, 2023 End: August 18, 2023 Savage Wick MD Other Provider Active Start: A pri 2023 End: August 18, 2023 Yeimy Tapia MD Other Provider Active Start: July 27, 2023 End: August 18, 2023 Maryam Felton MD Other Provider Active Start: July 27, 2023 End: August 18, 2023 Mc Frye DO Other Provider Active Start: July 27, 2023 End: August 18, 2023 Lorenzo Gomez MD Other Provider Active Start: [facility] 2023 End: August 18, 2023 Domenico Leach MD Other Provider Active Start: Jul il 2023 End: August 18, 2023 SHAYY Cook Other Provider Active St art: July 27, 2023 End: August 18, 2023 Hunter Graff APRN Other Provider Active Star t: July 27, 2023 End: August 18, 2023 Nathaniel Noyola MD Other Provider Active Start: July 27, 2023 End: August 18, 2023 Allen Shoemaker MD Other Provider Active Start: Ap ril 2023 End: August 18, 2023 Evans Stubbs MD Other Provider Active Start: Apr il 2023 End: August 18, 2023 Lucas Anderson MD Other Provider Active Star t: July 27, 2023 End: August 18, 2023 Rad Shen MD Other Provider Active Start: A pril 2023 End: August 18, 2023 Echo Jasso , Other Provider Active Start: Ap ril 2023 End: August 18, 2023 Yakov Mccormick , Other Provider Active Start : July 27, 2023 End: August 18, 2023 Angelica Martinez APRN Other Provider Active Start: July 27, 2023 End: August 18, 2023 Volodymyr Pickard , Other Provider Active Start: July 27, 2023 End: August 18, 2023 Bernice Motley MD Other Provider Active Sta rt: July 27, 2023 End: August 18, 2023 Silvia Urias APRN Other Provider Active Start : July 27, 2023 End: August 18, 2023 Augustina Castañeda APRN Other Provider Active St art: July 27, 2023 End: August 18, 2023 Aylin Borden MD Other Provider Active Start: A pril 2023 End: August 18, 2023 Chente Tan MD Other Provider Active S tart: July 27, 2023 End: August 18, 2023 Tayo Garcia , DO Other Provider Active Star t: July 27, 2023 End: August 18, 2023 Ace Romo DO Other Provider Active Start: July 27, 2023 End: August 18, 2023 Lucas Stubbs MD Other Provider Active Start: July 27, 2023 End: August 18, 2023 Faith Drew RN Other Provider Active Start: A pril 2023 End: August 18, 2023 Verna Saleem RN Other Provider Active Star t: July 27, 2023 End: August 18, 2023 Ramiro White MD Other Provider Active Start: A pril 2023 End: August 18, 2023 Jimi Sanchez MD Other Provider Active Start: July 27, 2023 End: August 18, 2023 Angelica Hilton MD Other Provider Active Start: July 27, 2023 End: August 18, 2023 Kristopher Kelly DO Attending Provider, Other Provider Active Start: July 27, 2023 End: August 18, 2023 Kayy Smith APRN Other Provider Active Start: July 27, 2023 End: August 18, 2023 Rosa Elena Prather DO Other Provider Active Sta rt: July 27, 2023 End: August 18, 2023 Team Status: Active Member Role Status Dates Ruben Velasquez MD Primary Care Provider Active Start: August 02, 2023 End: August 18, 2023 Nils Boudreaux MD Admit Provider, Atte nding Provider, Other Provider Active Start: August 02, 2023 End: August 18, 2023 Cale Burgess MD Other Provider Active Start: August 02, 2023 End: August 18, 2023 Eva Deleon , RUBEN Other Provider Active Star t: August 02, 2023 End: August 18, 2023 Mohini Willoughby , RUBEN Other Provider Active Start : August 02, 2023 End: August 18, 2023 Abbey Patricia , RUBEN Other Provider Active Start: A pri 2023 End: August 18, 2023 Nanda Cordero , RUBEN Other Provider Active Star t: August 02, 2023 End: August 18, 2023 Arabella Freire , RUBEN Other Provider Active Start: A pril 2023 End: August 18, 2023 Trinh Rogel , RUBEN Other Provider Active Start: [facility] 2023 End: August 18, 2023 Sofiya Suero MD Other Provider Active Start: August 02, 2023 End: August 18, 2023 Viridiana Mandujano DO Other Provider Active Start : August 02, 2023 End: August 18, 2023 Lino Mackey MD Other Provider Active Start : August 02, 2023 End: August 18, 2023 Enrique Mccormick DO Other Provider Active Start: August 02, 2023 End: August 18, 2023 Chance Menchaca MD Other Provider Active Start: August 02, 2023 End: August 18, 2023 Jennifer Blanco MD Other Provider Active Start : August 02, 2023 End: August 18, 2023 Bob Rice MD Other Provider Active Start: A [facility] 2023 End: August 18, 2023 Jo Cotton , RN RADIATION Other Provider Active Start: August 02, 2023 End: August 18, 2023 Jessica Lemon MD Other Provider Active Start: August 02, 2023 End: August 18, 2023 Savage Wick MD Other Provider Active Start: A [facility] 2023 End: August 18, 2023 Yeimy Tapia MD Other Provider Active Start: August 02, 2023 End: August 18, 2023 Maryam Felton MD Other Provider Active Start: August 02, 2023 End: August 18, 2023 Mc Frye DO Other Provider Active Start: August 02, 2023 End: August 18, 2023 Lorenzo Gomez MD Other Provider Active Start: [facility] 2023 End: August 18, 2023 Domenico Leach MD Other Provider Active Start: Jul End: August 18, 2023 SHAYY Cook Other Provider Active St art: August 02, 2023 End: August 18, 2023 Hunter Graff , RN RADIATION Other Provider Active Star t: August 02, 2023 End: August 18, 2023 Nathaniel Noyola MD Other Provider Active Start: August 02, 2023 End: August 18, 2023 Allen Shoemaker MD Other Provider Active Start: [facility] 2023 End: August 18, 2023 Evans Stubbs MD Other Provider Active Start: Jul [place] 2023 End: August 18, 2023 Lucas Anderson MD Other Provider Active Star t: August 02, 2023 End: August 18, 2023 Rad Shen MD Other Provider Active Start: A [facility] 2023 End: August 18, 2023 Echo Jasso DO Other Provider Active Start: [facility] 2023 End: August 18, 2023 Yakov Mccormick DO Other Provider Active Start : August 02, 2023 End: August 18, 2023 Angelica Martinez APRN Other Provider Active Start: August 02, 2023 End: August 18, 2023 Volodymyr Pickard , Other Provider Active Start: August 02, 2023 End: August 18, 2023 Bernice Motley MD Other Provider Active Sta rt: August 02, 2023 End: August 18, 2023 Silvia Urias APRN Other Provider Active Start : August 02, 2023 End: August 18, 2023 Augustina Castañeda APRN Other Provider Active St art: August 02, 2023 End: August 18, 2023 Aylin Borden MD Other Provider Active Start: A 2023 End: August 18, 2023 Chente Tan MD Other Provider Active S tart: August 02, 2023 End: August 18, 2023 Tayo Garcia , DO Other Provider Active Star t: August 02, 2023 End: August 18, 2023 Ace Romo , Other Provider Active Start: August 02, 2023 End: August 18, 2023 Lucas Stubbs MD Other Provider Active Start: August 02, 2023 End: August 18, 2023 aFith Drew RN Other Provider Active Start: A 2023 End: August 18, 2023 Kristopher Kelly DO Other Provider Active Start: August 02, 2023 End: August 18, 2023 Kayy Smith APRN Other Provider Active Start: August 02, 2023 End: August 18, 2023 Rosa Elena Prather DO Other Provider Active Sta rt: August 02, 2023 End: August 18, 2023 Team Status: Active Member Role Status Dates Ruben Velasquez MD Primary Care Provider Active Start: August 03, 2023 End: August 18, 2023 Nils Boudreaux MD Admit Provider, Othe r Provider Active Start: August 03, 2023 End: August 18, 2023 Cale Burgess MD Other Provider Active Start: August 03, 2023 End: August 18, 2023 Eva Deleon RN Other Provider Active Star t: August 03, 2023 End: August 18, 2023 Mohini Willoughby RN Other Provider Active Start : August 03, 2023 End: August 18, 2023 Abbey Patricia RN Other Provider Active Start: A pri2023 End: August 18, 2023 Nanda Cordero RN Other Provider Active Star t: August 03, 2023 End: August 18, 2023 Arabella Freire RN Other Provider Active Start: A pri2023 End: August 18, 2023 Trinh Rogel RN Other Provider Active Start: [facility] 2023 End: August 18, 2023 Sofiya Suero MD Other Provider Active Start: August 03, 2023 End: August 18, 2023 Viridiana Mandujano DO Other Provider Active Start : August 03, 2023 End: August 18, 2023 Lino Mackey MD Other Provider Active Start : August 03, 2023 End: August 18, 2023 Enrique Mccormick DO Other Provider Active Start: August 03, 2023 End: August 18, 2023 Chance Menchaca MD Other Provider Active Start: August 03, 2023 End: August 18, 2023 Jennifer Blanco MD Other Provider Active Start : August 03, 2023 End: August 18, 2023 Bob Rice MD Other Provider Active Start: A 2023 End: August 18, 2023 Jo Cotton APRN Other Provider Active Start: August 03, 2023 End: August 18, 2023 Jessica Lemon MD Other Provider Active Start: August 03, 2023 End: August 18, 2023 Savage Wick MD Other Provider Active Start: A pri 2023 End: August 18, 2023 Yeimy Tapia MD Other Provider Active Start: August 03, 2023 End: August 18, 2023 Maryam Felton MD Other Provider Active Start: August 03, 2023 End: August 18, 2023 Mc Frye DO Other Provider Active Start: August 03, 2023 End: August 18, 2023 Lorenzo Gomez MD Other Provider Active Start: [facility] 2023 End: August 18, 2023 Domenico Leach MD Other Provider Active Start: Jul End: August 18, 2023 Yesenia Rosario , [employer] Other Provider Active St art: August 03, 2023 End: August 18, 2023 Hunter Graff APRN Other Provider Active Star t: August 03, 2023 End: August 18, 2023 Nathaniel Noyola MD Other Provider Active Start: August 03, 2023 End: August 18, 2023 Allen Shoemaker MD Other Provider Active Start: [facility] 2023 End: August 18, 2023 Evans Stubbs MD Other Provider Active Start: Jul [place] 2023 End: August 18, 2023 Lucas Anderson MD Other Provider Active Star t: August 03, 2023 End: August 18, 2023 Rad Shen MD Other Provider Active Start: A pril 2023 End: August 18, 2023 Echo Jasso DO Other Provider Active Start: [facility] 2023 End: August 18, 2023 Yakov Mccormick DO Other Provider Active Start : August 03, 2023 End: August 18, 2023 Angelica Martinez APRN Other Provider Active Start: August 03, 2023 End: August 18, 2023 Volodymyr Pickard DO Other Provider Active Start: August 03, 2023 End: August 18, 2023 Bernice Motley MD Other Provider Active Sta rt: August 03, 2023 End: August 18, 2023 Silvia Urias APRN Other Provider Active Start : August 03, 2023 End: August 18, 2023 Augustina Castañeda APRN Other Provider Active St art: August 03, 2023 End: August 18, 2023 Aylin Borden MD Other Provider Active Start: A pril 2023 End: August 18, 2023 Chente Tan MD Other Provider Active S tart: August 03, 2023 End: August 18, 2023 Tayo Garcia DO Other Provider Active Star t: August 03, 2023 End: August 18, 2023 Ace Romo , Other Provider Active Start: August 03, 2023 End: August 18, 2023 Lucas Stubbs MD Other Provider Active Start: August 03, 2023 End: August 18, 2023 Faith Drew , RUBEN Other Provider Active Start: A pril 2023 End: August 18, 2023 Kristopher Kelly DO Attending Provider, Other Provider Active Start: August 03, 2023 End: August 18, 2023 Kayy Smith APRN Other Provider Active Start: August 03, 2023 End: August 18, 2023 Rosa Elena Prather DO Other Provider Active Sta rt: August 03, 2023 End: August 18, 2023 Team Status: Active Member Role Status Dates Ruben Velasquez MD Primary Care Provider Active Start: August 10, 2023 End: August 18, 2023 Nils Boudreaux MD Admit Provider, Othe r Provider Active Start: August 10, 2023 End: August 18, 2023 Cale Burgess MD Other Provider Active Start: August 10, 2023 End: August 18, 2023 Eva Deleon , RUBEN Other Provider Active Star t: August 10, 2023 End: August 18, 2023 Mohini Willoughby , RUBEN Other Provider Active Start : August 10, 2023 End: August 18, 2023 Abbey Patricia , RUBEN Other Provider Active Start: M ay 2023 End: August 18, 2023 Nanda Cordero , RUBEN Other Provider Active Star t: August 10, 2023 End: August 18, 2023 Arabella Freire , RUBEN Other Provider Active Start: M ay 2023 End: August 18, 2023 Trinh Rogel , RUBEN Other Provider Active Start: [facility] 2023 End: August 18, 2023 Sofiya Suero MD Other Provider Active Start: August 10, 2023 End: August 18, 2023 Viridiana Mandujano DO Other Provider Active Start : August 10, 2023 End: August 18, 2023 Lino Mackey MD Other Provider Active Start : August 10, 2023 End: August 18, 2023 Enrique Mccormick DO Other Provider Active Start: August 10, 2023 End: August 18, 2023 Chance Menchaca MD Other Provider Active Start: August 10, 2023 End: August 18, 2023 Jennifer Blanco MD Other Provider Active Start : August 10, 2023 End: August 18, 2023 Bob Rice MD Other Provider Active Start: M ay 2023 End: August 18, 2023 Jo Cotton APRN Other Provider Active Start: August 10, 2023 End: August 18, 2023 Jessica Lemon MD Other Provider Active Start: August 10, 2023 End: August 18, 2023 Savage Wick MD Other Provider Active Start: M ay 2023 End: August 18, 2023 Yeimy Tapia MD Other Provider Active Start: August 10, 2023 End: August 18, 2023 Maryam Felton MD Other Provider Active Start: August 10, 2023 End: August 18, 2023 Mc Frye DO Other Provider Active Start: August 10, 2023 End: August 18, 2023 Lorenzo Gomez MD Other Provider Active Start: Ma y 2023 End: August 18, 2023 Domenico Leach MD Other Provider Active Start: August 10, 2023 End: August 18, 2023 SHAYY Cook Other Provider Active St art: August 10, 2023 End: August 18, 2023 Hunter Graff APRN Other Provider Active Star t: August 10, 2023 End: August 18, 2023 Nathaniel Noyola MD Other Provider Active Start: August 10, 2023 End: August 18, 2023 Allen Shoemaker MD Other Provider Active Start: Ma y 2023 End: August 18, 2023 Evans Stubbs MD Other Provider Active Start: August 10, 2023 End: August 18, 2023 Lucas Anderson MD Other Provider Active Star t: August 10, 2023 End: August 18, 2023 Rad Shen MD Other Provider Active Start: M ay 2023 End: August 18, 2023 Echo Romero , DO Other Provider Active Start: [facility] 2023 End: August 18, 2023 Yakov Mccormick , DO Other Provider Active Start : August 10, 2023 End: August 18, 2023 Angelica Martinez APRN Other Provider Active Start: August 10, 2023 End: August 18, 2023 Volodymyr Pickard , DO Other Provider Active Start: August 10, 2023 End: August 18, 2023 Bernice Motley MD Other Provider Active Sta rt: August 10, 2023 End: August 18, 2023 Silvia Urias APRN Other Provider Active Start : August 10, 2023 End: August 18, 2023 Augustina Castañeda APRN Other Provider Active St art: August 10, 2023 End: August 18, 2023 Aylin Borden MD Other Provider Active Start: M ay 2023 End: August 18, 2023 Chente Tan MD Other Provider Active S tart: August 10, 2023 End: August 18, 2023 Tayo Garcia , DO Other Provider Active Star t: August 10, 2023 End: August 18, 2023 Ace Romo , DO Other Provider Active Start: August 10, 2023 End: August 18, 2023 Lucas Stubbs MD Other Provider Active Start: August 10, 2023 End: August 18, 2023 Faith Drew RN Other Provider Active Start: M ay 2023 End: August 18, 2023 Kristopher Kelly , Attending Provider, Other Provider Active Start: August 10, 2023 End: August 18, 2023 Kayy Smith APRN Other Provider Active Start: August 10, 2023 End: August 18, 2023 Rosa Elena Prather , Other Provider Active Sta rt: August 10, 2023 End: August 18, 2023 Team Status: Active Member Role Status Dates Ruben Velasquez MD Primary Care Provider Active Start: August 10, 2023 End: August 18, 2023 Nils Boudreaux MD Admit Provider, Atte nding Provider, Other Provider Active Start: August 10, 2023 End: August 18, 2023 Cale Burgess MD Other Provider Active Start: August 10, 2023 End: August 18, 2023 Eva Deleon , RUBEN Other Provider Active Star t: August 10, 2023 End: August 18, 2023 Mohini Willoughby , RUBEN Other Provider Active Start : August 10, 2023 End: August 18, 2023 Abbey Patricia , RUBEN Other Provider Active Start: M ay 2023 End: August 18, 2023 Nanda Cordero RN Other Provider Active Star t: August 10, 2023 End: August 18, 2023 Arabella Freire RN Other Provider Active Start: M ay 2023 End: August 18, 2023 Trinh Rogel RN Other Provider Active Start: Ma y 2023 End: August 18, 2023 Sofiya Suero MD Other Provider Active Start: August 10, 2023 End: August 18, 2023 Viridiana Mandujano DO Other Provider Active Start : August 10, 2023 End: August 18, 2023 Lino Mackey MD Other Provider Active Start : August 10, 2023 End: August 18, 2023 Enrique Mccormick DO Other Provider Active Start: August 10, 2023 End: August 18, 2023 Chance Menchaca MD Other Provider Active Start: August 10, 2023 End: August 18, 2023 Jennifer Blanco MD Other Provider Active Start : August 10, 2023 End: August 18, 2023 Bob Rice MD Other Provider Active Start: M ay 2023 End: August 18, 2023 Jo Cotton APRN Other Provider Active Start: August 10, 2023 End: August 18, 2023 Jessica Lemon MD Other Provider Active Start: August 10, 2023 End: August 18, 2023 Savage Wick MD Other Provider Active Start: M ay 2023 End: August 18, 2023 Yeimy Tapia MD Other Provider Active Start: August 10, 2023 End: August 18, 2023 Maryam Felton MD Other Provider Active Start: August 10, 2023 End: August 18, 2023 Mc Frye DO Other Provider Active Start: August 10, 2023 End: August 18, 2023 Lorenzo Gomez MD Other Provider Active Start: [facility] 2023 End: August 18, 2023 Domenico Leach MD Other Provider Active Start: August 10, 2023 End: August 18, 2023 SHAYY Cook Other Provider Active St art: August 10, 2023 End: August 18, 2023 Hunter Graff APRN Other Provider Active Star t: August 10, 2023 End: August 18, 2023 Nathaniel Noyola MD Other Provider Active Start: August 10, 2023 End: August 18, 2023 Allen Shoemaker MD Other Provider Active Start: Ma y 2023 End: August 18, 2023 Evans Stubbs MD Other Provider Active Start: August 10, 2023 End: August 18, 2023 Lucas Anderson MD Other Provider Active Star t: August 10, 2023 End: August 18, 2023 Rad Shne MD Other Provider Active Start: M ay 2023 End: August 18, 2023 Echo Jasso , Other Provider Active Start: [facility] 2023 End: August 18, 2023 Yakov Mccormick , Other Provider Active Start : August 10, 2023 End: August 18, 2023 Angelica Martinez APRN Other Provider Active Start: August 10, 2023 End: August 18, 2023 Volodymyr Pickard DO Other Provider Active Start: August 10, 2023 End: August 18, 2023 Bernice Motley MD Other Provider Active Sta rt: August 10, 2023 End: August 18, 2023 Silvia Urias APRN Other Provider Active Start : August 10, 2023 End: August 18, 2023 Augustina Castañeda APRN Other Provider Active St art: August 10, 2023 End: August 18, 2023 Aylin Borden MD Other Provider Active Start: M ay 2023 End: August 18, 2023 Chente Tan MD Other Provider Active S tart: August 10, 2023 End: August 18, 2023 Tayo Garcia , DO Other Provider Active Star t: August 10, 2023 End: August 18, 2023 Ace Romo , Other Provider Active Start: August 10, 2023 End: August 18, 2023 Lucas Stubbs MD Other Provider Active Start: August 10, 2023 End: August 18, 2023 Faith Drew , RUBEN Other Provider Active Start: M ay 2023 End: August 18, 2023 Kristopher Kelly DO Other Provider Active Start: August 10, 2023 End: August 18, 2023 Kayy Smith , RAUDEL Other Provider Active Start: August 10, 2023 End: August 18, 2023 Rosa Elena Prather DO Other Provider Active Sta rt: August 10, 2023 End: August 18, 2023 Team Status: Active Member Role Status Dates Ruben Velasquez MD Primary Care Provider Active Start: August 11, 2023 End: August 18, 2023 Nils Boudreaux MD Admit Provider, Othe r Provider Active Start: August 11, 2023 End: August 18, 2023 Cale Burgess MD Other Provider Active Start: August 11, 2023 End: August 18, 2023 Eva Deleon , RUBEN Other Provider Active Star t: August 11, 2023 End: August 18, 2023 Mohini Willoughby , RUBEN Other Provider Active Start : August 11, 2023 End: August 18, 2023 Abbey Patricia , RUBEN Other Provider Active Start: M ay 2023 End: August 18, 2023 Nanda Cordero , RUBEN Other Provider Active Star t: August 11, 2023 End: August 18, 2023 Arabella Freire , RUBEN Other Provider Active Start: M ay 2023 End: August 18, 2023 Trinh Rogel , RN Other Provider Active Start: [facility] 2023 End: August 18, 2023 Sofiya Suero MD Other Provider Active Start: August 11, 2023 End: August 18, 2023 Viridiana Mandujano DO Other Provider Active Start : August 11, 2023 End: August 18, 2023 Lino Mackey MD Other Provider Active Start : August 11, 2023 End: August 18, 2023 Enrique Mccormick DO Other Provider Active Start: August 11, 2023 End: August 18, 2023 Chance Menchaca MD Other Provider Active Start: August 11, 2023 End: August 18, 2023 Jennifer Blanco MD Other Provider Active Start : August 11, 2023 End: August 18, 2023 Bob Rice MD Other Provider Active Start: M ay 2023 End: August 18, 2023 Jo Cotton APRN Other Provider Active Start: August 11, 2023 End: August 18, 2023 Jessica Lemon MD Other Provider Active Start: August 11, 2023 End: August 18, 2023 Savage Wick MD Other Provider Active Start: M ay 2023 End: August 18, 2023 Yeimy Tapia MD Other Provider Active Start: August 11, 2023 End: August 18, 2023 Maryam Felton MD Other Provider Active Start: August 11, 2023 End: August 18, 2023 Mc Frye DO Other Provider Active Start: August 11, 2023 End: August 18, 2023 Lorenzo Gomez MD Other Provider Active Start: Toro medrano 2023 End: August 18, 2023 Domenico Leach MD Other Provider Active Start: August 11, 2023 End: August 18, 2023 Yesenia Rosario NP-C Other Provider Active St art: August 11, 2023 End: August 18, 2023 Hunter Graff APRN Other Provider Active Star t: August 11, 2023 End: August 18, 2023 Nathaniel Noyola MD Other Provider Active Start: August 11, 2023 End: August 18, 2023 Allen Shoemaker MD Other Provider Active Start: Toro y 2023 End: August 18, 2023 Evans Stubbs MD Other Provider Active Start: August 11, 2023 End: August 18, 2023 Lucas Anderson MD Other Provider Active Star t: August 11, 2023 End: August 18, 2023 Rad Shen MD Other Provider Active Start: M ay 2023 End: August 18, 2023 Echo Jasso DO Other Provider Active Start: Toro y 2023 End: August 18, 2023 Yakov Mccormick DO Other Provider Active Start : August 11, 2023 End: August 18, 2023 Angelica Martinez APRN Other Provider Active Start: August 11, 2023 End: August 18, 2023 Volodymyr Pickard , Other Provider Active Start: August 11, 2023 End: August 18, 2023 Bernice Motley MD Other Provider Active Sta rt: August 11, 2023 End: August 18, 2023 Silvia Urias APRN Other Provider Active Start : August 11, 2023 End: August 18, 2023 Augustina Castañeda APRN Other Provider Active St art: August 11, 2023 End: August 18, 2023 Aylin Borden MD Other Provider Active Start: Bette ya 2023 End: August 18, 2023 Chente Tan MD Other Provider Active S tart: August 11, 2023 End: August 18, 2023 Tayo Garcia , DO Other Provider Active Star t: August 11, 2023 End: August 18, 2023 Ace Romo , Other Provider Active Start: August 11, 2023 End: August 18, 2023 Lucas Stubbs MD Other Provider Active Start: August 11, 2023 End: August 18, 2023 Faith Drew RN Other Provider Active Start: Bette ya 2023 End: August 18, 2023 Kristopher Kelly DO Other Provider Active Start: August 11, 2023 End: August 18, 2023 Kayy Smith APRN Other Provider Active Start: August 11, 2023 End: August 18, 2023 Rosa Elena Prather , Other Provider Active Sta rt: August 11, 2023 End: August 18, 2023 Surendra Ruiz II, MD Attending Provider Active Start: August 11, 2023 End: August 18, 2023 Team Status: Active Member Role Status Dates Ruben Velasquez MD Primary Care Provider Active Start: August 17, 2023 End: August 18, 2023 Nils Boudreaux MD Admit Provider, Othe r Provider Active Start: August 17, 2023 End: August 18, 2023 Cale Burgess MD Other Provider Active Start: August 17, 2023 End: August 18, 2023 Eva Deleon RN Other Provider Active Star t: August 17, 2023 End: August 18, 2023 Mohini Willoughby RN Other Provider Active Start : August 17, 2023 End: August 18, 2023 Abbey Patricia RN Other Provider Active Start: M ay 2023 End: August 18, 2023 Nanda Cordero RN Other Provider Active Star t: August 17, 2023 End: August 18, 2023 Arabella Freire RN Other Provider Active Start: M ay 2023 End: August 18, 2023 Trinh Rogel RN Other Provider Active Start: Toro medrano 2023 End: August 18, 2023 Sofiya Suero MD Other Provider Active Start: August 17, 2023 End: August 18, 2023 Viridiana Mandujano DO Other Provider Active Start : August 17, 2023 End: August 18, 2023 Lino Mackey MD Other Provider Active Start : August 17, 2023 End: August 18, 2023 Enrique Mccormick DO Other Provider Active Start: August 17, 2023 End: August 18, 2023 Chance Menchaca MD Other Provider Active Start: August 17, 2023 End: August 18, 2023 Jennifer Blanco MD Other Provider Active Start : August 17, 2023 End: August 18, 2023 Bob Rice MD Other Provider Active Start: M ay 2023 End: August 18, 2023 Jo Cotton APRN Other Provider Active Start: August 17, 2023 End: August 18, 2023 Jessica Lemon MD Other Provider Active Start: August 17, 2023 End: August 18, 2023 Savage Wick MD Other Provider Active Start: M ay 2023 End: August 18, 2023 Yeimy Tapia MD Other Provider Active Start: August 17, 2023 End: August 18, 2023 Maraym Felton MD Other Provider Active Start: August 17, 2023 End: August 18, 2023 Mc Frye DO Other Provider Active Start: August 17, 2023 End: August 18, 2023 Lorenzo Gomez MD Other Provider Active Start: Ma y 2023 End: August 18, 2023 Domenico Leach MD Other Provider Active Start: August 17, 2023 End: August 18, 2023 Yesenia Rosario NP-C Other Provider Active St art: August 17, 2023 End: August 18, 2023 Hunter Graff APRN Other Provider Active Star t: August 17, 2023 End: August 18, 2023 Nathaniel Noyola MD Other Provider Active Start: August 17, 2023 End: August 18, 2023 Allen Shoemaker MD Other Provider Active Start: Ma y 2023 End: August 18, 2023 Evans Stubbs MD Other Provider Active Start: August 17, 2023 End: August 18, 2023 Lucas Anderson MD Other Provider Active Star t: August 17, 2023 End: August 18, 2023 Rad Shen MD Other Provider Active Start: Bette ay 2023 End: August 18, 2023 Echo Jasso DO Other Provider Active Start: Ma y 2023 End: August 18, 2023 Yakov Mccormick DO Other Provider Active Start : August 17, 2023 End: August 18, 2023 Angelica Martinez APRN Other Provider Active Start: August 17, 2023 End: August 18, 2023 Volodymyr Pickard DO Other Provider Active Start: August 17, 2023 End: August 18, 2023 Bernice Motley MD Other Provider Active Sta rt: August 17, 2023 End: August 18, 2023 Silvia Urias APRN Other Provider Active Start : August 17, 2023 End: August 18, 2023 Augustina Castañeda APRN Other Provider Active St art: August 17, 2023 End: August 18, 2023 Aylin Borden MD Other Provider Active Start: M ay 2023 End: August 18, 2023 Chente Tan MD Other Provider Active S tart: August 17, 2023 End: August 18, 2023 Tayo Garcia , Other Provider Active Star t: August 17, 2023 End: August 18, 2023 Ace Romo , DO Other Provider Active Start: August 17, 2023 End: August 18, 2023 Lucas Stubbs MD Other Provider Active Start: August 17, 2023 End: August 18, 2023 Faith Drew RN Other Provider Active Start: Bette ya 2023 End: August 18, 2023 Kristopher Kelly , Other Provider Active Start: August 17, 2023 End: August 18, 2023 Kayy Smith APRN Other Provider Active Start: August 17, 2023 End: August 18, 2023 Rosa Elena Prather DO Other Provider Active Sta rt: August 17, 2023 End: August 18, 2023 Alejandra Stallworth APRN Attending Provider Active Start: August 17, 2023 End: August 18, 2023 Team Status: Inactive Member Role Status Dates Ruben Velasquez MD Attending Provider Active Start: September 16, 2023 End: September 16, 2023 Team Status: Active Member Role Status Dates Angelica Hilton MD 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 NON STAFF Primary Care Provider Active Team Status: Inactive Member Role Status Dates Angelica Hilton MD Attending Provider Active Sta rt: October 01, 2023 End: October 01, 2023 NON STAFF Primary Care Provider Active Start: October 01, 2023 End: October 01, 2023 Team Status: Inactive Member Role Status Dates NON STAFF Primary Care Provider Active Start: October 02, 2023 End: October 02, 2023 Ruben Velasquez MD Attending Provider Active Start: October 02, 2023 End: October 02, 2023 Team Status: Inactive Member Role Status Dates NON STAFF Primary Care Provide r, Attending Provider Active Start: October 05, 2023 End: October 05, 2023 Team Status: Active Member Role Status Dates NON STAFF Primary Care Provider Active Start: October 07, 2023 Surendra Ruiz II, MD Attending Provider Active Start: October 07, 2023 Team Status: Inactive Member Role Status Dates Surendra Ruiz II, MD Attending Provider Active Start: October 07, 2023 End: October 07, 2023 NON STAFF Primary Care Provider Active Start: October 07, 2023 End: October 07, 2023 Team Status: Inactive Member Role Status Dates NON STAFF Primary Care Provider Active Start: October 07, 2023 End: October 07, 2023 Surendra Ruiz II, MD Attending Provider Active Start: October 07, 2023 End: October 07, 2023 Team Status: Active Member Role Status Dates Angelica Hilton MD 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 Ruben Velasquez MD Primary Care Provider Active Team Status: Inactive Member Role Status Dates NON STAFF Primary Care Provider Active Start: October 05, 2023 End: October 05, 2023 Ruben Velasquez MD Attending Provider Active Start: October 05, 2023 End: October 05, 2023 Team Status: Inactive Member Role Status Dates Ruben Velasquez MD Primary Care Provi leonard, Attending Provider Active Start: October 23, 2023 End: October 23, 2023 Team Status: Inactive Member Role Status Dates Ruben Velasquez MD Primary Care Provi leonard, Attending Provider Active Start: October 28, 2023 End: October 28, 2023 Goals (unrecognized section and content) Goals may be documented in a n alternate section FOR RECORDS PERTAINING TO PATIENTS WHO ARE OR HAVE BEEN ENROLLED IN A CHEMICAL DEPENDENCY/SUBSTANCEABUSE PROGRAM, SOME INFORMATION MAY BE OMITTED. This clinical summary was aggregated from multiple sources. Caution should be exercised in using it in the provision of clinical care. This summary normalizes information from multiple sources, and as a consequence, information in this document may materially change the coding, format and clinical context of patient data. In addition, data may be omitted in some cases. CLINICAL DECISIONS SHOULD BE BASED ON THE PRIMARY CLINICAL RECORDS. [facility] [employer] provides no warranty or guarantee of the accuracy or completeness of information in this document.
--- NOTE | 2023-11-22 14:26 | XR_ITS ---
The [address] [address] Patient Name: YARI MOBLEY MRN: [id number] date: 1950 Sex: F Assigned Patient Location: ER Current Patient Location: ER Accession/Order Number: [id number] Exam Date: 11/22/2023 14:43 Report Date: 11/22/2023 16:01 At the request of: EMANUEL SMITH Procedure: XR chest 1V EXAM: XR chest 1V 11/22/2023 COMPARISON: AP chest 06/20/2023 TECHNIQUE: Single AP chest image was obtained. HISTORY: pre-op XR/XR chest 1V IMPRESSION: 1. Cardiomediastinal contours are stable. Heart size is mildly prominent. 2. Mild central vascular crowding/congestion with early edema pattern superimposed upon upper lobe predominant emphysema noted. There is no overt failure. No sizable effusion or pneumothorax. 3. Background emphysematous changes may also be present. 4. Prior right glenohumeral arthroplasty. Osseous structures are grossly stable. Electronically authenticated by: VINNIE CEBALLOS Date: 11/22/2023 16:01
--- NOTE | 2023-11-22 14:41 | XR_ITS ---
The [place] [id number] Patient Name: YARI MOBLEY MRN: [id number] date: 1950 Sex: F Assigned Patient Location: ER Current Patient Location: ER Accession/Order Number: [id number] Exam Date: 11/22/2023 15:40 Report Date: 11/22/2023 16:34 At the request of: EMANUEL SMITH Procedure: XR hip RT 1V EXAM: XR hip RT 1V HISTORY: post-reduction attempt COMPARISON: Initial x-ray although this right hip 11/22/2023 1:[address] pelvis 03/12/2017. TECHNIQUE: AP right hip post reduction 11/22/2023 at 3:29 PM FINDINGS: Persistent dislocation of femoral portion of the hip prosthesis. There is a defect along the medial aspect proximal femur which demonstrates smooth margins probably old. The hardware appears intact. Acetabular prosthetic component remains unchanged. XR/XR hip RT 1V IMPRESSION: Persistent dislocation. Electronically authenticated by: DARIEL HAWKINS Date: 11/22/2023 16:34
[2023-11-22] MEDS: ONDANSETRON PF 4 MG/2 ML VIAL IV (14:50)
[2023-11-22] MEDS: PROPOFOL 200 MG/20 ML VIAL 50 MG IVP (15:26)
[2023-11-22] MEDS: PROPOFOL 200 MG/20 ML VIAL 20 MG IVP (15:36)
[2023-11-22] MEDS: 0.9 % SODIUM CHLORIDE 1,000 ML 100 ML IV (15:43)
--- NOTE | 2023-11-22 18:23 | ED.GENADUL1 ---
HPI HPI - General Adult General Chief complaint: Extremity Injury, Lower Stated complaint: HIP PAIN Time Seen by Provider: 11/22/23 13:22 Source: patient Mode of arrival: ambulance Limitations: no limitations History of Present Illness HPI narrative: 73-year-old female to the emergency department chief complaint of pain in her right hip. She reports she is getting out of her chair this morning felt a pop in the hip. Has not been able to ambulate since. She did not fall. She is otherwise at her baseline health. She denies any numbness, weakness, tingling. Related Data Home Medications ?Medication ?Instructions ?Recorded ?Confirmed albuterol sulfate 2.5 mg/3 mL 2.5 mg inhalation Q4H PRN 06/20/23 11/22/23 (0.083 %) solution for nebulization shortness of breath or wheezing albuterol sulfate 90 mcg/actuation 2 puff inhalation Q4H PRN 06/20/23 11/22/23 aerosol inhaler shortness of breath or wheezing buprenorphine 8 mg-naloxone 2 mg 1.5 tab sublingual DAILY 06/20/23 11/22/23 sublingual tablet buspirone 10 mg tablet 10 mg PO TID 06/20/23 11/22/23 [id number]-[id number] 1 tab PO Q6H PRN migraine headache 06/20/23 11/22/23 50 mg-325 mg-40 mg tablet metoprolol tartrate 25 mg tablet 25 mg PO BID 06/20/23 11/22/23 ondansetron HCl 4 mg tablet 4 mg PO Q8H PRN nausea and vomiting 06/20/23 11/22/23 tiotropium 2.5 mcg-olodaterol 2.5 2 puff inhalation QAM 06/20/23 11/22/23 mcg/actuation mist for inhalation (Stiolto Respimat) atorvastatin 10 mg tablet 10 mg PO BEDTIME 11/22/23 11/22/23 ergocalciferol (vitamin D2) 1,250 50,000 unit PO .thursday11/22/23 11/22/23 mcg (50,000 unit) capsule ferrous sulfate 325 mg (65 mg 325 mg PO DAILY 11/22/23 11/22/23 iron) tablet,delayed release Allergies Allergy/AdvReac Type Severity Reaction Status Date / Time No Known Drug Allergies Allergy Verified 06/20/23 12:36 Opioid HPI Opioid Management Most Recent Opioid Data: Last Pain Scale 9 11/22/23 16:52 Last MAR Pain Assessment 11/22/23 16:52 Review of Systems ROS Status of ROS 10 or more systems reviewed and unremarkable except as noted in history and below Exam Narrative Exam Narrative: VITALS: I have reviewed the triage vital signs. GENERAL: Well developed, well appearing adult in no acute distress. NEURO: Alert and oriented. Moves all extremities. Face is symmetric and expressive. EYES: PERRL. No scleral icterus or conjunctival injection. No discharge. HENT: Normocephalic, atraumatic. Hearing is grossly intact. Nares grossly patent and without discharge. Mucous membranes moist. NECK: No JVD. Patient moves neck without restriction. CARDIO: Rhythm regular. Normal rate. No murmur, rub, or gallop. Pulses equal bilaterally in the upper and lower extremity. No lower extremity edema. PULM: Lungs clear to auscultation in all jacobson. No wheezes, rales, or rhonchi. No conversational dyspnea. No splinting, stridor, or accessory muscle use. GI/: Abdomen is soft and non-tender. Normoactive bowel sounds. Right lower extremity: DP and PT pulses are intact. Sensation intact over lower extremity. Tenderness over the hip and decreased range of motion of the hip otherwise grossly intact strength. Leg is shortened and rotated SKIN: Warm and dry. Normal turgor. No rash or lesions appreciated. PSYCH: Mood, affect, and interaction is appropriate to the setting. Constitutional Vital Signs, click to edit/add: Last Vital Signs Temp 98.7 F 11/22/23 13:19 Pulse 96 H 11/22/23 17:50 Resp 16 11/22/23 17:50 BP 160/79 H 11/22/23 17:30 Pulse Ox 96 11/22/23 17:50 O2 Del Method Nasal Cannula 11/22/23 13:20 O2 Flow Rate 3 11/22/23 16:31 Course Vital Signs Vital signs: Vital Signs Temperature 98.7 F 11/22/23 13:19 Pulse Rate 96 H 11/22/23 13:19 Respiratory Rate 18 11/22/23 13:19 Blood Pressure 172/84 H 11/22/23 13:19 Pulse Oximetry 97 11/22/23 13:19 Oxygen Delivery Method Nasal Cannula 11/22/23 13:19 Oxygen Delivery Flow Rate 3 11/22/23 13:19 Temperature 98.7 F 11/22/23 13:19 Pulse Rate 96 H 11/22/23 17:50 Respiratory Rate 16 11/22/23 17:50 Blood Pressure 160/79 H 11/22/23 17:30 Pulse Oximetry 96 11/22/23 17:50 Oxygen Delivery Method Nasal Cannula 11/22/23 13:20 Oxygen Delivery Flow Rate 3 11/22/23 16:31 Medical Decision Making MDM Narrative Medical decision making narrative: 73-year-old female to the emergency department with chief complaint of pain in her hip after trying to get out of her chair. Vital stable, the patient is afebrile. Right lower extremity is neurovascular intact however appears fractured/dislocated clinically. Will obtain an x-ray. Patient agrees with this plan. X-ray shows anterior dislocation of the right hip. I did discuss via telephone with Dr. Hollingsworth the on-call orthopedic surgeon. He recommended reduction. Reduction attempt was made however could not be reduced at the bedside with good sedation. I did call and discussed with Dr. Eaton who is on-call for the patient's operating orthopedic surgeon at [facility]. Patient had a retainer cup as part of the prosthesis that will not allow reduction at the bedside. They will accept the patient in transfer. Case was discussed with the on-call hospitalist Dr. Pickard who agrees to except the patient. Procedural Sedation Indication: Hip dislocation Contraindications: None Last p.o.: Greater than 4 hours prior to ASA class: III Airway Assessment: No acute Verbal and written consent was obtained. Risks of sedation specifically aspiration, arrest, need for intubation, airway support, allergic reaction were discussed. Patient's n.p.o. status is acceptable for this emergency procedure. ASA class is acceptable for this emergency procedure. Appropriate labs and imaging were reviewed. Appropriate procedure and side was identified. Timeout was performed. Crash cart at the bedside. Advanced airway equipment at the bedside. Patient is on monitor worker, continuous pulse oximetry, end-tidal capnography. Medications: Propofol 70 mg Patient tolerated the sedation well and there were no serious complications. Specifically the patient had no cardiac arrhythmia, required no airway support, and returned to baseline. Garry Naqvi, DO Dislocation Reduction Indication: Hip dislocation Contraindication: None The right lower EXTR was neurovascularly intact prior to procedure. Verbal and written consent was obtained. Risks of neurovascular compromise, failed procedure, fracture were discussed. Timeout was performed. Correct site was identified. Technique: [employer] [place] Successful reduction was obtained clinically. Imaging was obtained and confirmed successful reduction. The right lower EXTR was neurovascularly intact after the procedure. Patient tolerated the procedure well and there were no immediate complications. Garry Naqvi, Medical Records Medical records reviewed: Yes I reviewed the patient's medical records Lab Data Lab results reviewed: Yes I reviewed the patient's lab results Imaging Data Imaging: Attestation: I have reviewed the pertinent imaging results. Radiologist's impression: ITS Impressions Hip/Pelvis X-Ray 11/22/23 13:22 IMPRESSION: Dislocated right femoral prosthesis. No evidence of fracture. This is a change compared to CT scan 03/12/2017. Electronically authenticated by: DARIEL HAWKINS Date: 11/22/2023 14:53 Chest X-Ray 11/22/23 14:26 IMPRESSION: 1. Cardiomediastinal contours are stable. Heart size is mildly prominent. 2. Mild central vascular crowding/congestion with early edema pattern superimposed upon upper lobe predominant emphysema noted. There is no overt failure. No sizable effusion or pneumothorax. 3. Background emphysematous changes may also be present. 4. Prior right glenohumeral arthroplasty. Osseous structures are grossly stable. Electronically authenticated by: VINNIE CEBALLOS Date: 11/22/2023 16:01 Hip X-Ray 11/22/23 14:41 IMPRESSION: Persistent dislocation. Electronically authenticated by: DARIEL HAWKINS Date: 11/22/2023 16:34 ECG Data Attestation: ?I have reviewed the pertinent ECG results. Discharge Plan Discharge Chief Complaint: Extremity Injury, Lower Clinical Impression: Dislocation, hip Patient Disposition: [facility] Time of Disposition Decision: 18:26 Discharge Location: [facility]
== END 2023-11-23 00:02 | disposition short-term general hospital (02) ==
PROVIDERS: Emergency Provider Emergency Medicine; PCP Family Medicine
DX: T84.020A Dislocation of internal right hip prosthesis, initial encounter (principal); W07.XXXA Fall from chair, initial encounter
CPT/HCPCS: 27265; 51702; 71045; 73501; 73502; 93005; 96374; 96375; 96376; 99285; J1885; J2405; J2704; J3010